=== PATIENT | female | born 1940 | race Caucasian/White ===

== ENCOUNTER 2016-07-13 13:02 | Outpatient (RCR) | payer MEDICARE, OTHER ==
--- OUTSIDE RECORDS SUMMARY | 2016-04-15 10:08 | XMS REPORT | Continuity of Care Document ---
Author Author [facility] Organization [facility] Address Unknown Phone Unavailable Care Team Providers Care Costume Shop Manager Name Role Phone KELLY CALVERT PCP Insurance Providers Payer Name Policy Number Subscriber Name Relationship [employer] [id number] Alexander Muhammad 18 Self / Same As Patient [employer] [id number] Alexander Muhammad 18 Self / Same As Patient Problems No problem information available. Medications No medication information available. Social History Social History Problem Response Recorded Date/Time Recent Foreign Travel No 04/06/2016 11:35am Hospital Discharge Instructions Current inpatient/outpatient. Discharge instructions are currently unavailable. Plan of Care Prescriptions Functional Status No functional status results. Allergies, Adverse Reactions, Alerts No allergy information available. Immunizations No immunization records. Vital Signs No known vital signs results. Results Laboratory Results Test Name Result Units Flags Reference Collection Date/Time Result Date/ Time Comments White Blood Count 7.6 10^3/uL 4.3-11.0 04/01/2016 3:34pm 04/01/2016 3: 42pm Red Blood Count 3.79 10^6/uL L 4.35-5.85 04/01/2016 3:34pm 04/01/2016 3: 42pm Hemoglobin 9.9 G/DL L 11.5-16.0 04/01/2016 3:34pm 04/01/2016 3:42pm Hematocrit 32 % L 35-52 04/01/2016 3:34pm 04/01/2016 3:42pm Mean Corpuscular Volume 83 FL 80-99 04/01/2016 3:3404/01/2016 3: 42pm Mean Corpuscular Hemoglobin 26 PG 25-34 04/01/2016 3:34pm 04/01/2016 3: 42pm Mean Corpuscular Hemoglobin Concent 31 G/DL L 32-36 04/01/2016 3:34 3:42pm Red Cell Distribution Width 15.6 % H 10.0-14.5 04/01/2016 3:34pm 2015 3:42pm Platelet Count 334 10^3/uL 130-400 04/01/2016 3:3404/01/2016 3:42pm Mean Platelet Volume 8.6 FL 7.4-10.4 04/01/2016 3:3404/01/2016 3: 42pm Neutrophils (%) (Auto) 62 % 42-75 04/01/2016 3:04/01/2016 3:42pm Lymphocytes (%) (Auto) 23 % 12-44 04/01/2016 3:04/01/2016 3:42pm Monocytes (%) (Auto) 11 % 0-12 04/01/2016 3:3404/01/2016 3:42pm Eosinophils (%) (Auto) 4 % 0-10 04/01/2016 3:3404/01/2016 3:42pm Basophils (%) (Auto) 1 % 0-10 04/01/2016 3:04/01/2016 3:42pm Neutrophils # (Auto) 4.7 X 10^3 1.8-7.8 04/01/2016 3:34pm 04/01/2016 3: 42pm Lymphocytes # (Auto) 1.7 X 10^3 1.0-4.0 04/01/2016 3:34pm 04/01/2016 3: 42pm Monocytes # (Auto) 0.9 X 10^3 0.0-1.0 04/01/2016 3:3404/01/2016 3: 42pm Eosinophils # (Auto) 0.3 10^3/uL 0.0-0.3 04/01/2016 3:34pm 04/01/2016 3 :42pm Basophils # (Auto) 0.0 10^3/uL 0.0-0.1 04/01/2016 3:3404/01/2016 3: 42pm Sodium Level 142 MMOL/L 135-145 04/01/2016 3:3404/01/2016 4:41pm Potassium Level 4.4 MMOL/L 3.6-5.0 04/01/2016 3:3404/01/2016 4:41pm Chloride Level 108 MMOL/L H 98-107 04/01/2016 3:3404/01/2016 4:41pm Carbon Dioxide Level 23 MMOL/L 21-04/01/2016 3:3404/01/2016 4: 41pm Anion Gap 11 MMOL/L 5-14 04/01/2016 3:3404/01/2016 4:41pm Blood Urea Nitrogen 13 MG/DL 7-04/01/2016 3:04/01/2016 4:41pm Creatinine 0.98 MG/DL 0.60-1.30 04/01/2016 3:3404/01/2016 4:41pm BUN/Creatinine Ratio 13 04/01/2016 3:04/01/2016 4:41pm Estimat Glomerular Filtration Rate 55 04/01/2016 3:04/01/2016 4:41pm GFR INTERPRETIVE DATA UNITS FOR ESTIMATED GFR (eGFR): mL/min/1.73 M2 REFERENCE RANGE FOR ESTIMATED GFR (eGFR) eGFR NORMAL eGFR >60 MODERATELY DECREASED eGFR 30-59 SEVERLY DECREASED eGFR 15-29 KIDNEY FAILURE <15 (OR DIALYSIS) Glucose Level 108 MG/DL H 70-105 04/01/2016 3:04/01/2016 4:41pm Calcium Level 9.2 MG/DL 8.5-10.1 04/01/2016 3:04/01/2016 4:41pm Total Bilirubin 0.3 MG/DL 0.1-1.0 04/01/2016 3:04/01/2016 4:41pm Alkaline Phosphatase 98 U/L 40-136 04/01/2016 3:04/01/2016 4:41pm Aspartate Amino Transf (AST/SGOT) 13 U/L 5-34 04/01/2016 3:342015 4:41pm Alanine Aminotransferase (ALT/SGPT) 14 U/L 0-55 04/01/2016 3:3404/01 4:41pm Total Protein 6.5 G/DL 6.4-8.2 04/01/2016 3:34pm 04/01/2016 4:41pm Albumin 4.0 G/DL 3.2-4.5 04/01/2016 3:34pm 04/01/2016 4:41pm Procedures No known history of procedures. Encounters Encounter Location Arrival/Admit Date Discharge/Depart Date Attending Provider Registered Clinic [facility] 04/06/16 11:38am SAMANTHA SHANKS Discharged Recurring [facility] 04/01/16 1:46pm 10:54am SAMANTHA SHANKS
[2016-04-19 13:47] LABS: BASOPHILS % (AUTO) 1 % (0-10); EOSINOPHILS # (AUTO) 0.3 10^3/uL (0.0-0.3); EOSINOPHILS % (AUTO) 4 % (0-10); LYMPHOCYTES # (AUTO) 1.8 X 10^3 (1.0-4.0); LYMPHOCYTES % (AUTO) 23 % (12-44); MEAN CORPUSCULAR HEMOGLOBIN 28 PG (25-34); MEAN CORPUSCULAR HGB CONC 33 G/DL (32-36); MEAN CORPUSCULAR VOLUME 83 FL (80-99); MEAN PLATELET VOLUME 9.5 FL (7.4-10.4); MONOCYTES # (AUTO) 0.7 X 10^3 (0.0-1.0); MONOCYTES % (AUTO) 9 % (0-12); NEUTROPHILS # (AUTO) 4.8 X 10^3 (1.8-7.8); NEUTROPHILS % (AUTO) 64 % (42-75); PLATELET COUNT 291 10^3/uL (130-400); RED BLOOD COUNT 3.75 10^6/uL (4.35-5.85); RED CELL DISTRIBUTION WIDTH 15.9 % (10.0-14.5); WHITE BLOOD COUNT 7.6 10^3/uL (4.3-11.0)
[2016-04-19 14:46] LABS: ALBUMIN 3.8 G/DL (3.2-4.5); BILIRUBIN,TOTAL 0.2 MG/DL (0.1-1.0); CALCIUM 8.8 MG/DL (8.5-10.1); CREATININE SERUM 0.99 MG/DL (0.60-1.30); POTASSIUM 4.4 MMOL/L (3.6-5.0); TOTAL PROTEIN 6.2 G/DL (6.4-8.2)
[2016-04-26 13:51] LABS: BASOPHILS % (AUTO) 0 % (0-10); EOSINOPHILS # (AUTO) 0.4 10^3/uL (0.0-0.3); EOSINOPHILS % (AUTO) 4 % (0-10); LYMPHOCYTES # (AUTO) 1.7 X 10^3 (1.0-4.0); LYMPHOCYTES % (AUTO) 20 % (12-44); MEAN CORPUSCULAR HEMOGLOBIN 27 PG (25-34); MEAN CORPUSCULAR HGB CONC 33 G/DL (32-36); MEAN CORPUSCULAR VOLUME 83 FL (80-99); MONOCYTES # (AUTO) 0.9 X 10^3 (0.0-1.0); MONOCYTES % (AUTO) 10 % (0-12); NEUTROPHILS # (AUTO) 5.9 X 10^3 (1.8-7.8); NEUTROPHILS % (AUTO) 66 % (42-75); PLATELET COUNT 358 10^3/uL (130-400); RED BLOOD COUNT 3.89 10^6/uL (4.35-5.85); RED CELL DISTRIBUTION WIDTH 15.3 % (10.0-14.5); WHITE BLOOD COUNT 8.9 10^3/uL (4.3-11.0)
[2016-04-26 15:08] LABS: CALCIUM 8.6 MG/DL (8.5-10.1); CREATININE SERUM 0.95 MG/DL (0.60-1.30); POTASSIUM 4.7 MMOL/L (3.6-5.0)
[2016-05-03 11:27] LABS: BASOPHILS % (AUTO) 1 % (0-10); EOSINOPHILS # (AUTO) 0.3 10^3/uL (0.0-0.3); EOSINOPHILS % (AUTO) 3 % (0-10); LYMPHOCYTES # (AUTO) 1.6 X 10^3 (1.0-4.0); LYMPHOCYTES % (AUTO) 21 % (12-44); MEAN CORPUSCULAR HEMOGLOBIN 27 PG (25-34); MEAN CORPUSCULAR HGB CONC 32 G/DL (32-36); MEAN CORPUSCULAR VOLUME 83 FL (80-99); MEAN PLATELET VOLUME 8.8 FL (7.4-10.4); MONOCYTES # (AUTO) 0.7 X 10^3 (0.0-1.0); MONOCYTES % (AUTO) 9 % (0-12); NEUTROPHILS # (AUTO) 5.1 X 10^3 (1.8-7.8); NEUTROPHILS % (AUTO) 67 % (42-75); PLATELET COUNT 305 10^3/uL (130-400); RED BLOOD COUNT 3.84 10^6/uL (4.35-5.85); RED CELL DISTRIBUTION WIDTH 16.3 % (10.0-14.5); WHITE BLOOD COUNT 7.6 10^3/uL (4.3-11.0)
[2016-05-03 11:47] LABS: ANION GAP 10 MMOL/L (5-14); BLOOD UREA NITROGEN 12 MG/DL (7-18); BUN/CREATININE RATIO 14; CALCIUM 9.1 MG/DL (8.5-10.1); CARBON DIOXIDE 24 MMOL/L (21-32); CHLORIDE 105 MMOL/L (98-107); CREATININE SERUM 0.83 MG/DL (0.60-1.30); GFR ESTIMATED > 60; GLUCOSE 118 MG/DL (70-105); POTASSIUM 4.5 MMOL/L (3.6-5.0); SODIUM 139 MMOL/L (135-145)
[2016-05-10 10:09] LABS: BASOPHILS % (AUTO) 1 % (0-10); EOSINOPHILS # (AUTO) 0.3 10^3/uL (0.0-0.3); EOSINOPHILS % (AUTO) 4 % (0-10); LYMPHOCYTES # (AUTO) 1.7 X 10^3 (1.0-4.0); LYMPHOCYTES % (AUTO) 24 % (12-44); MEAN CORPUSCULAR HGB CONC 33 G/DL (32-36); MEAN CORPUSCULAR VOLUME 84 FL (80-99); MEAN PLATELET VOLUME 9.3 FL (7.4-10.4); MONOCYTES # (AUTO) 0.6 X 10^3 (0.0-1.0); MONOCYTES % (AUTO) 9 % (0-12); NEUTROPHILS # (AUTO) 4.3 X 10^3 (1.8-7.8); NEUTROPHILS % (AUTO) 62 % (42-75); PLATELET COUNT 316 10^3/uL (130-400); RED BLOOD COUNT 3.82 10^6/uL (4.35-5.85); WHITE BLOOD COUNT 6.9 10^3/uL (4.3-11.0)
[2016-05-10 10:11] LABS: MEAN CORPUSCULAR HEMOGLOBIN 27 PG (25-34)
[2016-05-10 10:48] LABS: ALBUMIN 3.9 G/DL (3.2-4.5); BILIRUBIN,TOTAL 0.4 MG/DL (0.1-1.0); CALCIUM 8.3 MG/DL (8.5-10.1); CREATININE SERUM 0.94 MG/DL (0.60-1.30); MAGNESIUM 2.1 MG/DL (1.8-2.4); POTASSIUM 4.1 MMOL/L (3.6-5.0); TOTAL PROTEIN 6.4 G/DL (6.4-8.2)
[2016-05-17 10:46] LABS: BASOPHILS % (AUTO) 0 % (0-10); EOSINOPHILS # (AUTO) 0.3 10^3/uL (0.0-0.3); EOSINOPHILS % (AUTO) 4 % (0-10); LYMPHOCYTES % (AUTO) 24 % (12-44); MEAN CORPUSCULAR HEMOGLOBIN 27 PG (25-34); MEAN CORPUSCULAR HGB CONC 33 G/DL (32-36); MEAN CORPUSCULAR VOLUME 83 FL (80-99); MEAN PLATELET VOLUME 8.9 FL (7.4-10.4); MONOCYTES # (AUTO) 0.9 X 10^3 (0.0-1.0); MONOCYTES % (AUTO) 11 % (0-12); NEUTROPHILS # (AUTO) 4.9 X 10^3 (1.8-7.8); NEUTROPHILS % (AUTO) 60 % (42-75); PLATELET COUNT 254 10^3/uL (130-400); RED BLOOD COUNT 3.94 10^6/uL (4.35-5.85); RED CELL DISTRIBUTION WIDTH 17.5 % (10.0-14.5); WHITE BLOOD COUNT 8.1 10^3/uL (4.3-11.0)
[2016-05-17 11:22] LABS: ANION GAP 8 MMOL/L (5-14); BLOOD UREA NITROGEN 11 MG/DL (7-18); BUN/CREATININE RATIO 12; CARBON DIOXIDE 26 MMOL/L (21-32); CHLORIDE 106 MMOL/L (98-107); CREATININE SERUM 0.89 MG/DL (0.60-1.30); GFR ESTIMATED > 60; GLUCOSE 134 MG/DL (70-105); POTASSIUM 4.7 MMOL/L (3.6-5.0); SODIUM 140 MMOL/L (135-145)
[2016-05-24 14:09] LABS: BASOPHILS % (AUTO) 1 % (0-10); EOSINOPHILS # (AUTO) 0.3 10^3/uL (0.0-0.3); EOSINOPHILS % (AUTO) 4 % (0-10); LYMPHOCYTES # (AUTO) 1.6 X 10^3 (1.0-4.0); LYMPHOCYTES % (AUTO) 21 % (12-44); MEAN CORPUSCULAR HEMOGLOBIN 28 PG (25-34); MEAN CORPUSCULAR HGB CONC 33 G/DL (32-36); MEAN CORPUSCULAR VOLUME 84 FL (80-99); MEAN PLATELET VOLUME 9.3 FL (7.4-10.4); MONOCYTES # (AUTO) 0.7 X 10^3 (0.0-1.0); MONOCYTES % (AUTO) 10 % (0-12); NEUTROPHILS # (AUTO) 5.2 X 10^3 (1.8-7.8); NEUTROPHILS % (AUTO) 66 % (42-75); PLATELET COUNT 206 10^3/uL (130-400); RED BLOOD COUNT 3.78 10^6/uL (4.35-5.85); RED CELL DISTRIBUTION WIDTH 18.9 % (10.0-14.5); WHITE BLOOD COUNT 7.8 10^3/uL (4.3-11.0)
[2016-05-24 14:30] LABS: CALCIUM 8.7 MG/DL (8.5-10.1); CREATININE SERUM 0.96 MG/DL (0.60-1.30); POTASSIUM 4.1 MMOL/L (3.6-5.0)
[2016-05-31 09:03] LABS: BASOPHILS % (AUTO) 1 % (0-10); EOSINOPHILS # (AUTO) 0.2 10^3/uL (0.0-0.3); EOSINOPHILS % (AUTO) 4 % (0-10); LYMPHOCYTES # (AUTO) 1.5 X 10^3 (1.0-4.0); LYMPHOCYTES % (AUTO) 23 % (12-44); MEAN CORPUSCULAR HEMOGLOBIN 29 PG (25-34); MEAN CORPUSCULAR HGB CONC 34 G/DL (32-36); MEAN CORPUSCULAR VOLUME 85 FL (80-99); MEAN PLATELET VOLUME 8.8 FL (7.4-10.4); MONOCYTES # (AUTO) 0.8 X 10^3 (0.0-1.0); MONOCYTES % (AUTO) 13 % (0-12); NEUTROPHILS # (AUTO) 3.9 X 10^3 (1.8-7.8); NEUTROPHILS % (AUTO) 60 % (42-75); PLATELET COUNT 250 10^3/uL (130-400); RED BLOOD COUNT 3.57 10^6/uL (4.35-5.85); RED CELL DISTRIBUTION WIDTH 20.5 % (10.0-14.5); WHITE BLOOD COUNT 6.6 10^3/uL (4.3-11.0)
[2016-05-31 09:28] LABS: ALANINE AMINOTRANSFERASE 13 U/L (0-55); ALBUMIN 3.7 G/DL (3.2-4.5); ANION GAP 6 MMOL/L (5-14); ASPARTATE AMINO TRANSFERASE 18 U/L (5-34); BILIRUBIN,TOTAL 0.4 MG/DL (0.1-1.0); BLOOD UREA NITROGEN 11 MG/DL (7-18); BUN/CREATININE RATIO 13; CALCIUM 8.2 MG/DL (8.5-10.1); CARBON DIOXIDE 24 MMOL/L (21-32); CHLORIDE 110 MMOL/L (98-107); CREATININE SERUM 0.86 MG/DL (0.60-1.30); GFR ESTIMATED > 60; GLUCOSE 184 MG/DL (70-105); MAGNESIUM 1.9 MG/DL (1.8-2.4); POTASSIUM 4.1 MMOL/L (3.6-5.0); SODIUM 140 MMOL/L (135-145)
[2016-06-07 11:38] LABS: BASOPHILS % (AUTO) 0 % (0-10); EOSINOPHILS # (AUTO) 0.3 10^3/uL (0.0-0.3); EOSINOPHILS % (AUTO) 3 % (0-10); LYMPHOCYTES # (AUTO) 1.9 X 10^3 (1.0-4.0); LYMPHOCYTES % (AUTO) 21 % (12-44); MEAN CORPUSCULAR HEMOGLOBIN 29 PG (25-34); MEAN CORPUSCULAR HGB CONC 34 G/DL (32-36); MEAN CORPUSCULAR VOLUME 85 FL (80-99); MEAN PLATELET VOLUME 9.1 FL (7.4-10.4); MONOCYTES # (AUTO) 0.9 X 10^3 (0.0-1.0); MONOCYTES % (AUTO) 10 % (0-12); NEUTROPHILS # (AUTO) 5.8 X 10^3 (1.8-7.8); NEUTROPHILS % (AUTO) 65 % (42-75); PLATELET COUNT 270 10^3/uL (130-400); RED BLOOD COUNT 3.89 10^6/uL (4.35-5.85); RED CELL DISTRIBUTION WIDTH 20.2 % (10.0-14.5); WHITE BLOOD COUNT 8.9 10^3/uL (4.3-11.0)
[2016-06-07 12:38] LABS: ANION GAP 8 MMOL/L (5-14); BLOOD UREA NITROGEN 14 MG/DL (7-18); BUN/CREATININE RATIO 16; CALCIUM 8.8 MG/DL (8.5-10.1); CARBON DIOXIDE 24 MMOL/L (21-32); CHLORIDE 106 MMOL/L (98-107); GFR ESTIMATED > 60; GLUCOSE 148 MG/DL (70-105); POTASSIUM 4.3 MMOL/L (3.6-5.0); SODIUM 138 MMOL/L (135-145)
[2016-06-14 12:00] LABS: BASOPHILS % (AUTO) 0 % (0-10); EOSINOPHILS # (AUTO) 0.2 10^3/uL (0.0-0.3); EOSINOPHILS % (AUTO) 3 % (0-10); LYMPHOCYTES # (AUTO) 1.6 X 10^3 (1.0-4.0); LYMPHOCYTES % (AUTO) 19 % (12-44); MEAN CORPUSCULAR HEMOGLOBIN 28 PG (25-34); MEAN CORPUSCULAR HGB CONC 33 G/DL (32-36); MEAN CORPUSCULAR VOLUME 87 FL (80-99); MONOCYTES # (AUTO) 0.7 X 10^3 (0.0-1.0); MONOCYTES % (AUTO) 9 % (0-12); NEUTROPHILS # (AUTO) 5.6 X 10^3 (1.8-7.8); NEUTROPHILS % (AUTO) 69 % (42-75); PLATELET COUNT 215 10^3/uL (130-400); RED BLOOD COUNT 3.67 10^6/uL (4.35-5.85); RED CELL DISTRIBUTION WIDTH 21.9 % (10.0-14.5); WHITE BLOOD COUNT 8.2 10^3/uL (4.3-11.0)
[2016-06-14 12:21] LABS: CALCIUM 8.7 MG/DL (8.5-10.1); CREATININE SERUM 0.96 MG/DL (0.60-1.30); POTASSIUM 4.4 MMOL/L (3.6-5.0)
[2016-06-21 09:39] LABS: BASOPHILS % (AUTO) 0 % (0-10); EOSINOPHILS # (AUTO) 0.3 10^3/uL (0.0-0.3); EOSINOPHILS % (AUTO) 4 % (0-10); LYMPHOCYTES # (AUTO) 1.7 X 10^3 (1.0-4.0); LYMPHOCYTES % (AUTO) 25 % (12-44); MEAN CORPUSCULAR HEMOGLOBIN 29 PG (25-34); MEAN CORPUSCULAR HGB CONC 33 G/DL (32-36); MEAN CORPUSCULAR VOLUME 89 FL (80-99); MEAN PLATELET VOLUME 9.1 FL (7.4-10.4); MONOCYTES # (AUTO) 0.8 X 10^3 (0.0-1.0); MONOCYTES % (AUTO) 12 % (0-12); NEUTROPHILS # (AUTO) 3.9 X 10^3 (1.8-7.8); NEUTROPHILS % (AUTO) 59 % (42-75); PLATELET COUNT 253 10^3/uL (130-400); RED BLOOD COUNT 3.48 10^6/uL (4.35-5.85); WHITE BLOOD COUNT 6.7 10^3/uL (4.3-11.0)
[2016-06-21 10:08] LABS: ALANINE AMINOTRANSFERASE 19 U/L (0-55); ALBUMIN 3.8 G/DL (3.2-4.5); ANION GAP 9 MMOL/L (5-14); ASPARTATE AMINO TRANSFERASE 22 U/L (5-34); BILIRUBIN,TOTAL 0.5 MG/DL (0.1-1.0); BLOOD UREA NITROGEN 9 MG/DL (7-18); BUN/CREATININE RATIO 10; CALCIUM 8.5 MG/DL (8.5-10.1); CARBON DIOXIDE 23 MMOL/L (21-32); CHLORIDE 110 MMOL/L (98-107); CREATININE SERUM 0.87 MG/DL (0.60-1.30); GFR ESTIMATED > 60; GLUCOSE 150 MG/DL (70-105); POTASSIUM 4.2 MMOL/L (3.6-5.0); SODIUM 142 MMOL/L (135-145)
[2016-06-21 14:20] LABS: %SAT TOTAL IRON BINDING CAPIC 13 % (15-50); TIBC 380 ug/dL (280-380)
[2016-06-21 15:58] LABS: UIBC 331 ug/dL (55-450)
[2016-06-22 07:54] LABS: FERRITIN 23 ng/mL (15-150)
[2016-06-28 11:07] LABS: BASOPHILS % (AUTO) 0 % (0-10); EOSINOPHILS # (AUTO) 0.3 10^3/uL (0.0-0.3); EOSINOPHILS % (AUTO) 3 % (0-10); LYMPHOCYTES # (AUTO) 1.7 X 10^3 (1.0-4.0); LYMPHOCYTES % (AUTO) 20 % (12-44); MEAN CORPUSCULAR HEMOGLOBIN 30 PG (25-34); MEAN CORPUSCULAR HGB CONC 33 G/DL (32-36); MEAN CORPUSCULAR VOLUME 90 FL (80-99); MEAN PLATELET VOLUME 8.7 FL (7.4-10.4); MONOCYTES # (AUTO) 0.8 X 10^3 (0.0-1.0); MONOCYTES % (AUTO) 10 % (0-12); NEUTROPHILS # (AUTO) 5.7 X 10^3 (1.8-7.8); NEUTROPHILS % (AUTO) 67 % (42-75); PLATELET COUNT 233 10^3/uL (130-400); RED BLOOD COUNT 3.48 10^6/uL (4.35-5.85); RED CELL DISTRIBUTION WIDTH 22.2 % (10.0-14.5); WHITE BLOOD COUNT 8.6 10^3/uL (4.3-11.0)
[2016-06-28 11:31] LABS: ANION GAP 8 MMOL/L (5-14); BLOOD UREA NITROGEN 10 MG/DL (7-18); BUN/CREATININE RATIO 12; CALCIUM 8.5 MG/DL (8.5-10.1); CARBON DIOXIDE 23 MMOL/L (21-32); CHLORIDE 107 MMOL/L (98-107); CREATININE SERUM 0.86 MG/DL (0.60-1.30); GFR ESTIMATED > 60; GLUCOSE 165 MG/DL (70-105); POTASSIUM 4.3 MMOL/L (3.6-5.0); SODIUM 138 MMOL/L (135-145)
[2016-07-06 11:59] LABS: BASOPHILS % (AUTO) 0 % (0-10); EOSINOPHILS # (AUTO) 0.3 10^3/uL (0.0-0.3); EOSINOPHILS % (AUTO) 4 % (0-10); LYMPHOCYTES # (AUTO) 1.5 X 10^3 (1.0-4.0); LYMPHOCYTES % (AUTO) 20 % (12-44); MEAN CORPUSCULAR HEMOGLOBIN 31 PG (25-34); MEAN CORPUSCULAR HGB CONC 33 G/DL (32-36); MEAN CORPUSCULAR VOLUME 92 FL (80-99); MEAN PLATELET VOLUME 9.7 FL (7.4-10.4); MONOCYTES # (AUTO) 0.6 X 10^3 (0.0-1.0); MONOCYTES % (AUTO) 9 % (0-12); NEUTROPHILS % (AUTO) 68 % (42-75); PLATELET COUNT 196 10^3/uL (130-400); RED BLOOD COUNT 3.22 10^6/uL (4.35-5.85); RED CELL DISTRIBUTION WIDTH 22.9 % (10.0-14.5); WHITE BLOOD COUNT 7.4 10^3/uL (4.3-11.0)
[2016-07-06 12:19] LABS: CALCIUM 8.3 MG/DL (8.5-10.1); CREATININE SERUM 0.91 MG/DL (0.60-1.30)
[~2016-07-13] VITALS: Ht 161.3 cm; Wt 89.8 kg
[~2016-07-13 13:02] MED LIST: D5W 500 ML IV (CANCER CTR) 500 ML IV SCH; FAMOTIDINE 20MG/2ML IV (CANCER CTR) IV SCH; FOSAPREPITANT 150 MG/NS 150 MG IVPB (CANCER CTR) IV PRN; LORazepam 0.5 MG (ATIVAN) TABLET CANCER CTR PO PRN; OXALIPLATIN 160 MG in D5W 250 ML IVPB (CANCER CTR) 250 ML IV SCH; PALONOSETRON 0.25 MG, DEXAMETHASONE 10 MG/NS 50 ML IVPB IV PRN
[2016-07-13 13:17] LABS: BASOPHILS % (AUTO) 0 % (0-10); EOSINOPHILS # (AUTO) 0.3 10^3/uL (0.0-0.3); EOSINOPHILS % (AUTO) 5 % (0-10); LYMPHOCYTES # (AUTO) 1.7 X 10^3 (1.0-4.0); LYMPHOCYTES % (AUTO) 23 % (12-44); MEAN CORPUSCULAR HEMOGLOBIN 32 PG (25-34); MEAN CORPUSCULAR HGB CONC 33 G/DL (32-36); MEAN CORPUSCULAR VOLUME 94 FL (80-99); MEAN PLATELET VOLUME 8.6 FL (7.4-10.4); MONOCYTES # (AUTO) 0.9 X 10^3 (0.0-1.0); MONOCYTES % (AUTO) 12 % (0-12); NEUTROPHILS # (AUTO) 4.2 X 10^3 (1.8-7.8); NEUTROPHILS % (AUTO) 59 % (42-75); PLATELET COUNT 254 10^3/uL (130-400); RED BLOOD COUNT 3.39 10^6/uL (4.35-5.85); RED CELL DISTRIBUTION WIDTH 23.8 % (10.0-14.5); WHITE BLOOD COUNT 7.1 10^3/uL (4.3-11.0)
[2016-07-13 13:41] LABS: ALANINE AMINOTRANSFERASE 17 U/L (0-55); ALBUMIN 3.8 G/DL (3.2-4.5); ANION GAP 9 MMOL/L (5-14); ASPARTATE AMINO TRANSFERASE 20 U/L (5-34); BILIRUBIN,TOTAL 0.5 MG/DL (0.1-1.0); BLOOD UREA NITROGEN 7 MG/DL (7-18); BUN/CREATININE RATIO 8; CALCIUM 8.2 MG/DL (8.5-10.1); CARBON DIOXIDE 20 MMOL/L (21-32); CHLORIDE 108 MMOL/L (98-107); CREATININE SERUM 0.89 MG/DL (0.60-1.30); GFR ESTIMATED > 60; GLUCOSE 159 MG/DL (70-105); MAGNESIUM 2.1 MG/DL (1.8-2.4); POTASSIUM 4.2 MMOL/L (3.6-5.0); SODIUM 137 MMOL/L (135-145); TOTAL PROTEIN 6.2 G/DL (6.4-8.2)
== END 2016-07-14 | disposition home or self-care (01) ==
LOC: ONC 13:02
PROVIDERS: ATTEND Internal Medicine Hematology & Oncology
DX: Z51.11 Encounter for antineoplastic chemotherapy (principal); C18.0 Malignant neoplasm of cecum; E11.9 Type 2 diabetes mellitus without complications; K44.9 Diaphragmatic hernia without obstruction or gangrene; Z87.891 Personal history of nicotine dependence
CPT/HCPCS: 36415; 36591; 80048; 80053; 82728; 83540; 83735; 85025; 87493; 96367; 96375; 96413; 96415; 99213

== ENCOUNTER 2016-10-04 14:51 | Outpatient (RCR) | payer MEDICARE, OTHER ==
--- OUTSIDE RECORDS SUMMARY | 2016-07-19 14:44 | XMS REPORT | Continuity of Care Document ---
Author Author [facility] Organization [facility] Address Unknown Phone Unavailable Care Team Providers Care Valet Service Attendant Name Role Phone KELLY CALVERT PCP Insurance Providers Payer Name Policy Number Subscriber Name Relationship [employer] [id number] Alexander Muhammad 18 Self / Same As Patient [employer] [id number] Alexander Muhammad 18 Self / Same As Patient Problems No problem information available. Medications No medication information available. Social History Social History Problem Response Recorded Date/Time Recent Foreign Travel No 04/15/2016 10:03am Hospital Discharge Instructions No hospital discharge instructions. Plan of Care Prescriptions See Medication Section Functional Status No functional status results. Allergies, Adverse Reactions, Alerts No known allergies. Immunizations No immunization records. Vital Signs Acute Vital Signs Vital Response Date/Time Height 5 ft 3.5 in Weight 198 lb Body Mass Index 34.5 kg/m^2 Results Laboratory Results Test Name Result Units Flags Reference Collection Date/Time Result Date/ Time Comments White Blood Count 7.1 10^3/uL 4.3-11.0 07/13/2016 1:12pm 07/13/2016 1: 18pm Red Blood Count 3.39 10^6/uL L 4.35-5.85 07/13/2016 1:12pm 07/13/2016 1: 18pm Hemoglobin 10.7 G/DL L 11.5-16.0 07/13/2016 1:12pm 07/13/2016 1:18pm Hematocrit 32 % L 35-52 07/13/2016 1:12pm 07/13/2016 1:18pm Mean Corpuscular Volume 94 FL 80-99 07/13/2016 1:12pm 07/13/2016 1: 18pm Mean Corpuscular Hemoglobin 32 PG 25-34 07/13/2016 1:12pm 07/13/2016 1: 18pm Mean Corpuscular Hemoglobin Concent 33 G/DL 32-36 07/13/2016 1:12pm 09/2016 1:18pm Red Cell Distribution Width 23.8 % H 10.0-14.5 07/13/2016 1:12pm 2016 1:18pm Platelet Count 254 10^3/uL 130-400 07/13/2016 1:12pm 07/13/2016 1:18pm Mean Platelet Volume 8.6 FL 7.4-10.4 07/13/2016 1:12pm 07/13/2016 1: 18pm Neutrophils (%) (Auto) 59 % 42-75 07/13/2016 1:12pm 07/13/2016 1:18pm Lymphocytes (%) (Auto) 23 % 12-44 07/13/2016 1:12pm 07/13/2016 1:18pm Monocytes (%) (Auto) 12 % 0-12 07/13/2016 1:12pm 07/13/2016 1:18pm Eosinophils (%) (Auto) 5 % 0-10 07/13/2016 1:12pm 07/13/2016 1:18pm Basophils (%) (Auto) 0 % 0-10 07/13/2016 1:12pm 07/13/2016 1:18pm Neutrophils # (Auto) 4.2 X 10^3 1.8-7.8 07/13/2016 1:12pm 07/13/2016 1: 18pm Lymphocytes # (Auto) 1.7 X 10^3 1.0-4.0 07/13/2016 1:12pm 07/13/2016 1: 18pm Monocytes # (Auto) 0.9 X 10^3 0.0-1.0 07/13/2016 1:12pm 07/13/2016 1: 18pm Eosinophils # (Auto) 0.3 10^3/uL 0.0-0.3 07/13/2016 1:07/13/2016 1 :18pm Basophils # (Auto) 0.0 10^3/uL 0.0-0.1 07/13/2016 1:07/13/2016 1: 18pm Sodium Level 137 MMOL/L 135-145 07/13/2016 1:07/13/2016 1:41pm Potassium Level 4.2 MMOL/L 3.6-5.0 07/13/2016 1:07/13/2016 1:41pm Chloride Level 108 MMOL/L H 98-107 07/13/2016 1:07/13/2016 1:41pm Carbon Dioxide Level 20 MMOL/L L 21-32 07/13/2016 1:07/13/2016 1: 41pm Anion Gap 9 MMOL/L 5-14 07/13/2016 1:07/13/2016 1:41pm Blood Urea Nitrogen 7 MG/DL 7-18 07/13/2016 1:12p07/13/2016 1:41pm Creatinine 0.89 MG/DL 0.60-1.30 07/13/2016 1:07/13/2016 1:41pm BUN/Creatinine Ratio 8 07/13/2016 1:07/13/2016 1:41pm Estimat Glomerular Filtration Rate > 60 07/13/2016 1:2016 1:41pm GFR INTERPRETIVE DATA UNITS FOR ESTIMATED GFR (eGFR): mL/min/1.73 M2 REFERENCE RANGE FOR ESTIMATED GFR (eGFR) eGFR NORMAL eGFR >60 MODERATELY DECREASED eGFR 30-59 SEVERLY DECREASED eGFR 15-29 KIDNEY FAILURE <15 (OR DIALYSIS) Glucose Level 159 MG/DL H 70-105 07/13/2016 1:07/13/2016 1:41pm Calcium Level 8.2 MG/DL L 8.5-10.1 07/13/2016 1:07/13/2016 1:41pm Magnesium Level 2.1 MG/DL 1.8-2.4 07/13/2016 1:07/13/2016 1:41pm Total Bilirubin 0.5 MG/DL 0.1-1.0 07/13/2016 1:12p07/13/2016 1:41pm Alkaline Phosphatase 138 U/L H 40-136 07/13/2016 1:12pm 07/13/2016 1: 41pm Aspartate Amino Transf (AST/SGOT) 20 U/L 5-34 07/13/2016 1:12pm 2016 1:41pm Alanine Aminotransferase (ALT/SGPT) 17 U/L 0-55 07/13/2016 1:12pm 07/13 1:41pm Total Protein 6.2 G/DL L 6.4-8.2 07/13/2016 1:12pm 07/13/2016 1:41pm Albumin 3.8 G/DL 3.2-4.5 07/13/2016 1:12pm 07/13/2016 1:41pm Ferritin 23 ng/mL 15-150 06/21/2016 10:25am 06/22/2016 7:54am Test performed at [facility], CLIA# [id number] [place] [address] Iron Level 49 ug/dL 35-180 06/21/2016 10:25am 06/21/2016 3:58pm Transferrin % Saturation 13 % L 15-50 06/21/2016 10:25am 06/21/2016 3: 58pm Total Iron Binding Capacity 380 ug/dL 280-380 06/21/2016 10:25am 2015 3:58pm Unsaturated Iron Binding Capacity 331 ug/dL 55-450 06/21/2016 10:25am 06/21/2016 3:58pm Test performed at [facility], CLIA# [id number] [address] [place] [address] Procedures No known history of procedures. Encounters Encounter Location Arrival/Admit Date Discharge/Depart Date Attending Provider Discharged Recurring [facility] 07/13/16 1:02pm 11:59pm SAMANTHA SHANKS
[2016-07-19 14:58] LABS: BASOPHILS % (AUTO) 0 % (0-10); EOSINOPHILS # (AUTO) 0.2 10^3/uL (0.0-0.3); EOSINOPHILS % (AUTO) 2 % (0-10); LYMPHOCYTES # (AUTO) 1.9 X 10^3 (1.0-4.0); LYMPHOCYTES % (AUTO) 21 % (12-44); MEAN CORPUSCULAR HEMOGLOBIN 31 PG (25-34); MEAN CORPUSCULAR HGB CONC 33 G/DL (32-36); MEAN CORPUSCULAR VOLUME 95 FL (80-99); MEAN PLATELET VOLUME 9.1 FL (7.4-10.4); MONOCYTES % (AUTO) 11 % (0-12); NEUTROPHILS # (AUTO) 5.9 X 10^3 (1.8-7.8); NEUTROPHILS % (AUTO) 66 % (42-75); PLATELET COUNT 248 10^3/uL (130-400); RED BLOOD COUNT 3.63 10^6/uL (4.35-5.85); RED CELL DISTRIBUTION WIDTH 21.5 % (10.0-14.5)
[2016-07-19 15:55] LABS: CREATININE SERUM 1.04 MG/DL (0.60-1.30); POTASSIUM 4.9 MMOL/L (3.6-5.0)
[2016-07-26 13:50] LABS: BASOPHILS % (AUTO) 1 % (0-10); EOSINOPHILS # (AUTO) 0.3 10^3/uL (0.0-0.3); EOSINOPHILS % (AUTO) 3 % (0-10); LYMPHOCYTES # (AUTO) 1.7 X 10^3 (1.0-4.0); LYMPHOCYTES % (AUTO) 21 % (12-44); MEAN CORPUSCULAR HEMOGLOBIN 32 PG (25-34); MEAN CORPUSCULAR HGB CONC 34 G/DL (32-36); MEAN CORPUSCULAR VOLUME 96 FL (80-99); MEAN PLATELET VOLUME 9.1 FL (7.4-10.4); MONOCYTES # (AUTO) 0.9 X 10^3 (0.0-1.0); MONOCYTES % (AUTO) 11 % (0-12); NEUTROPHILS # (AUTO) 5.3 X 10^3 (1.8-7.8); NEUTROPHILS % (AUTO) 65 % (42-75); PLATELET COUNT 212 10^3/uL (130-400); RED BLOOD COUNT 3.21 10^6/uL (4.35-5.85); RED CELL DISTRIBUTION WIDTH 21.6 % (10.0-14.5); WHITE BLOOD COUNT 8.2 10^3/uL (4.3-11.0)
[2016-07-26 14:25] LABS: ANION GAP 9 MMOL/L (5-14); BLOOD UREA NITROGEN 10 MG/DL (7-18); BUN/CREATININE RATIO 11; CALCIUM 8.6 MG/DL (8.5-10.1); CARBON DIOXIDE 23 MMOL/L (21-32); CHLORIDE 110 MMOL/L (98-107); CREATININE SERUM 0.89 MG/DL (0.60-1.30); GFR ESTIMATED > 60; GLUCOSE 162 MG/DL (70-105); POTASSIUM 4.5 MMOL/L (3.6-5.0); SODIUM 142 MMOL/L (135-145)
[2016-08-02 10:26] LABS: BASOPHILS % (AUTO) 0 % (0-10); EOSINOPHILS # (AUTO) 0.3 10^3/uL (0.0-0.3); EOSINOPHILS % (AUTO) 4 % (0-10); LYMPHOCYTES # (AUTO) 1.3 X 10^3 (1.0-4.0); LYMPHOCYTES % (AUTO) 17 % (12-44); MEAN CORPUSCULAR HEMOGLOBIN 33 PG (25-34); MEAN CORPUSCULAR HGB CONC 34 G/DL (32-36); MEAN CORPUSCULAR VOLUME 98 FL (80-99); MEAN PLATELET VOLUME 9.2 FL (7.4-10.4); MONOCYTES # (AUTO) 0.9 X 10^3 (0.0-1.0); MONOCYTES % (AUTO) 12 % (0-12); NEUTROPHILS # (AUTO) 5.1 X 10^3 (1.8-7.8); NEUTROPHILS % (AUTO) 67 % (42-75); PLATELET COUNT 254 10^3/uL (130-400); RED BLOOD COUNT 3.22 10^6/uL (4.35-5.85); RED CELL DISTRIBUTION WIDTH 22.3 % (10.0-14.5); WHITE BLOOD COUNT 7.5 10^3/uL (4.3-11.0)
[2016-08-02 10:57] LABS: ALBUMIN 3.6 G/DL (3.2-4.5); BILIRUBIN,TOTAL 0.4 MG/DL (0.1-1.0); CALCIUM 8.3 MG/DL (8.5-10.1); CREATININE SERUM 0.92 MG/DL (0.60-1.30); MAGNESIUM 1.9 MG/DL (1.8-2.4); POTASSIUM 4.2 MMOL/L (3.6-5.0); TOTAL PROTEIN 5.9 G/DL (6.4-8.2)
[2016-08-09 13:58] LABS: BASOPHILS % (AUTO) 0 % (0-10); EOSINOPHILS # (AUTO) 0.3 10^3/uL (0.0-0.3); EOSINOPHILS % (AUTO) 4 % (0-10); LYMPHOCYTES # (AUTO) 1.9 X 10^3 (1.0-4.0); LYMPHOCYTES % (AUTO) 22 % (12-44); MEAN CORPUSCULAR HEMOGLOBIN 34 PG (25-34); MEAN CORPUSCULAR HGB CONC 34 G/DL (32-36); MEAN CORPUSCULAR VOLUME 99 FL (80-99); MONOCYTES # (AUTO) 0.9 X 10^3 (0.0-1.0); MONOCYTES % (AUTO) 10 % (0-12); NEUTROPHILS # (AUTO) 5.5 X 10^3 (1.8-7.8); NEUTROPHILS % (AUTO) 64 % (42-75); PLATELET COUNT 197 10^3/uL (130-400); RED CELL DISTRIBUTION WIDTH 20.1 % (10.0-14.5); WHITE BLOOD COUNT 8.6 10^3/uL (4.3-11.0)
[2016-08-09 15:01] LABS: CALCIUM 8.5 MG/DL (8.5-10.1); CREATININE SERUM 0.98 MG/DL (0.60-1.30); POTASSIUM 4.5 MMOL/L (3.6-5.0)
[2016-08-16 11:01] LABS: BASOPHILS % (AUTO) 0 % (0-10); EOSINOPHILS # (AUTO) 0.3 10^3/uL (0.0-0.3); EOSINOPHILS % (AUTO) 4 % (0-10); LYMPHOCYTES # (AUTO) 1.6 X 10^3 (1.0-4.0); LYMPHOCYTES % (AUTO) 22 % (12-44); MEAN CORPUSCULAR HEMOGLOBIN 34 PG (25-34); MEAN CORPUSCULAR HGB CONC 34 G/DL (32-36); MEAN CORPUSCULAR VOLUME 99 FL (80-99); MEAN PLATELET VOLUME 9.4 FL (7.4-10.4); MONOCYTES # (AUTO) 0.9 X 10^3 (0.0-1.0); MONOCYTES % (AUTO) 12 % (0-12); NEUTROPHILS # (AUTO) 4.7 X 10^3 (1.8-7.8); NEUTROPHILS % (AUTO) 63 % (42-75); PLATELET COUNT 197 10^3/uL (130-400); RED BLOOD COUNT 3.22 10^6/uL (4.35-5.85); RED CELL DISTRIBUTION WIDTH 20.4 % (10.0-14.5); WHITE BLOOD COUNT 7.5 10^3/uL (4.3-11.0)
[2016-08-16 12:13] LABS: ANION GAP 9 MMOL/L (5-14); BLOOD UREA NITROGEN 11 MG/DL (7-18); BUN/CREATININE RATIO 13; CALCIUM 8.8 MG/DL (8.5-10.1); CARBON DIOXIDE 24 MMOL/L (21-32); CHLORIDE 107 MMOL/L (98-107); CREATININE SERUM 0.87 MG/DL (0.60-1.30); GFR ESTIMATED > 60; GLUCOSE 134 MG/DL (70-105); POTASSIUM 4.5 MMOL/L (3.6-5.0); SODIUM 140 MMOL/L (135-145)
[2016-08-23 11:11] LABS: BASOPHILS % (AUTO) 0 % (0-10); EOSINOPHILS # (AUTO) 0.3 10^3/uL (0.0-0.3); EOSINOPHILS % (AUTO) 4 % (0-10); LYMPHOCYTES # (AUTO) 1.4 X 10^3 (1.0-4.0); LYMPHOCYTES % (AUTO) 21 % (12-44); MEAN CORPUSCULAR HEMOGLOBIN 34 PG (25-34); MEAN CORPUSCULAR HGB CONC 34 G/DL (32-36); MEAN CORPUSCULAR VOLUME 101 FL (80-99); MEAN PLATELET VOLUME 9.6 FL (7.4-10.4); MONOCYTES # (AUTO) 0.7 X 10^3 (0.0-1.0); MONOCYTES % (AUTO) 11 % (0-12); NEUTROPHILS # (AUTO) 4.1 X 10^3 (1.8-7.8); NEUTROPHILS % (AUTO) 64 % (42-75); PLATELET COUNT 201 10^3/uL (130-400); RED BLOOD COUNT 3.08 10^6/uL (4.35-5.85); RED CELL DISTRIBUTION WIDTH 19.8 % (10.0-14.5); WHITE BLOOD COUNT 6.4 10^3/uL (4.3-11.0)
[2016-08-23 11:29] LABS: ALBUMIN 3.6 G/DL (3.2-4.5); BILIRUBIN,TOTAL 0.5 MG/DL (0.1-1.0); CALCIUM 8.4 MG/DL (8.5-10.1); CREATININE SERUM 1.03 MG/DL (0.60-1.30); MAGNESIUM 1.8 MG/DL (1.8-2.4); POTASSIUM 4.4 MMOL/L (3.6-5.0)
[2016-08-30 14:09] LABS: BASOPHILS % (AUTO) 0 % (0-10); EOSINOPHILS # (AUTO) 0.3 10^3/uL (0.0-0.3); EOSINOPHILS % (AUTO) 4 % (0-10); LYMPHOCYTES # (AUTO) 1.8 X 10^3 (1.0-4.0); LYMPHOCYTES % (AUTO) 20 % (12-44); MEAN CORPUSCULAR HEMOGLOBIN 34 PG (25-34); MEAN CORPUSCULAR HGB CONC 34 G/DL (32-36); MEAN CORPUSCULAR VOLUME 101 FL (80-99); MEAN PLATELET VOLUME 9.8 FL (7.4-10.4); MONOCYTES # (AUTO) 0.9 X 10^3 (0.0-1.0); MONOCYTES % (AUTO) 10 % (0-12); NEUTROPHILS # (AUTO) 6.1 X 10^3 (1.8-7.8); NEUTROPHILS % (AUTO) 67 % (42-75); PLATELET COUNT 194 10^3/uL (130-400); RED BLOOD COUNT 3.26 10^6/uL (4.35-5.85); RED CELL DISTRIBUTION WIDTH 18.6 % (10.0-14.5); WHITE BLOOD COUNT 9.2 10^3/uL (4.3-11.0)
[2016-08-30 15:17] LABS: CALCIUM 8.6 MG/DL (8.5-10.1); CREATININE SERUM 0.97 MG/DL (0.60-1.30); POTASSIUM 4.9 MMOL/L (3.6-5.0)
[2016-09-06 12:58] LABS: BASOPHILS % (AUTO) 0 % (0-10); EOSINOPHILS # (AUTO) 0.3 10^3/uL (0.0-0.3); EOSINOPHILS % (AUTO) 4 % (0-10); LYMPHOCYTES # (AUTO) 1.8 X 10^3 (1.0-4.0); LYMPHOCYTES % (AUTO) 25 % (12-44); MEAN CORPUSCULAR HEMOGLOBIN 34 PG (25-34); MEAN CORPUSCULAR HGB CONC 34 G/DL (32-36); MEAN CORPUSCULAR VOLUME 101 FL (80-99); MEAN PLATELET VOLUME 9.2 FL (7.4-10.4); MONOCYTES # (AUTO) 0.9 X 10^3 (0.0-1.0); MONOCYTES % (AUTO) 12 % (0-12); NEUTROPHILS # (AUTO) 4.3 X 10^3 (1.8-7.8); NEUTROPHILS % (AUTO) 59 % (42-75); PLATELET COUNT 169 10^3/uL (130-400); RED CELL DISTRIBUTION WIDTH 18.9 % (10.0-14.5); WHITE BLOOD COUNT 7.3 10^3/uL (4.3-11.0)
[2016-09-06 13:41] LABS: CALCIUM 8.7 MG/DL (8.5-10.1); CREATININE SERUM 0.96 MG/DL (0.60-1.30); POTASSIUM 4.4 MMOL/L (3.6-5.0)
[2016-09-13 11:22] LABS: POTASSIUM 4.3 MMOL/L (3.6-5.0)
[2016-09-13 11:23] LABS: ALBUMIN 3.5 G/DL (3.2-4.5); BILIRUBIN,TOTAL 0.6 MG/DL (0.1-1.0); CALCIUM 8.5 MG/DL (8.5-10.1); CREATININE SERUM 0.96 MG/DL (0.60-1.30); MAGNESIUM 1.7 MG/DL (1.8-2.4)
[2016-09-13 11:50] LABS: BASOPHILS % (AUTO) 0 % (0-10); EOSINOPHILS # (AUTO) 0.3 10^3/uL (0.0-0.3); EOSINOPHILS % (AUTO) 4 % (0-10); LYMPHOCYTES # (AUTO) 1.5 X 10^3 (1.0-4.0); LYMPHOCYTES % (AUTO) 24 % (12-44); MEAN CORPUSCULAR HEMOGLOBIN 35 PG (25-34); MEAN CORPUSCULAR HGB CONC 35 G/DL (32-36); MEAN CORPUSCULAR VOLUME 102 FL (80-99); MEAN PLATELET VOLUME 10.3 FL (7.4-10.4); MONOCYTES # (AUTO) 0.7 X 10^3 (0.0-1.0); MONOCYTES % (AUTO) 12 % (0-12); NEUTROPHILS # (AUTO) 3.7 X 10^3 (1.8-7.8); NEUTROPHILS % (AUTO) 60 % (42-75); PLATELET COUNT 201 10^3/uL (130-400); RED BLOOD COUNT 3.08 10^6/uL (4.35-5.85); WHITE BLOOD COUNT 6.2 10^3/uL (4.3-11.0)
[2016-09-20 11:28] LABS: BASOPHILS % (AUTO) 0 % (0-10); EOSINOPHILS # (AUTO) 0.3 10^3/uL (0.0-0.3); EOSINOPHILS % (AUTO) 3 % (0-10); LYMPHOCYTES # (AUTO) 1.7 X 10^3 (1.0-4.0); LYMPHOCYTES % (AUTO) 21 % (12-44); MEAN CORPUSCULAR HEMOGLOBIN 34 PG (25-34); MEAN CORPUSCULAR HGB CONC 33 G/DL (32-36); MEAN CORPUSCULAR VOLUME 103 FL (80-99); MEAN PLATELET VOLUME 9.3 FL (7.4-10.4); MONOCYTES # (AUTO) 0.9 X 10^3 (0.0-1.0); MONOCYTES % (AUTO) 11 % (0-12); NEUTROPHILS # (AUTO) 5.3 X 10^3 (1.8-7.8); NEUTROPHILS % (AUTO) 65 % (42-75); PLATELET COUNT 168 10^3/uL (130-400); RED BLOOD COUNT 3.24 10^6/uL (4.35-5.85); RED CELL DISTRIBUTION WIDTH 17.6 % (10.0-14.5); WHITE BLOOD COUNT 8.2 10^3/uL (4.3-11.0)
[2016-09-20 11:54] LABS: CALCIUM 8.6 MG/DL (8.5-10.1); CREATININE SERUM 0.91 MG/DL (0.60-1.30); POTASSIUM 4.6 MMOL/L (3.6-5.0)
[2016-09-27 14:11] LABS: BASOPHILS % (AUTO) 1 % (0-10); EOSINOPHILS # (AUTO) 0.2 10^3/uL (0.0-0.3); EOSINOPHILS % (AUTO) 4 % (0-10); LYMPHOCYTES # (AUTO) 1.6 X 10^3 (1.0-4.0); LYMPHOCYTES % (AUTO) 24 % (12-44); MEAN CORPUSCULAR HEMOGLOBIN 35 PG (25-34); MEAN CORPUSCULAR HGB CONC 34 G/DL (32-36); MEAN CORPUSCULAR VOLUME 103 FL (80-99); MEAN PLATELET VOLUME 9.4 FL (7.4-10.4); MONOCYTES # (AUTO) 0.8 X 10^3 (0.0-1.0); MONOCYTES % (AUTO) 12 % (0-12); NEUTROPHILS % (AUTO) 61 % (42-75); PLATELET COUNT 166 10^3/uL (130-400); WHITE BLOOD COUNT 6.6 10^3/uL (4.3-11.0)
[2016-09-27 15:04] LABS: CALCIUM 8.4 MG/DL (8.5-10.1); CREATININE SERUM 1.04 MG/DL (0.60-1.30); POTASSIUM 4.3 MMOL/L (3.6-5.0)
[~2016-10-04] VITALS: Ht 161.3 cm; Wt 96.2 kg
[~2016-10-04 14:51] MED LIST changes: +OXALIPLATIN 100 MG, OXALIPLATIN (GENERIC) 30 MG in D5W 250 ML IVPB (CANCER CTR) 250 ML IV SCH
[2016-10-04 15:20] LABS: BASOPHILS % (AUTO) 1 % (0-10); EOSINOPHILS # (AUTO) 0.3 10^3/uL (0.0-0.3); EOSINOPHILS % (AUTO) 5 % (0-10); LYMPHOCYTES # (AUTO) 1.6 X 10^3 (1.0-4.0); LYMPHOCYTES % (AUTO) 26 % (12-44); MEAN CORPUSCULAR HEMOGLOBIN 35 PG (25-34); MEAN CORPUSCULAR HGB CONC 34 G/DL (32-36); MEAN CORPUSCULAR VOLUME 103 FL (80-99); MEAN PLATELET VOLUME 9.4 FL (7.4-10.4); MONOCYTES # (AUTO) 0.7 X 10^3 (0.0-1.0); MONOCYTES % (AUTO) 11 % (0-12); NEUTROPHILS # (AUTO) 3.6 X 10^3 (1.8-7.8); NEUTROPHILS % (AUTO) 58 % (42-75); PLATELET COUNT 193 10^3/uL (130-400); RED BLOOD COUNT 3.04 10^6/uL (4.35-5.85); RED CELL DISTRIBUTION WIDTH 17.5 % (10.0-14.5); WHITE BLOOD COUNT 6.1 10^3/uL (4.3-11.0)
[2016-10-04 16:04] LABS: ALBUMIN 3.6 G/DL (3.2-4.5); BILIRUBIN,TOTAL 0.5 MG/DL (0.1-1.0); CALCIUM 8.3 MG/DL (8.5-10.1); CREATININE SERUM 1.12 MG/DL (0.60-1.30); MAGNESIUM 1.9 MG/DL (1.8-2.4); POTASSIUM 3.8 MMOL/L (3.6-5.0); TOTAL PROTEIN 6.2 G/DL (6.4-8.2)
== END 2016-10-17 | disposition home or self-care (01) ==
LOC: ONC 14:51
PROVIDERS: ATTEND Internal Medicine Hematology & Oncology
DX: Z51.11 Encounter for antineoplastic chemotherapy (principal); C18.0 Malignant neoplasm of cecum; D50.9 Iron deficiency anemia, unspecified; E11.9 Type 2 diabetes mellitus without complications; K44.9 Diaphragmatic hernia without obstruction or gangrene; R19.7 Diarrhea, unspecified; Z87.891 Personal history of nicotine dependence
CPT/HCPCS: 36415; 36591; 80048; 80053; 82378; 82728; 83735; 85025; 96367; 96375; 96413; 99213

== ENCOUNTER 2017-02-08 13:49 | Outpatient (RCR) | payer MEDICARE, OTHER ==
[2016-12-28 14:45] LABS: BASOPHILS % (AUTO) 0 % (0-10); EOSINOPHILS # (AUTO) 0.4 10^3/uL (0.0-0.3); EOSINOPHILS % (AUTO) 4 % (0-10); LYMPHOCYTES # (AUTO) 1.9 X 10^3 (1.0-4.0); LYMPHOCYTES % (AUTO) 22 % (12-44); MEAN CORPUSCULAR HEMOGLOBIN 31 PG (25-34); MEAN CORPUSCULAR HGB CONC 34 G/DL (32-36); MEAN CORPUSCULAR VOLUME 91 FL (80-99); MEAN PLATELET VOLUME 9.9 FL (7.4-10.4); MONOCYTES # (AUTO) 0.6 X 10^3 (0.0-1.0); MONOCYTES % (AUTO) 7 % (0-12); NEUTROPHILS # (AUTO) 5.5 X 10^3 (1.8-7.8); NEUTROPHILS % (AUTO) 66 % (42-75); PLATELET COUNT 258 10^3/uL (130-400); RED BLOOD COUNT 3.99 10^6/uL (4.35-5.85); RED CELL DISTRIBUTION WIDTH 12.6 % (10.0-14.5); WHITE BLOOD COUNT 8.3 10^3/uL (4.3-11.0)
[2016-12-28 15:10] LABS: BILIRUBIN,TOTAL 0.5 MG/DL (0.1-1.0); CREATININE SERUM 1.13 MG/DL (0.60-1.30); ICTERUS 0.4 (-100-1.9); MAGNESIUM 2.1 MG/DL (1.8-2.4); POTASSIUM 4.3 MMOL/L (3.6-5.0); TOTAL PROTEIN 7.1 GM/DL (6.4-8.2)
== END 2017-02-13 | disposition home or self-care (01) ==
LOC: ONC 13:49
PROVIDERS: ATTEND Internal Medicine Hematology & Oncology
DX: C18.0 Malignant neoplasm of cecum (principal); E11.9 Type 2 diabetes mellitus without complications; K44.9 Diaphragmatic hernia without obstruction or gangrene; Z87.891 Personal history of nicotine dependence; Z45.2 Encounter for adjustment and management of vascular access device
CPT/HCPCS: 36591; 80053; 82378; 83735; 85025; 96523; 99213

== ENCOUNTER 2017-04-07 09:37 | Outpatient (RCR) | payer MEDICARE, OTHER ==
[2017-04-07 10:02] LABS: BASOPHILS # (AUTO) 0.1 10^3/uL (0.0-0.1); BASOPHILS % (AUTO) 1 % (0-10); EOSINOPHILS # (AUTO) 0.4 10^3/uL (0.0-0.3); EOSINOPHILS % (AUTO) 4 % (0-10); LYMPHOCYTES # (AUTO) 1.6 X 10^3 (1.0-4.0); LYMPHOCYTES % (AUTO) 17 % (12-44); MEAN CORPUSCULAR HEMOGLOBIN 30 PG (25-34); MEAN CORPUSCULAR HGB CONC 33 G/DL (32-36); MEAN CORPUSCULAR VOLUME 89 FL (80-99); MEAN PLATELET VOLUME 9.7 FL (7.4-10.4); MONOCYTES # (AUTO) 0.7 X 10^3 (0.0-1.0); MONOCYTES % (AUTO) 8 % (0-12); NEUTROPHILS # (AUTO) 6.5 X 10^3 (1.8-7.8); NEUTROPHILS % (AUTO) 70 % (42-75); PLATELET COUNT 279 10^3/uL (130-400); RED BLOOD COUNT 4.15 10^6/uL (4.35-5.85); RED CELL DISTRIBUTION WIDTH 13.3 % (10.0-14.5); WHITE BLOOD COUNT 9.2 10^3/uL (4.3-11.0)
[2017-04-07 10:43] LABS: BILIRUBIN,TOTAL 0.6 MG/DL (0.1-1.0); CREATININE SERUM 0.96 MG/DL (0.60-1.30); POTASSIUM 4.5 MMOL/L (3.6-5.0); TOTAL PROTEIN 7.2 GM/DL (6.4-8.2)
== END 2017-04-07 10:56 | disposition home or self-care (01) ==
LOC: ONC 09:37
PROVIDERS: ATTEND Internal Medicine Hematology & Oncology
DX: C18.0 Malignant neoplasm of cecum (principal); E11.9 Type 2 diabetes mellitus without complications; K44.9 Diaphragmatic hernia without obstruction or gangrene; Z87.891 Personal history of nicotine dependence; Z45.2 Encounter for adjustment and management of vascular access device
CPT/HCPCS: 36591; 80053; 82378; 82728; 85025; 96523

== ENCOUNTER 2017-06-27 09:47 | Outpatient (RCR) | payer MEDICARE, OTHER ==
[2017-06-27 10:08] LABS: BASOPHILS # (AUTO) 0.1 10^3/uL (0.0-0.1); BASOPHILS % (AUTO) 1 % (0-10); EOSINOPHILS # (AUTO) 0.4 10^3/uL (0.0-0.3); EOSINOPHILS % (AUTO) 5 % (0-10); HEMATOCRIT 36 % (35-52); HEMOGLOBIN 12.2 G/DL (11.5-16.0); LYMPHOCYTES # (AUTO) 1.7 X 10^3 (1.0-4.0); LYMPHOCYTES % (AUTO) 19 % (12-44); MEAN CORPUSCULAR HEMOGLOBIN 30 PG (25-34); MEAN CORPUSCULAR HGB CONC 34 G/DL (32-36); MEAN CORPUSCULAR VOLUME 89 FL (80-99); MEAN PLATELET VOLUME 9.9 FL (7.4-10.4); MONOCYTES # (AUTO) 0.7 X 10^3 (0.0-1.0); MONOCYTES % (AUTO) 8 % (0-12); NEUTROPHILS % (AUTO) 67 % (42-75); PLATELET COUNT 290 10^3/uL (130-400); RED BLOOD COUNT 4.07 10^6/uL (4.35-5.85); RED CELL DISTRIBUTION WIDTH 13.5 % (10.0-14.5); WHITE BLOOD COUNT 8.9 10^3/uL (4.3-11.0)
[2017-06-27 10:27] LABS: BILIRUBIN,TOTAL 0.5 MG/DL (0.1-1.0); CALCIUM 8.9 MG/DL (8.5-10.1); CREATININE SERUM 1.05 MG/DL (0.60-1.30); POTASSIUM 4.4 MMOL/L (3.6-5.0)
== END 2017-07-10 | disposition home or self-care (01) ==
LOC: ONC 09:47
PROVIDERS: ATTEND Internal Medicine Hematology & Oncology
DX: C18.0 Malignant neoplasm of cecum (principal); E11.9 Type 2 diabetes mellitus without complications; K44.9 Diaphragmatic hernia without obstruction or gangrene; Z87.891 Personal history of nicotine dependence; Z45.2 Encounter for adjustment and management of vascular access device
CPT/HCPCS: 36415; 36591; 80053; 82378; 83036; 85025; 96523; 99213

== ENCOUNTER → 2017-06-27 | Outpatient (CLI) | payer MEDICARE, OTHER | LOC: LAB 09:51 | PROVIDERS: ATTEND Nurse Practitioner Family | DX: E11.9 Type 2 diabetes mellitus without complications (principal) | CPT/HCPCS: 83036 ==

== ENCOUNTER → 2017-08-02 | Outpatient (CLI) | payer MEDICARE, OTHER ==
--- NOTE | 2017-08-02 14:53 | Diagnostic Imaging Report ---
INDICATION: Colorectal carcinoma. The patient has increasing CEA levels. This study is performed to evaluate for recurrence. Serum glucose level at time of injection was 205 mg/dL. TECHNIQUE: Patient was administered 14 mCi of F-18 FDG intravenously and PET imaging was performed. Noncontrast CT imaging was performed from the top of the skull through the pelvis for the purpose of anatomic correlation and attenuation correction. COMPARISON: Correlation is made with prior PET/CT from 04/06/2016. FINDINGS: Normal symmetric activity throughout the brain is identified. No abnormal activity within the neck soft tissues is identified. The chest is unremarkable. There is some increased activity identified in the midline anterior abdomen at the area of the patient's incision and scar with SUV values reaching approximately 5. This area is somewhat masslike. The degree of masslike density is greater than typically seen with postsurgical scarring and the possibility of focal recurrence at this location cannot be entirely excluded. No abnormal focus of hypermetabolism at the area of the patient's anastomosis in the left abdomen is identified. There is a small focus of activity in the lower midline of the pelvis with SUV of approximately 4-5, nonspecific. This is near the vaginal cuff. The activity appears to lie just outside of the sigmoid colon. This is nonspecific, and no definite focal CT correlate is identified. No definite hypermetabolic lymph nodes are seen. Study is otherwise unremarkable. IMPRESSION: Postsurgical changes of partial colon resection. There is abnormal increased uptake identified in the anterior abdominal wall near the patient's incision, indeterminate. This is greater than typically seen for postsurgical changes and the possibility of focal recurrence at this location cannot be entirely excluded. There is a second site of mild uptake in the lower midline of the pelvis, as described above and indeterminate. Continued PET/CT followup is recommended. Dictated by: Dictated on workstation # [id number]
== END ==
LOC: RAD 10:05
PROVIDERS: ATTEND Nurse Practitioner Adult Health
DX: R97.8 Other abnormal tumor markers (principal); R10.2 Pelvic and perineal pain; Z85.048 Personal history of other malignant neoplasm of rectum, rectosigmoid junction, and anus; Z90.49 Acquired absence of other specified parts of digestive tract

== ENCOUNTER → 2017-08-26 | Outpatient (CLI) | payer MEDICARE, OTHER ==
--- NOTE | 2017-08-26 12:32 | Diagnostic Imaging Report ---
PROCEDURE: CT abdomen and pelvis without contrast. TECHNIQUE: Multiple contiguous axial images were obtained through the abdomen and pelvis without the use of intravenous contrast. INDICATION: Colon carcinoma. Patient complains of right-sided abdominal pain. COMPARISON: Correlation is made with PET/CT performed on 08/02/2017. FINDINGS: Imaging through the lung bases demonstrate some enlarging nodules in the right lower lobe when compared with the PET/CT one month earlier. The most anterior nodule is 12 mm and was barely visible on recent PET/CT. There is somewhat ill-defined low density in the right lobe of the liver measuring 17 mm, stable when compared with prior study. No other liver mass is seen. The gallbladder appears to be surgically absent. The pancreas and spleen are unremarkable. No adrenal mass is detected. The kidneys are unremarkable. The aorta is non-aneurysmal. The area of soft tissue thickening and increased hypermetabolism involving the midline anterior abdominal wall is again noted measuring approximately 3.7 cm AP x 4.1 cm transverse compared with 3.1 cm x 4.5 cm. Bowel loops appear stable. There is moderate stool in the colon. Postsurgical changes are again noted. There is no ascites. Uterus appears to be surgically absent. The bladder is unremarkable. IMPRESSION: 1. Enlarging right lower lobe pulmonary nodules, suggestive of worsening metastatic disease. 2. Midline anterior abdominal wall soft tissue thickening correlating with the PET/CT abnormality. Abdominal wall recurrence again cannot be entirely excluded. This would be amenable to CT-guided biopsy if needed. Dictated by: Dictated on workstation # [id number]
== END ==
LOC: RAD 11:38
PROVIDERS: ATTEND Nurse Practitioner Adult Health
DX: C18.0 Malignant neoplasm of cecum (principal); R91.1 Solitary pulmonary nodule; R19.00 Intra-abdominal and pelvic swelling, mass and lump, unspecified site
CPT/HCPCS: 74176

== ENCOUNTER 2017-09-07 08:25 | Day surgery (SDC) | payer MEDICARE, OTHER ==
[2017-09-07] VITALS (11 sets, daily range): BP systolic 92–154; BP diastolic 63–96
[~2017-09-07] VITALS: Ht 161.3 cm; Wt 95.7 kg
[2017-09-07] MEDS ORDERED: LIDOCAINE 1% INJ 20 ML (XYLOCAINE) VIAL INJ ONE (08:45)
[2017-09-07] MEDS ORDERED: GLYB5TAB6 PO (08:55)
[2017-09-07 08:59] LABS: HEMOGLOBIN 12.5 G/DL (11.5-16.0); MEAN PLATELET VOLUME 9.8 FL (7.4-10.4); RED BLOOD COUNT 4.11 10^6/uL (4.35-5.85); RED CELL DISTRIBUTION WIDTH 13.4 % (10.0-14.5); WHITE BLOOD COUNT 9.3 10^3/uL (4.3-11.0)
[2017-09-07 09:06] LABS: INR 0.9 (0.8-1.4); PROTHROMBIN TIME PATIENT 12.5 SEC (12.2-14.7)
[2017-09-07] MEDS ORDERED: LIDOCAINE 1% INJ 50 ML (XYLOCAINE) VIAL ONE (09:43)
[2017-09-07] MEDS ORDERED: HYDROcodone/APAP 5 MG/325 MG (LORTAB) TAB PO PRN (10:45)
--- NOTE | 2017-09-07 10:56 | Diagnostic Imaging Report ---
INDICATION: Colorectal carcinoma. Patient presents for CT-guided biopsy of midline abdominal wall mass. COMPARISON: Correlation is made with PET/CT study from 08/02/2017. FINDINGS: After informed written consent was obtained from the patient, patient was brought to the CT suite and placed on the table in the supine position. Axial imaging through the abdomen was performed to evaluate appropriate entry site. The skin of the midline lower abdomen was prepped and draped in usual sterile fashion. Small amount of 1% lidocaine was utilized for local anesthesia. An 18-gauge coaxial Achieve needle was advanced and placed with its tip along the margin of the abnormal soft tissue in the midline anterior abdominal wall at the area of increased hypermetabolism noted on recent PET/CT scan. Total of three core biopsies were obtained. Needle was withdrawn and hemostasis was obtained using manual compression. Patient tolerated the procedure well and left department in stable condition. IMPRESSION: Successful CT-guided core biopsy of the area of abnormal hypermetabolism involving the midline anterior abdominal wall. Pathology results are currently pending. Dictated by: Dictated on workstation # [id number]
--- NOTE | 2017-09-07 11:53 | Pre-Procedure Progress Note ---
Pre-Procedure Progress Note H&P Reviewed The H&P was reviewed, patient examined and no changes noted. Date H&P Reviewed: Sep 07, 2017 Time H&P Reviewed: 09:00 Pre-Procedure Diagnosis: Colorectal carcinoma RUBY RAMIREZ MD Sep 07, 2017 11:53
== END 2017-09-07 12:46 | disposition home or self-care (01) ==
LOC: RAD 08:25
PROVIDERS: ATTEND Nurse Practitioner Adult Health
DX: C19 Malignant neoplasm of rectosigmoid junction (principal)
CPT/HCPCS: 36415; 77012; 82962; 85027; 85610; 85730

== ENCOUNTER 2017-10-18 10:46 | Outpatient (RCR) | payer MEDICARE, OTHER ==
[2017-07-25 10:56] LABS: BILIRUBIN,URINE NEGATIVE (NEGATIVE); CLARITY,URINE SLIGHTLY CLOUDY; COLOR,URINE YELLOW; GLUCOSE, URINE (UA) NEGATIVE (NEGATIVE); KETONES,URINE NEGATIVE (NEGATIVE); LEUKOCYTE ESTERASE ,URINE 2+ (NEGATIVE); NITRITE,URINE NEGATIVE (NEGATIVE); PH,URINE 5 (5-9); PROTEIN,URINE NEGATIVE (NEGATIVE); UROBILINOGEN,URINE NORMAL (NORMAL)
[2017-07-25 11:07] LABS: BACTERIA,URINE TRACE /HPF; RBC,URINE RARE /HPF
[2017-08-19 11:40] LABS: BILIRUBIN,URINE NEGATIVE (NEGATIVE); CLARITY,URINE SLIGHTLY CLOUDY; COLOR,URINE YELLOW; GLUCOSE, URINE (UA) NEGATIVE (NEGATIVE); KETONES,URINE NEGATIVE (NEGATIVE); LEUKOCYTE ESTERASE ,URINE 3+ (NEGATIVE); NITRITE,URINE POSITIVE (NEGATIVE); PH,URINE 5 (5-9); PROTEIN,URINE 2+ (NEGATIVE); UROBILINOGEN,URINE NORMAL (NORMAL)
[2017-08-19 11:51] LABS: BACTERIA,URINE LARGE /HPF; WBC,URINE TNTC /HPF
[2017-08-23 11:36] LABS: BASOPHILS # (AUTO) 0.1 10^3/uL (0.0-0.1); BASOPHILS % (AUTO) 1 % (0-10); EOSINOPHILS # (AUTO) 0.4 10^3/uL (0.0-0.3); EOSINOPHILS % (AUTO) 4 % (0-10); HEMATOCRIT 36 % (35-52); HEMOGLOBIN 12.5 G/DL (11.5-16.0); LYMPHOCYTES # (AUTO) 1.8 X 10^3 (1.0-4.0); LYMPHOCYTES % (AUTO) 19 % (12-44); MEAN CORPUSCULAR HEMOGLOBIN 31 PG (25-34); MEAN CORPUSCULAR HGB CONC 35 G/DL (32-36); MEAN CORPUSCULAR VOLUME 88 FL (80-99); MEAN PLATELET VOLUME 9.4 FL (7.4-10.4); MONOCYTES # (AUTO) 0.7 X 10^3 (0.0-1.0); MONOCYTES % (AUTO) 8 % (0-12); NEUTROPHILS # (AUTO) 6.7 X 10^3 (1.8-7.8); NEUTROPHILS % (AUTO) 69 % (42-75); PLATELET COUNT 344 10^3/uL (130-400); RED CELL DISTRIBUTION WIDTH 13.5 % (10.0-14.5); WHITE BLOOD COUNT 9.7 10^3/uL (4.3-11.0)
[2017-08-23 11:56] LABS: ALBUMIN 4.2 GM/DL (3.2-4.5); BILIRUBIN,TOTAL 0.4 MG/DL (0.1-1.0); CALCIUM 8.9 MG/DL (8.5-10.1); CREATININE SERUM 1.37 MG/DL (0.60-1.30); TOTAL PROTEIN 7.4 GM/DL (6.4-8.2)
[2017-09-19 10:03] LABS: BASOPHILS % (AUTO) 1 % (0-10); EOSINOPHILS # (AUTO) 0.4 10^3/uL (0.0-0.3); EOSINOPHILS % (AUTO) 5 % (0-10); HEMATOCRIT 34 % (35-52); HEMOGLOBIN 11.6 G/DL (11.5-16.0); LYMPHOCYTES # (AUTO) 1.3 X 10^3 (1.0-4.0); LYMPHOCYTES % (AUTO) 15 % (12-44); MEAN CORPUSCULAR HEMOGLOBIN 30 PG (25-34); MEAN CORPUSCULAR HGB CONC 34 G/DL (32-36); MEAN CORPUSCULAR VOLUME 89 FL (80-99); MONOCYTES # (AUTO) 0.8 X 10^3 (0.0-1.0); MONOCYTES % (AUTO) 9 % (0-12); NEUTROPHILS # (AUTO) 5.8 X 10^3 (1.8-7.8); NEUTROPHILS % (AUTO) 70 % (42-75); PLATELET COUNT 311 10^3/uL (130-400); RED BLOOD COUNT 3.86 10^6/uL (4.35-5.85); RED CELL DISTRIBUTION WIDTH 13.4 % (10.0-14.5); WHITE BLOOD COUNT 8.3 10^3/uL (4.3-11.0)
[2017-09-19 10:25] LABS: ALBUMIN 3.9 GM/DL (3.2-4.5); BILIRUBIN,TOTAL 0.5 MG/DL (0.1-1.0); CALCIUM 8.8 MG/DL (8.5-10.1); CREATININE SERUM 1.02 MG/DL (0.60-1.30); POTASSIUM 4.3 MMOL/L (3.6-5.0); TOTAL PROTEIN 6.5 GM/DL (6.4-8.2)
[2017-10-06 13:26] LABS: BASOPHILS % (AUTO) 0 % (0-10); EOSINOPHILS # (AUTO) 0.4 10^3/uL (0.0-0.3); EOSINOPHILS % (AUTO) 4 % (0-10); HEMATOCRIT 36 % (35-52); HEMOGLOBIN 12.3 G/DL (11.5-16.0); LYMPHOCYTES # (AUTO) 1.4 X 10^3 (1.0-4.0); LYMPHOCYTES % (AUTO) 15 % (12-44); MEAN CORPUSCULAR HEMOGLOBIN 30 PG (25-34); MEAN CORPUSCULAR HGB CONC 34 G/DL (32-36); MEAN CORPUSCULAR VOLUME 88 FL (80-99); MEAN PLATELET VOLUME 9.4 FL (7.4-10.4); MONOCYTES # (AUTO) 0.7 X 10^3 (0.0-1.0); MONOCYTES % (AUTO) 7 % (0-12); NEUTROPHILS # (AUTO) 6.9 X 10^3 (1.8-7.8); NEUTROPHILS % (AUTO) 74 % (42-75); PLATELET COUNT 328 10^3/uL (130-400); RED BLOOD COUNT 4.12 10^6/uL (4.35-5.85); RED CELL DISTRIBUTION WIDTH 13.2 % (10.0-14.5); WHITE BLOOD COUNT 9.3 10^3/uL (4.3-11.0)
[2017-10-06 13:43] LABS: BILIRUBIN,TOTAL 0.6 MG/DL (0.1-1.0); CALCIUM 9.1 MG/DL (8.5-10.1); CREATININE SERUM 1.03 MG/DL (0.60-1.30); POTASSIUM 4.6 MMOL/L (3.6-5.0); TOTAL PROTEIN 6.9 GM/DL (6.4-8.2)
[2017-10-11 12:05] LABS: BASOPHILS % (AUTO) 0 % (0-10); EOSINOPHILS # (AUTO) 0.4 10^3/uL (0.0-0.3); EOSINOPHILS % (AUTO) 4 % (0-10); HEMATOCRIT 35 % (35-52); LYMPHOCYTES # (AUTO) 1.3 X 10^3 (1.0-4.0); LYMPHOCYTES % (AUTO) 13 % (12-44); MEAN CORPUSCULAR HEMOGLOBIN 30 PG (25-34); MEAN CORPUSCULAR HGB CONC 35 G/DL (32-36); MEAN CORPUSCULAR VOLUME 87 FL (80-99); MEAN PLATELET VOLUME 9.1 FL (7.4-10.4); MONOCYTES # (AUTO) 0.7 X 10^3 (0.0-1.0); MONOCYTES % (AUTO) 8 % (0-12); NEUTROPHILS # (AUTO) 7.2 X 10^3 (1.8-7.8); NEUTROPHILS % (AUTO) 75 % (42-75); PLATELET COUNT 319 10^3/uL (130-400); RED BLOOD COUNT 3.97 10^6/uL (4.35-5.85); RED CELL DISTRIBUTION WIDTH 13.1 % (10.0-14.5); WHITE BLOOD COUNT 9.6 10^3/uL (4.3-11.0)
[2017-10-11 12:26] LABS: ALBUMIN 4.1 GM/DL (3.2-4.5); BILIRUBIN,TOTAL 0.5 MG/DL (0.1-1.0); CREATININE SERUM 1.01 MG/DL (0.60-1.30); POTASSIUM 4.4 MMOL/L (3.6-5.0); TOTAL PROTEIN 6.8 GM/DL (6.4-8.2)
[~2017-10-18] VITALS: Ht 161.3 cm; Wt 93.0 kg
[~2017-10-18 10:46] MED LIST changes: +ATROPINE INJ 0.4 MG/ML SDV (CANCER CENTER) INJ SCH; -D5W 500 ML IV (CANCER CTR) 500 ML IV SCH; -FAMOTIDINE 20MG/2ML IV (CANCER CTR) IV SCH; +FLUOROURACIL 0.6 GM in SYRINGE-IVPB 1 SYRINGE IV SCH; +FLUOROURACIL 2.5 GM, FLUOROURACIL 1 GM, FLUOROURACIL 100 MG in NS (IVPB) CANCER CENTER ... IV SCH; -FOSAPREPITANT 150 MG/NS 150 MG IVPB (CANCER CTR) IV PRN; +FOSAPREPITANT DIMEGLUMINE 150 MG in NS (IVPB) CANCER CENTER ONLY 150 ML IV SCH; +GLYB5TAB6 PO; +IRINOTECAN HCL 300 MG in D5W 250 ML IVPB (CANCER CTR) 250 ML IV SCH; +LEUCOVORIN CALCIUM 600 MG in D5W 250 ML IVPB (CANCER CTR) 250 ML IV SCH; -LORazepam 0.5 MG (ATIVAN) TABLET CANCER CTR PO PRN; +NS IV 1000 ML (CANCER CTR) 1,000 ML IV SCH; +NS IV 1000 ML (CANCER CTR) 1,000 ML ONE; +NS IV 500 ML (CANCER CENTER) 500 ML ONE; -OXALIPLATIN 100 MG, OXALIPLATIN (GENERIC) 30 MG in D5W 250 ML IVPB (CANCER CTR) 250 ML IV SCH; -OXALIPLATIN 160 MG in D5W 250 ML IVPB (CANCER CTR) 250 ML IV SCH
[2017-10-18 11:07] LABS: BASOPHILS % (AUTO) 0 % (0-10); EOSINOPHILS # (AUTO) 0.1 10^3/uL (0.0-0.3); EOSINOPHILS % (AUTO) 2 % (0-10); HEMATOCRIT 38 % (35-52); HEMOGLOBIN 13.3 G/DL (11.5-16.0); LYMPHOCYTES % (AUTO) 17 % (12-44); MEAN CORPUSCULAR HEMOGLOBIN 30 PG (25-34); MEAN CORPUSCULAR HGB CONC 35 G/DL (32-36); MEAN CORPUSCULAR VOLUME 85 FL (80-99); MEAN PLATELET VOLUME 9.5 FL (7.4-10.4); MONOCYTES # (AUTO) 0.1 X 10^3 (0.0-1.0); MONOCYTES % (AUTO) 2 % (0-12); NEUTROPHILS # (AUTO) 4.9 X 10^3 (1.8-7.8); NEUTROPHILS % (AUTO) 80 % (42-75); PLATELET COUNT 293 10^3/uL (130-400); RED BLOOD COUNT 4.44 10^6/uL (4.35-5.85); RED CELL DISTRIBUTION WIDTH 12.9 % (10.0-14.5); WHITE BLOOD COUNT 6.2 10^3/uL (4.3-11.0)
[2017-10-18 11:23] LABS: CALCIUM 8.8 MG/DL (8.5-10.1); CREATININE SERUM 1.37 MG/DL (0.60-1.30); POTASSIUM 4.7 MMOL/L (3.6-5.0)
[2017-11-15] MEDS ORDERED: OXYC-197 PO (17:14)
[2017-11-15] MEDS ORDERED: METR500T PO (17:17)
[2017-11-15] MEDS ORDERED: CIPR-225 PO (17:17)
== END 2017-10-23 | disposition home or self-care (01) ==
LOC: ONC 10:46
PROVIDERS: ATTEND Internal Medicine Hematology & Oncology
DX: Z51.11 Encounter for antineoplastic chemotherapy (principal); C18.0 Malignant neoplasm of cecum; N39.0 Urinary tract infection, site not specified; E11.22 Type 2 diabetes mellitus with diabetic chronic kidney disease; N18.3 Chronic kidney disease, stage 3 (moderate); D50.9 Iron deficiency anemia, unspecified; K44.9 Diaphragmatic hernia without obstruction or gangrene; Z87.891 Personal history of nicotine dependence; Z79.899 Other long term (current) drug therapy
CPT/HCPCS: 36415; 36591; 80048; 80053; 81000; 81210; 81275; 82378; 85025; 87077; 87088; 87186; 96360; 96361; 96367; 96368; 96375; 96411; 96413; 99213

== ENCOUNTER 2017-11-15 14:22 | Day surgery (SDC) | payer MEDICARE, OTHER ==
[~2017-11-15] VITALS: Ht 161.3 cm; Wt 95.7 kg
[~2017-11-15 14:22] MED LIST changes: -ATROPINE INJ 0.4 MG/ML SDV (CANCER CENTER) INJ SCH; -FLUOROURACIL 0.6 GM in SYRINGE-IVPB 1 SYRINGE IV SCH; -FLUOROURACIL 2.5 GM, FLUOROURACIL 1 GM, FLUOROURACIL 100 MG in NS (IVPB) CANCER CENTER ... IV SCH; -FOSAPREPITANT DIMEGLUMINE 150 MG in NS (IVPB) CANCER CENTER ONLY 150 ML IV SCH; -IRINOTECAN HCL 300 MG in D5W 250 ML IVPB (CANCER CTR) 250 ML IV SCH; -LEUCOVORIN CALCIUM 600 MG in D5W 250 ML IVPB (CANCER CTR) 250 ML IV SCH; -NS IV 1000 ML (CANCER CTR) 1,000 ML IV SCH; -NS IV 1000 ML (CANCER CTR) 1,000 ML ONE; -NS IV 500 ML (CANCER CENTER) 500 ML ONE; -PALONOSETRON 0.25 MG, DEXAMETHASONE 10 MG/NS 50 ML IVPB IV PRN
[2017-11-15 15:30] VITALS: BP 153/85
[2017-11-15] MEDS ORDERED: LACTATED RINGERS 1,000 ML IV PRN (15:47)
[2017-11-15] MEDS ORDERED: LEVOFLOXACIN 250 MG/D5W 50 ML (PRE-MIX) IV ONE (16:00)
[2017-11-15] MEDS ORDERED: metroNIDAZOLE 500 MG/100 ML IVPB (PRE-MIX) IV ONE (16:00)
[2017-11-15 16:02] LABS: BASOPHILS % (AUTO) 1 % (0-10); EOSINOPHILS # (AUTO) 0.2 10^3/uL (0.0-0.3); EOSINOPHILS % (AUTO) 4 % (0-10); HEMATOCRIT 29 % (35-52); HEMOGLOBIN 9.7 G/DL (11.5-16.0); LYMPHOCYTES % (AUTO) 17 % (12-44); MEAN CORPUSCULAR HEMOGLOBIN 30 PG (25-34); MEAN CORPUSCULAR HGB CONC 34 G/DL (32-36); MEAN CORPUSCULAR VOLUME 89 FL (80-99); MEAN PLATELET VOLUME 9.6 FL (7.4-10.4); MONOCYTES # (AUTO) 1.1 X 10^3 (0.0-1.0); MONOCYTES % (AUTO) 18 % (0-12); NEUTROPHILS # (AUTO) 3.5 X 10^3 (1.8-7.8); NEUTROPHILS % (AUTO) 60 % (42-75); PLATELET COUNT 258 10^3/uL (130-400); RED BLOOD COUNT 3.25 10^6/uL (4.35-5.85); RED CELL DISTRIBUTION WIDTH 15.7 % (10.0-14.5); WHITE BLOOD COUNT 5.9 10^3/uL (4.3-11.0)
[2017-11-15] MEDS ORDERED: SUCCINYLCHOLINE INJ 100 MG/5 ML SYR ONE (16:45)
[2017-11-15] MEDS ORDERED: ONDANSETRON 4 MG/2 ML (SDV) Z0FRAN ONE (16:45)
[2017-11-15] MEDS ORDERED: LIDOCAINE PF 2% 5 ML (XYLOCAINE) VIAL ONE (16:45)
[2017-11-15] MEDS ORDERED: SEVOFLURANE (ULTANE) 15 ML INHAL SOLN ONE (16:45)
[2017-11-15] MEDS ORDERED: DEXAMETHASONE 10 MG/ML (DECADRON) 1 ML VIAL ONE (16:45)
[2017-11-15] MEDS ORDERED: ROCURONIUM 10 MG/ML 5 ML SYRINGE IV ONE (16:45)
[2017-11-15] MEDS ORDERED: proPOfol 200 MG/20 ML (DIPRIVAN) VIAL IV ONE ×3 (16:45→17:47)
[2017-11-15] MEDS ORDERED: fentaNYL INJECTION 100 MCG/2 ML AMP ONE (16:45)
[2017-11-15] MEDS ORDERED: MIDAZOLAM 2 MG/2 ML (VERSED) VIAL ONE (16:46)
[2017-11-15] MEDS ORDERED: D5 LR IV SOLUTION 1,000 ML IV SCH (17:10)
[2017-11-15] MEDS ORDERED: OXYC-197 PO (17:14)
[2017-11-15] MEDS ORDERED: MEPERIDINE (DEMEROL) INJ 100 MG/ML IM ONE (17:15)
[2017-11-15] MEDS ORDERED: KETOROLAC 15 MG/ML VIAL IVP ONE (17:15)
[2017-11-15] MEDS ORDERED: ONDANSETRON 4 MG/2 ML (SDV) Z0FRAN IVP PRN ×2 (17:15→17:30)
[2017-11-15] MEDS ORDERED: oxyCODONE/APAP 5/325MG (PERCOCET 5) TABLET PO PRN (17:15)
--- NOTE | 2017-11-15 17:16 | Discharge Instructions ---
Discharge Instructions Discharge Medications New, Converted or Re-Newed RX: RX on Chart Patient Instructions Patient Instructions: As directed Return to The Hospital For: As directed Activity & Diet Discharge Diet: No Restrictions Activity as Tolerated: Yes Orders-Post D/C & Referrals Follow Up Appt: Call to make follow up appt. for patient in 2 weeks. Activity: Rest for 24 hours, than as tolerated. Call prescriptions to pharmacy Diet: As tolerated-Clear Liquids only if nauseated. Tomorrow, may shower or tub bathe as desired. No driving for 24 hours, no alcoholic beverages for 24 hours, and nothing per vagina (no tampons, douching, or intercourse) for 2 weeks. Patient to return to the clinic as soon as possible for: Temperature greater than 101F, Severe Pain, Foul discharge from incision or vagina, Excessive Bleeding (more than a period). REGAN MUNOZ MD November 15, 2017 5:16 pm
[2017-11-15] MEDS ORDERED: METR500T PO (17:17)
[2017-11-15] MEDS ORDERED: CIPR-225 PO (17:17)
--- NOTE | 2017-11-15 17:18 | Progress Note-Pre Operative ---
Pre-Operative Progress Note H&P Reviewed The H&P was reviewed, patient examined and no changes noted. Date Seen by Provider: November 15, 2017 Time Seen by Provider: 17:18 Date H&P Reviewed: November 15, 2017 Time H&P Reviewed: 17:18 Pre-Operative Diagnosis: Left Bartholin abscess REGAN MUNOZ MD November 15, 2017 5:18 pm
--- NOTE | 2017-11-15 17:18 | Progress Note-Post Operative ---
Post-Operative Progess Note Surgeon (s)/Buffing Wheel Raker (s) Surgeon REGAN MUNOZ MD Buffing Wheel Raker: Annie Pre-Operative Diagnosis Left Bartholin abscess Post-Operative Diagnosis Same Procedure & Operative Findings Date of Procedure 11/15/17 Procedure Performed/Findings Marsupialization of left Bartholin abscess Anesthesia Type Gen. Estimated Blood Loss Estimated blood loss (mL): Minimal Specimens/Packing Specimens Removed Cultures of abscess pocket Packing: None REGAN MUNOZ MD November 15, 2017 17:18
[2017-11-15] MEDS ORDERED: MEPERIDINE (DEMEROL) INJ 50 MG/ML IVP PRN (17:30)
[2017-11-15] MEDS ORDERED: morphine INJ 10 MG/ML 1ML (SYR OR VIAL) IVP PRN (17:30)
[2017-11-15] MEDS ORDERED: morphine INJ 10 MG/ML 1ML (SYR OR VIAL) ONE (17:35)
[2017-11-15 19:50] VITALS: BP 111/63
--- NOTE | 2017-11-16 05:19 | OPERATIVE REPORT ---
DATE OF SERVICE: 11/15/2017 PREOPERATIVE DIAGNOSIS: Left Bartholin abscess. POSTOPERATIVE DIAGNOSES: Left Bartholin abscess. OPERATIVE PROCEDURE: Marsupialization of a left Bartholin abscess. OPERATIVE DESCRIPTION: With the patient in the supine position under satisfactory general anesthesia, she was prepped and draped in the usual fashion for vaginal surgery after being repositioned in dorsal lithotomy position and in the [facility] cane stirrups. The urinary bladder was drained via red Mars catheter. Retention sutures of 2-0 Vicryl were placed in the lateral left labia majora and retracted to the inner thigh to expose the introitus and the left portion of the hymenal ring. A suture of 2-0 Vicryl Rapide was placed into and out of the abscess pocket and another suture was placed parallel to that and then an incision was made into the abscess pocket sharply. The midportion of each suture was brought out through the incision and cut in the middle and then each pair of remaining suture fragments were tagged essentially having a suture in the four cardinal locations anterior, posterior, left and right lateral third. Third suture now of 3-0 Vicryl Rapide was used to affix the abscess wall to the skin between each of the cardinal locations and then the cardinal locations sutures were tied and cut. The abscess pocket had been irrigated after first opening; it did drain a purulent green, castellanos, brown drainage. A culture for aerobes and anaerobes was obtained directly from the abscess pocket. The pocket was irrigated again. There was no remaining purulence. There was no bleeding and AV pad was applied. The patient was uneventfully awakened from general anesthesia and she was transferred to the recovery room in stable condition with plans to be discharged home PAR. Sponge and needle counts were correct. The estimated blood loss was minimal. The patient tolerated the procedure well. Job ID: [id number] DocumentID: [id number] Dictated Date: 11/15/2017 17:53:30 Auto Body Repair Teacher Date: 11/16/2017 05:18:17 Dictated By: REGAN MUNOZ MD
--- NOTE | 2017-11-16 08:28 | Anesthesia-General Post-Op ---
General Significant Intra-Op Events Notes Via Phone Call Patient Condition Mental Status/LOC: Same as Preop Post Op Complications Complications None Follow Up Care/Instructions Patient Instructions None needed. Anesthesia/Patient Condition Patient Condition Patient is doing well, no complaints, stable vital signs, no apparent adverse anesthesia problems. RIRI TAYLOR CRNA November 16, 2017 08:28
== END 2017-11-15 20:50 | disposition home or self-care (01) ==
LOC: SDC 14:22 → WS 19:56 → SDC 20:50
PROVIDERS: ATTEND Obstetrics & Gynecology
DX: N75.1 Abscess of Bartholin's gland (principal); E11.42 Type 2 diabetes mellitus with diabetic polyneuropathy; C18.9 Malignant neoplasm of colon, unspecified; Z79.899 Other long term (current) drug therapy
CPT/HCPCS: 36415; 82962; 85025; 87070; 87075; 87077; 87081; 87186; 87205

== ENCOUNTER → 2018-01-19 | Outpatient (CLI) | payer MEDICARE, OTHER ==
[~2018-01-19] MED LIST changes: +BARIUM SUSPENSION 2.1% (VANILLA SILQ) 450 ML PO ONE; +CIPR-225 PO; +IOHEXOL 350 MG/ML 100 ML (OMNIPAQUE 350) VIAL IV ONE; +METR500T PO; +NS 250 ML (IVPB) BAG IV ONE; +OXYC-197 PO
--- NOTE | 2018-01-19 14:33 | Diagnostic Imaging Report ---
PROCEDURE: CT chest with contrast, CT abdomen and pelvis with and without contrast. TECHNIQUE: Pre and post intravenous contrast axial imaging of the abdomen and pelvis and post contrast axial imaging of the chest were performed. INDICATION: Colon carcinoma. COMPARISON: Comparison is made with prior CT of the abdomen and pelvis from 08/26/2017. FINDINGS: CT chest: A right chest wall port has the tip entering the right atrium. No axillary lymphadenopathy is detected. No definite hilar or mediastinal lymphadenopathy is identified. No pericardial or pleural fluid is identified. Rounded soft tissue masses in the right lung base are again noted. The more anterior nodule measures 17 mm compared with 12 mm on prior. The more posterior nodules have increased in size as well. One nodule measures 18 mm compared with 11 mm. The more medially located nodules in the right lower lobe have also increased. The left lung is unremarkable. CT abdomen and pelvis: A low density mass medial aspect of the right lobe of the liver measures 19 mm compared with 17 mm. The pancreas and spleen are unremarkable. No adrenal mass is detected. The kidneys are unremarkable. Aorta is non-aneurysmal. No central retroperitoneal or mesenteric lymphadenopathy is seen. Previously noted abnormal soft tissue in the midline anterior abdominal wall is similar to perhaps slightly decreased in prominence measuring 4.0 cm transverse x 3.2 cm AP compared with 4.0 cm x 3.7 cm. No free fluid is seen. Bowel loops are normal caliber. The area of soft tissue density just superior to the bladder dome in the midline of the pelvis measures 2.8 x 2.8 cm. This compares with 3.4 x 3.0 cm. No definite lymphadenopathy is seen. IMPRESSION: 1. Enlarging right lower lobe pulmonary nodules when compared with examination from 08/26/2017. No definite thoracic or hilar lymphadenopathy is seen. 2. Stable right lobe liver mass. 3. Stable to slight decrease in size of abnormal soft tissue in the midline anterior abdominal wall. 4. Stable to slight decrease in size of soft tissue fullness in the midline pelvis, as described. Dictated by: Dictated on workstation # [id number]
== END ==
LOC: RAD 13:21
PROVIDERS: ATTEND Nurse Practitioner Adult Health
DX: C18.9 Malignant neoplasm of colon, unspecified (principal); C79.89 Secondary malignant neoplasm of other specified sites; R91.8 Other nonspecific abnormal finding of lung field; R16.0 Hepatomegaly, not elsewhere classified
CPT/HCPCS: 71260; 74178

== ENCOUNTER → 2018-01-23 | Outpatient (RCR) | payer MEDICARE, OTHER ==
[2017-10-25 09:22] LABS: BASOPHILS % (AUTO) 1 % (0-10); EOSINOPHILS # (AUTO) 0.3 10^3/uL (0.0-0.3); EOSINOPHILS % (AUTO) 10 % (0-10); HEMATOCRIT 30 % (35-52); HEMOGLOBIN 10.1 G/DL (11.5-16.0); LYMPHOCYTES % (AUTO) 39 % (12-44); MEAN CORPUSCULAR HEMOGLOBIN 30 PG (25-34); MEAN CORPUSCULAR HGB CONC 34 G/DL (32-36); MEAN CORPUSCULAR VOLUME 88 FL (80-99); MONOCYTES # (AUTO) 0.6 X 10^3 (0.0-1.0); MONOCYTES % (AUTO) 25 % (0-12); NEUTROPHILS # (AUTO) 0.6 X 10^3 (1.8-7.8); NEUTROPHILS % (AUTO) 25 % (42-75); PLATELET COUNT 237 10^3/uL (130-400); RED BLOOD COUNT 3.41 10^6/uL (4.35-5.85); RED CELL DISTRIBUTION WIDTH 14.1 % (10.0-14.5); WHITE BLOOD COUNT 2.5 10^3/uL (4.3-11.0)
[2017-10-25 09:46] LABS: ALBUMIN 3.5 GM/DL (3.2-4.5); BILIRUBIN,TOTAL 0.4 MG/DL (0.1-1.0); CALCIUM 8.4 MG/DL (8.5-10.1); CREATININE SERUM 0.94 MG/DL (0.60-1.30); POTASSIUM 3.6 MMOL/L (3.6-5.0); TOTAL PROTEIN 5.8 GM/DL (6.4-8.2)
[2017-11-01 09:49] LABS: BASOPHILS # (AUTO) 0.1 10^3/uL (0.0-0.1); BASOPHILS % (AUTO) 1 % (0-10); EOSINOPHILS # (AUTO) 0.3 10^3/uL (0.0-0.3); EOSINOPHILS % (AUTO) 3 % (0-10); HEMATOCRIT 31 % (35-52); LYMPHOCYTES # (AUTO) 1.3 X 10^3 (1.0-4.0); LYMPHOCYTES % (AUTO) 14 % (12-44); MEAN CORPUSCULAR HEMOGLOBIN 29 PG (25-34); MEAN CORPUSCULAR HGB CONC 33 G/DL (32-36); MEAN CORPUSCULAR VOLUME 90 FL (80-99); MEAN PLATELET VOLUME 8.8 FL (7.4-10.4); MONOCYTES # (AUTO) 0.7 X 10^3 (0.0-1.0); MONOCYTES % (AUTO) 8 % (0-12); NEUTROPHILS # (AUTO) 6.8 X 10^3 (1.8-7.8); NEUTROPHILS % (AUTO) 75 % (42-75); PLATELET COUNT 364 10^3/uL (130-400); RED BLOOD COUNT 3.43 10^6/uL (4.35-5.85); RED CELL DISTRIBUTION WIDTH 14.7 % (10.0-14.5); WHITE BLOOD COUNT 9.2 10^3/uL (4.3-11.0)
[2017-11-01 10:21] LABS: BUN/CREATININE RATIO 12; CALCIUM 8.5 MG/DL (8.5-10.1); CARBON DIOXIDE 23 MMOL/L (21-32); CHLORIDE 106 MMOL/L (98-107); GFR ESTIMATED > 60; GLUCOSE 267 MG/DL (70-105); SODIUM 138 MMOL/L (135-145)
[2017-11-08 11:29] LABS: BASOPHILS % (AUTO) 0 % (0-10); EOSINOPHILS # (AUTO) 0.4 10^3/uL (0.0-0.3); EOSINOPHILS % (AUTO) 5 % (0-10); HEMATOCRIT 33 % (35-52); LYMPHOCYTES # (AUTO) 1.5 X 10^3 (1.0-4.0); LYMPHOCYTES % (AUTO) 19 % (12-44); MEAN CORPUSCULAR HEMOGLOBIN 30 PG (25-34); MEAN CORPUSCULAR HGB CONC 34 G/DL (32-36); MEAN CORPUSCULAR VOLUME 88 FL (80-99); MONOCYTES # (AUTO) 0.4 X 10^3 (0.0-1.0); MONOCYTES % (AUTO) 5 % (0-12); NEUTROPHILS # (AUTO) 5.6 X 10^3 (1.8-7.8); NEUTROPHILS % (AUTO) 71 % (42-75); PLATELET COUNT 377 10^3/uL (130-400); RED BLOOD COUNT 3.69 10^6/uL (4.35-5.85); RED CELL DISTRIBUTION WIDTH 14.5 % (10.0-14.5); WHITE BLOOD COUNT 7.8 10^3/uL (4.3-11.0)
[2017-11-08 11:44] LABS: CALCIUM 8.8 MG/DL (8.5-10.1); CREATININE SERUM 0.98 MG/DL (0.60-1.30); POTASSIUM 4.7 MMOL/L (3.6-5.0)
[2017-11-15 09:26] LABS: BASOPHILS % (AUTO) 1 % (0-10); EOSINOPHILS # (AUTO) 0.3 10^3/uL (0.0-0.3); EOSINOPHILS % (AUTO) 4 % (0-10); HEMATOCRIT 30 % (35-52); HEMOGLOBIN 10.4 G/DL (11.5-16.0); LYMPHOCYTES % (AUTO) 14 % (12-44); MEAN CORPUSCULAR HEMOGLOBIN 30 PG (25-34); MEAN CORPUSCULAR HGB CONC 34 G/DL (32-36); MEAN CORPUSCULAR VOLUME 89 FL (80-99); MONOCYTES # (AUTO) 0.9 X 10^3 (0.0-1.0); MONOCYTES % (AUTO) 13 % (0-12); NEUTROPHILS # (AUTO) 4.7 X 10^3 (1.8-7.8); NEUTROPHILS % (AUTO) 68 % (42-75); PLATELET COUNT 281 10^3/uL (130-400); RED BLOOD COUNT 3.43 10^6/uL (4.35-5.85); RED CELL DISTRIBUTION WIDTH 15.8 % (10.0-14.5); WHITE BLOOD COUNT 6.9 10^3/uL (4.3-11.0)
[2017-11-15 09:43] LABS: ALBUMIN 3.8 GM/DL (3.2-4.5); BILIRUBIN,TOTAL 0.9 MG/DL (0.1-1.0); CALCIUM 8.7 MG/DL (8.5-10.1); CREATININE SERUM 1.07 MG/DL (0.60-1.30); POTASSIUM 4.3 MMOL/L (3.6-5.0); TOTAL PROTEIN 6.5 GM/DL (6.4-8.2)
[2017-11-29 10:06] LABS: BASOPHILS # (AUTO) 0.1 10^3/uL (0.0-0.1); BASOPHILS % (AUTO) 1 % (0-10); EOSINOPHILS # (AUTO) 0.2 10^3/uL (0.0-0.3); EOSINOPHILS % (AUTO) 2 % (0-10); HEMATOCRIT 30 % (35-52); HEMOGLOBIN 10.1 G/DL (11.5-16.0); LYMPHOCYTES # (AUTO) 1.6 X 10^3 (1.0-4.0); LYMPHOCYTES % (AUTO) 16 % (12-44); MEAN CORPUSCULAR HEMOGLOBIN 30 PG (25-34); MEAN CORPUSCULAR HGB CONC 33 G/DL (32-36); MEAN CORPUSCULAR VOLUME 90 FL (80-99); MEAN PLATELET VOLUME 9.6 FL (7.4-10.4); MONOCYTES # (AUTO) 0.9 X 10^3 (0.0-1.0); MONOCYTES % (AUTO) 9 % (0-12); NEUTROPHILS # (AUTO) 7.4 X 10^3 (1.8-7.8); NEUTROPHILS % (AUTO) 73 % (42-75); PLATELET COUNT 277 10^3/uL (130-400); RED BLOOD COUNT 3.37 10^6/uL (4.35-5.85); RED CELL DISTRIBUTION WIDTH 17.1 % (10.0-14.5); WHITE BLOOD COUNT 10.1 10^3/uL (4.3-11.0)
[2017-11-29 10:27] LABS: ALBUMIN 3.9 GM/DL (3.2-4.5); BILIRUBIN,TOTAL 0.4 MG/DL (0.1-1.0); CALCIUM 8.7 MG/DL (8.5-10.1); CREATININE SERUM 0.91 MG/DL (0.60-1.30); TOTAL PROTEIN 6.4 GM/DL (6.4-8.2)
[2017-12-06 10:56] LABS: BASOPHILS % (AUTO) 0 % (0-10); EOSINOPHILS # (AUTO) 0.6 10^3/uL (0.0-0.3); EOSINOPHILS % (AUTO) 7 % (0-10); HEMATOCRIT 33 % (35-52); LYMPHOCYTES # (AUTO) 1.6 X 10^3 (1.0-4.0); LYMPHOCYTES % (AUTO) 16 % (12-44); MEAN CORPUSCULAR HEMOGLOBIN 31 PG (25-34); MEAN CORPUSCULAR HGB CONC 34 G/DL (32-36); MEAN CORPUSCULAR VOLUME 90 FL (80-99); MEAN PLATELET VOLUME 9.6 FL (7.4-10.4); MONOCYTES # (AUTO) 0.6 X 10^3 (0.0-1.0); MONOCYTES % (AUTO) 6 % (0-12); NEUTROPHILS % (AUTO) 71 % (42-75); PLATELET COUNT 395 10^3/uL (130-400); RED BLOOD COUNT 3.61 10^6/uL (4.35-5.85); RED CELL DISTRIBUTION WIDTH 16.3 % (10.0-14.5); WHITE BLOOD COUNT 9.8 10^3/uL (4.3-11.0)
[2017-12-06 11:15] LABS: CREATININE SERUM 0.98 MG/DL (0.60-1.30); POTASSIUM 4.9 MMOL/L (3.6-5.0)
[2017-12-13 09:34] LABS: BASOPHILS # (AUTO) 0.1 10^3/uL (0.0-0.1); BASOPHILS % (AUTO) 1 % (0-10); EOSINOPHILS # (AUTO) 0.4 10^3/uL (0.0-0.3); EOSINOPHILS % (AUTO) 7 % (0-10); HEMATOCRIT 31 % (35-52); HEMOGLOBIN 10.2 G/DL (11.5-16.0); LYMPHOCYTES # (AUTO) 1.1 X 10^3 (1.0-4.0); LYMPHOCYTES % (AUTO) 22 % (12-44); MEAN CORPUSCULAR HEMOGLOBIN 30 PG (25-34); MEAN CORPUSCULAR HGB CONC 33 G/DL (32-36); MEAN CORPUSCULAR VOLUME 91 FL (80-99); MEAN PLATELET VOLUME 9.1 FL (7.4-10.4); MONOCYTES # (AUTO) 0.6 X 10^3 (0.0-1.0); MONOCYTES % (AUTO) 11 % (0-12); NEUTROPHILS # (AUTO) 3.1 X 10^3 (1.8-7.8); NEUTROPHILS % (AUTO) 60 % (42-75); PLATELET COUNT 214 10^3/uL (130-400); RED BLOOD COUNT 3.38 10^6/uL (4.35-5.85); RED CELL DISTRIBUTION WIDTH 16.9 % (10.0-14.5); WHITE BLOOD COUNT 5.3 10^3/uL (4.3-11.0)
[2017-12-13 09:59] LABS: ALBUMIN 3.9 GM/DL (3.2-4.5); BILIRUBIN,TOTAL 0.3 MG/DL (0.1-1.0); CALCIUM 8.5 MG/DL (8.5-10.1); CREATININE SERUM 0.92 MG/DL (0.60-1.30); POTASSIUM 4.5 MMOL/L (3.6-5.0); TOTAL PROTEIN 6.5 GM/DL (6.4-8.2)
[2017-12-13 10:26] LABS: BILIRUBIN,URINE NEGATIVE (NEGATIVE); CLARITY,URINE SLIGHTLY CLOUDY; COLOR,URINE YELLOW; GLUCOSE, URINE (UA) 1+ (NEGATIVE); KETONES,URINE 1+ (NEGATIVE); LEUKOCYTE ESTERASE ,URINE 3+ (NEGATIVE); NITRITE,URINE NEGATIVE (NEGATIVE); PH,URINE 5 (5-9); PROTEIN,URINE 2+ (NEGATIVE); UROBILINOGEN,URINE 1 MG/DL (NORMAL)
[2017-12-13 11:17] LABS: BILIRUBIN,URINE NEGATIVE (NEGATIVE); CLARITY,URINE CLEAR; COLOR,URINE YELLOW; GLUCOSE, URINE (UA) NEGATIVE (NEGATIVE); KETONES,URINE NEGATIVE (NEGATIVE); LEUKOCYTE ESTERASE ,URINE 1+ (NEGATIVE); NITRITE,URINE NEGATIVE (NEGATIVE); PH,URINE 5 (5-9); PROTEIN,URINE 1+ (NEGATIVE); UROBILINOGEN,URINE NORMAL (NORMAL)
[2017-12-13 11:25] LABS: BACTERIA,URINE TRACE /HPF; HYALINE CASTS, URINE 0-2 /LPF; SQUAMOUS EPITHELIAL CELL,UR 0-2 /HPF
[2017-12-19 14:42] LABS: BASOPHILS % (AUTO) 0 % (0-10); EOSINOPHILS # (AUTO) 0.3 10^3/uL (0.0-0.3); EOSINOPHILS % (AUTO) 5 % (0-10); HEMATOCRIT 31 % (35-52); HEMOGLOBIN 10.3 G/DL (11.5-16.0); LYMPHOCYTES # (AUTO) 1.1 X 10^3 (1.0-4.0); LYMPHOCYTES % (AUTO) 22 % (12-44); MEAN CORPUSCULAR HEMOGLOBIN 30 PG (25-34); MEAN CORPUSCULAR HGB CONC 33 G/DL (32-36); MEAN CORPUSCULAR VOLUME 90 FL (80-99); MEAN PLATELET VOLUME 9.2 FL (7.4-10.4); MONOCYTES # (AUTO) 0.3 X 10^3 (0.0-1.0); MONOCYTES % (AUTO) 6 % (0-12); NEUTROPHILS # (AUTO) 3.3 X 10^3 (1.8-7.8); NEUTROPHILS % (AUTO) 67 % (42-75); PLATELET COUNT 220 10^3/uL (130-400); RED BLOOD COUNT 3.43 10^6/uL (4.35-5.85); RED CELL DISTRIBUTION WIDTH 15.9 % (10.0-14.5)
[2017-12-19 15:02] LABS: CALCIUM 8.6 MG/DL (8.5-10.1); CREATININE SERUM 1.08 MG/DL (0.60-1.30); POTASSIUM 4.5 MMOL/L (3.6-5.0)
[2017-12-26 10:36] LABS: BASOPHILS % (AUTO) 0 % (0-10); EOSINOPHILS # (AUTO) 0.3 10^3/uL (0.0-0.3); EOSINOPHILS % (AUTO) 5 % (0-10); HEMATOCRIT 30 % (35-52); HEMOGLOBIN 10.2 G/DL (11.5-16.0); LYMPHOCYTES % (AUTO) 16 % (12-44); MEAN CORPUSCULAR HEMOGLOBIN 31 PG (25-34); MEAN CORPUSCULAR HGB CONC 34 G/DL (32-36); MEAN CORPUSCULAR VOLUME 91 FL (80-99); MEAN PLATELET VOLUME 9.2 FL (7.4-10.4); MONOCYTES # (AUTO) 0.6 X 10^3 (0.0-1.0); MONOCYTES % (AUTO) 10 % (0-12); NEUTROPHILS % (AUTO) 69 % (42-75); PLATELET COUNT 187 10^3/uL (130-400); RED BLOOD COUNT 3.27 10^6/uL (4.35-5.85); RED CELL DISTRIBUTION WIDTH 16.7 % (10.0-14.5); WHITE BLOOD COUNT 5.8 10^3/uL (4.3-11.0)
[2017-12-26 11:04] LABS: ALANINE AMINOTRANSFERASE 17 U/L (0-55); ALBUMIN 3.7 GM/DL (3.2-4.5); ALKALINE PHOSPHATASE 127 U/L (40-136); BILIRUBIN,TOTAL 0.4 MG/DL (0.1-1.0); BUN/CREATININE RATIO 12; CALCIUM 8.3 MG/DL (8.5-10.1); CARBON DIOXIDE 21 MMOL/L (21-32); CHLORIDE 110 MMOL/L (98-107); CREATININE SERUM 0.89 MG/DL (0.60-1.30); GFR ESTIMATED > 60; GLUCOSE 232 MG/DL (70-105); MAGNESIUM 1.9 MG/DL (1.8-2.4); POTASSIUM 4.4 MMOL/L (3.6-5.0); SODIUM 140 MMOL/L (135-145); TOTAL PROTEIN 6.1 GM/DL (6.4-8.2)
[2018-01-02 13:29] LABS: BASOPHILS % (AUTO) 0 % (0-10); EOSINOPHILS # (AUTO) 0.2 10^3/uL (0.0-0.3); EOSINOPHILS % (AUTO) 5 % (0-10); HEMATOCRIT 31 % (35-52); HEMOGLOBIN 10.5 G/DL (11.5-16.0); LYMPHOCYTES # (AUTO) 1.1 X 10^3 (1.0-4.0); LYMPHOCYTES % (AUTO) 24 % (12-44); MEAN CORPUSCULAR HEMOGLOBIN 31 PG (25-34); MEAN CORPUSCULAR HGB CONC 34 G/DL (32-36); MEAN CORPUSCULAR VOLUME 91 FL (80-99); MEAN PLATELET VOLUME 9.2 FL (7.4-10.4); MONOCYTES # (AUTO) 0.3 X 10^3 (0.0-1.0); MONOCYTES % (AUTO) 7 % (0-12); NEUTROPHILS % (AUTO) 64 % (42-75); PLATELET COUNT 318 10^3/uL (130-400); RED BLOOD COUNT 3.43 10^6/uL (4.35-5.85); RED CELL DISTRIBUTION WIDTH 16.4 % (10.0-14.5); WHITE BLOOD COUNT 4.7 10^3/uL (4.3-11.0)
[2018-01-02 13:43] LABS: CREATININE SERUM 0.99 MG/DL (0.60-1.30); POTASSIUM 5.1 MMOL/L (3.6-5.0)
[2018-01-10 10:17] LABS: BASOPHILS % (AUTO) 0 % (0-10); EOSINOPHILS # (AUTO) 0.2 10^3/uL (0.0-0.3); EOSINOPHILS % (AUTO) 5 % (0-10); HEMATOCRIT 31 % (35-52); HEMOGLOBIN 10.3 G/DL (11.5-16.0); LYMPHOCYTES # (AUTO) 0.9 X 10^3 (1.0-4.0); LYMPHOCYTES % (AUTO) 18 % (12-44); MEAN CORPUSCULAR HEMOGLOBIN 31 PG (25-34); MEAN CORPUSCULAR HGB CONC 34 G/DL (32-36); MEAN CORPUSCULAR VOLUME 93 FL (80-99); MEAN PLATELET VOLUME 9.2 FL (7.4-10.4); MONOCYTES # (AUTO) 0.6 X 10^3 (0.0-1.0); MONOCYTES % (AUTO) 12 % (0-12); NEUTROPHILS # (AUTO) 3.1 X 10^3 (1.8-7.8); NEUTROPHILS % (AUTO) 65 % (42-75); PLATELET COUNT 240 10^3/uL (130-400); RED BLOOD COUNT 3.31 10^6/uL (4.35-5.85); RED CELL DISTRIBUTION WIDTH 17.6 % (10.0-14.5); WHITE BLOOD COUNT 4.7 10^3/uL (4.3-11.0)
[2018-01-10 10:44] LABS: ALBUMIN 3.9 GM/DL (3.2-4.5); BILIRUBIN,TOTAL 0.4 MG/DL (0.1-1.0); CALCIUM 8.6 MG/DL (8.5-10.1); CREATININE SERUM 1.13 MG/DL (0.60-1.30); MAGNESIUM 2.2 MG/DL (1.8-2.4); POTASSIUM 4.1 MMOL/L (3.6-5.0); TOTAL PROTEIN 6.2 GM/DL (6.4-8.2)
[2018-01-16 14:02] LABS: BASOPHILS % (AUTO) 1 % (0-10); EOSINOPHILS # (AUTO) 0.2 10^3/uL (0.0-0.3); EOSINOPHILS % (AUTO) 5 % (0-10); HEMATOCRIT 30 % (35-52); LYMPHOCYTES # (AUTO) 1.2 X 10^3 (1.0-4.0); LYMPHOCYTES % (AUTO) 29 % (12-44); MEAN CORPUSCULAR HEMOGLOBIN 31 PG (25-34); MEAN CORPUSCULAR HGB CONC 33 G/DL (32-36); MEAN CORPUSCULAR VOLUME 91 FL (80-99); MEAN PLATELET VOLUME 8.9 FL (7.4-10.4); MONOCYTES # (AUTO) 0.2 X 10^3 (0.0-1.0); MONOCYTES % (AUTO) 5 % (0-12); NEUTROPHILS # (AUTO) 2.6 X 10^3 (1.8-7.8); NEUTROPHILS % (AUTO) 61 % (42-75); PLATELET COUNT 258 10^3/uL (130-400); RED BLOOD COUNT 3.27 10^6/uL (4.35-5.85); RED CELL DISTRIBUTION WIDTH 16.4 % (10.0-14.5); WHITE BLOOD COUNT 4.3 10^3/uL (4.3-11.0)
[2018-01-16 14:19] LABS: CALCIUM 8.8 MG/DL (8.5-10.1); CREATININE SERUM 1.08 MG/DL (0.60-1.30); POTASSIUM 4.8 MMOL/L (3.6-5.0)
[~2018-01-23] VITALS: Ht 161.3 cm; Wt 93.0 kg
[~2018-01-23] MED LIST changes: +ATROPINE INJ 0.4 MG/ML SDV (CANCER CENTER) INJ SCH; -BARIUM SUSPENSION 2.1% (VANILLA SILQ) 450 ML PO ONE; +BEVACIZUMAB INJECTION 400 MG, BEVACIZUMAB INJECTION 50 MG in NS (IVPB) CANCER CENTER 10... IV SCH; +D5W IV SCH; +FLUOROURACIL 0.6 GM in SYRINGE-IVPB 1 SYRINGE IV SCH; +FLUOROURACIL 2.5 GM, FLUOROURACIL 0.7 GM in NS (IVPB) CANCER CENTER 83.2 ML IV SCH; +FLUOROURACIL 2.5 GM, FLUOROURACIL 1 GM, FLUOROURACIL 100 MG in NS (IVPB) CANCER CENTER ... IV SCH; +FOSAPREPITANT DIMEGLUMINE 150 MG in NS (IVPB) CANCER CENTER ONLY 150 ML IV SCH; -IOHEXOL 350 MG/ML 100 ML (OMNIPAQUE 350) VIAL IV ONE; +IRINOTECAN HCL 300 MG in D5W 250 ML IVPB (CANCER CTR) 250 ML IV SCH; +IRINOTECAN HCL IV SCH; +LEUCOVORIN CALCIUM 600 MG in D5W 250 ML IVPB (CANCER CTR) 250 ML IV SCH; -NS 250 ML (IVPB) BAG IV ONE; +NS IV 1000 ML (CANCER CTR) 1,000 ML IV SCH; +PALONOSETRON 0.25 MG, DEXAMETHASONE 10 MG/NS 50 ML IVPB IV PRN; +PALONOSETRON HCL 0.25 MG, DEXAMETHASONE INJ (CANCER CTR) 4 MG in NS (IVPB) CANCER CENTE... IV SCH
[2018-01-23 10:20] LABS: BASOPHILS % (AUTO) 0 % (0-10); EOSINOPHILS # (AUTO) 0.3 10^3/uL (0.0-0.3); EOSINOPHILS % (AUTO) 6 % (0-10); HEMATOCRIT 29 % (35-52); HEMOGLOBIN 9.8 G/DL (11.5-16.0); LYMPHOCYTES % (AUTO) 20 % (12-44); MEAN CORPUSCULAR HEMOGLOBIN 32 PG (25-34); MEAN CORPUSCULAR HGB CONC 34 G/DL (32-36); MEAN CORPUSCULAR VOLUME 94 FL (80-99); MONOCYTES # (AUTO) 0.6 X 10^3 (0.0-1.0); MONOCYTES % (AUTO) 12 % (0-12); NEUTROPHILS # (AUTO) 2.9 X 10^3 (1.8-7.8); NEUTROPHILS % (AUTO) 61 % (42-75); PLATELET COUNT 210 10^3/uL (130-400); RED BLOOD COUNT 3.06 10^6/uL (4.35-5.85); RED CELL DISTRIBUTION WIDTH 17.4 % (10.0-14.5); WHITE BLOOD COUNT 4.8 10^3/uL (4.3-11.0)
[2018-01-23 10:30] LABS: BILIRUBIN,URINE NEGATIVE (NEGATIVE); CLARITY,URINE CLEAR; COLOR,URINE YELLOW; GLUCOSE, URINE (UA) NEGATIVE (NEGATIVE); KETONES,URINE NEGATIVE (NEGATIVE); LEUKOCYTE ESTERASE ,URINE 1+ (NEGATIVE); NITRITE,URINE NEGATIVE (NEGATIVE); PH,URINE 5 (5-9); PROTEIN,URINE 1+ (NEGATIVE); UROBILINOGEN,URINE NORMAL (NORMAL)
[2018-01-23 10:40] LABS: ALBUMIN 3.8 GM/DL (3.2-4.5); BILIRUBIN,TOTAL 0.5 MG/DL (0.1-1.0); CALCIUM 8.7 MG/DL (8.5-10.1); CREATININE SERUM 0.95 MG/DL (0.60-1.30); MAGNESIUM 2.1 MG/DL (1.8-2.4); POTASSIUM 4.2 MMOL/L (3.6-5.0); TOTAL PROTEIN 6.2 GM/DL (6.4-8.2)
== END | disposition home or self-care (01) ==
LOC: ONC 10-25 08:57
PROVIDERS: ATTEND Internal Medicine Hematology & Oncology
DX: Z51.11 Encounter for antineoplastic chemotherapy (principal); C18.0 Malignant neoplasm of cecum; E11.9 Type 2 diabetes mellitus without complications; K44.9 Diaphragmatic hernia without obstruction or gangrene; R82.99 Other abnormal findings in urine; Z87.891 Personal history of nicotine dependence; Z79.899 Other long term (current) drug therapy
CPT/HCPCS: 36415; 36591; 80048; 80053; 81000; 81002; 82378; 82570; 83735; 84156; 85025; 87088; 96367; 96368; 96375; 96411; 96413

== ENCOUNTER 2018-03-21 11:33 | Outpatient (RCR) | payer MEDICARE, OTHER ==
[2018-01-30 11:29] LABS: BASOPHILS % (AUTO) 0 % (0-10); EOSINOPHILS # (AUTO) 0.3 10^3/uL (0.0-0.3); EOSINOPHILS % (AUTO) 7 % (0-10); HEMATOCRIT 31 % (35-52); HEMOGLOBIN 10.3 G/DL (11.5-16.0); LYMPHOCYTES # (AUTO) 1.1 X 10^3 (1.0-4.0); LYMPHOCYTES % (AUTO) 22 % (12-44); MEAN CORPUSCULAR HEMOGLOBIN 31 PG (25-34); MEAN CORPUSCULAR HGB CONC 33 G/DL (32-36); MEAN CORPUSCULAR VOLUME 95 FL (80-99); MEAN PLATELET VOLUME 8.9 FL (7.4-10.4); MONOCYTES # (AUTO) 0.4 X 10^3 (0.0-1.0); MONOCYTES % (AUTO) 9 % (0-12); NEUTROPHILS # (AUTO) 3.2 X 10^3 (1.8-7.8); NEUTROPHILS % (AUTO) 63 % (42-75); PLATELET COUNT 321 10^3/uL (130-400); RED BLOOD COUNT 3.27 10^6/uL (4.35-5.85); RED CELL DISTRIBUTION WIDTH 16.7 % (10.0-14.5); WHITE BLOOD COUNT 5.1 10^3/uL (4.3-11.0)
[2018-01-30 11:50] LABS: CREATININE SERUM 0.94 MG/DL (0.60-1.30)
[2018-02-20 14:29] LABS: BASOPHILS % (AUTO) 0 % (0-10); EOSINOPHILS # (AUTO) 0.3 10^3/uL (0.0-0.3); EOSINOPHILS % (AUTO) 4 % (0-10); HEMATOCRIT 31 % (35-52); HEMOGLOBIN 10.3 G/DL (11.5-16.0); LYMPHOCYTES # (AUTO) 1.2 X 10^3 (1.0-4.0); LYMPHOCYTES % (AUTO) 16 % (12-44); MEAN CORPUSCULAR HGB CONC 34 G/DL (32-36); MEAN CORPUSCULAR VOLUME 93 FL (80-99); MEAN PLATELET VOLUME 9.1 FL (7.4-10.4); MONOCYTES # (AUTO) 0.3 X 10^3 (0.0-1.0); MONOCYTES % (AUTO) 4 % (0-12); NEUTROPHILS # (AUTO) 5.8 X 10^3 (1.8-7.8); NEUTROPHILS % (AUTO) 76 % (42-75); PLATELET COUNT 294 10^3/uL (130-400); RED BLOOD COUNT 3.27 10^6/uL (4.35-5.85); RED CELL DISTRIBUTION WIDTH 16.2 % (10.0-14.5); WHITE BLOOD COUNT 7.6 10^3/uL (4.3-11.0)
[2018-02-20 14:31] LABS: MEAN CORPUSCULAR HEMOGLOBIN 31 PG (25-34)
[2018-02-20 14:45] LABS: CALCIUM 9.1 MG/DL (8.5-10.1); CREATININE SERUM 1.32 MG/DL (0.60-1.30); POTASSIUM 4.5 MMOL/L (3.6-5.0)
[2018-02-27 11:07] LABS: BASOPHILS % (AUTO) 1 % (0-10); EOSINOPHILS # (AUTO) 0.3 10^3/uL (0.0-0.3); EOSINOPHILS % (AUTO) 7 % (0-10); HEMATOCRIT 30 % (35-52); HEMOGLOBIN 10.3 G/DL (11.5-16.0); LYMPHOCYTES # (AUTO) 0.9 X 10^3 (1.0-4.0); LYMPHOCYTES % (AUTO) 22 % (12-44); MEAN CORPUSCULAR HEMOGLOBIN 32 PG (25-34); MEAN CORPUSCULAR HGB CONC 34 G/DL (32-36); MEAN CORPUSCULAR VOLUME 94 FL (80-99); MEAN PLATELET VOLUME 9.5 FL (7.4-10.4); MONOCYTES # (AUTO) 0.5 X 10^3 (0.0-1.0); MONOCYTES % (AUTO) 11 % (0-12); NEUTROPHILS # (AUTO) 2.5 X 10^3 (1.8-7.8); NEUTROPHILS % (AUTO) 60 % (42-75); PLATELET COUNT 243 10^3/uL (130-400); RED BLOOD COUNT 3.18 10^6/uL (4.35-5.85); RED CELL DISTRIBUTION WIDTH 15.9 % (10.0-14.5); WHITE BLOOD COUNT 4.2 10^3/uL (4.3-11.0)
[2018-02-27 11:18] LABS: BILIRUBIN,URINE NEGATIVE (NEGATIVE); CLARITY,URINE SLIGHTLY CLOUDY; COLOR,URINE YELLOW; GLUCOSE, URINE (UA) NEGATIVE (NEGATIVE); KETONES,URINE NEGATIVE (NEGATIVE); LEUKOCYTE ESTERASE ,URINE 1+ (NEGATIVE); NITRITE,URINE NEGATIVE (NEGATIVE); PH,URINE 5 (5-9); PROTEIN,URINE 1+ (NEGATIVE); UROBILINOGEN,URINE NORMAL (NORMAL)
[2018-02-27 11:26] LABS: ALBUMIN 3.9 GM/DL (3.2-4.5); BILIRUBIN,TOTAL 0.4 MG/DL (0.1-1.0); CALCIUM 9.5 MG/DL (8.5-10.1); CREATININE SERUM 1.27 MG/DL (0.60-1.30); MAGNESIUM 1.8 MG/DL (1.8-2.4); POTASSIUM 4.2 MMOL/L (3.6-5.0); TOTAL PROTEIN 6.5 GM/DL (6.4-8.2)
[2018-03-06 14:03] LABS: BASOPHILS % (AUTO) 0 % (0-10); EOSINOPHILS # (AUTO) 0.3 10^3/uL (0.0-0.3); EOSINOPHILS % (AUTO) 5 % (0-10); HEMATOCRIT 29 % (35-52); HEMOGLOBIN 9.6 G/DL (11.5-16.0); LYMPHOCYTES # (AUTO) 1.1 X 10^3 (1.0-4.0); LYMPHOCYTES % (AUTO) 22 % (12-44); MEAN CORPUSCULAR HEMOGLOBIN 32 PG (25-34); MEAN CORPUSCULAR HGB CONC 34 G/DL (32-36); MEAN CORPUSCULAR VOLUME 94 FL (80-99); MEAN PLATELET VOLUME 8.9 FL (7.4-10.4); MONOCYTES # (AUTO) 0.4 X 10^3 (0.0-1.0); MONOCYTES % (AUTO) 7 % (0-12); NEUTROPHILS # (AUTO) 3.3 X 10^3 (1.8-7.8); NEUTROPHILS % (AUTO) 65 % (42-75); PLATELET COUNT 325 10^3/uL (130-400); RED BLOOD COUNT 3.04 10^6/uL (4.35-5.85); RED CELL DISTRIBUTION WIDTH 15.4 % (10.0-14.5); WHITE BLOOD COUNT 5.1 10^3/uL (4.3-11.0)
[2018-03-06 14:22] LABS: CALCIUM 8.7 MG/DL (8.5-10.1); CREATININE SERUM 1.02 MG/DL (0.60-1.30); POTASSIUM 4.4 MMOL/L (3.6-5.0)
[2018-03-14 10:11] LABS: BASOPHILS % (AUTO) 1 % (0-10); EOSINOPHILS # (AUTO) 0.3 10^3/uL (0.0-0.3); EOSINOPHILS % (AUTO) 6 % (0-10); HEMATOCRIT 29 % (35-52); HEMOGLOBIN 9.6 G/DL (11.5-16.0); LYMPHOCYTES % (AUTO) 24 % (12-44); MEAN CORPUSCULAR HEMOGLOBIN 32 PG (25-34); MEAN CORPUSCULAR HGB CONC 34 G/DL (32-36); MEAN CORPUSCULAR VOLUME 94 FL (80-99); MEAN PLATELET VOLUME 9.1 FL (7.4-10.4); MONOCYTES # (AUTO) 0.7 X 10^3 (0.0-1.0); MONOCYTES % (AUTO) 17 % (0-12); NEUTROPHILS # (AUTO) 2.1 X 10^3 (1.8-7.8); NEUTROPHILS % (AUTO) 52 % (42-75); PLATELET COUNT 230 10^3/uL (130-400); RED BLOOD COUNT 3.02 10^6/uL (4.35-5.85); RED CELL DISTRIBUTION WIDTH 15.9 % (10.0-14.5)
[2018-03-14 10:29] LABS: ALBUMIN 3.8 GM/DL (3.2-4.5); BILIRUBIN,TOTAL 0.5 MG/DL (0.1-1.0); CALCIUM 8.8 MG/DL (8.5-10.1); CREATININE SERUM 0.95 MG/DL (0.60-1.30); MAGNESIUM 1.8 MG/DL (1.8-2.4); POTASSIUM 3.9 MMOL/L (3.6-5.0); TOTAL PROTEIN 6.4 GM/DL (6.4-8.2)
[2018-03-14 10:50] LABS: CLARITY,URINE VERY CLOUDY; COLOR,URINE YELLOW; GLUCOSE, URINE (UA) NEGATIVE (NEGATIVE); KETONES,URINE 1+ (NEGATIVE); LEUKOCYTE ESTERASE ,URINE 1+ (NEGATIVE); NITRITE,URINE NEGATIVE (NEGATIVE); PH,URINE 5 (5-9); PROTEIN,URINE 1+ (NEGATIVE); UROBILINOGEN,URINE 1 MG/DL (NORMAL)
[2018-03-14 11:07] LABS: BILIRUBIN,URINE 1+ (NEGATIVE)
[~2018-03-21] VITALS: Ht 161.3 cm; Wt 92.1 kg
[~2018-03-21 11:33] MED LIST changes: -FLUOROURACIL 0.6 GM in SYRINGE-IVPB 1 SYRINGE IV SCH; -FLUOROURACIL 2.5 GM, FLUOROURACIL 1 GM, FLUOROURACIL 100 MG in NS (IVPB) CANCER CENTER ... IV SCH; -IRINOTECAN HCL 300 MG in D5W 250 ML IVPB (CANCER CTR) 250 ML IV SCH; -OXYC-197 PO; +OXYC1TAB87 PO; -PALONOSETRON 0.25 MG, DEXAMETHASONE 10 MG/NS 50 ML IVPB IV PRN
[2018-03-21 11:47] LABS: BASOPHILS % (AUTO) 0 % (0-10); EOSINOPHILS # (AUTO) 0.2 10^3/uL (0.0-0.3); EOSINOPHILS % (AUTO) 4 % (0-10); HEMATOCRIT 29 % (35-52); HEMOGLOBIN 9.9 G/DL (11.5-16.0); LYMPHOCYTES # (AUTO) 1.1 X 10^3 (1.0-4.0); LYMPHOCYTES % (AUTO) 20 % (12-44); MEAN CORPUSCULAR HEMOGLOBIN 32 PG (25-34); MEAN CORPUSCULAR HGB CONC 34 G/DL (32-36); MEAN CORPUSCULAR VOLUME 93 FL (80-99); MEAN PLATELET VOLUME 8.7 FL (7.4-10.4); MONOCYTES # (AUTO) 0.2 X 10^3 (0.0-1.0); MONOCYTES % (AUTO) 4 % (0-12); NEUTROPHILS % (AUTO) 72 % (42-75); PLATELET COUNT 290 10^3/uL (130-400); RED BLOOD COUNT 3.12 10^6/uL (4.35-5.85); RED CELL DISTRIBUTION WIDTH 15.1 % (10.0-14.5); WHITE BLOOD COUNT 5.5 10^3/uL (4.3-11.0)
[2018-03-21 12:07] LABS: BUN/CREATININE RATIO 10; CALCIUM 9.5 MG/DL (8.5-10.1); CARBON DIOXIDE 23 MMOL/L (21-32); CHLORIDE 106 MMOL/L (98-107); GFR ESTIMATED > 60; GLUCOSE 115 MG/DL (70-105); POTASSIUM 4.3 MMOL/L (3.6-5.0); SODIUM 138 MMOL/L (135-145)
== END 2018-03-27 08:45 | disposition home or self-care (01) ==
LOC: ONC 11:33
PROVIDERS: ATTEND Internal Medicine Hematology & Oncology
DX: Z51.11 Encounter for antineoplastic chemotherapy (principal); C18.0 Malignant neoplasm of cecum; E11.9 Type 2 diabetes mellitus without complications; K44.9 Diaphragmatic hernia without obstruction or gangrene; R82.99 Other abnormal findings in urine; Z87.891 Personal history of nicotine dependence; Z79.899 Other long term (current) drug therapy
CPT/HCPCS: 36415; 36591; 80048; 80053; 81002; 82378; 83735; 85025; 96367; 96368; 96375; 96411; 96413; 99213

== ENCOUNTER 2018-04-04 14:11 | Outpatient (RCR) | payer MEDICARE, OTHER ==
[2018-03-27 10:12] LABS: BASOPHILS % (AUTO) 0 % (0-10); EOSINOPHILS # (AUTO) 0.3 10^3/uL (0.0-0.3); EOSINOPHILS % (AUTO) 6 % (0-10); HEMATOCRIT 29 % (35-52); HEMOGLOBIN 9.5 G/DL (11.5-16.0); LYMPHOCYTES # (AUTO) 0.8 X 10^3 (1.0-4.0); LYMPHOCYTES % (AUTO) 18 % (12-44); MEAN CORPUSCULAR HEMOGLOBIN 31 PG (25-34); MEAN CORPUSCULAR HGB CONC 33 G/DL (32-36); MEAN CORPUSCULAR VOLUME 95 FL (80-99); MONOCYTES # (AUTO) 0.5 X 10^3 (0.0-1.0); MONOCYTES % (AUTO) 11 % (0-12); NEUTROPHILS % (AUTO) 65 % (42-75); PLATELET COUNT 226 10^3/uL (130-400); RED BLOOD COUNT 3.06 10^6/uL (4.35-5.85); RED CELL DISTRIBUTION WIDTH 16.4 % (10.0-14.5); WHITE BLOOD COUNT 4.6 10^3/uL (4.3-11.0)
[2018-03-27 10:37] LABS: ALBUMIN 3.9 GM/DL (3.2-4.5); BILIRUBIN,TOTAL 0.4 MG/DL (0.1-1.0); CALCIUM 8.9 MG/DL (8.5-10.1); CREATININE SERUM 0.92 MG/DL (0.60-1.30); MAGNESIUM 1.9 MG/DL (1.8-2.4); TOTAL PROTEIN 6.4 GM/DL (6.4-8.2)
[2018-03-27 10:54] LABS: BILIRUBIN,URINE NEGATIVE (NEGATIVE); CLARITY,URINE CLEAR; COLOR,URINE YELLOW; GLUCOSE, URINE (UA) NEGATIVE (NEGATIVE); KETONES,URINE NEGATIVE (NEGATIVE); LEUKOCYTE ESTERASE ,URINE 2+ (NEGATIVE); NITRITE,URINE NEGATIVE (NEGATIVE); PH,URINE 5 (5-9); PROTEIN,URINE 2+ (NEGATIVE); UROBILINOGEN,URINE NORMAL (NORMAL)
[~2018-04-04] VITALS: Ht 161.3 cm; Wt 92.1 kg
[2018-04-04 14:22] LABS: BASOPHILS % (AUTO) 1 % (0-10); EOSINOPHILS # (AUTO) 0.2 10^3/uL (0.0-0.3); EOSINOPHILS % (AUTO) 4 % (0-10); HEMATOCRIT 31 % (35-52); HEMOGLOBIN 10.3 G/DL (11.5-16.0); LYMPHOCYTES # (AUTO) 1.4 X 10^3 (1.0-4.0); LYMPHOCYTES % (AUTO) 25 % (12-44); MEAN CORPUSCULAR HEMOGLOBIN 31 PG (25-34); MEAN CORPUSCULAR HGB CONC 33 G/DL (32-36); MEAN CORPUSCULAR VOLUME 94 FL (80-99); MEAN PLATELET VOLUME 8.8 FL (7.4-10.4); MONOCYTES # (AUTO) 0.5 X 10^3 (0.0-1.0); MONOCYTES % (AUTO) 9 % (0-12); NEUTROPHILS # (AUTO) 3.4 X 10^3 (1.8-7.8); NEUTROPHILS % (AUTO) 62 % (42-75); PLATELET COUNT 359 10^3/uL (130-400); RED BLOOD COUNT 3.31 10^6/uL (4.35-5.85); WHITE BLOOD COUNT 5.5 10^3/uL (4.3-11.0)
[2018-04-04 14:38] LABS: POTASSIUM 4.6 MMOL/L (3.6-5.0)
[2018-04-04 14:39] LABS: CALCIUM 9.7 MG/DL (8.5-10.1)
[2018-04-04 14:44] LABS: CREATININE SERUM 1.13 MG/DL (0.60-1.30)
== END 2018-04-09 | disposition home or self-care (01) ==
LOC: ONC 14:11
PROVIDERS: ATTEND Internal Medicine Hematology & Oncology
DX: Z51.11 Encounter for antineoplastic chemotherapy (principal); C18.0 Malignant neoplasm of cecum; E11.9 Type 2 diabetes mellitus without complications; K44.9 Diaphragmatic hernia without obstruction or gangrene; R82.99 Other abnormal findings in urine; Z87.891 Personal history of nicotine dependence; Z79.899 Other long term (current) drug therapy
CPT/HCPCS: 36415; 36591; 80048; 80053; 81002; 82570; 83735; 84156; 85025; 96367; 96368; 96375; 96411; 96413

== ENCOUNTER → 2018-05-01 | Outpatient (CLI) | payer MEDICARE, OTHER ==
[~2018-05-01] MED LIST changes: -ATROPINE INJ 0.4 MG/ML SDV (CANCER CENTER) INJ SCH; +BARIUM SUSPENSION 2.1% (VANILLA SILQ) 450 ML PO ONE; -BEVACIZUMAB INJECTION 400 MG, BEVACIZUMAB INJECTION 50 MG in NS (IVPB) CANCER CENTER 10... IV SCH; -D5W IV SCH; -FLUOROURACIL 2.5 GM, FLUOROURACIL 0.7 GM in NS (IVPB) CANCER CENTER 83.2 ML IV SCH; -FOSAPREPITANT DIMEGLUMINE 150 MG in NS (IVPB) CANCER CENTER ONLY 150 ML IV SCH; +IOHEXOL 350 MG/ML 100 ML (OMNIPAQUE 350) VIAL IV ONE; -IRINOTECAN HCL IV SCH; -LEUCOVORIN CALCIUM 600 MG in D5W 250 ML IVPB (CANCER CTR) 250 ML IV SCH; +NS 250 ML (IVPB) BAG IV ONE; -NS IV 1000 ML (CANCER CTR) 1,000 ML IV SCH; -PALONOSETRON HCL 0.25 MG, DEXAMETHASONE INJ (CANCER CTR) 4 MG in NS (IVPB) CANCER CENTE... IV SCH
--- NOTE | 2018-05-01 14:20 | Diagnostic Imaging Report ---
PROCEDURE: CT chest, abdomen, and pelvis with contrast. TECHNIQUE: Multiple contiguous axial images were obtained through the chest, abdomen, and pelvis after the administration of intravenous contrast. INDICATION: Colon carcinoma. The study is performed for restaging. Comparison is made with prior CT of the chest, abdomen and pelvis from 01/19/2018. CT chest: FINDINGS: Right chest wall port remains in place with the tip at the SVC right atrial junction. No axillary lymphadenopathy is seen. No definite hilar or mediastinal lymphadenopathy is identified. No pericardial or pleural fluid is identified. Parenchymal evaluation again shows multiple nodules in the right lower lobe. The more anteriorly located nodule measures approximately 17 mm, similar to prior exam. The bilobed nodule just posterior to this stable at approximately 18 mm short axis x 30 mm long axis. This may be slightly smaller. Additional nodules medially and slightly more inferior and posterior appear to be stable. There is a tiny subpleural nodule in the posterolateral left lower lobe which is stable. No new mass is seen. IMPRESSION: Stable pulmonary nodules when compared with exam from 01/19/2018. No thoracic lymphadenopathy is seen. CT abdomen and pelvis: FINDINGS: Liver demonstrates generalized low density consistent with hepatic steatosis. The low-density lesion in the right lobe medially is stable at approximately 2 cm. No new liver mass is identified. Gallbladder is surgically absent. The pancreas and spleen are unremarkable. No adrenal mass is detected. The kidneys are unremarkable. Aorta is nonaneurysmal. Previously noted soft tissue prominence in the midline anterior abdominal wall measures approximately 3.5 cm AP x 4.2 cm transverse compared with 3.2 cm AP x 4.0 cm transverse. Soft tissue fullness in the midline pelvis adjacent to the sigmoid is similar at approximately 2.9 x 2.6 cm compared with 2.8 x 2.8 cm. No pelvic lymphadenopathy is seen. Bladder is unremarkable. Bony structures are unremarkable. IMPRESSION: 1. Stable right lobe liver mass. No new liver mass is identified. 2. Stable soft tissue midline anterior abdominal wall. 3. Stable soft tissue prominence in the midline pelvis adjacent to the sigmoid. No new abnormality is detected. Dictated by: Dictated on workstation # [id number]
== END ==
LOC: RAD 13:16
PROVIDERS: ATTEND Internal Medicine Hematology & Oncology
DX: C18.9 Malignant neoplasm of colon, unspecified (principal); C79.89 Secondary malignant neoplasm of other specified sites; R91.8 Other nonspecific abnormal finding of lung field
CPT/HCPCS: 71260; 74177

== ENCOUNTER 2018-07-05 12:37 | Outpatient (RCR) | payer MEDICARE, OTHER ==
[2018-04-10 10:54] LABS: BASOPHILS % (AUTO) 1 % (0-10); EOSINOPHILS # (AUTO) 0.2 10^3/uL (0.0-0.3); EOSINOPHILS % (AUTO) 5 % (0-10); HEMATOCRIT 30 % (35-52); LYMPHOCYTES # (AUTO) 1.1 X 10^3 (1.0-4.0); LYMPHOCYTES % (AUTO) 24 % (12-44); MEAN CORPUSCULAR HEMOGLOBIN 31 PG (25-34); MEAN CORPUSCULAR HGB CONC 33 G/DL (32-36); MEAN CORPUSCULAR VOLUME 96 FL (80-99); MEAN PLATELET VOLUME 8.9 FL (7.4-10.4); MONOCYTES # (AUTO) 0.7 X 10^3 (0.0-1.0); MONOCYTES % (AUTO) 16 % (0-12); NEUTROPHILS # (AUTO) 2.6 X 10^3 (1.8-7.8); NEUTROPHILS % (AUTO) 55 % (42-75); PLATELET COUNT 214 10^3/uL (130-400); RED BLOOD COUNT 3.18 10^6/uL (4.35-5.85); RED CELL DISTRIBUTION WIDTH 16.8 % (10.0-14.5); WHITE BLOOD COUNT 4.6 10^3/uL (4.3-11.0)
[2018-04-10 11:15] LABS: BILIRUBIN,TOTAL 0.4 MG/DL (0.1-1.0); CALCIUM 8.8 MG/DL (8.5-10.1); CREATININE SERUM 1.14 MG/DL (0.60-1.30); MAGNESIUM 1.9 MG/DL (1.8-2.4); POTASSIUM 4.5 MMOL/L (3.6-5.0); TOTAL PROTEIN 6.7 GM/DL (6.4-8.2)
[2018-04-10 11:16] LABS: BILIRUBIN,URINE NEGATIVE (NEGATIVE); CLARITY,URINE CLEAR; COLOR,URINE YELLOW; GLUCOSE, URINE (UA) NEGATIVE (NEGATIVE); KETONES,URINE 1+ (NEGATIVE); LEUKOCYTE ESTERASE ,URINE 1+ (NEGATIVE); NITRITE,URINE NEGATIVE (NEGATIVE); PH,URINE 5 (5-9); PROTEIN,URINE 2+ (NEGATIVE); UROBILINOGEN,URINE NORMAL (NORMAL)
[2018-04-17 14:02] LABS: BASOPHILS % (AUTO) 0 % (0-10); EOSINOPHILS # (AUTO) 0.2 10^3/uL (0.0-0.3); EOSINOPHILS % (AUTO) 4 % (0-10); HEMATOCRIT 30 % (35-52); HEMOGLOBIN 10.1 G/DL (11.5-16.0); LYMPHOCYTES # (AUTO) 1.1 X 10^3 (1.0-4.0); LYMPHOCYTES % (AUTO) 20 % (12-44); MEAN CORPUSCULAR HEMOGLOBIN 31 PG (25-34); MEAN CORPUSCULAR HGB CONC 34 G/DL (32-36); MEAN CORPUSCULAR VOLUME 94 FL (80-99); MEAN PLATELET VOLUME 8.8 FL (7.4-10.4); MONOCYTES # (AUTO) 0.3 X 10^3 (0.0-1.0); MONOCYTES % (AUTO) 5 % (0-12); NEUTROPHILS # (AUTO) 3.9 X 10^3 (1.8-7.8); NEUTROPHILS % (AUTO) 70 % (42-75); PLATELET COUNT 270 10^3/uL (130-400); RED BLOOD COUNT 3.22 10^6/uL (4.35-5.85); RED CELL DISTRIBUTION WIDTH 15.6 % (10.0-14.5); WHITE BLOOD COUNT 5.6 10^3/uL (4.3-11.0)
[2018-04-17 14:18] LABS: CALCIUM 9.6 MG/DL (8.5-10.1); CREATININE SERUM 1.14 MG/DL (0.60-1.30); POTASSIUM 4.8 MMOL/L (3.6-5.0)
[2018-04-24 10:27] LABS: BASOPHILS % (AUTO) 1 % (0-10); EOSINOPHILS # (AUTO) 0.3 10^3/uL (0.0-0.3); EOSINOPHILS % (AUTO) 6 % (0-10); HEMATOCRIT 27 % (35-52); HEMOGLOBIN 9.4 G/DL (11.5-16.0); LYMPHOCYTES % (AUTO) 24 % (12-44); MEAN CORPUSCULAR HEMOGLOBIN 32 PG (25-34); MEAN CORPUSCULAR HGB CONC 35 G/DL (32-36); MEAN CORPUSCULAR VOLUME 93 FL (80-99); MONOCYTES # (AUTO) 0.5 X 10^3 (0.0-1.0); MONOCYTES % (AUTO) 13 % (0-12); NEUTROPHILS # (AUTO) 2.2 X 10^3 (1.8-7.8); NEUTROPHILS % (AUTO) 55 % (42-75); PLATELET COUNT 178 10^3/uL (130-400); RED BLOOD COUNT 2.91 10^6/uL (4.35-5.85); RED CELL DISTRIBUTION WIDTH 17.1 % (10.0-14.5)
[2018-04-24 10:54] LABS: ALBUMIN 3.9 GM/DL (3.2-4.5); BILIRUBIN,TOTAL 0.4 MG/DL (0.1-1.0); CALCIUM 8.5 MG/DL (8.5-10.1); CREATININE SERUM 1.25 MG/DL (0.60-1.30); MAGNESIUM 1.8 MG/DL (1.8-2.4); POTASSIUM 4.2 MMOL/L (3.6-5.0); TOTAL PROTEIN 6.2 GM/DL (6.4-8.2)
[2018-05-01 13:09] LABS: BASOPHILS % (AUTO) 1 % (0-10); EOSINOPHILS # (AUTO) 0.4 10^3/uL (0.0-0.3); EOSINOPHILS % (AUTO) 7 % (0-10); HEMATOCRIT 31 % (35-52); HEMOGLOBIN 10.1 G/DL (11.5-16.0); LYMPHOCYTES # (AUTO) 1.4 X 10^3 (1.0-4.0); LYMPHOCYTES % (AUTO) 24 % (12-44); MEAN CORPUSCULAR HEMOGLOBIN 31 PG (25-34); MEAN CORPUSCULAR HGB CONC 33 G/DL (32-36); MEAN CORPUSCULAR VOLUME 94 FL (80-99); MEAN PLATELET VOLUME 8.8 FL (7.4-10.4); MONOCYTES # (AUTO) 0.6 X 10^3 (0.0-1.0); MONOCYTES % (AUTO) 10 % (0-12); NEUTROPHILS # (AUTO) 3.4 X 10^3 (1.8-7.8); NEUTROPHILS % (AUTO) 58 % (42-75); PLATELET COUNT 305 10^3/uL (130-400); RED BLOOD COUNT 3.24 10^6/uL (4.35-5.85); RED CELL DISTRIBUTION WIDTH 17.2 % (10.0-14.5); WHITE BLOOD COUNT 5.8 10^3/uL (4.3-11.0)
[2018-05-01 13:30] LABS: CALCIUM 9.2 MG/DL (8.5-10.1); CREATININE SERUM 1.19 MG/DL (0.60-1.30); POTASSIUM 4.5 MMOL/L (3.6-5.0)
[2018-05-08 10:38] LABS: BASOPHILS % (AUTO) 0 % (0-10); EOSINOPHILS # (AUTO) 0.3 10^3/uL (0.0-0.3); EOSINOPHILS % (AUTO) 5 % (0-10); HEMATOCRIT 32 % (35-52); HEMOGLOBIN 10.2 G/DL (11.5-16.0); LYMPHOCYTES # (AUTO) 1.2 X 10^3 (1.0-4.0); LYMPHOCYTES % (AUTO) 20 % (12-44); MEAN CORPUSCULAR HEMOGLOBIN 31 PG (25-34); MEAN CORPUSCULAR HGB CONC 32 G/DL (32-36); MEAN CORPUSCULAR VOLUME 96 FL (80-99); MEAN PLATELET VOLUME 9.7 FL (7.4-10.4); MONOCYTES # (AUTO) 0.6 X 10^3 (0.0-1.0); MONOCYTES % (AUTO) 10 % (0-12); NEUTROPHILS % (AUTO) 65 % (42-75); PLATELET COUNT 196 10^3/uL (130-400); RED BLOOD COUNT 3.33 10^6/uL (4.35-5.85); RED CELL DISTRIBUTION WIDTH 17.2 % (10.0-14.5); WHITE BLOOD COUNT 6.2 10^3/uL (4.3-11.0)
[2018-05-08 10:53] LABS: CALCIUM 9.5 MG/DL (8.5-10.1); CREATININE SERUM 1.12 MG/DL (0.60-1.30)
[2018-05-15 11:10] LABS: BASOPHILS % (AUTO) 1 % (0-10); EOSINOPHILS # (AUTO) 0.6 10^3/uL (0.0-0.3); EOSINOPHILS % (AUTO) 9 % (0-10); HEMATOCRIT 32 % (35-52); HEMOGLOBIN 10.4 G/DL (11.5-16.0); LYMPHOCYTES # (AUTO) 1.5 X 10^3 (1.0-4.0); LYMPHOCYTES % (AUTO) 23 % (12-44); MEAN CORPUSCULAR HEMOGLOBIN 31 PG (25-34); MEAN CORPUSCULAR HGB CONC 33 G/DL (32-36); MEAN CORPUSCULAR VOLUME 95 FL (80-99); MONOCYTES # (AUTO) 0.7 X 10^3 (0.0-1.0); MONOCYTES % (AUTO) 11 % (0-12); NEUTROPHILS # (AUTO) 3.6 X 10^3 (1.8-7.8); NEUTROPHILS % (AUTO) 57 % (42-75); PLATELET COUNT 285 10^3/uL (130-400); RED BLOOD COUNT 3.34 10^6/uL (4.35-5.85); RED CELL DISTRIBUTION WIDTH 17.3 % (10.0-14.5); WHITE BLOOD COUNT 6.3 10^3/uL (4.3-11.0)
[2018-05-15 11:24] LABS: CREATININE SERUM 1.02 MG/DL (0.60-1.30); POTASSIUM 4.5 MMOL/L (3.6-5.0)
[2018-05-23 14:01] LABS: BASOPHILS % (AUTO) 1 % (0-10); EOSINOPHILS # (AUTO) 0.5 10^3/uL (0.0-0.3); EOSINOPHILS % (AUTO) 8 % (0-10); HEMATOCRIT 32 % (35-52); HEMOGLOBIN 10.7 G/DL (11.5-16.0); LYMPHOCYTES # (AUTO) 1.3 X 10^3 (1.0-4.0); LYMPHOCYTES % (AUTO) 20 % (12-44); MEAN CORPUSCULAR HEMOGLOBIN 31 PG (25-34); MEAN CORPUSCULAR HGB CONC 33 G/DL (32-36); MEAN CORPUSCULAR VOLUME 95 FL (80-99); MEAN PLATELET VOLUME 9.6 FL (7.4-10.4); MONOCYTES # (AUTO) 0.6 X 10^3 (0.0-1.0); MONOCYTES % (AUTO) 9 % (0-12); NEUTROPHILS # (AUTO) 4.1 X 10^3 (1.8-7.8); NEUTROPHILS % (AUTO) 63 % (42-75); PLATELET COUNT 204 10^3/uL (130-400); RED BLOOD COUNT 3.43 10^6/uL (4.35-5.85); RED CELL DISTRIBUTION WIDTH 16.8 % (10.0-14.5); WHITE BLOOD COUNT 6.4 10^3/uL (4.3-11.0)
[2018-05-23 14:20] LABS: CALCIUM 9.2 MG/DL (8.5-10.1); CREATININE SERUM 1.47 MG/DL (0.60-1.30); POTASSIUM 4.4 MMOL/L (3.6-5.0)
[2018-05-29 10:48] LABS: BASOPHILS % (AUTO) 0 % (0-10); EOSINOPHILS # (AUTO) 0.2 10^3/uL (0.0-0.3); EOSINOPHILS % (AUTO) 4 % (0-10); HEMATOCRIT 33 % (35-52); HEMOGLOBIN 10.8 G/DL (11.5-16.0); LYMPHOCYTES # (AUTO) 1.4 X 10^3 (1.0-4.0); LYMPHOCYTES % (AUTO) 21 % (12-44); MEAN CORPUSCULAR HEMOGLOBIN 31 PG (25-34); MEAN CORPUSCULAR HGB CONC 33 G/DL (32-36); MEAN CORPUSCULAR VOLUME 95 FL (80-99); MEAN PLATELET VOLUME 9.2 FL (7.4-10.4); MONOCYTES # (AUTO) 0.6 X 10^3 (0.0-1.0); MONOCYTES % (AUTO) 9 % (0-12); NEUTROPHILS # (AUTO) 4.3 X 10^3 (1.8-7.8); NEUTROPHILS % (AUTO) 66 % (42-75); PLATELET COUNT 247 10^3/uL (130-400); RED BLOOD COUNT 3.51 10^6/uL (4.35-5.85); RED CELL DISTRIBUTION WIDTH 15.8 % (10.0-14.5); WHITE BLOOD COUNT 6.5 10^3/uL (4.3-11.0)
[2018-05-29 11:06] LABS: CALCIUM 8.8 MG/DL (8.5-10.1); CREATININE SERUM 1.21 MG/DL (0.60-1.30); POTASSIUM 4.4 MMOL/L (3.6-5.0)
[2018-06-05 10:43] LABS: BASOPHILS % (AUTO) 1 % (0-10); EOSINOPHILS # (AUTO) 0.4 10^3/uL (0.0-0.3); EOSINOPHILS % (AUTO) 6 % (0-10); HEMATOCRIT 31 % (35-52); HEMOGLOBIN 10.4 G/DL (11.5-16.0); LYMPHOCYTES # (AUTO) 1.3 X 10^3 (1.0-4.0); LYMPHOCYTES % (AUTO) 17 % (12-44); MEAN CORPUSCULAR HEMOGLOBIN 31 PG (25-34); MEAN CORPUSCULAR HGB CONC 33 G/DL (32-36); MEAN CORPUSCULAR VOLUME 95 FL (80-99); MEAN PLATELET VOLUME 9.2 FL (7.4-10.4); MONOCYTES # (AUTO) 0.7 X 10^3 (0.0-1.0); MONOCYTES % (AUTO) 9 % (0-12); NEUTROPHILS # (AUTO) 4.9 X 10^3 (1.8-7.8); NEUTROPHILS % (AUTO) 67 % (42-75); PLATELET COUNT 207 10^3/uL (130-400); RED BLOOD COUNT 3.31 10^6/uL (4.35-5.85); RED CELL DISTRIBUTION WIDTH 16.4 % (10.0-14.5); WHITE BLOOD COUNT 7.3 10^3/uL (4.3-11.0)
[2018-06-05 11:02] LABS: ALBUMIN 3.9 GM/DL (3.2-4.5); BILIRUBIN,TOTAL 0.5 MG/DL (0.1-1.0); CALCIUM 9.3 MG/DL (8.5-10.1); CREATININE SERUM 1.06 MG/DL (0.60-1.30); MAGNESIUM 1.6 MG/DL (1.8-2.4); POTASSIUM 4.2 MMOL/L (3.6-5.0); TOTAL PROTEIN 6.5 GM/DL (6.4-8.2)
[2018-06-05 11:10] LABS: BILIRUBIN,URINE NEGATIVE (NEGATIVE); CLARITY,URINE CLEAR; COLOR,URINE YELLOW; GLUCOSE, URINE (UA) NEGATIVE (NEGATIVE); KETONES,URINE NEGATIVE (NEGATIVE); NITRITE,URINE NEGATIVE (NEGATIVE); PH,URINE 5 (5-9); PROTEIN,URINE NEGATIVE (NEGATIVE)
[2018-06-05 11:11] LABS: LEUKOCYTE ESTERASE ,URINE 1+ (NEGATIVE); UROBILINOGEN,URINE NORMAL (NORMAL)
[2018-06-20 13:11] LABS: BASOPHILS % (AUTO) 1 % (0-10); EOSINOPHILS # (AUTO) 0.4 10^3/uL (0.0-0.3); EOSINOPHILS % (AUTO) 6 % (0-10); HEMATOCRIT 33 % (35-52); HEMOGLOBIN 10.6 G/DL (11.5-16.0); LYMPHOCYTES # (AUTO) 1.2 X 10^3 (1.0-4.0); LYMPHOCYTES % (AUTO) 19 % (12-44); MEAN CORPUSCULAR HEMOGLOBIN 31 PG (25-34); MEAN CORPUSCULAR HGB CONC 32 G/DL (32-36); MEAN CORPUSCULAR VOLUME 95 FL (80-99); MEAN PLATELET VOLUME 9.1 FL (7.4-10.4); MONOCYTES # (AUTO) 0.6 X 10^3 (0.0-1.0); MONOCYTES % (AUTO) 9 % (0-12); NEUTROPHILS # (AUTO) 4.3 X 10^3 (1.8-7.8); NEUTROPHILS % (AUTO) 66 % (42-75); PLATELET COUNT 218 10^3/uL (130-400); RED BLOOD COUNT 3.44 10^6/uL (4.35-5.85); WHITE BLOOD COUNT 6.6 10^3/uL (4.3-11.0)
[2018-06-20 13:26] LABS: CALCIUM 9.3 MG/DL (8.5-10.1); CREATININE SERUM 1.29 MG/DL (0.60-1.30); POTASSIUM 4.4 MMOL/L (3.6-5.0)
[~2018-07-05] VITALS: Ht 161.3 cm; Wt 90.7 kg
[~2018-07-05 12:37] MED LIST changes: +ATROPINE INJ 0.4 MG/ML SDV (CANCER CENTER) INJ SCH; -BARIUM SUSPENSION 2.1% (VANILLA SILQ) 450 ML PO ONE; +BEVACIZUMAB INJECTION 400 MG, BEVACIZUMAB INJECTION 50 MG in NS (IVPB) CANCER CENTER 10... IV SCH; +D5W IV SCH; +FLUOROURACIL 2.5 GM, FLUOROURACIL 0.7 GM in NS (IVPB) CANCER CENTER 83.2 ML IV SCH; +FOSAPREPITANT DIMEGLUMINE 150 MG in NS (IVPB) CANCER CENTER ONLY 150 ML IV SCH; -IOHEXOL 350 MG/ML 100 ML (OMNIPAQUE 350) VIAL IV ONE; +IRINOTECAN HCL IV SCH; +LEUCOVORIN CALCIUM 600 MG in D5W 250 ML IVPB (CANCER CTR) 250 ML IV SCH; -NS 250 ML (IVPB) BAG IV ONE; +NS IV 1000 ML (CANCER CTR) 1,000 ML IV SCH; +PALONOSETRON HCL 0.25 MG, DEXAMETHASONE INJ (CANCER CTR) 4 MG in NS (IVPB) CANCER CENTE... IV SCH
[2018-07-05 13:03] LABS: BASOPHILS % (AUTO) 0 % (0-10); EOSINOPHILS # (AUTO) 0.4 10^3/uL (0.0-0.3); EOSINOPHILS % (AUTO) 6 % (0-10); HEMATOCRIT 32 % (35-52); HEMOGLOBIN 10.7 G/DL (11.5-16.0); LYMPHOCYTES # (AUTO) 1.3 X 10^3 (1.0-4.0); LYMPHOCYTES % (AUTO) 19 % (12-44); MEAN CORPUSCULAR HEMOGLOBIN 31 PG (25-34); MEAN CORPUSCULAR HGB CONC 33 G/DL (32-36); MEAN CORPUSCULAR VOLUME 94 FL (80-99); MEAN PLATELET VOLUME 9.6 FL (7.4-10.4); MONOCYTES # (AUTO) 0.5 X 10^3 (0.0-1.0); MONOCYTES % (AUTO) 8 % (0-12); NEUTROPHILS # (AUTO) 4.6 X 10^3 (1.8-7.8); NEUTROPHILS % (AUTO) 67 % (42-75); PLATELET COUNT 193 10^3/uL (130-400); RED BLOOD COUNT 3.41 10^6/uL (4.35-5.85); RED CELL DISTRIBUTION WIDTH 15.8 % (10.0-14.5); WHITE BLOOD COUNT 6.8 10^3/uL (4.3-11.0)
[2018-07-05 13:13] LABS: BILIRUBIN,URINE NEGATIVE (NEGATIVE); CLARITY,URINE CLEAR; COLOR,URINE YELLOW; GLUCOSE, URINE (UA) 4+ (NEGATIVE); KETONES,URINE NEGATIVE (NEGATIVE); LEUKOCYTE ESTERASE ,URINE 1+ (NEGATIVE); NITRITE,URINE NEGATIVE (NEGATIVE); PH,URINE 5 (5-9); PROTEIN,URINE 1+ (NEGATIVE); UROBILINOGEN,URINE NORMAL (NORMAL)
[2018-07-05 13:21] LABS: ALBUMIN 3.9 GM/DL (3.2-4.5); BILIRUBIN,TOTAL 0.5 MG/DL (0.1-1.0); CREATININE SERUM 1.2 MG/DL (0.60-1.30); MAGNESIUM 1.9 MG/DL (1.8-2.4); POTASSIUM 4.5 MMOL/L (3.6-5.0); TOTAL PROTEIN 6.2 GM/DL (6.4-8.2)
== END 2018-07-09 | disposition home or self-care (01) ==
LOC: ONC 12:37
PROVIDERS: ATTEND Internal Medicine Hematology & Oncology
DX: Z51.11 Encounter for antineoplastic chemotherapy (principal); C18.0 Malignant neoplasm of cecum; C18.6 Malignant neoplasm of descending colon; D50.9 Iron deficiency anemia, unspecified; E11.22 Type 2 diabetes mellitus with diabetic chronic kidney disease; N18.3 Chronic kidney disease, stage 3 (moderate); K44.9 Diaphragmatic hernia without obstruction or gangrene; Z87.891 Personal history of nicotine dependence; Z79.899 Other long term (current) drug therapy
CPT/HCPCS: 36415; 36591; 80048; 80053; 81002; 82378; 83735; 85025; 96367; 96368; 96375; 96409; 96411; 96413

== ENCOUNTER → 2018-07-12 | Outpatient (CLI) | payer MEDICARE, OTHER ==
[~2018-07-12] MED LIST changes: -ATROPINE INJ 0.4 MG/ML SDV (CANCER CENTER) INJ SCH; +BARIUM SUSPENSION 2.1% (VANILLA SILQ) 450 ML PO ONE; -BEVACIZUMAB INJECTION 400 MG, BEVACIZUMAB INJECTION 50 MG in NS (IVPB) CANCER CENTER 10... IV SCH; -D5W IV SCH; -FLUOROURACIL 2.5 GM, FLUOROURACIL 0.7 GM in NS (IVPB) CANCER CENTER 83.2 ML IV SCH; -FOSAPREPITANT DIMEGLUMINE 150 MG in NS (IVPB) CANCER CENTER ONLY 150 ML IV SCH; +IOHEXOL 350 MG/ML 100 ML (OMNIPAQUE 350) VIAL IV ONE; -IRINOTECAN HCL IV SCH; -LEUCOVORIN CALCIUM 600 MG in D5W 250 ML IVPB (CANCER CTR) 250 ML IV SCH; +NS 100 ML (IVPB) BAG IV ONE; -NS IV 1000 ML (CANCER CTR) 1,000 ML IV SCH; -PALONOSETRON HCL 0.25 MG, DEXAMETHASONE INJ (CANCER CTR) 4 MG in NS (IVPB) CANCER CENTE... IV SCH; +RECEIVED CONTRAST (Hold Metformin) IV SCH
--- NOTE | 2018-07-12 13:58 | Diagnostic Imaging Report ---
PROCEDURE: CT chest with contrast, CT abdomen and pelvis with and without contrast. TECHNIQUE: Pre and post intravenous contrast axial imaging of the abdomen and pelvis and post contrast axial imaging of the chest were performed. INDICATION: Colon cancer, study is followup. COMPARISON: Compared 05/01/2018. FINDINGS: CHEST: Juxtapleural nodules in the right lower lobe are unchanged from prior. Bilobed mass or inseparable adjacent masses as the largest marker lesion measured 3.0 x 1.7 cm, unchanged from prior. Additional smaller nearby masses up to 1.7 cm were also unchanged. Few subcentimeter micronodules adjacent to the pleura bilaterally otherwise unchanged. No thoracic lymphadenopathy. Central line stable. No pleural or pericardial effusion. No evidence for pneumonia. No destructive or suspicious soft tissue or osseous chest wall pathology. ABDOMEN AND PELVIS: Right lobe liver mass measured along the same axis is unchanged from prior at 2.7 x 2.1 cm, low in density. There is fatty infiltration of the liver, chronic. No new liver lesion. No bile duct dilatation. A triangular configured soft tissue induration of the abdominal wall and subcutaneous fat periumbilical is unchanged from prior. Midline pelvic perisigmoidal soft tissue thickening measuring 2.6 x 1.9 cm, unchanged. Urinary bladder unremarkable. The pelvic sidewalls unremarkable. There is no abdominal, pelvic, mesenteric or retroperitoneal lymphadenopathy. The adrenals and spleen are negative. The pancreas unremarkable. There is no bowel, biliary or urinary tract obstruction. There was no ascites. No suspicious or acute osseous abnormality. IMPRESSION: CHEST: Right lower lobe juxtapleural pulmonary masses unchanged from prior. No new chest lesion. ABDOMEN AND PELVIS: Unchanged low-density mass right hepatic lobe. Unchanged soft tissue thickening in the perisigmoidal midline pelvis and unchanged subcutaneous induration periumbilical. No new lesion found. No obstructive phenomena, ascites or fluid collection. Dictated by: Dictated on workstation # [id number]
== END ==
LOC: RAD 11:39
PROVIDERS: ATTEND Nurse Practitioner Adult Health
DX: C18.0 Malignant neoplasm of cecum (principal); C79.89 Secondary malignant neoplasm of other specified sites; R91.8 Other nonspecific abnormal finding of lung field; R16.0 Hepatomegaly, not elsewhere classified
CPT/HCPCS: 71260; 74178

== ENCOUNTER 2018-10-03 13:20 | Outpatient (RCR) | payer MEDICARE, OTHER ==
[2018-07-18 12:55] LABS: BASOPHILS % (AUTO) 0 % (0-10); EOSINOPHILS # (AUTO) 0.4 10^3/uL (0.0-0.3); EOSINOPHILS % (AUTO) 5 % (0-10); HEMATOCRIT 33 % (35-52); LYMPHOCYTES # (AUTO) 1.3 X 10^3 (1.0-4.0); LYMPHOCYTES % (AUTO) 15 % (12-44); MEAN CORPUSCULAR HEMOGLOBIN 31 PG (25-34); MEAN CORPUSCULAR HGB CONC 34 G/DL (32-36); MEAN CORPUSCULAR VOLUME 94 FL (80-99); MONOCYTES # (AUTO) 0.6 X 10^3 (0.0-1.0); MONOCYTES % (AUTO) 7 % (0-12); NEUTROPHILS # (AUTO) 6.3 X 10^3 (1.8-7.8); NEUTROPHILS % (AUTO) 73 % (42-75); PLATELET COUNT 243 10^3/uL (130-400); RED CELL DISTRIBUTION WIDTH 15.7 % (10.0-14.5); WHITE BLOOD COUNT 8.7 10^3/uL (4.3-11.0)
[2018-07-18 13:14] LABS: ALBUMIN 4.1 GM/DL (3.2-4.5); BILIRUBIN,TOTAL 0.5 MG/DL (0.1-1.0); CALCIUM 8.5 MG/DL (8.5-10.1); CREATININE SERUM 1.31 MG/DL (0.60-1.30); MAGNESIUM 1.6 MG/DL (1.8-2.4); POTASSIUM 4.5 MMOL/L (3.6-5.0); TOTAL PROTEIN 6.5 GM/DL (6.4-8.2)
[2018-08-02 09:39] LABS: BASOPHILS % (AUTO) 1 % (0-10); EOSINOPHILS # (AUTO) 0.4 10^3/uL (0.0-0.3); EOSINOPHILS % (AUTO) 5 % (0-10); HEMATOCRIT 35 % (35-52); HEMOGLOBIN 11.3 G/DL (11.5-16.0); LYMPHOCYTES # (AUTO) 1.2 X 10^3 (1.0-4.0); LYMPHOCYTES % (AUTO) 18 % (12-44); MEAN CORPUSCULAR HEMOGLOBIN 30 PG (25-34); MEAN CORPUSCULAR HGB CONC 32 G/DL (32-36); MEAN CORPUSCULAR VOLUME 92 FL (80-99); MEAN PLATELET VOLUME 9.7 FL (7.4-10.4); MONOCYTES # (AUTO) 0.5 X 10^3 (0.0-1.0); MONOCYTES % (AUTO) 8 % (0-12); NEUTROPHILS # (AUTO) 4.7 X 10^3 (1.8-7.8); NEUTROPHILS % (AUTO) 68 % (42-75); PLATELET COUNT 253 10^3/uL (130-400); WHITE BLOOD COUNT 6.9 10^3/uL (4.3-11.0)
[2018-08-02 10:04] LABS: BILIRUBIN,TOTAL 0.6 MG/DL (0.1-1.0); CALCIUM 8.7 MG/DL (8.5-10.1); CREATININE SERUM 1.04 MG/DL (0.60-1.30); POTASSIUM 4.1 MMOL/L (3.6-5.0); TOTAL PROTEIN 6.7 GM/DL (6.4-8.2)
[2018-08-08 11:36] LABS: BASOPHILS % (AUTO) 0 % (0-10); EOSINOPHILS # (AUTO) 0.3 10^3/uL (0.0-0.3); EOSINOPHILS % (AUTO) 5 % (0-10); HEMATOCRIT 36 % (35-52); HEMOGLOBIN 11.7 G/DL (11.5-16.0); LYMPHOCYTES # (AUTO) 1.2 X 10^3 (1.0-4.0); LYMPHOCYTES % (AUTO) 19 % (12-44); MEAN CORPUSCULAR HEMOGLOBIN 30 PG (25-34); MEAN CORPUSCULAR HGB CONC 33 G/DL (32-36); MEAN CORPUSCULAR VOLUME 91 FL (80-99); MEAN PLATELET VOLUME 9.5 FL (7.4-10.4); MONOCYTES # (AUTO) 0.2 X 10^3 (0.0-1.0); MONOCYTES % (AUTO) 3 % (0-12); NEUTROPHILS # (AUTO) 4.7 X 10^3 (1.8-7.8); NEUTROPHILS % (AUTO) 74 % (42-75); PLATELET COUNT 237 10^3/uL (130-400); RED CELL DISTRIBUTION WIDTH 14.5 % (10.0-14.5); WHITE BLOOD COUNT 6.4 10^3/uL (4.3-11.0)
[2018-08-08 11:52] LABS: CALCIUM 10.3 MG/DL (8.5-10.1); CREATININE SERUM 1.21 MG/DL (0.60-1.30); POTASSIUM 5.2 MMOL/L (3.6-5.0)
[2018-08-16 10:16] LABS: BASOPHILS % (AUTO) 1 % (0-10); EOSINOPHILS # (AUTO) 0.4 10^3/uL (0.0-0.3); EOSINOPHILS % (AUTO) 10 % (0-10); HEMATOCRIT 32 % (35-52); HEMOGLOBIN 10.6 G/DL (11.5-16.0); LYMPHOCYTES # (AUTO) 0.9 X 10^3 (1.0-4.0); LYMPHOCYTES % (AUTO) 23 % (12-44); MEAN CORPUSCULAR HEMOGLOBIN 30 PG (25-34); MEAN CORPUSCULAR HGB CONC 33 G/DL (32-36); MEAN CORPUSCULAR VOLUME 90 FL (80-99); MEAN PLATELET VOLUME 9.5 FL (7.4-10.4); MONOCYTES # (AUTO) 0.5 X 10^3 (0.0-1.0); MONOCYTES % (AUTO) 13 % (0-12); NEUTROPHILS # (AUTO) 2.2 X 10^3 (1.8-7.8); NEUTROPHILS % (AUTO) 55 % (42-75); PLATELET COUNT 187 10^3/uL (130-400); RED CELL DISTRIBUTION WIDTH 15.1 % (10.0-14.5)
[2018-08-16 10:34] LABS: ALBUMIN 3.9 GM/DL (3.2-4.5); BILIRUBIN,TOTAL 0.5 MG/DL (0.1-1.0); CALCIUM 8.6 MG/DL (8.5-10.1); CREATININE SERUM 1.06 MG/DL (0.60-1.30); MAGNESIUM 1.6 MG/DL (1.8-2.4); POTASSIUM 4.1 MMOL/L (3.6-5.0); TOTAL PROTEIN 6.1 GM/DL (6.4-8.2)
[2018-08-16 11:06] LABS: BILIRUBIN,URINE NEGATIVE (NEGATIVE); CLARITY,URINE CLEAR; COLOR,URINE YELLOW; GLUCOSE, URINE (UA) 1+ (NEGATIVE); KETONES,URINE NEGATIVE (NEGATIVE); LEUKOCYTE ESTERASE ,URINE 3+ (NEGATIVE); NITRITE,URINE NEGATIVE (NEGATIVE); PH,URINE 5 (5-9); PROTEIN,URINE 2+ (NEGATIVE); UROBILINOGEN,URINE NORMAL (NORMAL)
[2018-08-30 08:56] LABS: BASOPHILS % (AUTO) 1 % (0-10); EOSINOPHILS # (AUTO) 0.2 10^3/uL (0.0-0.3); EOSINOPHILS % (AUTO) 5 % (0-10); HEMATOCRIT 31 % (35-52); HEMOGLOBIN 10.2 G/DL (11.5-16.0); LYMPHOCYTES # (AUTO) 1.2 X 10^3 (1.0-4.0); LYMPHOCYTES % (AUTO) 28 % (12-44); MEAN CORPUSCULAR HEMOGLOBIN 30 PG (25-34); MEAN CORPUSCULAR HGB CONC 33 G/DL (32-36); MEAN CORPUSCULAR VOLUME 91 FL (80-99); MONOCYTES # (AUTO) 0.7 X 10^3 (0.0-1.0); MONOCYTES % (AUTO) 16 % (0-12); NEUTROPHILS # (AUTO) 2.1 X 10^3 (1.8-7.8); NEUTROPHILS % (AUTO) 51 % (42-75); PLATELET COUNT 210 10^3/uL (130-400); RED CELL DISTRIBUTION WIDTH 15.6 % (10.0-14.5); WHITE BLOOD COUNT 4.2 10^3/uL (4.3-11.0)
[2018-08-30 09:22] LABS: ALBUMIN 3.9 GM/DL (3.2-4.5); BILIRUBIN,TOTAL 0.4 MG/DL (0.1-1.0); CALCIUM 8.5 MG/DL (8.5-10.1); CREATININE SERUM 1.08 MG/DL (0.60-1.30); MAGNESIUM 1.8 MG/DL (1.8-2.4); POTASSIUM 4.1 MMOL/L (3.6-5.0); TOTAL PROTEIN 6.3 GM/DL (6.4-8.2)
[2018-09-13 11:00] LABS: BASOPHILS % (AUTO) 0 % (0-10); EOSINOPHILS # (AUTO) 0.2 10^3/uL (0.0-0.3); EOSINOPHILS % (AUTO) 4 % (0-10); HEMATOCRIT 30 % (35-52); HEMOGLOBIN 9.8 G/DL (11.5-16.0); LYMPHOCYTES # (AUTO) 0.9 X 10^3 (1.0-4.0); LYMPHOCYTES % (AUTO) 18 % (12-44); MEAN CORPUSCULAR HEMOGLOBIN 30 PG (25-34); MEAN CORPUSCULAR HGB CONC 33 G/DL (32-36); MEAN CORPUSCULAR VOLUME 92 FL (80-99); MEAN PLATELET VOLUME 9.3 FL (7.4-10.4); MONOCYTES # (AUTO) 0.6 X 10^3 (0.0-1.0); MONOCYTES % (AUTO) 11 % (0-12); NEUTROPHILS # (AUTO) 3.2 X 10^3 (1.8-7.8); NEUTROPHILS % (AUTO) 67 % (42-75); PLATELET COUNT 187 10^3/uL (130-400); RED CELL DISTRIBUTION WIDTH 16.6 % (10.0-14.5); WHITE BLOOD COUNT 4.9 10^3/uL (4.3-11.0)
[2018-09-13 11:27] LABS: ALBUMIN 3.8 GM/DL (3.2-4.5); BILIRUBIN,TOTAL 0.4 MG/DL (0.1-1.0); CALCIUM 8.8 MG/DL (8.5-10.1); CREATININE SERUM 1.26 MG/DL (0.60-1.30); MAGNESIUM 1.7 MG/DL (1.8-2.4); POTASSIUM 4.5 MMOL/L (3.6-5.0); TOTAL PROTEIN 6.1 GM/DL (6.4-8.2)
[2018-09-27 11:03] LABS: BASOPHILS % (AUTO) 0 % (0-10); EOSINOPHILS # (AUTO) 0.2 10^3/uL (0.0-0.3); EOSINOPHILS % (AUTO) 4 % (0-10); HEMATOCRIT 30 % (35-52); HEMOGLOBIN 10.1 G/DL (11.5-16.0); LYMPHOCYTES # (AUTO) 0.9 X 10^3 (1.0-4.0); LYMPHOCYTES % (AUTO) 16 % (12-44); MEAN CORPUSCULAR HEMOGLOBIN 31 PG (25-34); MEAN CORPUSCULAR HGB CONC 34 G/DL (32-36); MEAN CORPUSCULAR VOLUME 92 FL (80-99); MEAN PLATELET VOLUME 9.4 FL (7.4-10.4); MONOCYTES # (AUTO) 0.7 X 10^3 (0.0-1.0); MONOCYTES % (AUTO) 13 % (0-12); NEUTROPHILS # (AUTO) 3.7 X 10^3 (1.8-7.8); NEUTROPHILS % (AUTO) 67 % (42-75); PLATELET COUNT 205 10^3/uL (130-400); RED CELL DISTRIBUTION WIDTH 17.4 % (10.0-14.5); WHITE BLOOD COUNT 5.5 10^3/uL (4.3-11.0)
[2018-09-27 11:30] LABS: BILIRUBIN,TOTAL 0.5 MG/DL (0.1-1.0); CALCIUM 9.5 MG/DL (8.5-10.1); CREATININE SERUM 1.35 MG/DL (0.60-1.30); MAGNESIUM 1.4 MG/DL (1.8-2.4); POTASSIUM 4.4 MMOL/L (3.6-5.0); TOTAL PROTEIN 6.6 GM/DL (6.4-8.2)
[~2018-10-03] VITALS: Ht 161.3 cm; Wt 88.0 kg
[~2018-10-03 13:20] MED LIST changes: +ATROPINE INJ 0.4 MG/ML SDV (CANCER CENTER) INJ SCH; -BARIUM SUSPENSION 2.1% (VANILLA SILQ) 450 ML PO ONE; +BEVACIZUMAB INJECTION 400 MG in NS (IVPB) CANCER CENTER 100 ML IV SCH; +BEVACIZUMAB INJECTION 400 MG, BEVACIZUMAB INJECTION 50 MG in NS (IVPB) CANCER CENTER 10... IV SCH; +D5W IV SCH; +FLUOROURACIL 2.5 GM, FLUOROURACIL 0.7 GM in NS (IVPB) CANCER CENTER 83.2 ML IV SCH; +FLUOROURACIL IV SCH; +FOSAPREPITANT DIMEGLUMINE 150 MG in NS (IVPB) CANCER CENTER ONLY 150 ML IV SCH; -IOHEXOL 350 MG/ML 100 ML (OMNIPAQUE 350) VIAL IV ONE; +IRINOTECAN HCL 200 MG, IRINOTECAN HCL 50 MG in D5W 250 ML IVPB (CANCER CTR) 250 ML IV SCH; +IRINOTECAN HCL IV SCH; +LEUCOVORIN CALCIUM 400 MG in D5W 250 ML IVPB (CANCER CTR) 250 ML IV SCH; +LEUCOVORIN CALCIUM 600 MG in D5W 250 ML IVPB (CANCER CTR) 250 ML IV SCH; +MAGNESIUM SULFATE IV ONE; -NS 100 ML (IVPB) BAG IV ONE; +NS IV 1000 ML (CANCER CTR) 1,000 ML IV SCH; +NS IV 1000 ML (CANCER CTR) 1,000 ML ONE; +NS IV ONE; +NS IV SCH; +ONDANSETRON MDV (CANCER CENTER 8 MG, DEXAMETHASONE INJ (CANCER CTR) 4 MG in NS (IVPB) C... IV SCH; +PALONOSETRON HCL 0.25 MG, DEXAMETHASONE INJ (CANCER CTR) 4 MG in NS (IVPB) CANCER CENTE... IV SCH; -RECEIVED CONTRAST (Hold Metformin) IV SCH
[2018-10-03 13:47] LABS: BASOPHILS % (AUTO) 1 % (0-10); EOSINOPHILS # (AUTO) 0.4 10^3/uL (0.0-0.3); EOSINOPHILS % (AUTO) 6 % (0-10); HEMATOCRIT 29 % (35-52); HEMOGLOBIN 9.8 G/DL (11.5-16.0); LYMPHOCYTES # (AUTO) 1.4 X 10^3 (1.0-4.0); LYMPHOCYTES % (AUTO) 23 % (12-44); MEAN CORPUSCULAR HEMOGLOBIN 31 PG (25-34); MEAN CORPUSCULAR HGB CONC 33 G/DL (32-36); MEAN CORPUSCULAR VOLUME 93 FL (80-99); MEAN PLATELET VOLUME 9.3 FL (7.4-10.4); MONOCYTES # (AUTO) 0.8 X 10^3 (0.0-1.0); MONOCYTES % (AUTO) 13 % (0-12); NEUTROPHILS # (AUTO) 3.6 X 10^3 (1.8-7.8); NEUTROPHILS % (AUTO) 57 % (42-75); PLATELET COUNT 316 10^3/uL (130-400); RED CELL DISTRIBUTION WIDTH 17.1 % (10.0-14.5); WHITE BLOOD COUNT 6.2 10^3/uL (4.3-11.0)
[2018-10-03] MEDS ORDERED: FLUOROURACIL IV SCH (14:00)
[2018-10-03] MEDS ORDERED: NS IV SCH (14:00)
[2018-10-03 14:01] LABS: CALCIUM 8.4 MG/DL (8.5-10.1); CREATININE SERUM 1.42 MG/DL (0.60-1.30); POTASSIUM 4.7 MMOL/L (3.6-5.0)
[2018-10-03] MEDS ORDERED: IRINOTECAN HCL IV SCH (14:15)
[2018-10-03] MEDS ORDERED: D5W IV SCH (14:15)
== END 2018-10-10 | disposition home or self-care (01) ==
LOC: ONC 13:20
PROVIDERS: ATTEND Internal Medicine Hematology & Oncology
DX: Z51.11 Encounter for antineoplastic chemotherapy (principal); C18.0 Malignant neoplasm of cecum; C18.6 Malignant neoplasm of descending colon; D50.9 Iron deficiency anemia, unspecified; E11.22 Type 2 diabetes mellitus with diabetic chronic kidney disease; N18.3 Chronic kidney disease, stage 3 (moderate); K44.9 Diaphragmatic hernia without obstruction or gangrene; Z87.891 Personal history of nicotine dependence; Z79.899 Other long term (current) drug therapy; C79.89 Secondary malignant neoplasm of other specified sites; R91.8 Other nonspecific abnormal finding of lung field; R16.0 Hepatomegaly, not elsewhere classified
CPT/HCPCS: 36591; 71260; 74178; 80048; 80053; 81002; 82378; 82570; 83735; 84156; 85025; 96360; 96365; 96367; 96368; 96374; 96375; 96411; 96413

== ENCOUNTER → 2018-10-25 | Outpatient (CLI) | payer MEDICARE, OTHER ==
[~2018-10-25] MED LIST changes: -ATROPINE INJ 0.4 MG/ML SDV (CANCER CENTER) INJ SCH; -BEVACIZUMAB INJECTION 400 MG in NS (IVPB) CANCER CENTER 100 ML IV SCH; -BEVACIZUMAB INJECTION 400 MG, BEVACIZUMAB INJECTION 50 MG in NS (IVPB) CANCER CENTER 10... IV SCH; -D5W IV SCH; -FLUOROURACIL 2.5 GM, FLUOROURACIL 0.7 GM in NS (IVPB) CANCER CENTER 83.2 ML IV SCH; -FLUOROURACIL IV SCH; -FOSAPREPITANT DIMEGLUMINE 150 MG in NS (IVPB) CANCER CENTER ONLY 150 ML IV SCH; -IRINOTECAN HCL 200 MG, IRINOTECAN HCL 50 MG in D5W 250 ML IVPB (CANCER CTR) 250 ML IV SCH; -IRINOTECAN HCL IV SCH; -LEUCOVORIN CALCIUM 400 MG in D5W 250 ML IVPB (CANCER CTR) 250 ML IV SCH; -LEUCOVORIN CALCIUM 600 MG in D5W 250 ML IVPB (CANCER CTR) 250 ML IV SCH; -MAGNESIUM SULFATE IV ONE; -NS IV 1000 ML (CANCER CTR) 1,000 ML IV SCH; -NS IV 1000 ML (CANCER CTR) 1,000 ML ONE; -NS IV ONE; -NS IV SCH; -ONDANSETRON MDV (CANCER CENTER 8 MG, DEXAMETHASONE INJ (CANCER CTR) 4 MG in NS (IVPB) C... IV SCH; -PALONOSETRON HCL 0.25 MG, DEXAMETHASONE INJ (CANCER CTR) 4 MG in NS (IVPB) CANCER CENTE... IV SCH
--- NOTE | 2018-10-25 14:24 | Diagnostic Imaging Report ---
PROCEDURE: CT chest, abdomen, and pelvis without contrast. TECHNIQUE: Multiple contiguous axial images were obtained through the chest, abdomen, and pelvis without the use of intravenous contrast. Auto Exposure Controls were utilized during the CT exam to meet ALARA standards for radiation dose reduction. INDICATION: Colon carcinoma, followup. Patient also does complain of pain in the left lower quadrant and diarrhea. Correlation is made with prior CT study from 07/12/2018. CT CHEST: A right chest wall catheter remains in place with tip at the SVC right atrial junction. No axillary lymphadenopathy is seen. No definite hilar or mediastinal lymphadenopathy is detected. No pericardial or pleural fluid detected. Pulmonary parenchymal evaluation again demonstrates juxtapleural nodules in the right lower lobe. Bilobed nodule appears to be stable at approximately 3.0 x 1.8 cm. However, numerous additional nodules appear to be increased in size both lungs when compared with prior. Subcentimeter nodules right upper lobe demonstrate very slight increase in size. Nodules appear increased by approximately 1-2 mm. Slight increase of right lower lobe nodules are also seen. IMPRESSION: No thoracic lymphadenopathy is seen. There has been very slight increase in size of numerous pulmonary nodules when compared with CT from 07/12/2018. CT ABDOMEN AND PELVIS: A low-density regions within the liver appear to be stable. No biliary duct dilatation is seen. Pancreas and spleen are unremarkable. No adrenal mass is detected. Kidneys are unremarkable. Aorta is nonaneurysmal. There is no central, retroperitoneal or mesenteric lymphadenopathy. Previously noted abnormal soft tissue in the midline anterior abdominal wall appears stable. Previously noted soft tissue in the perisigmoidal midline pelvis also appears stable. No pelvic lymphadenopathy is seen. There is no ascites. Bladder is decompressed. IMPRESSION: Overall stable CT of the abdomen and pelvis were compared with examination from 07/12/2018. Dictated by: Dictated on workstation # [id number]
== END ==
LOC: RAD 11:21
PROVIDERS: ATTEND Internal Medicine Hematology & Oncology
DX: C18.0 Malignant neoplasm of cecum (principal); C79.89 Secondary malignant neoplasm of other specified sites; R91.8 Other nonspecific abnormal finding of lung field; R19.7 Diarrhea, unspecified; Z98.890 Other specified postprocedural states
CPT/HCPCS: 71250; 74176

== ENCOUNTER 2019-01-02 14:02 | Outpatient (RCR) | payer MEDICARE, OTHER ==
[2018-10-17 13:12] LABS: BASOPHILS % (AUTO) 1 % (0-10); EOSINOPHILS # (AUTO) 0.3 10^3/uL (0.0-0.3); EOSINOPHILS % (AUTO) 6 % (0-10); HEMATOCRIT 29 % (35-52); HEMOGLOBIN 9.9 G/DL (11.5-16.0); LYMPHOCYTES # (AUTO) 1.2 X 10^3 (1.0-4.0); LYMPHOCYTES % (AUTO) 22 % (12-44); MEAN CORPUSCULAR HEMOGLOBIN 31 PG (25-34); MEAN CORPUSCULAR HGB CONC 34 G/DL (32-36); MEAN CORPUSCULAR VOLUME 93 FL (80-99); MEAN PLATELET VOLUME 9.2 FL (7.4-10.4); MONOCYTES # (AUTO) 0.6 X 10^3 (0.0-1.0); MONOCYTES % (AUTO) 12 % (0-12); NEUTROPHILS # (AUTO) 3.1 X 10^3 (1.8-7.8); NEUTROPHILS % (AUTO) 60 % (42-75); PLATELET COUNT 227 10^3/uL (130-400); WHITE BLOOD COUNT 5.2 10^3/uL (4.3-11.0)
[2018-10-17 13:36] LABS: BILIRUBIN,TOTAL 0.5 MG/DL (0.1-1.0); CREATININE SERUM 1.71 MG/DL (0.60-1.30); MAGNESIUM 1.6 MG/DL (1.8-2.4); POTASSIUM 5.1 MMOL/L (3.6-5.0); TOTAL PROTEIN 6.7 GM/DL (6.4-8.2)
[2018-10-25 10:33] LABS: BASOPHILS % (AUTO) 1 % (0-10); EOSINOPHILS # (AUTO) 0.2 10^3/uL (0.0-0.3); EOSINOPHILS % (AUTO) 4 % (0-10); HEMATOCRIT 30 % (35-52); LYMPHOCYTES # (AUTO) 1.1 X 10^3 (1.0-4.0); LYMPHOCYTES % (AUTO) 20 % (12-44); MEAN CORPUSCULAR HEMOGLOBIN 32 PG (25-34); MEAN CORPUSCULAR HGB CONC 34 G/DL (32-36); MEAN CORPUSCULAR VOLUME 93 FL (80-99); MONOCYTES # (AUTO) 0.4 X 10^3 (0.0-1.0); MONOCYTES % (AUTO) 8 % (0-12); NEUTROPHILS # (AUTO) 3.7 X 10^3 (1.8-7.8); NEUTROPHILS % (AUTO) 68 % (42-75); PLATELET COUNT 352 10^3/uL (130-400); WHITE BLOOD COUNT 5.4 10^3/uL (4.3-11.0)
[2018-10-25 10:59] LABS: ALBUMIN 4.1 GM/DL (3.2-4.5); BILIRUBIN,TOTAL 0.2 MG/DL (0.1-1.0); CREATININE SERUM 1.61 MG/DL (0.60-1.30); POTASSIUM 4.4 MMOL/L (3.6-5.0); TOTAL PROTEIN 6.9 GM/DL (6.4-8.2)
[2018-11-01 11:34] LABS: BASOPHILS % (AUTO) 0 % (0-10); EOSINOPHILS # (AUTO) 0.2 10^3/uL (0.0-0.3); EOSINOPHILS % (AUTO) 5 % (0-10); HEMATOCRIT 29 % (35-52); HEMOGLOBIN 9.5 G/DL (11.5-16.0); LYMPHOCYTES # (AUTO) 0.8 X 10^3 (1.0-4.0); LYMPHOCYTES % (AUTO) 16 % (12-44); MEAN CORPUSCULAR HEMOGLOBIN 31 PG (25-34); MEAN CORPUSCULAR HGB CONC 33 G/DL (32-36); MEAN CORPUSCULAR VOLUME 95 FL (80-99); MEAN PLATELET VOLUME 9.5 FL (7.4-10.4); MONOCYTES # (AUTO) 0.7 X 10^3 (0.0-1.0); MONOCYTES % (AUTO) 13 % (0-12); NEUTROPHILS # (AUTO) 3.3 X 10^3 (1.8-7.8); NEUTROPHILS % (AUTO) 66 % (42-75); PLATELET COUNT 212 10^3/uL (130-400)
[2018-11-01 11:55] LABS: ALBUMIN 3.8 GM/DL (3.2-4.5); BILIRUBIN,TOTAL 0.3 MG/DL (0.1-1.0); CALCIUM 8.6 MG/DL (8.5-10.1); CREATININE SERUM 1.32 MG/DL (0.60-1.30); MAGNESIUM 1.3 MG/DL (1.8-2.4); POTASSIUM 4.6 MMOL/L (3.6-5.0); TOTAL PROTEIN 6.3 GM/DL (6.4-8.2)
[2018-11-13 13:34] LABS: BASOPHILS # (AUTO) 0.1 10^3/uL (0.0-0.1); BASOPHILS % (AUTO) 1 % (0-10); EOSINOPHILS # (AUTO) 0.5 10^3/uL (0.0-0.3); EOSINOPHILS % (AUTO) 6 % (0-10); HEMATOCRIT 30 % (35-52); HEMOGLOBIN 9.9 G/DL (11.5-16.0); LYMPHOCYTES # (AUTO) 1.6 X 10^3 (1.0-4.0); LYMPHOCYTES % (AUTO) 18 % (12-44); MEAN CORPUSCULAR HEMOGLOBIN 32 PG (25-34); MEAN CORPUSCULAR HGB CONC 33 G/DL (32-36); MEAN CORPUSCULAR VOLUME 97 FL (80-99); MEAN PLATELET VOLUME 9.7 FL (7.4-10.4); MONOCYTES # (AUTO) 0.8 X 10^3 (0.0-1.0); MONOCYTES % (AUTO) 9 % (0-12); NEUTROPHILS # (AUTO) 5.8 X 10^3 (1.8-7.8); NEUTROPHILS % (AUTO) 66 % (42-75); PLATELET COUNT 233 10^3/uL (130-400); RED CELL DISTRIBUTION WIDTH 16.9 % (10.0-14.5); WHITE BLOOD COUNT 8.7 10^3/uL (4.3-11.0)
[2018-11-13 14:02] LABS: ALBUMIN 3.9 GM/DL (3.2-4.5); BILIRUBIN,TOTAL 0.4 MG/DL (0.1-1.0); CALCIUM 9.1 MG/DL (8.5-10.1); CREATININE SERUM 1.56 MG/DL (0.60-1.30); MAGNESIUM 1.5 MG/DL (1.8-2.4); TOTAL PROTEIN 6.5 GM/DL (6.4-8.2)
[2018-12-06 14:07] LABS: BASOPHILS % (AUTO) 1 % (0-10); EOSINOPHILS # (AUTO) 0.6 10^3/uL (0.0-0.3); EOSINOPHILS % (AUTO) 8 % (0-10); HEMATOCRIT 31 % (35-52); HEMOGLOBIN 10.4 G/DL (11.5-16.0); LYMPHOCYTES # (AUTO) 1.6 X 10^3 (1.0-4.0); LYMPHOCYTES % (AUTO) 21 % (12-44); MEAN CORPUSCULAR HEMOGLOBIN 32 PG (25-34); MEAN CORPUSCULAR HGB CONC 33 G/DL (32-36); MEAN CORPUSCULAR VOLUME 96 FL (80-99); MEAN PLATELET VOLUME 9.4 FL (7.4-10.4); MONOCYTES # (AUTO) 0.5 X 10^3 (0.0-1.0); MONOCYTES % (AUTO) 7 % (0-12); NEUTROPHILS # (AUTO) 4.7 X 10^3 (1.8-7.8); NEUTROPHILS % (AUTO) 63 % (42-75); PLATELET COUNT 285 10^3/uL (130-400); RED CELL DISTRIBUTION WIDTH 15.4 % (10.0-14.5); WHITE BLOOD COUNT 7.5 10^3/uL (4.3-11.0)
[2018-12-06 14:33] LABS: ALBUMIN 4.1 GM/DL (3.2-4.5); BILIRUBIN,TOTAL 0.4 MG/DL (0.1-1.0); CALCIUM 9.2 MG/DL (8.5-10.1); CREATININE SERUM 1.28 MG/DL (0.60-1.30); POTASSIUM 4.4 MMOL/L (3.6-5.0); TOTAL PROTEIN 6.7 GM/DL (6.4-8.2)
[2018-12-19 14:46] LABS: BASOPHILS % (AUTO) 0 % (0-10); EOSINOPHILS % (AUTO) 5 % (0-10); HEMATOCRIT 32 % (35-52); HEMOGLOBIN 11.1 G/DL (11.5-16.0); LYMPHOCYTES % (AUTO) 13 % (12-44); MEAN CORPUSCULAR HEMOGLOBIN 33 PG (25-34); MEAN CORPUSCULAR HGB CONC 34 G/DL (32-36); MEAN CORPUSCULAR VOLUME 95 FL (80-99); MEAN PLATELET VOLUME 9.9 FL (7.4-10.4); MONOCYTES % (AUTO) 7 % (0-12); NEUTROPHILS % (AUTO) 75 % (42-75); PLATELET COUNT 323 10^3/uL (130-400); RED CELL DISTRIBUTION WIDTH 15.4 % (10.0-14.5); WHITE BLOOD COUNT 10.7 10^3/uL (4.3-11.0)
[2018-12-19 14:47] LABS: EOSINOPHILS # (AUTO) 0.5 10^3/uL (0.0-0.3); LYMPHOCYTES # (AUTO) 1.4 X 10^3 (1.0-4.0); MONOCYTES # (AUTO) 0.8 X 10^3 (0.0-1.0)
[2018-12-19 15:00] LABS: CALCIUM 8.8 MG/DL (8.5-10.1); CREATININE SERUM 1.37 MG/DL (0.60-1.30); POTASSIUM 5.6 MMOL/L (3.6-5.0); TOTAL PROTEIN 7.6 GM/DL (6.4-8.2)
[2018-12-19 15:09] LABS: BILIRUBIN,TOTAL 0.6 MG/DL (0.1-1.0)
[2018-12-26 11:54] LABS: BASOPHILS % (AUTO) 0 % (0-10); EOSINOPHILS # (AUTO) 0.6 10^3/uL (0.0-0.3); EOSINOPHILS % (AUTO) 9 % (0-10); HEMATOCRIT 34 % (35-52); HEMOGLOBIN 11.1 G/DL (11.5-16.0); LYMPHOCYTES # (AUTO) 1.2 X 10^3 (1.0-4.0); LYMPHOCYTES % (AUTO) 18 % (12-44); MEAN CORPUSCULAR HEMOGLOBIN 31 PG (25-34); MEAN CORPUSCULAR HGB CONC 33 G/DL (32-36); MEAN CORPUSCULAR VOLUME 95 FL (80-99); MEAN PLATELET VOLUME 9.1 FL (7.4-10.4); MONOCYTES # (AUTO) 0.6 X 10^3 (0.0-1.0); MONOCYTES % (AUTO) 9 % (0-12); NEUTROPHILS # (AUTO) 4.3 X 10^3 (1.8-7.8); NEUTROPHILS % (AUTO) 63 % (42-75); PLATELET COUNT 282 10^3/uL (130-400); RED CELL DISTRIBUTION WIDTH 15.6 % (10.0-14.5); WHITE BLOOD COUNT 6.7 10^3/uL (4.3-11.0)
[2018-12-26 12:09] LABS: CALCIUM 9.3 MG/DL (8.5-10.1); CREATININE SERUM 1.07 MG/DL (0.60-1.30); POTASSIUM 4.4 MMOL/L (3.6-5.0)
[~2019-01-02] VITALS: Ht 161.3 cm; Wt 83.5 kg
[~2019-01-02 14:02] MED LIST changes: +ATROPINE INJ 0.4 MG/ML SDV (CANCER CENTER) INJ SCH; +BEVACIZUMAB INJECTION 400 MG in NS (IVPB) CANCER CENTER 100 ML IV SCH; +D5W IV SCH; +DEXAMETHASONE IV SCH; +FLUOROURACIL 400 MG in SYRINGE-IVPB 1 SYRINGE IV SCH; +FLUOROURACIL IV SCH; +FOSAPREPITANT DIMEGLUMINE 150 MG in NS (IVPB) CANCER CENTER ONLY 150 ML IV SCH; +IRINOTECAN HCL IV SCH; +LEUCOVORIN CALCIUM 400 MG in D5W 250 ML IVPB (CANCER CTR) 250 ML IV SCH; +NS IV 1000 ML (CANCER CTR) 1,000 ML IV SCH; +NS IV SCH; +ONDANSETRON 8 MG, DEXAMETHASONE 4 MG/NS 50 ML IVPB (Cancer Ctr) IV SCH; +ONDANSETRON IV SCH; +ONDANSETRON MDV (CANCER CENTER 8 MG, DEXAMETHASONE INJ (CANCER CTR) 4 MG in NS (IVPB) C... IV SCH; +PALONOSETRON HCL 0.25 MG, DEXAMETHASONE INJ (CANCER CTR) 4 MG in NS (IVPB) CANCER CENTE... IV SCH; +[UNRECOGNIZED DRUG - OTHER] IV SCH; +[UNRECOGNIZED DRUG - OTHER] MC SCH
[2019-01-02 14:22] LABS: BASOPHILS % (AUTO) 1 % (0-10); EOSINOPHILS # (AUTO) 0.4 10^3/uL (0.0-0.3); EOSINOPHILS % (AUTO) 5 % (0-10); HEMATOCRIT 33 % (35-52); HEMOGLOBIN 10.9 G/DL (11.5-16.0); LYMPHOCYTES # (AUTO) 1.2 X 10^3 (1.0-4.0); LYMPHOCYTES % (AUTO) 15 % (12-44); MEAN CORPUSCULAR HEMOGLOBIN 31 PG (25-34); MEAN CORPUSCULAR HGB CONC 33 G/DL (32-36); MEAN CORPUSCULAR VOLUME 95 FL (80-99); MEAN PLATELET VOLUME 9.4 FL (7.4-10.4); MONOCYTES # (AUTO) 0.7 X 10^3 (0.0-1.0); MONOCYTES % (AUTO) 8 % (0-12); NEUTROPHILS # (AUTO) 5.8 X 10^3 (1.8-7.8); NEUTROPHILS % (AUTO) 71 % (42-75); PLATELET COUNT 213 10^3/uL (130-400); RED CELL DISTRIBUTION WIDTH 15.4 % (10.0-14.5); WHITE BLOOD COUNT 8.2 10^3/uL (4.3-11.0)
[2019-01-02 14:42] LABS: BILIRUBIN,TOTAL 0.5 MG/DL (0.1-1.0); CREATININE SERUM 1.25 MG/DL (0.60-1.30); MAGNESIUM 1.8 MG/DL (1.8-2.4); POTASSIUM 4.6 MMOL/L (3.6-5.0); TOTAL PROTEIN 6.7 GM/DL (6.4-8.2)
== END 2019-01-15 | disposition home or self-care (01) ==
LOC: ONC 14:02
PROVIDERS: ATTEND Internal Medicine Hematology & Oncology
DX: Z51.11 Encounter for antineoplastic chemotherapy (principal); C18.0 Malignant neoplasm of cecum; C18.6 Malignant neoplasm of descending colon; D50.9 Iron deficiency anemia, unspecified; E11.22 Type 2 diabetes mellitus with diabetic chronic kidney disease; N18.3 Chronic kidney disease, stage 3 (moderate); K44.9 Diaphragmatic hernia without obstruction or gangrene; Z87.891 Personal history of nicotine dependence; Z79.899 Other long term (current) drug therapy; C79.89 Secondary malignant neoplasm of other specified sites; R91.8 Other nonspecific abnormal finding of lung field; R16.0 Hepatomegaly, not elsewhere classified
CPT/HCPCS: 36415; 36591; 71250; 74176; 80048; 80053; 82378; 83735; 85025; 96360; 96361; 96367; 96368; 96375; 96409; 96411; 96413

== ENCOUNTER → 2019-02-06 | Outpatient (CLI) | payer MEDICARE, OTHER ==
[~2019-02-06] MED LIST changes: -ATROPINE INJ 0.4 MG/ML SDV (CANCER CENTER) INJ SCH; -BEVACIZUMAB INJECTION 400 MG in NS (IVPB) CANCER CENTER 100 ML IV SCH; -D5W IV SCH; -DEXAMETHASONE IV SCH; -FLUOROURACIL 400 MG in SYRINGE-IVPB 1 SYRINGE IV SCH; -FLUOROURACIL IV SCH; -FOSAPREPITANT DIMEGLUMINE 150 MG in NS (IVPB) CANCER CENTER ONLY 150 ML IV SCH; -IRINOTECAN HCL IV SCH; -LEUCOVORIN CALCIUM 400 MG in D5W 250 ML IVPB (CANCER CTR) 250 ML IV SCH; -NS IV 1000 ML (CANCER CTR) 1,000 ML IV SCH; -NS IV SCH; -ONDANSETRON 8 MG, DEXAMETHASONE 4 MG/NS 50 ML IVPB (Cancer Ctr) IV SCH; -ONDANSETRON IV SCH; -ONDANSETRON MDV (CANCER CENTER 8 MG, DEXAMETHASONE INJ (CANCER CTR) 4 MG in NS (IVPB) C... IV SCH; -PALONOSETRON HCL 0.25 MG, DEXAMETHASONE INJ (CANCER CTR) 4 MG in NS (IVPB) CANCER CENTE... IV SCH; -[UNRECOGNIZED DRUG - OTHER] IV SCH; -[UNRECOGNIZED DRUG - OTHER] MC SCH
--- NOTE | 2019-02-06 17:10 | Diagnostic Imaging Report ---
PROCEDURE: CT chest with contrast, CT abdomen and pelvis with and without contrast. TECHNIQUE: Pre and post intravenous contrast axial imaging of the abdomen and pelvis and post contrast axial imaging of the chest were performed. Auto Exposure Controls were utilized during the CT exam to meet ALARA standards for radiation dose reduction. INDICATION: Colon cancer. COMPARISON: Study compared to 10/25/2018. FINDINGS: CHEST: There is mildly increased number and average size of multiple bilateral soft tissue density pulmonary nodules. The largest bilobed lesion just above the right hemidiaphragm is not itself substantially changed at 3 cm x 2 cm; however, several smaller lesions are more conspicuous and a few are new from prior. No pathological appearing thoracic lymph nodes. No chest effusion. No suspicious bony lesion. ABDOMEN AND PELVIS: Soft tissue like induration and density of the midline periumbilical abdominal wall extending along the umbilicus and resulting in skin thickening is a redemonstrated finding, not substantially changed. No abdominal or pelvic mesenteric or retroperitoneal lymphadenopathy. The low-density lesion in the liver centrally is 1.9 cm, not significantly changed. Smaller lesions in the right lobe posterolaterally are stable. Spleen, adrenals, and pancreas are unremarkable. No suspicious lytic or sclerotic bone lesion. IMPRESSION: CHEST: Findings suspicious for mild progressive multifocal pulmonary metastatic disease. No adenopathy or chest wall lesion. No chest effusion. ABDOMEN AND PELVIS: Stable low-density hepatic foci, indeterminate. No adenopathy. Induration and thickening of the soft tissues as well as fat distortion, periumbilical, unchanged. Dictated by: Dictated on workstation # [id number]
== END ==
LOC: RAD 15:47
PROVIDERS: ATTEND Nurse Practitioner Adult Health
DX: C18.9 Malignant neoplasm of colon, unspecified (principal); C79.89 Secondary malignant neoplasm of other specified sites; K76.89 Other specified diseases of liver
CPT/HCPCS: 71260; 74178

== ENCOUNTER 2019-04-11 10:47 | Outpatient (RCR) | payer MEDICARE, OTHER ==
[2019-01-16 13:22] LABS: BASOPHILS % (AUTO) 1 % (0-10); EOSINOPHILS # (AUTO) 0.5 10^3/uL (0.0-0.3); EOSINOPHILS % (AUTO) 6 % (0-10); HEMATOCRIT 34 % (35-52); HEMOGLOBIN 11.2 G/DL (11.5-16.0); LYMPHOCYTES # (AUTO) 1.2 X 10^3 (1.0-4.0); LYMPHOCYTES % (AUTO) 15 % (12-44); MEAN CORPUSCULAR HEMOGLOBIN 31 PG (25-34); MEAN CORPUSCULAR HGB CONC 33 G/DL (32-36); MEAN CORPUSCULAR VOLUME 95 FL (80-99); MEAN PLATELET VOLUME 9.4 FL (7.4-10.4); MONOCYTES # (AUTO) 0.7 X 10^3 (0.0-1.0); MONOCYTES % (AUTO) 9 % (0-12); NEUTROPHILS # (AUTO) 5.8 X 10^3 (1.8-7.8); NEUTROPHILS % (AUTO) 71 % (42-75); PLATELET COUNT 226 10^3/uL (130-400); RED CELL DISTRIBUTION WIDTH 15.4 % (10.0-14.5); WHITE BLOOD COUNT 8.3 10^3/uL (4.3-11.0)
[2019-01-16 13:47] LABS: BILIRUBIN,TOTAL 0.5 MG/DL (0.1-1.0); CALCIUM 9.4 MG/DL (8.5-10.1); CREATININE SERUM 1.33 MG/DL (0.60-1.30); MAGNESIUM 1.6 MG/DL (1.8-2.4); POTASSIUM 4.6 MMOL/L (3.6-5.0); TOTAL PROTEIN 6.6 GM/DL (6.4-8.2)
[2019-02-06 14:35] LABS: BASOPHILS % (AUTO) 1 % (0-10); EOSINOPHILS # (AUTO) 0.4 10^3/uL (0.0-0.3); EOSINOPHILS % (AUTO) 5 % (0-10); HEMATOCRIT 35 % (35-52); HEMOGLOBIN 11.6 G/DL (11.5-16.0); LYMPHOCYTES # (AUTO) 1.3 X 10^3 (1.0-4.0); LYMPHOCYTES % (AUTO) 16 % (12-44); MEAN CORPUSCULAR HEMOGLOBIN 31 PG (25-34); MEAN CORPUSCULAR HGB CONC 33 G/DL (32-36); MEAN CORPUSCULAR VOLUME 93 FL (80-99); MEAN PLATELET VOLUME 9.4 FL (7.4-10.4); MONOCYTES # (AUTO) 0.7 X 10^3 (0.0-1.0); MONOCYTES % (AUTO) 9 % (0-12); NEUTROPHILS # (AUTO) 5.7 X 10^3 (1.8-7.8); NEUTROPHILS % (AUTO) 69 % (42-75); PLATELET COUNT 289 10^3/uL (130-400); RED CELL DISTRIBUTION WIDTH 15.4 % (10.0-14.5); WHITE BLOOD COUNT 8.2 10^3/uL (4.3-11.0)
[2019-02-06 14:54] LABS: ALBUMIN 4.1 GM/DL (3.2-4.5); BILIRUBIN,TOTAL 0.6 MG/DL (0.1-1.0); CALCIUM 9.4 MG/DL (8.5-10.1); CREATININE SERUM 1.36 MG/DL (0.60-1.30); POTASSIUM 4.7 MMOL/L (3.6-5.0); TOTAL PROTEIN 6.9 GM/DL (6.4-8.2)
[2019-02-21 11:21] LABS: BASOPHILS % (AUTO) 0 % (0-10); EOSINOPHILS # (AUTO) 0.7 10^3/uL (0.0-0.3); EOSINOPHILS % (AUTO) 7 % (0-10); HEMATOCRIT 35 % (35-52); HEMOGLOBIN 11.7 G/DL (11.5-16.0); LYMPHOCYTES # (AUTO) 1.3 X 10^3 (1.0-4.0); LYMPHOCYTES % (AUTO) 13 % (12-44); MEAN CORPUSCULAR HEMOGLOBIN 31 PG (25-34); MEAN CORPUSCULAR HGB CONC 33 G/DL (32-36); MEAN CORPUSCULAR VOLUME 92 FL (80-99); MONOCYTES # (AUTO) 0.9 X 10^3 (0.0-1.0); MONOCYTES % (AUTO) 9 % (0-12); NEUTROPHILS # (AUTO) 7.4 X 10^3 (1.8-7.8); NEUTROPHILS % (AUTO) 71 % (42-75); PLATELET COUNT 225 10^3/uL (130-400); RED CELL DISTRIBUTION WIDTH 15.3 % (10.0-14.5); WHITE BLOOD COUNT 10.4 10^3/uL (4.3-11.0)
[2019-02-21 11:44] LABS: BILIRUBIN,TOTAL 0.7 MG/DL (0.1-1.0); CALCIUM 8.6 MG/DL (8.5-10.1); CREATININE SERUM 1.65 MG/DL (0.60-1.30); MAGNESIUM 1.6 MG/DL (1.6-2.4); POTASSIUM 4.1 MMOL/L (3.6-5.0); TOTAL PROTEIN 6.7 GM/DL (6.4-8.2)
[2019-03-01 15:31] LABS: BASOPHILS % (AUTO) 0 % (0-10); EOSINOPHILS # (AUTO) 0.4 10^3/uL (0.0-0.3); EOSINOPHILS % (AUTO) 4 % (0-10); HEMATOCRIT 37 % (35-52); HEMOGLOBIN 12.4 G/DL (11.5-16.0); LYMPHOCYTES # (AUTO) 1.3 X 10^3 (1.0-4.0); LYMPHOCYTES % (AUTO) 13 % (12-44); MEAN CORPUSCULAR HEMOGLOBIN 30 PG (25-34); MEAN CORPUSCULAR HGB CONC 33 G/DL (32-36); MEAN CORPUSCULAR VOLUME 91 FL (80-99); MEAN PLATELET VOLUME 9.8 FL (7.4-10.4); MONOCYTES # (AUTO) 0.7 X 10^3 (0.0-1.0); MONOCYTES % (AUTO) 7 % (0-12); NEUTROPHILS # (AUTO) 7.6 X 10^3 (1.8-7.8); NEUTROPHILS % (AUTO) 77 % (42-75); PLATELET COUNT 286 10^3/uL (130-400); WHITE BLOOD COUNT 9.9 10^3/uL (4.3-11.0)
[2019-03-01 15:48] LABS: CALCIUM 9.2 MG/DL (8.5-10.1); CREATININE SERUM 1.37 MG/DL (0.60-1.30); POTASSIUM 5.1 MMOL/L (3.6-5.0)
[2019-03-06 11:06] LABS: BASOPHILS % (AUTO) 0 % (0-10); EOSINOPHILS # (AUTO) 0.2 10^3/uL (0.0-0.3); EOSINOPHILS % (AUTO) 3 % (0-10); HEMATOCRIT 33 % (35-52); HEMOGLOBIN 10.8 G/DL (11.5-16.0); LYMPHOCYTES # (AUTO) 1.4 X 10^3 (1.0-4.0); LYMPHOCYTES % (AUTO) 17 % (12-44); MEAN CORPUSCULAR HEMOGLOBIN 30 PG (25-34); MEAN CORPUSCULAR HGB CONC 33 G/DL (32-36); MEAN CORPUSCULAR VOLUME 91 FL (80-99); MEAN PLATELET VOLUME 9.1 FL (7.4-10.4); MONOCYTES % (AUTO) 12 % (0-12); NEUTROPHILS # (AUTO) 5.4 X 10^3 (1.8-7.8); NEUTROPHILS % (AUTO) 67 % (42-75); PLATELET COUNT 218 10^3/uL (130-400); RED CELL DISTRIBUTION WIDTH 15.6 % (10.0-14.5)
[2019-03-06 11:24] LABS: ALBUMIN 3.9 GM/DL (3.2-4.5); BILIRUBIN,TOTAL 0.6 MG/DL (0.1-1.0); CALCIUM 9.1 MG/DL (8.5-10.1); CREATININE SERUM 1.41 MG/DL (0.60-1.30); MAGNESIUM 1.4 MG/DL (1.6-2.4); POTASSIUM 4.5 MMOL/L (3.6-5.0); TOTAL PROTEIN 6.8 GM/DL (6.4-8.2)
[2019-03-20 10:26] LABS: BASOPHILS % (AUTO) 1 % (0-10); EOSINOPHILS # (AUTO) 0.3 10^3/uL (0.0-0.3); EOSINOPHILS % (AUTO) 4 % (0-10); HEMATOCRIT 33 % (35-52); HEMOGLOBIN 10.6 G/DL (11.5-16.0); LYMPHOCYTES # (AUTO) 1.3 X 10^3 (1.0-4.0); LYMPHOCYTES % (AUTO) 20 % (12-44); MEAN CORPUSCULAR HEMOGLOBIN 30 PG (25-34); MEAN CORPUSCULAR HGB CONC 33 G/DL (32-36); MEAN CORPUSCULAR VOLUME 91 FL (80-99); MONOCYTES # (AUTO) 0.9 X 10^3 (0.0-1.0); MONOCYTES % (AUTO) 14 % (0-12); NEUTROPHILS % (AUTO) 62 % (42-75); PLATELET COUNT 203 10^3/uL (130-400); WHITE BLOOD COUNT 6.5 10^3/uL (4.3-11.0)
[2019-03-20 10:45] LABS: ALBUMIN 3.9 GM/DL (3.2-4.5); BILIRUBIN,TOTAL 0.5 MG/DL (0.1-1.0); CALCIUM 8.4 MG/DL (8.5-10.1); CREATININE SERUM 1.2 MG/DL (0.60-1.30); MAGNESIUM 1.5 MG/DL (1.6-2.4); POTASSIUM 4.3 MMOL/L (3.6-5.0); TOTAL PROTEIN 6.6 GM/DL (6.4-8.2)
[2019-03-27 12:03] LABS: BASOPHILS % (AUTO) 1 % (0-10); EOSINOPHILS # (AUTO) 0.4 10^3/uL (0.0-0.3); EOSINOPHILS % (AUTO) 6 % (0-10); HEMATOCRIT 32 % (35-52); HEMOGLOBIN 10.6 G/DL (11.5-16.0); LYMPHOCYTES # (AUTO) 1.3 X 10^3 (1.0-4.0); LYMPHOCYTES % (AUTO) 21 % (12-44); MEAN CORPUSCULAR HEMOGLOBIN 30 PG (25-34); MEAN CORPUSCULAR HGB CONC 33 G/DL (32-36); MEAN CORPUSCULAR VOLUME 92 FL (80-99); MEAN PLATELET VOLUME 9.4 FL (7.4-10.4); MONOCYTES # (AUTO) 0.6 X 10^3 (0.0-1.0); MONOCYTES % (AUTO) 9 % (0-12); NEUTROPHILS % (AUTO) 63 % (42-75); PLATELET COUNT 243 10^3/uL (130-400); RED CELL DISTRIBUTION WIDTH 15.6 % (10.0-14.5); WHITE BLOOD COUNT 6.4 10^3/uL (4.3-11.0)
[2019-03-27 12:31] LABS: CALCIUM 9.4 MG/DL (8.5-10.1); CREATININE SERUM 1.52 MG/DL (0.60-1.30); POTASSIUM 4.9 MMOL/L (3.6-5.0)
[2019-04-03 13:05] LABS: BASOPHILS % (AUTO) 0 % (0-10); EOSINOPHILS # (AUTO) 0.2 10^3/uL (0.0-0.3); EOSINOPHILS % (AUTO) 3 % (0-10); HEMATOCRIT 31 % (35-52); HEMOGLOBIN 9.9 G/DL (11.5-16.0); LYMPHOCYTES % (AUTO) 16 % (12-44); MEAN CORPUSCULAR HEMOGLOBIN 30 PG (25-34); MEAN CORPUSCULAR HGB CONC 33 G/DL (32-36); MEAN CORPUSCULAR VOLUME 92 FL (80-99); MEAN PLATELET VOLUME 9.2 FL (7.4-10.4); MONOCYTES # (AUTO) 0.7 X 10^3 (0.0-1.0); MONOCYTES % (AUTO) 12 % (0-12); NEUTROPHILS # (AUTO) 4.3 X 10^3 (1.8-7.8); NEUTROPHILS % (AUTO) 70 % (42-75); PLATELET COUNT 172 10^3/uL (130-400); RED CELL DISTRIBUTION WIDTH 17.4 % (10.0-14.5); WHITE BLOOD COUNT 6.2 10^3/uL (4.3-11.0)
[2019-04-03 13:22] LABS: ALBUMIN 3.7 GM/DL (3.2-4.5); BILIRUBIN,TOTAL 0.5 MG/DL (0.1-1.0); CALCIUM 8.4 MG/DL (8.5-10.1); CREATININE SERUM 1.23 MG/DL (0.60-1.30); MAGNESIUM 1.5 MG/DL (1.6-2.4); POTASSIUM 4.2 MMOL/L (3.6-5.0); TOTAL PROTEIN 6.4 GM/DL (6.4-8.2)
[~2019-04-11 10:47] MED LIST changes: +BEVACIZUMAB INJECTION 400 MG in NS (IVPB) CANCER CENTER 100 ML IV SCH; +D5W 500 ML IV (CANCER CTR) 500 ML IV SCH; +DEXAMETHASONE IV SCH; +FLUOROURACIL 400 MG in SYRINGE-IVPB 1 SYRINGE IV SCH; +FLUOROURACIL IV SCH; +FOSAPREPITANT DIMEGLUMINE 150 MG in NS (IVPB) CANCER CENTER ONLY 150 ML IV SCH; +LEUCOVORIN CALCIUM 400 MG in D5W 250 ML IVPB (CANCER CTR) 250 ML IV SCH; +MAGNESIUM SULFATE (CANCER CTR) 2 GM in NS (IVPB) CANCER CENTER 100 ML IV ONE; +MAGNESIUM SULFATE (CANCER CTR) 3 GM in D5W 50 ML IV(CANCER CTR) 50 ML IV ONE; +NS IV 1000 ML (CANCER CTR) 1,000 ML IV SCH; +NS IV SCH; +ONDANSETRON IV SCH; +OXALIPLATIN 100 MG, OXALIPLATIN (GENERIC) 20 MG in D5W 250 ML IVPB (CANCER CTR) 250 ML IV SCH; +PALONOSETRON HCL 0.25 MG, DEXAMETHASONE INJECTION 10 MG in NS (IVPB) CANCER CENTER 50 ML IV SCH; +[UNRECOGNIZED DRUG - OTHER] IV SCH
[2019-04-11 11:06] LABS: BASOPHILS % (AUTO) 1 % (0-10); EOSINOPHILS # (AUTO) 0.3 10^3/uL (0.0-0.3); EOSINOPHILS % (AUTO) 4 % (0-10); HEMATOCRIT 31 % (35-52); HEMOGLOBIN 10.1 G/DL (11.5-16.0); LYMPHOCYTES # (AUTO) 1.4 X 10^3 (1.0-4.0); LYMPHOCYTES % (AUTO) 21 % (12-44); MEAN CORPUSCULAR HEMOGLOBIN 30 PG (25-34); MEAN CORPUSCULAR HGB CONC 33 G/DL (32-36); MEAN CORPUSCULAR VOLUME 91 FL (80-99); MEAN PLATELET VOLUME 9.2 FL (7.4-10.4); MONOCYTES # (AUTO) 0.5 X 10^3 (0.0-1.0); MONOCYTES % (AUTO) 8 % (0-12); NEUTROPHILS # (AUTO) 4.4 X 10^3 (1.8-7.8); NEUTROPHILS % (AUTO) 67 % (42-75); PLATELET COUNT 289 10^3/uL (130-400); RED CELL DISTRIBUTION WIDTH 16.7 % (10.0-14.5); WHITE BLOOD COUNT 6.6 10^3/uL (4.3-11.0)
[2019-04-11 11:21] LABS: CALCIUM 8.8 MG/DL (8.5-10.1); CREATININE SERUM 1.02 MG/DL (0.60-1.30); POTASSIUM 4.3 MMOL/L (3.6-5.0)
== END 2019-04-16 | disposition home or self-care (01) ==
LOC: ONC 10:47
PROVIDERS: ATTEND Internal Medicine Hematology & Oncology
DX: Z51.11 Encounter for antineoplastic chemotherapy (principal); C18.0 Malignant neoplasm of cecum; C18.6 Malignant neoplasm of descending colon; D50.9 Iron deficiency anemia, unspecified; E11.22 Type 2 diabetes mellitus with diabetic chronic kidney disease; N18.3 Chronic kidney disease, stage 3 (moderate); K44.9 Diaphragmatic hernia without obstruction or gangrene; Z87.891 Personal history of nicotine dependence; Z79.899 Other long term (current) drug therapy; C79.89 Secondary malignant neoplasm of other specified sites; R91.8 Other nonspecific abnormal finding of lung field; R16.0 Hepatomegaly, not elsewhere classified
CPT/HCPCS: 36415; 36591; 80048; 80053; 82378; 83735; 85025; 96360; 96367; 96368; 96375; 96409; 96411; 96413

== ENCOUNTER 2019-05-20 10:28 | Inpatient (IN) | payer MEDICARE, OTHER ==
[~2019-05-20] VITALS: Ht 165.1 cm; Wt 74.8 kg
[~2019-05-20 10:28] MED LIST changes: -BEVACIZUMAB INJECTION 400 MG in NS (IVPB) CANCER CENTER 100 ML IV SCH; -D5W 500 ML IV (CANCER CTR) 500 ML IV SCH; -DEXAMETHASONE IV SCH; -FLUOROURACIL 400 MG in SYRINGE-IVPB 1 SYRINGE IV SCH; -FLUOROURACIL IV SCH; -FOSAPREPITANT DIMEGLUMINE 150 MG in NS (IVPB) CANCER CENTER ONLY 150 ML IV SCH; -LEUCOVORIN CALCIUM 400 MG in D5W 250 ML IVPB (CANCER CTR) 250 ML IV SCH; -MAGNESIUM SULFATE (CANCER CTR) 2 GM in NS (IVPB) CANCER CENTER 100 ML IV ONE; -MAGNESIUM SULFATE (CANCER CTR) 3 GM in D5W 50 ML IV(CANCER CTR) 50 ML IV ONE; -NS IV 1000 ML (CANCER CTR) 1,000 ML IV SCH; -NS IV SCH; -ONDANSETRON IV SCH; -OXALIPLATIN 100 MG, OXALIPLATIN (GENERIC) 20 MG in D5W 250 ML IVPB (CANCER CTR) 250 ML IV SCH; -PALONOSETRON HCL 0.25 MG, DEXAMETHASONE INJECTION 10 MG in NS (IVPB) CANCER CENTER 50 ML IV SCH; -[UNRECOGNIZED DRUG - OTHER] IV SCH
--- NOTE | 2019-05-20 10:42 | ED GI ---
General Stated Complaint: N/V Source of Information: Patient, EMS Exam Limitations: No Limitations History of Present Illness Date Seen by Provider: May 20, 2019 Time Seen by Provider: 10:41 Initial Comments To ER per EMS from home with reports of nausea vomiting for the past 3 days. She's been unable to eat or drink anything because of the nausea and vomiting. She is on chemotherapy for colon cancer, follows with Dr. Seth. Does not have a primary care physician. Has chronic unchanged pain in the umbilical region, does have a wound here which is nonhealing and has also had some itching for several weeks. She has received 1 L of normal saline by EMS in route to the hospital. She lives in [facility]. Timing/Duration: 2-3 Days Severity/Quality: Moderate Location: Generalized Abdomen Radiation: No Radiation Activities at Onset: None Associated Symptoms: Nausea/Vomiting Allergies and Home Medications Allergies Coded Allergies: No Known Drug Allergies (Unverified , 04/15/16) Home Medications Ciprofloxacin HCl 500 Mg Tablet, 500 MG PO BID Prescribed by: REGAN BENAVIDEZ on 11/15/171716 Glyburide 5 Mg Tablet, 5 MG PO BID, (Reported) Metronidazole 500 Mg Tablet, 500 MG PO BID Prescribed by: REGAN BENAVIDEZ on 11/15/171716 Oxycodone HCl/Acetaminophen 1 Each Tablet, 1-2 EACH PO Q4H PRN for pain Prescribed by: REGAN BENAVIDEZ on 11/15/17 1714 Patient Home Medication List Home Medication List Reviewed: Yes Review of Systems Review of Systems Constitutional: see HPI EENTM: No Symptoms Reported Respiratory: No Symptoms Reported Cardiovascular: No Symptoms Reported Gastrointestinal: See HPI, Abdominal Pain, Nausea, Vomiting Genitourinary: No Symptoms Reported Musculoskeletal: no symptoms reported Skin: no symptoms reported Psychiatric/Neurological: No Symptoms Reported Endocrine: No Symptoms Reported Hematologic/Lymphatic: No Symptoms Reported Past Psuhmim-Fvjjrz-Hptidb Hx Patient Social History Type Used: Cigarettes Former Smoker, Quit: Jul 11, 1984 Recent Foreign Travel: No Contact w/Someone Who Travel: No Recent Hopitalizations: No Immunizations Up To Date Tetanus Booster (TDap): Unknown Date of Pneumonia Vaccine: Feb 25, 2016 Date of Influenza Vaccine: Jun 09, 2017 Seasonal Allergies Seasonal Allergies: No Past Medical History Gallbladder Hypertension Reproductive Disorders: No Hiatal Hernia Loss of Vision: Bilateral Hearing Impairment: Denies Colon Did You Recieve Any Treatments: Yes What Type of Treatment Did You: Chemotherapy Physical Exam Vital Signs Vital Signs - First Documented 05/20/19 11:08 Temp 36.6 Pulse 92 Resp 18 B/P (MAP) 128/79 (95) Pulse Ox 98 O2 Delivery Nasal Cannula O2 Flow Rate 2.00 Capillary Refill : Height/Weight/BMI Height: 5'3.50" Weight: 211lbs. 0.0oz. 95.649532ax; 36.8 BMI Method: General Appearance: WD/WN, no apparent distress HEENT: PERRL/EOMI, normal ENT inspection Respiratory: lungs clear, normal breath sounds, no respiratory distress, no accessory muscle use Cardiovascular: regular rate, rhythm, no murmur Gastrointestinal: normal bowel sounds, soft Extremities: normal range of motion, non-tender Neurologic/Psychiatric: alert, normal mood/affect, oriented x 3 Skin: normal color, warm/dry, other (some umbilical erythema which family states is chronic and related to the cancer itself) Progress/Results/Core Measures Results/Orders Lab Results Laboratory Tests Test 05/20/19 10:55 Range/Units White Blood Count 5.5 4.3-11.0 10^3/uL Red Blood Count 3.46 L 4.35-5.85 10^6/uL Hemoglobin 10.4 L 11.5-16.0 G/DL Hematocrit 31 L 35-52 % Mean Corpuscular Volume 90 80-99 FL Mean Corpuscular Hemoglobin 30 25-34 PG Mean Corpuscular Hemoglobin Concent 33 32-36 G/DL Red Cell Distribution Width 15.3 H 10.0-14.5 % Platelet Count 236 130-400 10^3/uL Mean Platelet Volume 10.2 7.4-10.4 FL Neutrophils (%) (Auto) 83 H 42-75 % Lymphocytes (%) (Auto) 13 12-44 % Monocytes (%) (Auto) 2 0-12 % Eosinophils (%) (Auto) 1 0-10 % Basophils (%) (Auto) 0 0-10 % Neutrophils # (Auto) 4.6 1.8-7.8 X 10^3 Lymphocytes # (Auto) 0.7 L 1.0-4.0 X 10^3 Monocytes # (Auto) 0.1 0.0-1.0 X 10^3 Eosinophils # (Auto) 0.1 0.0-0.3 10^3/uL Basophils # (Auto) 0.0 0.0-0.1 10^3/uL Sodium Level 137 135-145 MMOL/L Potassium Level 5.5 H 3.6-5.0 MMOL/L Chloride Level 106 98-107 MMOL/L Carbon Dioxide Level 14 L 21-32 MMOL/L Anion Gap 17 H 5-14 MMOL/L Blood Urea Nitrogen 67 H 7-18 MG/DL Creatinine 3.22 #H 0.60-1.30 MG/DL Estimat Glomerular Filtration Rate 14 BUN/Creatinine Ratio 21 Glucose Level 161 H 70-105 MG/DL Calcium Level 8.4 L 8.5-10.1 MG/DL Corrected Calcium 8.6 8.5-10.1 MG/DL Total Bilirubin 0.5 0.1-1.0 MG/DL Aspartate Amino Transf (AST/SGOT) 22 5-34 U/L Alanine Aminotransferase (ALT/SGPT) 19 0-55 U/L Alkaline Phosphatase 189 H 40-136 U/L Total Protein 6.7 6.4-8.2 GM/DL Albumin 3.7 3.2-4.5 GM/DL Lipase 106 H 8-78 U/L My Orders Orders - TONY CANALES APRN Cbc With Automated Diff (05/20/19 10:39) Comprehensive Metabolic Panel (05/20/19 10:39) Lipase (05/20/19 10:39) Ua Culture If Indicated (05/20/19 10:39) Ed Iv/Invasive Line Start (05/20/19 10:39) Promethazine Injection (Phenergan Injec (05/20/19 10:45) Ns Iv 1000 Ml (Sodium Chloride 0.9%) (05/20/19 12:00) Ct Abdomen/Pelvis Wo (05/20/19 11:57) Fentanyl Injection (Sublimaze Injection (05/20/19 12:15) Medications Given in ED Current Medications Medications Dose Ordered Sig/Bret Route Start Time Stop Time Status Last Admin Dose Admin Fentanyl Citrate 25 mcg ONCE ONCE IVP 05/20/19 12:15 05/20/19 12:16 DC 05/20/19 12:14 25 MCG Promethazine HCl 25 mg ONCE ONCE IVP 05/20/19 10:45 05/20/19 10:46 DC 05/20/19 11:00 25 MG Vital Signs/I&O 05/20/19 11:08 Temp 36.6 Pulse 92 Resp 18 B/P (MAP) 128/79 (95) Pulse Ox 98 O2 Delivery Nasal Cannula O2 Flow Rate 2.00 Diagnostic Imaging Diagonstic Imaging: CT Comments NAME: [facility]AND[facility] REC#: [id number] PT STATUS: REG ER : 1940 PHYSICIAN: TONY CANALES SALES REPRESENTATIVE EDUCATION COURSES ADMIT DATE: 05/20/19/ER Draft POSDate of Exam:05/20/19 CT ABDOMEN/PELVIS WO CT ABDOMEN/PELVIS WO TECHNIQUE: Unenhanced CT imaging of the abdomen and pelvis was performed. 2-D reformats are created and submitted for interpretation. Automatic exposure controls were utilized to optimize patient dose. INDICATION: Nausea. History of colon cancer. COMPARISON: 02/06/2019. FINDINGS: Evaluation of the abdominal viscera is mildly limited without contrast. Lower chest: There are numerous nodules throughout the lung bases stable when compared to CT chest of 02/06/2019. Peritoneum: No free intraperitoneal air or fluid. Liver and biliary system: Circumscribed hypodense lesions within the inferior liver unchanged. Gallbladder is likely surgically absent. No biliary duct dilatation. Spleen and Pancreas: Spleen is normal. Unenhanced pancreas is grossly normal. Adrenals: Normal. tract: No renal or ureteral calculi. No obstructive uropathy. Uterus and ovaries are normal in appearance for patient's age. GI tract: Stomach is decompressed. No bowel obstruction. Stable postoperative changes of near total colectomy with a enterocolonic anastomosis in the right lower quadrant. There is fluid present within the small bowel and colon that could be due to enteritis. Vasculature and Lymph nodes: Normal caliber aorta. No abdominal or pelvic lymphadenopathy. Musculoskeletal: No concerning osseous lesion. Stable soft tissue induration in the midline at the level of umbilicus. IMPRESSION: 1. No acute obstructive or inflammatory process in the abdomen or pelvis. 2. Metastases within the lung bases and potential liver are unchanged. 3. Stable soft tissue induration around the umbilicus. Dictated on workstation # [id number] Dict: 05/20/19 1249 Trans: 05/20/19 1259 [facility] [id number] Interpreted by: CRIS STOLL MD Electronically signed by: Departure Impression Primary Impression: Dehydration Additional Impression: Nausea and vomiting Qualified Codes: R11.2 - Nausea with vomiting, unspecified Disposition: ADMITTED INPATIENT Condition: Stable Admissions Decision to Admit Reason: Admit from ER (General) Decision to Admit/Date: May 20, 2019 Time/Decision to Admit Time: 12:12 Departure-Patient Inst. Referrals: NO,LOCAL PHYSICIAN (PCP) Primary Care Physician KELLY CALVERT (Family) Primary Care Physician TONY CANALES APRN May 20, 2019 10:42 POS
[2019-05-20] MEDS ORDERED: PROMETHAZINE INJ 25 MG/ML (PHENERGAN) AMP IVP ONE (10:45)
[2019-05-20 11:06] LABS: BASOPHILS % (AUTO) 0 % (0-10); EOSINOPHILS # (AUTO) 0.1 10^3/uL (0.0-0.3); EOSINOPHILS % (AUTO) 1 % (0-10); HEMATOCRIT 31 % (35-52); HEMOGLOBIN 10.4 G/DL (11.5-16.0); LYMPHOCYTES # (AUTO) 0.7 X 10^3 (1.0-4.0); LYMPHOCYTES % (AUTO) 13 % (12-44); MEAN CORPUSCULAR HEMOGLOBIN 30 PG (25-34); MEAN CORPUSCULAR HGB CONC 33 G/DL (32-36); MEAN CORPUSCULAR VOLUME 90 FL (80-99); MEAN PLATELET VOLUME 10.2 FL (7.4-10.4); MONOCYTES # (AUTO) 0.1 X 10^3 (0.0-1.0); MONOCYTES % (AUTO) 2 % (0-12); NEUTROPHILS # (AUTO) 4.6 X 10^3 (1.8-7.8); NEUTROPHILS % (AUTO) 83 % (42-75); PLATELET COUNT 236 10^3/uL (130-400); RED CELL DISTRIBUTION WIDTH 15.3 % (10.0-14.5); WHITE BLOOD COUNT 5.5 10^3/uL (4.3-11.0)
[2019-05-20 11:45] LABS: ALBUMIN 3.7 GM/DL (3.2-4.5); BILIRUBIN,TOTAL 0.5 MG/DL (0.1-1.0); CALCIUM 8.4 MG/DL (8.5-10.1); CREATININE SERUM 3.22 MG/DL (0.60-1.30); POTASSIUM 5.5 MMOL/L (3.6-5.0); TOTAL PROTEIN 6.7 GM/DL (6.4-8.2)
[2019-05-20] MEDS ORDERED: NS IV 1000 ML 1,000 ML IV SCH (12:00)
[2019-05-20] MEDS ORDERED: fentaNYL INJECTION 100 MCG/2 ML AMP IVP ONE (12:15)
--- NOTE | 2019-05-20 12:59 | Diagnostic Imaging Report ---
CT ABDOMEN/PELVIS WO TECHNIQUE: Unenhanced CT imaging of the abdomen and pelvis was performed. 2-D reformats are created and submitted for interpretation. Automatic exposure controls were utilized to optimize patient dose. INDICATION: Nausea. History of colon cancer. COMPARISON: 02/06/2019. FINDINGS: Evaluation of the abdominal viscera is mildly limited without contrast. Lower chest: There are numerous nodules throughout the lung bases stable when compared to CT chest of 02/06/2019. Peritoneum: No free intraperitoneal air or fluid. Liver and biliary system: Circumscribed hypodense lesions within the inferior liver unchanged. Gallbladder is likely surgically absent. No biliary duct dilatation. Spleen and Pancreas: Spleen is normal. Unenhanced pancreas is grossly normal. Adrenals: Normal. tract: No renal or ureteral calculi. No obstructive uropathy. Uterus and ovaries are normal in appearance for patient's age. GI tract: Stomach is decompressed. No bowel obstruction. Stable postoperative changes of near total colectomy with a enterocolonic anastomosis in the right lower quadrant. There is fluid present within the small bowel and colon that could be due to enteritis. Vasculature and Lymph nodes: Normal caliber aorta. No abdominal or pelvic lymphadenopathy. Musculoskeletal: No concerning osseous lesion. Stable soft tissue induration in the midline at the level of umbilicus. IMPRESSION: 1. No acute obstructive or inflammatory process in the abdomen or pelvis. 2. Metastases within the lung bases and potential liver are unchanged. 3. Stable soft tissue induration around the umbilicus. Dictated by: Dictated on workstation # [id number]
[2019-05-20 13:50] VITALS: BP 121/57
[2019-05-20] MEDS: NS IV 1000 ML 1,000 ML IV SCH ×2 (14:20→21:58)
[2019-05-20] MEDS ORDERED: fentaNYL INJECTION 100 MCG/2 ML AMP IVP PRN (15:00)
[2019-05-20] MEDS ORDERED: ONDANSETRON 4 MG/2 ML (SDV) Z0FRAN IVP PRN (15:00)
[2019-05-20 15:49] VITALS: BP 121/57
[2019-05-20 16:19] VITALS: BP 118/64
[2019-05-20] MEDS ORDERED: FLU QUADRIvalent (5+ YOA) 2019-2020 (AFLURIA) 0.5 ML IM ONE (17:00)
[2019-05-20] MEDS ORDERED: ENOXAPARIN 40 MG/0.4 ML (LOVENOX) SYR SQ SCH (18:45)
[2019-05-20 19:44] VITALS: BP 111/55
[2019-05-20] MEDS: inSUlin ASPART (NovoLOG) 1 UNIT/0.01 ML (CHARGE PER UNIT) SC SCH (21:01)
[2019-05-21 00:40] VITALS: BP 120/70
[2019-05-21 04:47] VITALS: BP 110/56
[2019-05-21] MEDS: inSUlin ASPART (NovoLOG) 1 UNIT/0.01 ML (CHARGE PER UNIT) SC SCH ×4 (05:59→20:45)
[2019-05-21] MEDS: NS IV 1000 ML 1,000 ML IV SCH ×2 (06:18→14:44)
[2019-05-21 06:20] LABS: BASOPHILS % (AUTO) 1 % (0-10); EOSINOPHILS # (AUTO) 0.1 10^3/uL (0.0-0.3); EOSINOPHILS % (AUTO) 5 % (0-10); HEMATOCRIT 29 % (35-52); HEMOGLOBIN 9.5 G/DL (11.5-16.0); LYMPHOCYTES # (AUTO) 0.6 X 10^3 (1.0-4.0); LYMPHOCYTES % (AUTO) 31 % (12-44); MEAN CORPUSCULAR HEMOGLOBIN 30 PG (25-34); MEAN CORPUSCULAR HGB CONC 33 G/DL (32-36); MEAN CORPUSCULAR VOLUME 92 FL (80-99); MEAN PLATELET VOLUME 10.4 FL (7.4-10.4); MONOCYTES # (AUTO) 0.2 X 10^3 (0.0-1.0); MONOCYTES % (AUTO) 7 % (0-12); NEUTROPHILS # (AUTO) 1.1 X 10^3 (1.8-7.8); NEUTROPHILS % (AUTO) 56 % (42-75); PLATELET COUNT 168 10^3/uL (130-400); RED CELL DISTRIBUTION WIDTH 15.7 % (10.0-14.5)
[2019-05-21 06:45] LABS: ALBUMIN 3.4 GM/DL (3.2-4.5); BILIRUBIN,TOTAL 0.5 MG/DL (0.1-1.0); CALCIUM 8.1 MG/DL (8.5-10.1); CREATININE SERUM 2.32 MG/DL (0.60-1.30); POTASSIUM 5.5 MMOL/L (3.6-5.0); TOTAL PROTEIN 5.8 GM/DL (6.4-8.2)
[2019-05-21 08:48] VITALS: BP 121/58
[2019-05-21] MEDS ORDERED: oxyCODONE 5 MG/5 ML ORAL SOLN (roxiCODONE) 5 ML UDC PO PRN (10:00)
[2019-05-21 11:42] VITALS: BP 114/67
[2019-05-21] MEDS ORDERED: MORP-33 PO (12:59)
[2019-05-21] MEDS ORDERED: LIDO700A45 TD (12:59)
[2019-05-21] MEDS ORDERED: HYDR-3812 PO (12:59)
[2019-05-21] MEDS ORDERED: ONDA8TAB12 PO (12:59)
[2019-05-21 15:14] VITALS: BP 123/67
[2019-05-21] MEDS ORDERED: MILK OF MAGNESIA 400 MG/5 ML 30 ML UDC PO PRN (15:30)
[2019-05-21] MEDS ORDERED: POLYETHYLENE GLYCOL 17 GM (MIRALAX) PACK PO PRN (15:30)
[2019-05-21] MEDS ORDERED: BISACODYL 10 MG SUPP (DULCOLAX) PR PRN (15:30)
--- NOTE | 2019-05-21 15:44 | History & Physical-Hospitalist ---
History of Present Illness HPI/Chief Complaint Sara Rubio is a 79yoF with PMH metastatic colon cancer on chemotherapy who presented with nausea and vomiting. Her is present and helps with the history. They state that she has not been eating or drinking very well for quite a while. She has been nauseous and vomiting over the past day. She denies any vomiting since admission. She denies fevers and chills. She denies abdominal pain. She is having bowel movements. She denies chest pain and dyspnea. She denies dysuria. Source: patient Exam Limitations: no limitations Date Seen 05/21/19 Time Seen by a Provider: 10:00 Attending Physician Michell Joe MD PCP No,Local Physician Referring Physician Date of Admission May 20, 2019 at 13:09 Home Medications & Allergies Home Medications Reviewed patient Home Medication Reconciliation performed by pharmacy medication reconciliations dermatology technician and/or nursing. Patients Allergies have been reviewed. Allergies Allergies Coded Allergies No Known Drug Allergies ([id number]/6/16) Past Bizaxua-Qwkybo-Vbnxan Hx Past Med/Social Hx: Reviewed Nursing Past Med/Soc Hx Patient Social History Former Smoker, Quit: Jul 11, 1984 Type Used: Cigarettes Recent Foreign Travel: No Contact w/other who traveled: No Recent Hopitalizations: No Recent Infectious Disease Expo: No Immunizations Up To Date Tetanus Booster (TDap): Unknown Date of Pneumonia Vaccine: Feb 25, 2016 Date of Influenza Vaccine: Jun 09, 2017 Seasonal Allergies Seasonal Allergies: No Past Medical History Surgeries: Gallbladder Cardiac: Hypertension Reproductive: No Gastrointestinal: Hiatal Hernia Loss of Vision: Bilateral Hearing Impairment: Denies Cancer: Colon Did You Recieve Any Treatments: Yes What Type of Treatment Did You: Chemotherapy Cancer: METASTASES TO LUNGS AND LIVER History of Blood Disorders: No Review of Systems Constitutional: no symptoms reported EENTM: no symptoms reported Respiratory: no symptoms reported Cardiovascular: no symptoms reported Gastrointestinal: loss of appetite, nausea, vomiting Genitourinary: no symptoms reported Musculoskeletal: no symptoms reported Skin: no symptoms reported Psychiatric/Neurological: No Symptoms Reported Physical Exam Physical Exam Vital Signs Vital Signs - First Documented 05/20/19 11:08 Temp 36.6 Pulse 92 Resp 18 B/P (MAP) 128/79 (95) Pulse Ox 98 O2 Delivery Nasal Cannula O2 Flow Rate 2.00 Capillary Refill : Less Than 3 Seconds Height, Weight, BMI Height: 5'3.50" Weight: 211lbs. 0.0oz. 95.959810px; 25.38 BMI Method: General Appearance: No Apparent Distress, WD/WN HEENT: PERRL/EOMI, Pharynx Normal Neck: Normal Inspection, Supple Respiratory: Lungs Clear, Normal Breath Sounds, No Respiratory Distress Cardiovascular: Regular Rate, Rhythm, No Edema, No Murmur Gastrointestinal: Normal Bowel Sounds, Non Tender, Soft Extremity: Normal Inspection, Non Tender, No Pedal Edema Neurologic/Psychiatric: Alert, Oriented x3, Normal Mood/Affect Skin: Normal Color, Warm/Dry Lymphatic: No Adenopathy Results Results/Procedures Labs Laboratory Tests 05/20/19 10:55 05/21/19 05:39 Patient resulted labs reviewed. Imaging: Reviewed Imaging Report Assessment/Plan Admission Diagnosis Acute kidney injury Admission Status: Inpatient Order (span 2 midnights) Reason for Inpatient Admission: Acute kidney injury requiring IV fluids Assessment and Plan Nausea and vomiting Acute kidney injury -Antiemetics ordered, no further emesis since admission -Cr >3 on admission, improving -Continue IV fluids -CT Abdomen without evidence of obstruction Hyperkalemia Hyperchloremic metabolic acidosis -Transition to LR Leukopenia -WBC 2, continue to monitor Metastatic colon cancer -Oncology consulted DVT Prophylaxis: Lovenox Diagnosis/Problems Diagnosis/Problems (1) MARK (acute kidney injury) Status: Acute (2) Nausea and vomiting Status: Resolved Qualifiers: Vomiting type: unspecified Vomiting Intractability: unspecified Qualified Codes: R11.2 - Nausea with vomiting, unspecified Resolution Date/Time: 05/21/19 @ 15:48 (3) Colon cancer metastasized to multiple sites Status: Chronic (4) Hyperkalemia Status: Acute (5) Hyperchloremic metabolic acidosis Status: Acute Clinical Quality Measures DVT/VTE Risk/Contraindication: Risk Factor Score Per Nursin RFS Level Per Nursing on Admit: 4+=Very High SYLVIE GROSSMAN MD May 21, 2019 15:44 POS
[2019-05-21] MEDS ORDERED: CALCIUM CARBONATE 500 MG (TUMS) TAB.CHEW PO PRN (16:00)
[2019-05-21] MEDS: LACTATED RINGERS 1,000 ML IV SCH (16:02)
[2019-05-21] MEDS: morphine ER 15 MG (MS CONTIN) TAB PO SCH (18:35)
[2019-05-21] MEDS: ONDANSETRON 4 MG (ZOFRAN) ORAL DISSOLVE TAB PO PRN ×2 (18:37→20:53)
[2019-05-21 19:12] VITALS: BP 130/78
[2019-05-21] MEDS: DOCUSATE SODIUM 100 MG (COLACE) CAP PO SCH (19:55)
[2019-05-21] MEDS: SENNOSIDES 8.6 MG (SENOKOT) TAB PO SCH (19:55)
[2019-05-21] MEDS: ENOXAPARIN 30 MG/0.3 ML (LOVENOX) SYR SC SCH (20:53)
[2019-05-21] MEDS: ACETAMINOPHEN 325 MG TABLET PO PRN (20:53)
[2019-05-21] MEDS: LIDOCAINE PATCH REMOVAL TP SCH (20:53)
[2019-05-21] MEDS: MELATONIN 3 MG TABLET PO PRN (20:53)
[2019-05-21] MEDS: ONDANSETRON 4 MG/2 ML (SDV) Z0FRAN IV PRN (20:59)
--- NOTE | 2019-05-21 23:42 | CONSULTATION REPORT ---
DATE OF SERVICE: 05/21/2019 REFERRING PHYSICIAN: Colby Muñoz M.D. ROOM: The patient is admitted to room 408. IMPRESSION: 1. Nausea, vomiting, dehydration and renal failure. 2. Metastatic colon cancer to abdominal wall, on palliative chemotherapy with irinotecan. 3. Uncontrolled pain because of the abdominal wall disease. RECOMMENDATIONS: 1. Continue IV hydration and pain control as you are doing. 2. Monitor lab work including renal function serially. 3. The patient may need a biopsy of the abdominal wall mass for next gen sequencing for any potential targets for treatment. 4. We will follow the patient with you. 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 She has been on palliative chemotherapy for the past several months, but had evidence of progressive disease recently. She completed consultation at [facility] recently with recommendation to start treatment with irinotecan and received the first dose approximately a week ago. Since then, she has been sick with nausea, vomiting and diarrhea. The patient indicated that she has not been eating or drinking anything for the past 3 days and was getting weaker. Because of this, she came to the emergency room and was found to be in acute on chronic renal failure. She was admitted to the hospital for further management and oncology consultation was obtained for further recommendations. PAST MEDICAL HISTORY: Significant for diagnoses of stage III colon cancer during the fall of 2015. She completed adjuvant chemotherapy, but had evidence of abdominal wall recurrence by 2018. She has been on palliative treatment, but had evidence of progressive disease recently. She was recently started on treatment with irinotecan approximately a week ago, which caused significant nausea, vomiting and diarrhea. Other significant past medical history include diabetes mellitus type 2, hiatal hernia, osteoarthritis involving all major joints requiring arthroscopic knee surgeries bilaterally, TAHBSO in 1981, right and left hemicolectomy. SOCIAL HISTORY: The patient is and lives in [place], [place]. They have no children. She worked at [employer] most of her life and retired approximately 15 years ago. She has a 15 to [id number] history of tobacco use, but quit in 1981. No alcohol or other recreational drug use. FAMILY HISTORY: Significant for her father with history of prostate cancer. No malignancies in the family that the patient knows of. Both her father and paternal grandmother had diabetes mellitus. PHYSICAL EXAMINATION: GENERAL: Today showed an elderly female, weak-appearing, awake and oriented. VITAL SIGNS: Temperature was 36.6 degree centigrade, pulse rate of 93, respirations 18, blood pressure 123/67 with oxygen saturation 96% on room air. HEENT: Normocephalic, extraocular muscles intact, conjunctivae slightly pale, oral mucosa slightly dry without lesions. NECK: Supple, with no JVD. No cervical, supraclavicular or axillary lymphadenopathy palpable. CHEST: Showed an implanted port. LUNGS: Fairly clear to auscultation without wheezes or rales. CARDIOVASCULAR: Regular in rate and rhythm without murmurs or gallops. ABDOMEN: Slightly obese, soft with tenderness in the periumbilical area. There are nodular lesions with a crusted area along the umbilicus from known recurrent tumor. No hepatosplenomegaly palpable. EXTREMITIES: Showed no edema. NEUROLOGIC: Showed no focal motor deficits. Motor strength was 4/5 bilaterally. LABORATORY DATA: CBC done today morning showed total white count of 2.0, hemoglobin 9.5, platelet count 168,000 with neutrophil count 1.1 and lymphocyte count 0.6. Chemistry panel done last night at the time of admission had shown potassium level of 5.5 and CO2 level of 14. BUN was 67 and creatinine 3.22 with GFR of 14 mL per minute. Nonfasting glucose was 161. Liver function studies showed alkaline phosphatase elevated at 189. Repeat chemistry done today morning showed potassium at 5.5. BUN was 57 and creatinine 2.32 with GFR of 20 mL per minute. Liver function studies were normal except alkaline phosphatase level of 150. CT scan of the abdomen and pelvis done at the emergency room showed no acute obstructive or inflammatory process in the abdomen or pelvis. Metastasis within the lung bases are unchanged. Stable soft tissue induration around the umbilicus. Thank you for allowing me to participate in this patient's care. I will follow the patient with you and make appropriate recommendations. Job ID: [id number] DocumentID: [id number] Dictated Date: 05/21/2019 18:10:37 Program Eligibility Specialist Date: 05/21/2019 23:41:40 Dictated By: SAMANTHA SHANKS MD [facility] PARTNERSBlanka
[2019-05-22 00:13] VITALS: BP 129/79
[2019-05-22] MEDS: LACTATED RINGERS 1,000 ML IV SCH ×3 (02:10→22:34)
[2019-05-22] MEDS: PROMETHAZINE INJ 25 MG/ML (PHENERGAN) AMP IVP PRN (02:19)
[2019-05-22] MEDS: HYDROmorphone 2 MG/ML VIAL (DILAUDID) IV PRN (02:19)
[2019-05-22 04:10] VITALS: BP 144/81
[2019-05-22 06:06] LABS: BASOPHILS % (AUTO) 0 % (0-10); EOSINOPHILS # (AUTO) 0.1 10^3/uL (0.0-0.3); EOSINOPHILS % (AUTO) 6 % (0-10); HEMATOCRIT 28 % (35-52); LYMPHOCYTES # (AUTO) 0.8 X 10^3 (1.0-4.0); LYMPHOCYTES % (AUTO) 47 % (12-44); MEAN CORPUSCULAR HEMOGLOBIN 30 PG (25-34); MEAN CORPUSCULAR HGB CONC 33 G/DL (32-36); MEAN CORPUSCULAR VOLUME 91 FL (80-99); MEAN PLATELET VOLUME 10.2 FL (7.4-10.4); MONOCYTES # (AUTO) 0.1 X 10^3 (0.0-1.0); MONOCYTES % (AUTO) 7 % (0-12); NEUTROPHILS # (AUTO) 0.7 X 10^3 (1.8-7.8); NEUTROPHILS % (AUTO) 41 % (42-75); PLATELET COUNT 145 10^3/uL (130-400); RED CELL DISTRIBUTION WIDTH 15.5 % (10.0-14.5); WHITE BLOOD COUNT 1.7 10^3/uL (4.3-11.0)
[2019-05-22 06:28] LABS: CALCIUM 8.4 MG/DL (8.5-10.1); CREATININE SERUM 1.38 MG/DL (0.60-1.30); POTASSIUM 5.4 MMOL/L (3.6-5.0)
[2019-05-22] MEDS: inSUlin ASPART (NovoLOG) 1 UNIT/0.01 ML (CHARGE PER UNIT) SC SCH ×4 (06:30→20:29)
[2019-05-22] MEDS: morphine ER 15 MG (MS CONTIN) TAB PO SCH ×2 (06:32→17:58)
[2019-05-22 07:02] LABS: MAGNESIUM 1.8 MG/DL (1.6-2.4); PHOSPHORUS 2.5 MG/DL (2.3-4.7)
[2019-05-22 08:09] VITALS: BP 123/67
[2019-05-22] MEDS: DOCUSATE SODIUM 100 MG (COLACE) CAP PO SCH ×2 (08:29→20:32)
[2019-05-22] MEDS: LIDOCAINE 4% (SALONPAS) PATCH TOP SCH (08:29)
[2019-05-22] MEDS: amLODIPine 10 MG (NORVASC) TAB PO SCH (08:29)
[2019-05-22] MEDS: SENNOSIDES 8.6 MG (SENOKOT) TAB PO SCH ×2 (08:30→20:33)
--- NOTE | 2019-05-22 09:37 | Occupational Therapy Eval ---
OT Evaluation-General/PLF Medical Diagnosis Admission Date May 20, 2019 at 13:09 Medical Diagnosis: acute kidney inury Onset Date: May 22, 2019 Therapy Diagnosis Therapy Diagnosis: Decreased ADL function Height/Weight Height (Feet): 5 Height (Inches): 3.50 Weight (Pounds): 211 Weight (Ounces): 0.0 Precautions Precautions/Isolations: Fall Prevention, Standard Precautions Safety Interventions: None Referral Physician: Mandy De La Garza MD Referral Reason: Activity Tolerance, Self Care, Evaluation/Treatment, Strengthening/ROM Medical History Pertinent Medical History: HTN Additional Medical History HTN, bilateral vision decline, hiatal hernia, Colon Ca- metastases to lungs/ liver Current History Per H&P: "Sara Rubio is a 79yoF with PMH metastatic colon cancer on chemotherapy who presented with nausea and vomiting. Her is present and helps with the history. They state that she has not been eating or drinking very well for quite a while. She has been nauseous and vomiting over the past day. She denies any vomiting since admission. She denies fevers and chills. She denies abdominal pain. She is having bowel movements. She denies chest pain and dyspnea. She denies dysuria." Reviewed History: Yes Social History Home: Single Level Current Living Status: Spouse Entry Into Home: Stairs With Railing Steps Into Home: 4 Steps Inside Home: 0 ADL-Prior Level of Function SCALE: Activities may be completed with or without assistive devices. 0-Qjyoedakrz-mlrlwja completes the activity by him/herself with no assistance from a helper. 5-Set-up or Clean-up Assistance-helper sets up or cleans up; patient completes activity. [place] assists only prior to or following the activity. 4-Supervision or Touching Assistance-helper provides verbal cues and/or touching/steadying and/or contact guard assistance as patient completes activity. Assistance may be provided throughout the activity or intermittently. 3-Partial/Moderate Assistance-helper does LESS THAN HALF the effort. [place] lifts, holds or supports trunk or limbs, but provides less than half the effort. 2-Substantial/Maximal Assistance-helper does MORE THAN HALF the effort. [place] lifts or holds trunk or limbs and provides more than half the effort. 8-Mgcbmrmey-zbopaq does ALL the effort. Patient does none of the effort to complete the activity. Or, the assistance of 2 or more helpers is required for the patient to complete the activity. If activity was not attempted, code reason: 7-Patient Refused. 9-Not Applicable-not attempted and the patient did not perform the activity before the current illness, exacerbation or injury. 10-Not Attempted due to Environmental Limitations-(lack of equipment, weather restraints, etc.). 88-Not Attempted due to Medical Conditions or Safety Concerns. 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 Pt denies pain currently, but s tates when up and moving increased pain and decreased energy occurs; agreeable to OT evaluation. Mental Status/Objective Patient Orientation: Person, Place, Situation, Normal For Age Attachments: IV Current Glasses/Contacts: Yes Hearing Aids: No Dentures/Partials: No Hand Dominance: Right Upper Extremity ROM WFL BUE Upper Extremity Coordination WFL BUE Upper Extremity Sensation WFL BUE Upper Extremity Strength Decreased BUE bilaterally ADL-Treatment Eating (QC): 6 (Pt completes eating applesauce and coffee. Pt vomits small amounts ~1 minute after drinking coffee. Pt states she will not drink coffee again.) Oral Hygiene (QC): 5 Toileting Hygiene (QC): 4 Toilet Transfer (QC): 4 (Per pt report) Other Treatments Pt denies out of bed activities, agreeable to OT evaluation. Pt states she was IND with all ADLs, though she only completed them when her energy levels were higher. Pt states she would complete sponge bath when lowered energy. Pt states within the past month she has experienced increased vomiting and decreased energy. Pt experiences SOB while talking. Pt's lives at home, he is retired; pt states she has had him complete IADLs and giving her ice chips through day. Pt educated on importance of nutrition and completing exercises/ sitting up throughout the day. Pt nods in understanding but denies out of bed until PT visits. Pt given tray for vomiting after feeding, pt wipes mouth with IND. Pt agrees to OT tx sessions following days for the goal of increasing strength, energy conservation, and increasing IND within ADL tasks. Pt left in bed, call light in reach, all needs met, pt no longer vomiting. Education OT Patient Education: Correct positioning, Modified ADL techniques, Purpose of tx/functional activities, Safety issues Teaching Recipient: Patient Teaching Methods: Demonstration, Discussion Response to Teaching: Verbalize Understanding, Return Demonstration OT Short Term Goals Short Term Goals 1=Demonstrate adherence to instructed precautions during ADL tasks. 2=Patient will verbalize/demonstrate understanding of assistive devices/modifications for ADL. 3=Patient will improve strength/tolerance for activity to enable patient to perform ADL's. 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 2=Patient will verbalize/demonstrate understanding of assistive devices/modifications for ADL. 3=Patient will improve strength/tolerance for activity to enable patient to perform ADL's. OT Education/Plan Problem List/Assessment Assessment: Decreased Activ Tolerance, Decreased UE Strength, Impaired I ADL's, Impaired Self-Care Skills Discharge Recommendations Plan/Recommendations: Continue POC Therapy Discharge Recommendati: Scheduled Assistance, Post Acute OT Patient/Family Goals increase strength/ return home Treatment Plan/Plan of Care Treatment,Training & Education: Yes Patient would benefit from OT for education, treatment and training to promote independence in ADL's, mobility, safety and/or upper extremity function for ADL's. Plan of Care: ADL Retraining, Caregiver Training, Functional Mobility, UE Funct Exercise/Act Treatment Duration: May 29, 2019 Frequency: 5 times per week Estimated Hrs Per Day: .25 hour per day Agreement: Yes Rehab Potential: Fair Time/GCodes Start Time: 09:05 Stop Time: 09:25 Total Time Billed (hr/min): 20 Billed Treatment Time 1JENARO (20) GIOVANA GOODWIN OTR May 22, 2019 09:37 POS
--- NOTE | 2019-05-22 11:13 | Progress Note - Hospitalist ---
Subjective HPI/CC On Admission Date Seen by Provider: May 22, 2019 Time Seen by Provider: 09:15 nausea and vomiting Subjective/Events-last exam She reports feeling "so-so". She did not sleep well and is angry about being "bothered every hour". She denies nausea and vomiting. She has not been eating much. She is going to order breakfast. She would be willing to try an appetite stimulant. She wants to explore other chemo options with Dr. Seth if there is anything that might have less side effects. Objective Exam Vital Signs Vital Signs Date Time Temp Pulse Resp B/P (MAP) Pulse Ox O2 Delivery O2 Flow Rate FiO2 05/22/19 08:09 37.1 83 20 123/67 (85) 96 Room Air 05/20/19 11:08 2.00 Capillary Refill : Less Than 3 Seconds General Appearance: No Apparent Distress, WD/WN, Chronically ill HEENT: PERRL/EOMI, Pharynx Normal Neck: Normal Inspection, Supple Respiratory: Lungs Clear, Normal Breath Sounds, No Respiratory Distress Cardiovascular: Regular Rate, Rhythm, No Edema, No Murmur Gastrointestinal: Normal Bowel Sounds, Mass, Tenderness Extremity: Normal Inspection, Non Tender Neurologic/Psychiatric: Alert, Oriented x3, Normal Mood/Affect Skin: Normal Color, Warm/Dry Results/Procedures Lab Laboratory Tests 05/22/19 04:45 Patient resulted labs reviewed. Imaging: Reviewed Imaging Report Assessment/Plan Assessment and Plan Assess & Plan/Chief Complaint Acute kidney injury -Cr >3 on admission, improving -Continue IV fluids -Encourage oral intake Malnutrition -Consult dietary -Ensure ordered -Begin Mirtazapine Hyperkalemia Hyperchloremic metabolic acidosis -Continue LR Leukopenia -WBC 1.7, continue to monitor Metastatic colon cancer -Oncology consulted -Considering biopsy of abdominal mass to help guide therapy Nausea and vomiting, resolved DVT Prophylaxis: Lovenox Diagnosis/Problems Diagnosis/Problems (1) MARK (acute kidney injury) Status: Acute (2) Nausea and vomiting Status: Resolved Qualifiers: Vomiting type: unspecified Vomiting Intractability: unspecified Qualified Codes: R11.2 - Nausea with vomiting, unspecified Resolution Date/Time: 05/21/19 @ 15:48 (3) Colon cancer metastasized to multiple sites Status: Chronic (4) Hyperkalemia Status: Acute (5) Hyperchloremic metabolic acidosis Status: Acute (6) Malnutrition Status: Acute Clinical Quality Measures DVT/VTE Risk/Contraindication: Risk Factor Score Per Nursin RFS Level Per Nursing on Admit: 4+=Very High SYLVIE GROSSMAN MD May 22, 2019 11:13 POS
[2019-05-22 11:27] VITALS: BP 121/69
--- NOTE | 2019-05-22 11:43 | Physical Therapy Evaluation ---
PT Evaluation-General Medical Diagnosis Admission Date May 20, 2019 at 13:09 Medical Diagnosis: acute kidney inury Onset Date: May 22, 2019 Therapy Diagnosis Therapy Diagnosis: weakness Height/Weight Height (Feet): 5 Height (Inches): 3.50 Weight (Pounds): 211 Weight (Ounces): 0.0 Precautions Precautions/Isolations: Fall Prevention, Standard Precautions Weight Bear Status Right Lower Extremity: Right Weight Bearing/Tolerated Left Lower Extremity: Left Weight Bearing/Tolerated Referral Physician: Mandy De La Garza MD Reason for Referral: Evaluation/Treatment Medical History Pertinent Medical History: HTN Current History EMS secondary to nausea and vomiting for 3 days Reviewed History: Yes Social History Home: Single Level Current Living Status: Spouse Entry Into Home: Stairs With Railing PT Steps Into Home: 4 PT Steps Inside Home: 0 Prior Prior Level of Function SCALE: Activities may be completed with or without assistive devices. 2-Vqlzjuggwz-jlfunjw completes the activity by him/herself with no assistance from a helper. 5-Set-up or Clean-up Assistance-helper sets up or cleans up; patient completes activity. [place] assists only prior to or following the activity. 4-Supervision or Touching Assistance-helper provides verbal cues and/or touching/steadying and/or contact guard assistance as patient completes activity. Assistance may be provided throughout the activity or intermittently. 3-Partial/Moderate Assistance-helper does LESS THAN HALF the effort. [place] lifts, holds or supports trunk or limbs, but provides less than half the effort. 2-Substantial/Maximal Assistance-helper does MORE THAN HALF the effort. [place] lifts or holds trunk or limbs and provides more than half the effort. 9-Peanevlqe-xpzumq does ALL the effort. Patient does none of the effort to complete the activity. Or, the assistance of 2 or more helpers is required for the patient to complete the activity. If activity was not attempted, code reason: 7-Patient Refused. 9-Not Applicable-not attempted and the patient did not perform the activity before the current illness, exacerbation or injury. 10-Not Attempted due to Environmental Limitations-(lack of equipment, weather restraints, etc.). 88-Not Attempted due to Medical Conditions or Safety Concerns. Bed Mobility: 6 Transfers (B,C,W/C): 6 Gait: 6 Stairs: 6 Indoor Mobility (Ambulation): Independent Stairs: Independent Prior Devices Use: None PT Evaluation-Current Subjective Patient agrees to PT at this time. Reports no pain while lying down but concerne d that stomach will start to hurt once standing. Does not want to move to chair because supine position is most comfortable for stomach Pain Numeric Pain Scale: 7 Location Body Site: Abdomen Pain Description: Ache Comment: after standing/ambulating Objective Patient Orientation: Normal For Age Problem Solving: Fair Attachments: IV ROM/Strength ROM Lower Extremities WFL Strength Lower Extremities Grossly 4-/5 Integumentary/Posture Integumentary See nursing notes Bowel Incontinence: No Bladder Incontinence: No Posture WFL, leaned over d/t abdominal pain Neuromuscular (Tone, Coordination, Reflexes) Grossly intact Sensory Vision: Functional Hearing: Functional Hand Dominance: Right Transfers Roll Left to Right (QC): 6 Sit to Lying (QC): 6 Lying to Sitting/Side of Bed(Q: 6 Sit to Stand (QC): 6 Gait Does the Patient Walk?: Yes Mode of Locomotion: Walk Anticipated Mode of Locomotion: Walk Walk 10 feet (QC): 4 (CGA) Distance: 20' Gait Assistive Device: FWW Comments/Gait Description Patient remains hunched over during ambulation d/t abdominal pain; ambulating with FWW for first time, required cues to keep walker with her Balance Sitting Static: Normal Sitting Dynamic: Normal Standing Static: Normal Standing Dynamic: Normal Assessment/Needs Patient able to perform all bed mobility and standing independently. Upon standing, patient required ambulation to toilet. Patient encouraged to utilize FWW for safety and steadiness during ambulation, but required cues to keep walker with her at all times. Patient independent at toilet transfer. Severe abdominal pain limited any further ambulation. Patient returned to bed in supine position with warm blankets. Rehab Potential: Fair PT Fpc Goals Fpc Goals PT Proofer Prepress Goals Time Frame: May 29, 2019 Sit to Lying (QC): 6 Lying-Sitting on Side/Bed(QC): 6 Sit to Stand (QC): 6 Roll Left to Right (QC): 6 Chair/Gpc-zk-Vbwjv Xfer(QC): 6 Car Transfer (QC): 6 Does the Patient Walk: Yes Distance: 200' Walk 10 feet (QC): 6 Walk 10ft-Uneven Surface(QC): 6 Walk 50ft with 2 Turns (QC): 6 Walk 150 ft (QC): 6 PT Plan Problem List Problem List: Activity Tolerance, Functional Strength, Safety, Balance, Gait, Transfer, Bed Mobility Treatment/Plan Treatment Plan: Continue Plan of Care Treatment Plan: Bed Mobility, Education, Functional Activity Maira, Functional Strength, Gait, Safety, Therapeutic Exercise, Transfers Frequency: 6 times per week Estimated Hrs Per Day: .25 hour per day Patient and/or Family Agrees t: Yes Time/GCodes Time In: 1033 Time Out: 1049 Total Billed Treatment Time: 16 Total Billed Treatment 1 visit [facility] 16min KEYLA OJEDA PT May 22, 2019 11:43 POS
[2019-05-22] MEDS: ACETAMINOPHEN 325 MG TABLET PO PRN ×2 (11:56→16:28)
[2019-05-22 16:02] VITALS: BP 120/61
[2019-05-22] MEDS: ONDANSETRON 4 MG/2 ML (SDV) Z0FRAN IV PRN (16:33)
--- NOTE | 2019-05-22 17:43 | Progress Note ---
Standard Progress Note Progress Notes/Assess & Plan Date Seen by a Provider: May 22, 2019 Time Seen by a Provider: 17:39 Progress/Assessment & Plan 79-year-old female with metastatic colon cancer to the abdominal wall and on palliative chemotherapy. Admitted with nausea, vomiting and dehydration causing acute on chronic renal failure. This is improving with hydration and renal function is almost back to baseline. She complained of significant pain from the abdominal wall lesion which limits her activity level. His also having several diarrheal stools daily which has been a chronic problem although worse during the past week. We'll obtain C. difficile toxin from neck sample. Administer loperamide 4 mg 1 after next diarrheal stool because of recent chemotherapy with irinotecan. Increase oral intake and activity as tolerated. Physical therapy for strengthening and ambulation. We will discuss ultrasound- guided biopsy of the abdominal wall lesion for next Gen sequencing by radiology. Pain control. We'll follow with you. SAMANTHA SHANKS May 22, 2019 17:43 POS
[2019-05-22] MEDS ORDERED: LOPERAMIDE 2 MG (IMODIUM) TABLET PO NR (17:45)
[2019-05-22 19:46] VITALS: BP 128/70
[2019-05-22] MEDS: MIRTAZAPINE 15 MG (REMERON) TAB PO SCH (20:33)
[2019-05-22] MEDS: ENOXAPARIN 30 MG/0.3 ML (LOVENOX) SYR SC SCH (20:34)
[2019-05-22] MEDS: LIDOCAINE PATCH REMOVAL TP SCH (21:10)
[2019-05-23] VITALS (17 sets, daily range): BP systolic 96–129; BP diastolic 50–67
[2019-05-23] MEDS: inSUlin ASPART (NovoLOG) 1 UNIT/0.01 ML (CHARGE PER UNIT) SC SCH ×4 (05:18→21:15)
[2019-05-23 06:08] LABS: BASOPHILS % (AUTO) 0 % (0-10); EOSINOPHILS % (AUTO) 4 % (0-10); HEMATOCRIT 26 % (35-52); HEMOGLOBIN 8.7 G/DL (11.5-16.0); LYMPHOCYTES # (AUTO) 0.4 X 10^3 (1.0-4.0); LYMPHOCYTES % (AUTO) 38 % (12-44); MEAN CORPUSCULAR HEMOGLOBIN 30 PG (25-34); MEAN CORPUSCULAR HGB CONC 33 G/DL (32-36); MEAN CORPUSCULAR VOLUME 91 FL (80-99); MEAN PLATELET VOLUME 10.4 FL (7.4-10.4); MONOCYTES # (AUTO) 0.1 X 10^3 (0.0-1.0); MONOCYTES % (AUTO) 8 % (0-12); NEUTROPHILS # (AUTO) 0.6 X 10^3 (1.8-7.8); NEUTROPHILS % (AUTO) 51 % (42-75); PLATELET COUNT 115 10^3/uL (130-400); RED CELL DISTRIBUTION WIDTH 15.1 % (10.0-14.5)
[2019-05-23] MEDS: morphine ER 15 MG (MS CONTIN) TAB PO SCH ×2 (06:10→17:53)
[2019-05-23 06:12] LABS: WHITE BLOOD COUNT 1.1 10^3/uL (4.3-11.0)
[2019-05-23 07:54] LABS: CALCIUM 8.1 MG/DL (8.5-10.1); CREATININE SERUM 1.27 MG/DL (0.60-1.30); POTASSIUM 4.5 MMOL/L (3.6-5.0)
[2019-05-23] MEDS: LACTATED RINGERS 1,000 ML IV SCH ×2 (09:03→16:31)
[2019-05-23] MEDS: SENNOSIDES 8.6 MG (SENOKOT) TAB PO SCH ×2 (09:04→21:59)
[2019-05-23] MEDS: DOCUSATE SODIUM 100 MG (COLACE) CAP PO SCH ×2 (09:04→21:59)
[2019-05-23] MEDS: LIDOCAINE 4% (SALONPAS) PATCH TOP SCH (09:04)
[2019-05-23] MEDS: amLODIPine 10 MG (NORVASC) TAB PO SCH (09:04)
--- NOTE | 2019-05-23 10:24 | Occupational Ther Daily Note ---
OT Current Status-Daily Note Subjective Pt lying in bed, dozing. Pt c/o being tired and not wanting to move. WHITE encouraged pt to move and educated pt on the benefits of therapy. Physician in room to see pt and encouraged pt to participate in therapies. Mental Status/Objective Patient Orientation: Person, Place, Time, Situation Attachments: IV ADL-Treatment Supine <--> EOB by self using bed rails. After assist gathering supplies, pt completed oral care and washed face. Pt declined to complete OOB tasks. Completed bed mobility using bed rails by self. After therapy, pt lying in bed with call light/phone in reach. All needs met in room. Therapy Code Descriptions/Definitions Functional [place] Measure: 0=Not Assessed/NA 4=Minimal Assistance 1=Total Assistance 5=Supervision or Setup 2=Maximal Assistance 6=Modified [place] 3=Moderate Assistance 7=Complete IndependenceSCALE: Activities may be completed with or without assistive devices. 8-Xkljkyrsqo-fnluapz completes the activity by him/herself with no assistance from a helper. 5-Set-up or Clean-up Assistance-helper sets up or cleans up; patient completes activity. [place] assists only prior to or following the activity. 4-Supervision or Touching Assistance-helper provides verbal cues and/or touching/steadying and/or contact guard assistance as patient completes activity. Assistance may be provided throughout the activity or intermittently. 3-Partial/Moderate Assistance-helper does LESS THAN HALF the effort. [place] lifts, holds or supports trunk or limbs, but provides less than half the effort. 2-Substantial/Maximal Assistance-helper does MORE THAN HALF the effort. [place] lifts or holds trunk or limbs and provides more than half the effort. 0-Bmvmgdbgh-pfjcyo does ALL the effort. Patient does none of the effort to complete the activity. Or, the assistance of 2 or more helpers is required for the patient to complete the activity. If activity was not attempted, code reason: 7-Patient Refused. 9-Not Applicable-not attempted and the patient did not perform the activity before the current illness, exacerbation or injury. 10-Not Attempted due to Environmental Limitations-(lack of equipment, weather restraints, etc.). 88-Not Attempted due to Medical Conditions or Safety Concerns. OT Short Term Goals Short Term Goals 1=Demonstrate adherence to instructed precautions during ADL tasks. 2=Patient will verbalize/demonstrate understanding of assistive devices/modifications for ADL. 3=Patient will improve strength/tolerance for activity to enable patient to p erform ADL's. OT Wool Batting Worker Goals Wool Batting Worker Goals Time Frame: May 29, 2019 Eating (QC): 6 Oral Hygiene (QC): 6 Shower/Bathe Self (QC): 4 Upper Body Dressing (QC): 5 Lower Body Dressing (QC): 5 On/Off Footwear (QC): 5 Toileting Hygiene (QC): 6 Toilet/Commode Transfer (QC): 4 Additional Goals: 1-Demonstrate ADL Tasks, 2-Verbalize Understanding, 3- ImproveStrength/Maira 1=Demonstrate adherence to instructed precautions during ADL tasks. 2=Patient will verbalize/demonstrate understanding of assistive devices/modifications for ADL. 3=Patient will improve strength/tolerance for activity to enable patient to perform ADL's. OT Education/Plan Problem List/Assessment Assessment: Decreased Activ Tolerance, Impaired Self-Care Skills Discharge Recommendations Plan/Recommendations: Continue POC Treatment Plan/Plan of Care Patient would benefit from OT for education, treatment and training to promote independence in ADL's, mobility, safety and/or upper extremity function for ADL's. Plan of Care: ADL Retraining, Caregiver Training, Functional Mobility, UE Funct Exercise/Act Treatment Duration: May 29, 2019 Frequency: 5 times per week Estimated Hrs Per Day: .25 hour per day Agreement: Yes Rehab Potential: Fair Time/GCodes Start Time: 10:00 Stop Time: 10:20 Total Time Billed (hr/min): 20 Billed Treatment Time 1 visit-ADL 1 (20 min) ADELAIDA BROWN May 23, 2019 10:24 POS
--- NOTE | 2019-05-23 10:27 | Progress Note - Hospitalist ---
Subjective HPI/CC On Admission Date Seen by Provider: May 23, 2019 Time Seen by Provider: 10:00 nausea and vomiting Subjective/Events-last exam She reports feeling weak. She says she is not feeling well. She denies fevers and chills. She is not having any more nausea or vomiting. She has only had one bowel movement today. She continues to have abdominal pain with movement. Objective Exam Vital Signs Vital Signs Date Time Temp Pulse Resp B/P (MAP) Pulse Ox O2 Delivery O2 Flow Rate FiO2 05/23/19 08:00 Room Air 05/23/19 08:00 38.0 90 20 124/55 (78) 97 05/20/19 11:08 2.00 Capillary Refill : Less Than 3 Seconds General Appearance: No Apparent Distress, WD/WN HEENT: PERRL/EOMI, Moist Mucous Membranes Neck: Normal Inspection, Supple Respiratory: Lungs Clear, Normal Breath Sounds, No Respiratory Distress Cardiovascular: Regular Rate, Rhythm, No Edema, No Murmur Gastrointestinal: Normal Bowel Sounds, Mass, Tenderness Extremity: Normal Inspection, Non Tender, No Pedal Edema Neurologic/Psychiatric: Alert, Oriented x3 Skin: Normal Color, Warm/Dry Results/Procedures Lab Laboratory Tests 05/23/19 05:43 05/23/19 05:53 Patient resulted labs reviewed. Assessment/Plan Assessment and Plan Assess & Plan/Chief Complaint Acute kidney injury -Cr >3 on admission, improved to 1.27 today -Continue IV fluids -Encourage oral intake Malnutrition -Dietary consulted -Ensure ordered -Continue Mirtazapine Hyperkalemia, resolved Hyperchloremic metabolic acidosis -Continue LR Pancytopenia -WBC 1.1, Hgb 8.7, Plt 115 -Expected drop due to chemotherapy Metastatic colon cancer Abdominal wall mass -Oncology consulted -Radiology consulted for biopsy, inpatient versus outpatient -Add PT/INR Debility -PT/OT Nausea and vomiting, resolved DVT Prophylaxis: Lovenox Diagnosis/Problems Diagnosis/Problems (1) MARK (acute kidney injury) Status: Acute (2) Nausea and vomiting Status: Resolved Qualifiers: Vomiting type: unspecified Vomiting Intractability: unspecified Qualified Codes: R11.2 - Nausea with vomiting, unspecified Resolution Date/Time: 05/21/19 @ 15:48 (3) Colon cancer metastasized to multiple sites Status: Chronic (4) Hyperkalemia Status: Resolved Resolution Date/Time: 05/23/19 @ 10:40 (5) Hyperchloremic metabolic acidosis Status: Acute (6) Malnutrition Status: Acute (7) Debility Status: Acute Clinical Quality Measures DVT/VTE Risk/Contraindication: Risk Factor Score Per Nursin RFS Level Per Nursing on Admit: 4+=Very High SYLVIE GROSSMAN MD May 23, 2019 10:26 POS
[2019-05-23 10:44] LABS: INR 1.1 (0.8-1.4); PROTHROMBIN TIME PATIENT 15.1 SEC (12.2-14.7)
--- NOTE | 2019-05-23 11:29 | Physical Therapy Daily Note ---
PT Daily Note-Current Subjective Pt agreeable to PT visit. States her abdomen is uncomfortable but not really pain Appearance Pt in bed with eyes closed, easily aroused, upon arrival. present. Pt requesting and assisted to bathroom. At end of session, pt sitting up in recliner with LE's elevated, call light, phone and bedside table within reach. and DIRECTOR OF [facility] present at end of session Mental Status Patient Orientation: Person, Place, Time, Eyes Open, Situation Attachments: IV Transfers SCALE: Activities may be completed with or without assistive devices. 9-Xllzcfwfac-mrlebgh completes the activity by him/herself with no assistance from a helper. 5-Set-up or Clean-up Assistance-helper sets up or cleans up; patient completes activity. [place] assists only prior to or following the activity. 4-Supervision or Touching Assistance-helper provides verbal cues and/or touching/steadying and/or contact guard assistance as patient completes activity. Assistance may be provided throughout the activity or intermittently. 3-Partial/Moderate Assistance-helper does LESS THAN HALF the effort. [place] lifts, holds or supports trunk or limbs, but provides less than half the effort. 2-Substantial/Maximal Assistance-helper does MORE THAN HALF the effort. [place] lifts or holds trunk or limbs and provides more than half the effort. 8-Lijqnhcmv-ayxftd does ALL the effort. Patient does none of the effort to complete the activity. Or, the assistance of 2 or more helpers is required for the patient to complete the activity. If activity was not attempted, code reason: 7-Patient Refused. 9-Not Applicable-not attempted and the patient did not perform the activity before the current illness, exacerbation or injury. 10-Not Attempted due to Environmental Limitations-(lack of equipment, weather restraints, etc.). 88-Not Attempted due to Medical Conditions or Safety Concerns. Roll Left to Right (QC): 6 Sit to Lying (QC): 6 Sit to Stand (QC): 6 Pt demonstrates ability to stand from EOB, toilet and chair upon 1st attempt, min verb inst for hand placement with pt able to follow through Weight Bearing Right Lower Extremity: Right Weight Bearing/Tolerated Left Lower Extremity: Left Weight Bearing/Tolerated Gait Training Does the Patient Walk?: Yes Distance: 30, 10 Walk 10 feet (QC): 4 (CGA to SBA provided) Gait Persons Needed: 1 Gait Assistive Device: FWW slow steady pace, slight fwd flexed posturing due to abdominal discomfort, maintaining safe distance from walker this session Exercises Supine Ex: Ankle pumps, Quad Set, Heel Slides, Straight leg raise Supine Reps: 20 Seated Therapy Exercises: Ankle pumps, Sit to stand, Long arc quads Seated Reps: 10 Treatments education, bed mobility, safety, transfers, gait, activity tolerance, strengthening, balance, functional mobility, toileting and stacey care Assessment Current Status: Good Progress increased gait distance, improved technique/posture with walker PT Fdc Goals Fdc Goals PT Bobbin Drier Goals Time Frame: May 29, 2019 Sit to Lying (QC): 6 Lying-Sitting on Side/Bed(QC): 6 Sit to Stand (QC): 6 Roll Left to Right (QC): 6 Chair/Dke-cy-Hivkz Xfer(QC): 6 Car Transfer (QC): 6 Does the Patient Walk: Yes Distance: 200' Walk 10 feet (QC): 6 Walk 10ft-Uneven Surface(QC): 6 Walk 50ft with 2 Turns (QC): 6 Walk 150 ft (QC): 6 PT Plan Treatment/Plan Treatment Plan: Continue Plan of Care Treatment Plan: Bed Mobility, Education, Functional Activity Maira, Functional Strength, Gait, Safety, Therapeutic Exercise, Transfers Frequency: 6 times per week Estimated Hrs Per Day: .25 hour per day Patient and/or Family Agrees t: Yes Safety Risks/Education Patient Education: Gait Training, Transfer Techniques, Safety Issues Teaching Recipient: Patient Teaching Methods: Discussion Response to Teaching: Verbalize Understanding, Return Demonstration Time/GCodes Time In: 1100 Time Out: 1125 Total Billed Treatment Time: 25 Total Billed Treatment 1 visit, GT x15, EX x10 SERGIO TADEO TELEPHONE ORDER CLERK May 23, 2019 11:29 POS
[2019-05-23] MEDS: ACETAMINOPHEN 325 MG TABLET PO PRN (12:52)
[2019-05-23] MEDS ORDERED: fentaNYL INJECTION 100 MCG/2 ML AMP IVP ONE (13:00)
[2019-05-23] MEDS ORDERED: MIDAZOLAM 2 MG/2 ML (VERSED) VIAL IVP ONE (13:00)
[2019-05-23] MEDS ORDERED: LIDOCAINE 1% INJ 20 ML 20 ML VIAL INJ ONE (13:00)
--- NOTE | 2019-05-23 14:58 | Pre-Op Note & Conscious Sedat ---
Pre-Operative Progress Note H&P Reviewed The H&P was reviewed, patient examined and no changes noted. Date H&P Reviewed: May 23, 2019 Time H&P Reviewed: 12:00 Pre-Op Diagnosis: abdominal mass Conscious Sedation Pre-Proced Time 12:00 ASA Score 2 For ASA 3 and 4: Consider anesthesia and medical clearance. Also, for patients with a history of failed moderate sedation consider anesthesia. Airway Lungs Heart ASA score ASA 1: a normal healthy patient ASA 2: a patient with a mild systemic disease (mid diabetes, controlled hypertension, obesity ASA 3: a patient with a severe systemic disease that limits activity (angina, COPD, prior Myocardial infarction) ASA 4: a patient with an incapacitating disease that is a constant threat to life (CHF, renal failure) ASA 5: a moribund patient not expected to survive 24 hrs. (ruptured aneurysm) ASA 6: a declared brain- patient whose organs are being harvested. For emergent operations, add the letter E after the classification Mallampati Classification Grade 2 Sedation Plan Analgesia, Amnesia, Plan communicated to team members, Discussed options with patient/fam, Discussed risks with patient/fam The patient is an appropriate candidate to undergo the planned procedure, sedation, and anesthesia. The patient immediately re-assessed prior to indication. RUBY RAMIREZ MD May 23, 2019 14:57 POS
--- NOTE | 2019-05-23 14:59 | Diagnostic Imaging Report ---
INDICATION: Midline abdominal wall mass. Patient presents for CT-guided biopsy. DETAILS OF PROCEDURE: Patient was brought to the CT suite and placed on table in the supine position. Axial imaging through the abdomen was performed to evaluate appropriate entry site. Procedure was performed utilizing conscious sedation with radiology nursing and constant patient monitoring. Patient was administered a total of 1 mg of Versed intravenously and 50 mcg of fentanyl intravenously. Total procedure time is 9 minutes. Anterior midline abdomen was prepped and draped in usual sterile fashion. A small amount of 1% lidocaine was utilized for local anesthesia. 18-gauge coaxial Temno needle was advanced and placed with its tip within the area of soft tissue in the midline anterior abdomen. Multiple core biopsies were obtained. Needle was removed and hemostasis was obtained using manual compression. Postprocedure images are without complicating features. Patient tolerated the procedure well and left the department in stable condition. IMPRESSION: Successful CT-guided biopsy of the midline anterior abdominal wall soft tissue mass, utilizing conscious sedation. Pathology results are currently pending. Dictated by: Dictated on workstation # [id number]
[2019-05-23] MEDS: HYDROcodone/APAP 5 MG/325 MG (LORTAB) TAB PO PRN (15:35)
[2019-05-23] MEDS: ONDANSETRON 4 MG/2 ML (SDV) Z0FRAN IV PRN (17:53)
[2019-05-23] MEDS: ENOXAPARIN 30 MG/0.3 ML (LOVENOX) SYR SC SCH (21:14)
[2019-05-23] MEDS: MIRTAZAPINE 15 MG (REMERON) TAB PO SCH (21:15)
[2019-05-23] MEDS: PROMETHAZINE INJ 25 MG/ML (PHENERGAN) AMP IVP PRN (21:36)
[2019-05-23] MEDS: LIDOCAINE PATCH REMOVAL TP SCH (21:59)
[2019-05-24] VITALS (25 sets, daily range): BP systolic 9–127; BP diastolic 45–72
[2019-05-24] MEDS ORDERED: NS IV ONE
[2019-05-24] MEDS ORDERED: VANCOMYCIN INJECTION 0.1 MG in NS (IVPB) 250 ML IV SCH ×2
[2019-05-24] MEDS: MIRTAZAPINE 15 MG (REMERON) TAB PO SCH ×2 (00:55→19:43)
[2019-05-24] MEDS ORDERED: NS IV 1000 ML 3,000 ML ONE (01:12)
[2019-05-24 01:13] LABS: BILIRUBIN,URINE NEGATIVE (NEGATIVE); CLARITY,URINE CLEAR; COLOR,URINE YELLOW; GLUCOSE, URINE (UA) NEGATIVE (NEGATIVE); KETONES,URINE NEGATIVE (NEGATIVE); LEUKOCYTE ESTERASE ,URINE 1+ (NEGATIVE); NITRITE,URINE NEGATIVE (NEGATIVE); PH,URINE 5.5 (5-9); PROTEIN,URINE TRACE (NEGATIVE)
[2019-05-24 01:29] LABS: AMORPHOUS SEDIMENT,UR MOD AMOR URATES /LPF; BACTERIA,URINE TRACE /HPF; HYALINE CASTS, URINE 0-2 /LPF; RBC,URINE 0-2 /HPF; SQUAMOUS EPITHELIAL CELL,UR 0-2 /HPF; WBC,URINE 0-2 /HPF
[2019-05-24] MEDS ORDERED: VANCOMYCIN INJECTION 1,000 MG in NS (IVPB) 250 ML IV SCH (01:30)
[2019-05-24] MEDS ORDERED: VANCOMYCIN 750 MG/NS 250 ML IVPB IV ONE ×2 (01:45)
[2019-05-24] MEDS ORDERED: VANCOMYCIN 750 MG/VIAL IV ONE (01:49)
[2019-05-24] MEDS ORDERED: VANCOMYCIN 1000 MG/VIAL ONE (01:49)
[2019-05-24] MEDS ORDERED: NS IV 500 ML 500 ML ONE (01:51)
[2019-05-24] MEDS: HYDROmorphone 2 MG/ML VIAL (DILAUDID) IV PRN ×2 (02:32→22:57)
[2019-05-24 03:04] LABS: BASOPHILS % (AUTO) 0 % (0-10); EOSINOPHILS % (AUTO) 2 % (0-10); HEMATOCRIT 27 % (35-52); HEMOGLOBIN 8.9 G/DL (11.5-16.0); LYMPHOCYTES # (AUTO) 0.2 X 10^3 (1.0-4.0); LYMPHOCYTES % (AUTO) 33 % (12-44); MEAN CORPUSCULAR HEMOGLOBIN 30 PG (25-34); MEAN CORPUSCULAR HGB CONC 34 G/DL (32-36); MEAN CORPUSCULAR VOLUME 89 FL (80-99); MEAN PLATELET VOLUME 9.7 FL (7.4-10.4); MONOCYTES # (AUTO) 0.1 X 10^3 (0.0-1.0); MONOCYTES % (AUTO) 14 % (0-12); NEUTROPHILS # (AUTO) 0.3 X 10^3 (1.8-7.8); NEUTROPHILS % (AUTO) 52 % (42-75); PLATELET COUNT 128 10^3/uL (130-400); RED CELL DISTRIBUTION WIDTH 15.1 % (10.0-14.5)
[2019-05-24 03:07] LABS: WHITE BLOOD COUNT 0.6 10^3/uL (4.3-11.0)
[2019-05-24 03:38] LABS: ALBUMIN 2.6 GM/DL (3.2-4.5); BILIRUBIN,TOTAL 0.5 MG/DL (0.1-1.0); CALCIUM 7.4 MG/DL (8.5-10.1); CREATININE SERUM 1.14 MG/DL (0.60-1.30); MAGNESIUM 1.3 MG/DL (1.6-2.4); PHOSPHORUS 1.6 MG/DL (2.3-4.7); POTASSIUM 3.9 MMOL/L (3.6-5.0); TOTAL PROTEIN 4.8 GM/DL (6.4-8.2)
[2019-05-24] MEDS: ONDANSETRON 4 MG/2 ML (SDV) Z0FRAN IV PRN ×2 (03:43→11:06)
[2019-05-24] MEDS: LACTATED RINGERS 1,000 ML IV SCH ×4 (03:44→19:43)
[2019-05-24] MEDS: POTASSIUM CL 10MEQ/50ML IVPB 50 ML IV SCH (03:46)
--- NOTE | 2019-05-24 03:50 | Pulmonary Consultation ---
History of Present Illness History of Present Illness Date of Consultation 05/24/19 03:44 Time Seen by Provider: 03:45 Date of Admission History of Present Illness 79 year old female with PMHx of cancer with mets who underwent CT guided Bx yesterday. Pt was admitted to the floor for observation and was found to have hypotension overnight and was transferred to the ICU. Pt was started on sepsis protocol. Allergies and Home Medications Allergies Coded Allergies: No Known Drug Allergies (Unverified , 04/15/16) Home Medications Hydrocodone/Acetaminophen 1 Each Tablet, 1-2 TAB PO Q4H PRN for PAIN-MODERATE (4-6), (Reported) Lidocaine 1 Each Adh..patch, 1 PATCH TD Q12H, (Reported) APPLY 1 PATCH AND LEAVE ON FOR 12 HOURS, REMOVE AND KEEP OFF FOR 12 HOURS Morphine Sulfate 15 Mg Tablet.er, 15 MG PO Q12H, (Reported) Ondansetron HCl 8 Mg Tablet, 8 MG PO Q8H PRN for NAUSEA/VOMITING-1ST LINE, ( Reported) Past Sksgilk-Sopcbt-Gwzlck Hx Past Med/Social Hx: Reviewed Nursing Past Med/Soc Hx Patient Social History Type Used: Cigarettes Former Smoker, Quit: Jul 11, 1984 Recent Foreign Travel: No Contact w/Someone Who Travel: No Recent Infectious Disease Expo: No Recent Hopitalizations: No Physical Abuse: No Sexual Abuse: No Mistreated: No Fear: No Immunizations Up To Date Tetanus Booster (TDap): Unknown Date of Pneumonia Vaccine: Feb 25, 2016 Date of Influenza Vaccine: Jun 09, 2017 Seasonal Allergies Seasonal Allergies: No Past Medical History Surgeries: No Gallbladder Respiratory: No Cardiac: No Hypertension Neurological: No Reproductive Disorders: No Genitourinary: No Gastrointestinal: Yes (MASS OF COLON, HX GALLSTONES) Hiatal Hernia Musculoskeletal: No Endocrine: Yes Loss of Vision: Bilateral Hearing Impairment: Denies Cancer: Yes (MASS OF COLON) Colon Did You Recieve Any Treatments: Yes What Type of Treatment Did You: Chemotherapy METASTASES TO LUNGS AND LIVER Psychosocial: No Integumentary: No Blood Disorders: No Sepsis Event Evaluation Height, Weight, BMI Height: 5'3.50" Weight: 211lbs. 0.0oz. 95.700445pr; 25.38 BMI Method: Exam Exam Vital Signs Date Time Temp Pulse Resp B/P (MAP) Pulse Ox O2 Delivery O2 Flow Rate FiO2 05/24/19 02:27 36.5 05/24/19 02:00 121 6 127/50 (75) 97 Room Air 05/24/19 01:19 36.5 115 16 102/63 (76) 94 Room Air 05/24/19 01:05 112 18 106/61 (76) 95 Room Air 05/24/19 01:02 114 05/24/19 01:00 98 Room Air 05/24/19 00:47 37.2 113 18 101/58 (72) 98 Room Air 05/23/19 21:15 Room Air 05/23/19 20:35 36.8 91 16 108/58 (75) 94 Room Air 05/23/19 18:08 37.0 91 18 97/50 (66) 95 Room Air 05/23/19 17:56 37.0 91 18 96/51 (66) 95 Room Air 05/23/19 16:40 37.1 83 18 102/58 (73) 95 Room Air 05/23/19 15:00 37.4 100 18 102/58 (73) 98 Room Air 05/23/19 14:45 88 109/59 93 Room Air 05/23/19 14:40 92 23 109/59 94 Room Air 05/23/19 14:35 87 17 110/53 94 Room Air 05/23/19 14:30 90 12 114/60 97 Room Air 05/23/19 14:25 90 12 112/53 94 Room Air 05/23/19 14:20 94 12 109/54 94 Room Air 05/23/19 14:00 37.4 100 18 118/56 (76) 98 Room Air 05/23/19 13:00 37.4 100 18 108/60 (76) 98 Room Air 05/23/19 12:32 37.4 92 18 112/55 (74) 98 Room Air 05/23/19 08:00 Room Air 05/23/19 08:00 38.0 90 20 124/55 (78) 97 Room Air 05/23/19 03:55 37.0 92 16 129/66 (87) 98 Room Air I & O 05/24/19 07:00 Intake Total 3810 ml Output Total 225 ml Balance 3585 ml Height & Weight Height: 5'3.50" Weight: 211lbs. 0.0oz. 95.477624go; 25.38 BMI Method: General Appearance: WD/WN, Mild Distress HEENT: PERRL/EOMI, Moist Mucous Membranes Neck: Normal Inspection, Supple Respiratory: Lungs Clear, Normal Breath Sounds, No Respiratory Distress; No Crackles, No Decreased Breath Sounds, No Wheezing Cardiovascular: Tachycardia Capillary Refill: Less Than 3 Seconds Gastrointestinal: normal bowel sounds, soft, other (biopsy site left of umbilicus with dressing placed over it) Extremity: Normal Inspection, Non Tender, Other (CHOI x 4) Neurologic/Psychiatric: Alert, Oriented x3 Skin: Normal Color, Warm/Dry Results Lab Laboratory Tests 05/22/19 04:45 05/23/19 05:43 05/23/19 05:53 05/24/19 02:50 Assessment/Plan Assessment/Plan Sepsis -NS started overnight -vanc, meropenem started Hypotension -improved with fluid bolus Nausea and vomiting -improving with medication Acute kidney injury -Cr >3 on admission, improving -Continue IV fluids -CT Abdomen without evidence of obstruction Hyperkalemia Hyperchloremic metabolic acidosis -change NS to LR Leukopenia - worsening -WBC 0.6 today Metastatic colon cancer -Oncology following DVT Prophylaxis -EMILEE Sotelo MEDICAL STUDENT May 24, 2019 03:50 POS
[2019-05-24] MEDS: NS IV 1000 ML 1,000 ML IV SCH ×7 (03:58→18:08)
[2019-05-24] MEDS: MAGNESIUM 1 GM/100 ML IVPB 100 ML IV SCH ×5 (04:22→07:38)
[2019-05-24] MEDS: KCL 20 MEQ TAB (K-DUR) PO SCH (04:23)
[2019-05-24] MEDS: inSUlin ASPART (NovoLOG) 1 UNIT/0.01 ML (CHARGE PER UNIT) SC SCH ×4 (05:24→20:06)
[2019-05-24] MEDS: morphine ER 15 MG (MS CONTIN) TAB PO SCH ×2 (05:24→17:14)
[2019-05-24] MEDS ORDERED: SODIUM BICARB 8.4% 50 MEQ/50 ML VIAL IV ONE (07:00)
--- NOTE | 2019-05-24 07:57 | Diagnostic Imaging Report ---
INDICATION: Possible perforation. FINDINGS: Supine and decubitus views of the abdomen demonstrate no free air. There is some mild distention of the bowel loops. Gas is still present in the colon. Probable ileus. An early obstruction cannot be excluded. Some degenerative changes are present in the spine. IMPRESSION: 1. There is no free air. 2. There are some dilated loops of bowel, possible ileus versus early obstruction. Recommend continued follow-up. Dictated by: Dictated on workstation # [id number]
--- NOTE | 2019-05-24 07:59 | Physical Therapy Progress Note ---
Therapy Progress Note Patient transferred to ICU d/t decline in medical status. Will require new PT orders when patient is medically stable and able to actively participate. RN notified. KEYLA OJEDA PT May 24, 2019 07:59 POS
[2019-05-24] MEDS ORDERED: MEROPENEM 500 MG in WATER (STERILE) FOR INJECTION 10 ML IV SCH ×3 (08:00)
[2019-05-24] MEDS: amLODIPine 10 MG (NORVASC) TAB PO SCH (08:08)
[2019-05-24] MEDS: LIDOCAINE 4% (SALONPAS) PATCH TOP SCH (08:08)
[2019-05-24] MEDS: DOCUSATE SODIUM 100 MG (COLACE) CAP PO SCH ×2 (08:08→19:43)
[2019-05-24] MEDS: SENNOSIDES 8.6 MG (SENOKOT) TAB PO SCH ×2 (08:08→19:44)
--- NOTE | 2019-05-24 08:34 | Occ Therapy Progress Note ---
Therapy Progress Note Due to change in medical status DC OT. Will need new orders. ADELAIDA BROWN May 24, 2019 08:34 POS
--- NOTE | 2019-05-24 08:38 | Diagnostic Imaging Report ---
INDICATION: Shortness of breath Portable chest 4:04 AM Right IJ Port-A-Cath tip projects over the SVC. Heart size and pulmonary vascularity are normal. Lungs are clear. IMPRESSION: No acute abnormalities in the chest Dictated by: Dictated on workstation # [id number]
[2019-05-24] MEDS ORDERED: LACTATED RINGERS 1,000 ML IV SCH (12:00)
--- NOTE | 2019-05-24 12:44 | Progress Note - Hospitalist ---
Subjective HPI/CC On Admission Date Seen by Provider: May 24, 2019 Time Seen by Provider: 09:20 nausea and vomiting Subjective/Events-last exam She reports feeling generally unwell. She has no specific complaints or concerns. She denies having any symptoms when her blood pressure was low last night. She denies fevers. She reports feeling "chilled" last night. She denies chest pain and dyspnea. She does not have a cough. She denies abdominal pain and diarrhea. She feels nauseous. Focused Exam Lactate Level 05/23/19 00:15: Lactic Acid Level 1.26 Objective Exam Vital Signs Vital Signs Date Time Temp Pulse Resp B/P (MAP) Pulse Ox O2 Delivery O2 Flow Rate FiO2 05/24/19 12:00 37.0 05/24/19 11:00 108 26 85/56 (66) 97 Room Air 05/20/19 11:08 2.00 Capillary Refill : Less Than 3 Seconds General Appearance: No Apparent Distress, WD/WN HEENT: PERRL/EOMI, Pharynx Normal Neck: Normal Inspection, Supple Respiratory: Lungs Clear, Normal Breath Sounds, No Respiratory Distress Cardiovascular: No Murmur, Tachycardia, Other (regular rhythm) Gastrointestinal: Normal Bowel Sounds, Soft, Tenderness Extremity: Normal Inspection, Non Tender, No Pedal Edema Neurologic/Psychiatric: Alert, Oriented x3, No Motor/Sensory Deficits, Normal Mood/Affect Skin: Normal Color, Warm/Dry Lymphatic: No Adenopathy Results/Procedures Lab Laboratory Tests 05/24/19 02:50 Patient resulted labs reviewed. Imaging: Reviewed Imaging Report Assessment/Plan Assessment and Plan Assess & Plan/Chief Complaint Hypotension SIRS -Blood pressures low following biopsy yesterday -SBP <90, asymptomatic -Transferred to ICU -Tachycardic with severe neutropenia -Started on Vanc/Merrem with concern for septic shock -CXR without consolidation -UA without clear UTI, culture pending -Blood cultures drawn Acute kidney injury -Cr >3 on admission, improved to 1.14 today -Continue IV fluids -Encourage oral intake Malnutrition -Dietary consulted -Ensure ordered -Continue Mirtazapine Hypomagnesemia Hypophosphatemia Hyperkalemia, resolved Hyperchloremic metabolic acidosis -Monitor and replace electrolytes as needed -Continue LR Pancytopenia -WBC 0.6, Hgb 8.9, Plt 128 -Expected drop due to chemotherapy Metastatic colon cancer Abdominal wall mass -Oncology consulted -Biopsy performed yesterday Debility -PT/OT Nausea and vomiting -Antiemetics as needed Diarrhea -Resolved -C diff negative -Imodium as needed DVT Prophylaxis: Lovenox Diagnosis/Problems Diagnosis/Problems (1) Hypotension Status: Acute Qualifiers: Hypotension type: postprocedural hypotension Qualified Codes: I95.81 - Postprocedural hypotension (2) SIRS (systemic inflammatory response syndrome) Status: Acute (3) MARK (acute kidney injury) Status: Resolved Resolution Date/Time: 05/24/19 @ 12:44 (4) Nausea and vomiting Status: Resolved Qualifiers: Vomiting type: unspecified Vomiting Intractability: unspecified Qualified Codes: R11.2 - Nausea with vomiting, unspecified Resolution Date/Time: 05/21/19 @ 15:48 (5) Colon cancer metastasized to multiple sites Status: Chronic (6) Hyperkalemia Status: Resolved Resolution Date/Time: 05/23/19 @ 10:40 (7) Hyperchloremic metabolic acidosis Status: Acute (8) Malnutrition Status: Acute (9) Debility Status: Acute (10) Hypomagnesemia Status: Acute (11) Hypophosphatemia Status: Acute Clinical Quality Measures DVT/VTE Risk/Contraindication: Risk Factor Score Per Nursin RFS Level Per Nursing on Admit: 4+=Very High SYLVIE GROSSMAN MD May 24, 2019 12:44 POS
[2019-05-24] MEDS ORDERED: SUCRALFATE 1 GM (CARAFATE) TAB PO NR (16:30)
--- NOTE | 2019-05-24 17:19 | Progress Note ---
Standard Progress Note Progress Notes/Assess & Plan Date Seen by a Provider: May 24, 2019 Time Seen by a Provider: 17:13 Progress/Assessment & Plan 79-year-old female with metastatic colon cancer to the abdominal wall and on palliative chemotherapy. Admitted with nausea, vomiting and dehydration causing acute on chronic renal failure. This is improving with hydration and renal function is almost back to baseline. She complained of significant pain from the abdominal wall lesion which limits her activity level. Patient had hypotension last night with lethargy and moved to ICU. Blood pressure still low normal and urine output low in spite of 4 fluid boluses and baseline IV fluids at 1 50 mL/h. Patient continues to have nausea and vomiting with any oral intake. I will give a trial of sucralfate slurry and if this helps we will schedule this 4 times a day. She completed ultrasound-guided biopsy of the abdominal wall lesion yesterday and we will send this for next Gen sequencing. Lab work with declining WBC and grade 4 neutropenia. We will start her on G- CSF 480 g subcutaneous daily. Monitor labwork daily. Focused Exam Lactate Level 05/23/19 00:15: Lactic Acid Level 1.26 SAMANTHA SHANKS May 24, 2019 17:19 POS
[2019-05-24] MEDS ORDERED: LACTATED RINGERS 1,000 ML IV ONE (18:00)
[2019-05-24] MEDS: TBO-FILGRASTIM 480 MCG/0.8 ML (GRANIX) SQ SCH (18:04)
[2019-05-24] MEDS: MEROPENEM 500 MG in WATER (STERILE) FOR INJECTION 10 ML IV SCH (20:52)
[2019-05-24] MEDS: LIDOCAINE PATCH REMOVAL TP SCH (20:52)
[2019-05-24] MEDS: ENOXAPARIN 40 MG/0.4 ML (LOVENOX) SYR SC SCH (20:52)
[2019-05-24] MEDS: PROMETHAZINE INJ 25 MG/ML (PHENERGAN) AMP IVP PRN (21:04)
[2019-05-24] MEDS: ALBUMIN 5% 12.5 GM/250 ML 250 ML IV SCH ×2 (23:10→23:55)
[2019-05-25] VITALS (25 sets, daily range): BP systolic 100–139; BP diastolic 43–81
[2019-05-25] MEDS: VANCOMYCIN 1 GM/NS 250 ML IVPB IV SCH ×2 (02:14)
[2019-05-25 03:40] LABS: BASOPHILS % (AUTO) 0 % (0-10); EOSINOPHILS % (AUTO) 2 % (0-10); HEMATOCRIT 23 % (35-52); HEMOGLOBIN 7.5 G/DL (11.5-16.0); LYMPHOCYTES # (AUTO) 0.2 X 10^3 (1.0-4.0); LYMPHOCYTES % (AUTO) 43 % (12-44); MEAN CORPUSCULAR HEMOGLOBIN 30 PG (25-34); MEAN CORPUSCULAR HGB CONC 33 G/DL (32-36); MEAN CORPUSCULAR VOLUME 89 FL (80-99); MEAN PLATELET VOLUME 10.2 FL (7.4-10.4); MONOCYTES # (AUTO) 0.1 X 10^3 (0.0-1.0); MONOCYTES % (AUTO) 20 % (0-12); NEUTROPHILS # (AUTO) 0.2 X 10^3 (1.8-7.8); NEUTROPHILS % (AUTO) 35 % (42-75); PLATELET COUNT 105 10^3/uL (130-400); RED CELL DISTRIBUTION WIDTH 15.2 % (10.0-14.5)
[2019-05-25 03:44] LABS: WHITE BLOOD COUNT 0.5 10^3/uL (4.3-11.0)
--- NOTE | 2019-05-25 03:55 | Pulmonary Progress Note ---
JAMESИРИНА N MED STUDENT 05/25/19 0355: Subjective Date Seen by a Provider: May 25, 2019 Time Seen by a Provider: 04:05 Subjective/Events-last exam Patient reports that she is experiencing some nausea, but not vomiting. She also reports that she has not had a bowel movement in two days. She reports some diffuse abdominal tenderness. She denies fevers, chills, chest pain, cough, and shortness of breath. Sepsis Event Evaluation Height, Weight, BMI Height: 5'3.50" Weight: 211lbs. 0.0oz. [id number]; 25.38 BMI Method: Focused Exam Lactate Level 05/23/19 00:15: Lactic Acid Level 1.26 Exam Exam Vital Signs Date Time Temp Pulse Resp B/P (MAP) Pulse Ox O2 Delivery O2 Flow Rate FiO2 05/25/19 03:00 104 20 104/54 (71) 95 Room Air 05/25/19 02:00 109 20 100/45 (63) 90 Room Air 05/25/19 01:00 100 21 103/53 (70) 94 Room Air 05/25/19 01:00 99 05/25/19 00:10 36.3 05/25/19 00:04 98 Room Air 05/25/19 00:00 102 21 124/76 (92) 94 Room Air 05/25/19 00:00 102 21 124/76 (92) 94 Room Air 05/24/19 23:00 63 29 113/63 (80) 97 Room Air 05/24/19 22:00 105 20 100/72 (81) 93 Room Air 05/24/19 21:00 95 23 95/55 (68) 93 Room Air 05/24/19 20:00 98 Room Air 05/24/19 20:00 36.1 05/24/19 20:00 96 19 93/51 (65) 95 Room Air 05/24/19 19:00 100 05/24/19 19:00 100 11 97/52 (67) 98 Room Air 05/24/19 18:00 102 16 76/58 (64) 98 Room Air 05/24/19 17:00 101 21 92/54 (67) 94 Room Air 05/24/19 16:00 104 12 87/57 (67) 94 Room Air 05/24/19 16:00 36.5 05/24/19 16:00 97 Room Air 05/24/19 15:00 105 19 88/53 (65) 95 Room Air 05/24/19 14:34 98 Room Air 05/24/19 14:00 109 10 103/45 (64) 99 Room Air 05/24/19 13:00 110 19 101/49 (66) 92 Room Air 05/24/19 13:00 114 05/24/19 12:00 98 Room Air 05/24/19 12:00 37.0 05/24/19 12:00 105 16 98/52 (67) 96 Room Air 05/24/19 11:00 108 26 85/56 (66) 97 Room Air 05/24/19 10:00 103 10 85/45 (58) 95 Room Air 05/24/19 09:00 107 27 86/50 (62) 94 Room Air 05/24/19 08:00 36.5 05/24/19 08:00 101 25 98/54 (69) 94 Room Air 05/24/19 08:00 98 Room Air 05/24/19 07:00 104 05/24/19 07:00 105 27 95/53 (67) 94 Room Air 05/24/19 06:00 111 21 102/56 (71) 95 Room Air 05/24/19 05:00 121 11 101/51 (68) 94 Room Air 05/24/19 04:00 124 10 107/55 (72) 94 Room Air 05/24/19 04:00 98 Room Air I & O 05/25/19 07:00 Intake Total 4945 ml Output Total 250 ml Balance 4695 ml Height & Weight Height: 5'3.50" Weight: 211lbs. 0.0oz. [id number]; 25.38 BMI Method: General Appearance: No Apparent Distress, WD/WN HEENT: PERRL/EOMI, Pharynx Normal Neck: Normal Inspection, Supple Respiratory: Lungs Clear, Normal Breath Sounds, No Respiratory Distress Cardiovascular: No Murmur, Tachycardia, Other (regular rhythm) Capillary Refill: Less Than 3 Seconds Gastrointestinal: normal bowel sounds, soft, other (biopsy site left of umbilicus with dressing placed over it) Extremity: Normal Inspection, Non Tender, No Pedal Edema Neurologic/Psychiatric: Alert, Oriented x3, No Motor/Sensory Deficits, Normal Mood/Affect Skin: Normal Color, Warm/Dry Lymphatic: No Adenopathy Results Lab Laboratory Tests 05/23/19 05:43 05/23/19 05:53 05/24/19 02:50 05/25/19 03:30 Intake and Output 05/25/19 00:00 Intake Total 7342.5 ml Output Total 570 ml Balance 6772.5 ml Intake Oral 525 ml IV Total 6817.5 ml Output Urine Total 570 ml # Emeses 1 Laboratory Tests 05/24/19 20:19: Glucometer 154H 05/25/19 03:30: White Blood Count 0.5*L, Red Blood Count 2.53L, Hemoglobin 7.5L, Hematocrit 23L, Mean Corpuscular Volume 89, Mean Corpuscular Hemoglobin 30, Mean Corpuscular Hemoglobin Concent 33, Red Cell Distribution Width 15.2H, Platelet Count 105L, Mean Platelet Volume 10.2, Neutrophils (%) (Auto) 35L, Lymphocytes (%) (Auto) 43, Monocytes (%) (Auto) 20H, Eosinophils (%) (Auto) 2, Basophils (%) (Auto) 0, Neutrophils # (Auto) 0.2L, Lymphocytes # (Auto) 0.2L, Monocytes # (Auto) 0.1, Eosinophils # (Auto) 0.0, Basophils # (Auto) 0.0, Sodium Level 140, Potassium Level 3.3L, Chloride Level 108H, Carbon Dioxide Level 19L, Anion Gap 13, Blood Urea Nitrogen 23H, Creatinine 1.52H, Estimat Glomerular Filtration Rate 33, BUN/Creatinine Ratio 15, Glucose Level 121H, Calcium Level 7.5L, Corrected Calcium 8.4L, Phosphorus Level 2.5, Magnesium Level 2.2, Total Bilirubin 0.5, Aspartate Amino Transf (AST/SGOT) 10, Alanine Aminotransferase (ALT/SGPT) 7, Alkaline Phosphatase 87, Total Protein 4.9L, Albumin 2.9L Radiology 05/24/19 Chest X ray No acute abnormalities Assessment/Plan Assessment/Plan Sepsis -vanc, meropenem started -BC no growth to date -IV fluids Hypotension -improved with fluid bolus Nausea and vomiting -improving with medication Constipation -Colace, senna, Miralax Acute kidney injury -Cr >3 on admission, bumped back up today -Poor urine output overnight -Continue IV fluids Hyperkalemia -Now hypokalemic Pancytopenia - worsening -WBC 0.5, hgb 7.5, PLT 105 -Received filgrastim yesterday -Reverse isolation Metastatic colon cancer -Oncology following -Consider palliative consult DVT Prophylaxis -Lovenox JONI WHITMORE DO 05/25/19 0624: Subjective Subjective/Events-last exam PT has had decreased UO. Exam Exam General Appearance: No Apparent Distress, WD/WN HEENT: PERRL/EOMI, Pharynx Normal Neck: Normal Inspection, Supple Respiratory: Lungs Clear, Normal Breath Sounds, No Respiratory Distress Cardiovascular: Tachycardia Capillary Refill: Less Than 3 Seconds Gastrointestinal: normal bowel sounds, soft Extremity: Normal Inspection, Non Tender, No Pedal Edema Neurologic/Psychiatric: Alert, Oriented x3, No Motor/Sensory Deficits, Normal Mood/Affect Skin: Normal Color, Warm/Dry Lymphatic: No Adenopathy Assessment/Plan Assessment/Plan Sepsis -vanc, meropenem started -BC no growth to date -IV fluids anemia and worsening renal function -Transfuse 1 unit of PRBC -Give a another liter bolus over 4 hrs - Nausea and vomiting -improving with medication Constipation -Colace, senna, Miralax Acute kidney injury -Cr >3 on admission, bumped back up today -Poor urine output overnight -Continue IV fluids Hypokalemia -Replace Pancytopenia - worsening -WBC 0.5, hgb 7.5, PLT 105 -Received filgrastim yesterday -Reverse isolation Metastatic colon cancer -Oncology following -Consider palliative consult DVT Prophylaxis -Lovenox Supervisory-Addendum Brief Verification & Attestation Participated in pt care: history Personally performed: exam, history Care discussed with: Medical Student Procedures: n/a Verification and Attestation of Medical Student E/M Service A medical student performed and documented this service in my presence. I r eviewed and verified all information documented by the medical student and made modifications to such information, when appropriate. I personally performed the physical exam and medical decision making. Joni Whitmore, May 25, 2019,06:27 ИРИНА RAMIREZ MED STUDENT May 25, 2019 03:55 JONI WEBER DO May 25, 2019 06:24 POS
[2019-05-25 04:00] LABS: ALBUMIN 2.9 GM/DL (3.2-4.5); BILIRUBIN,TOTAL 0.5 MG/DL (0.1-1.0); CALCIUM 7.5 MG/DL (8.5-10.1); CREATININE SERUM 1.52 MG/DL (0.60-1.30); MAGNESIUM 2.2 MG/DL (1.6-2.4); PHOSPHORUS 2.5 MG/DL (2.3-4.7); POTASSIUM 3.3 MMOL/L (3.6-5.0); TOTAL PROTEIN 4.9 GM/DL (6.4-8.2)
[2019-05-25] MEDS: PROMETHAZINE INJ 25 MG/ML (PHENERGAN) AMP IVP PRN (04:55)
[2019-05-25] MEDS: POTASSIUM CL 10MEQ/50ML IVPB 50 ML IV SCH ×7 (04:55→12:19)
[2019-05-25] MEDS: MAGNESIUM 1 GM/100 ML IVPB 100 ML IV SCH (04:55)
[2019-05-25] MEDS: KCL 20 MEQ TAB (K-DUR) PO SCH (04:55)
[2019-05-25] MEDS: morphine ER 15 MG (MS CONTIN) TAB PO SCH ×2 (04:56→18:37)
[2019-05-25] MEDS: inSUlin ASPART (NovoLOG) 1 UNIT/0.01 ML (CHARGE PER UNIT) SC SCH ×4 (04:56→20:12)
[2019-05-25] MEDS: LACTATED RINGERS 1,000 ML IV SCH ×3 (04:56→21:24)
[2019-05-25] MEDS ORDERED: LACTATED RINGERS 1,000 ML IV SCH (05:15)
[2019-05-25] MEDS: ONDANSETRON 4 MG/2 ML (SDV) Z0FRAN IV PRN ×2 (05:53)
[2019-05-25] MEDS ORDERED: NS (IVPB) 250 ML ONE (06:01)
--- NOTE | 2019-05-25 07:32 | Diagnostic Imaging Report ---
INDICATION: Dyspnea. Comparison made with prior examination of 05/24/2019. FINDINGS: There is cardiomegaly. Lungs are clear. No pleural effusion or pneumothorax. Mediastinum is unremarkable. A Fuse-A-Port cath overlies the right hemithorax. It has its tip in the superior vena cava. IMPRESSION: No acute cardiopulmonary abnormality. Cardiomegaly. Dictated by: Dictated on workstation # [id number]
--- NOTE | 2019-05-25 07:53 | Physical Therapy Progress Note ---
Therapy Progress Note Due to change in medical status and transfer to ICU, PT will require new orders to resume skilled therapy. RN notified yesterday and will be reminded on this date. KEYLA OJEDA PT May 25, 2019 07:53 POS
[2019-05-25] MEDS: LACTULOSE SYRUP 10GM/15ML (ENULOSE) 30ML UDC PO SCH ×2 (08:22→21:00)
[2019-05-25] MEDS: DOCUSATE SODIUM 100 MG (COLACE) CAP PO SCH ×2 (08:22→21:00)
[2019-05-25] MEDS: SENNOSIDES 8.6 MG (SENOKOT) TAB PO SCH ×2 (08:22→21:00)
[2019-05-25] MEDS: MEROPENEM 500 MG in WATER (STERILE) FOR INJECTION 10 ML IV SCH ×2 (08:22→21:23)
[2019-05-25] MEDS: LIDOCAINE 4% (SALONPAS) PATCH TOP SCH (08:23)
--- NOTE | 2019-05-25 11:42 | Progress Note ---
Standard Progress Note Progress Notes/Assess & Plan Date Seen by a Provider: May 25, 2019 Time Seen by a Provider: 11:37 Progress/Assessment & Plan 79-year-old female with metastatic colon cancer to the abdominal wall and on palliative chemotherapy. Admitted with nausea, vomiting and dehydration causing acute on chronic renal failure. This is back to baseline with hydration. She complained of significant pain from the abdominal wall lesion and underwent CT- guided needle biopsy with preliminary pathology confirming metastatic carcinoma. NextGen sequencing pending. Patient had hypotension with lethargy and moved to ICU to r/o sepsis. Hemoglobin 7.5 this a.m. and received one unit packed red blood cells. WBC lobe with grade 4 neutropenia. Started on G-CSF 480 g yesterday. Patient continues to have nausea and vomiting with poor oral intake. Initially having diarrhea but no bowel movement last 1-2 days. KUB pending from today. Dr. Dominique covering this weekend. Focused Exam Lactate Level 05/23/19 00:15: Lactic Acid Level 1.26 SAMANTHA SHANKS May 25, 2019 11:42 POS
--- NOTE | 2019-05-25 12:00 | Diagnostic Imaging Report ---
PATIENT HISTORY: Nausea. TECHNIQUE: Frontal supine views of the abdomen. COMPARISON: 05/23/2019. FINDINGS: There are distended loops of small bowel measuring up to 5.5 cm. No large collection of free air is seen on this supine view. There are degenerative changes in the spine. IMPRESSION: 1. Dilated loops of small bowel, some of which appear significantly increased since the prior study. This may be due to partial small bowel obstruction. Dictated by: Dictated on workstation # [id number]
--- NOTE | 2019-05-25 14:22 | Progress Note - Hospitalist ---
Subjective HPI/CC On Admission Date Seen by Provider: May 25, 2019 Time Seen by Provider: 08:40 nausea and vomiting Subjective/Events-last exam She is having more nausea and vomiting this morning. She does not feel well. She denies fevers, chills, chest pain, and dyspnea. She continues to have abdominal pain with activity. Focused Exam Lactate Level 05/23/19 00:15: Lactic Acid Level 1.26 Objective Exam Vital Signs Vital Signs Date Time Temp Pulse Resp B/P (MAP) Pulse Ox O2 Delivery O2 Flow Rate FiO2 05/25/19 12:00 95 Room Air 05/25/19 12:00 36.6 107 22 128/71 (90) 05/20/19 11:08 2.00 Capillary Refill : Less Than 3 Seconds General Appearance: Anxious, Chronically ill HEENT: PERRL/EOMI, Pharynx Normal Neck: Normal Inspection, Supple Respiratory: Lungs Clear, Normal Breath Sounds, No Respiratory Distress Cardiovascular: Regular Rate, Rhythm, No Murmur Gastrointestinal: Soft, Abnormal Bowel Sounds (hypoactive), Tenderness Extremity: Normal Inspection, Non Tender, Pedal Edema Neurologic/Psychiatric: Alert, No Motor/Sensory Deficits, Depressed Affect Skin: Warm/Dry, Pallor Lymphatic: No Adenopathy Results/Procedures Lab Laboratory Tests 05/25/19 03:30 Patient resulted labs reviewed. Imaging: Reviewed Imaging Report Assessment/Plan Assessment and Plan Assess & Plan/Chief Complaint Nausea and vomiting -Persistent nausea and vomiting -Antiemetics without relief -Consult surgery for further evaluation Hypotension, resolved SIRS, resolved -Infectious workup negative thus far -Procalcitonin elevated 2.70 -Continue antibiotics Acute kidney injury -Cr 1.5, up from 1.1 yesterday -Continue IV fluids Malnutrition -Ensure ordered -Continue Mirtazapine Hypomagnesemia, resolved Hypophosphatemia, resolved Hyperkalemia Hyperchloremic metabolic acidosis -Monitor and replace electrolytes as needed -Continue LR Pancytopenia -Expected drop due to chemotherapy -Received G-CSF yesterday per Oncology Metastatic colon cancer Abdominal wall mass -Oncology consulted -Biopsy performed, adenocarcinoma consistent with colon primary -Palliative consulted Debility -PT/OT Diarrhea -Resolved -C diff negative -Imodium as needed DVT Prophylaxis: Lovenox Diagnosis/Problems Diagnosis/Problems (1) Hypotension Status: Resolved Qualifiers: Hypotension type: postprocedural hypotension Qualified Codes: I95.81 - Postprocedural hypotension Resolution Date/Time: 05/25/19 @ 14:22 (2) SIRS (systemic inflammatory response syndrome) Status: Resolved Resolution Date/Time: 05/25/19 @ 14:22 (3) MARK (acute kidney injury) Status: Acute (4) Nausea and vomiting Status: Acute Qualifiers: Vomiting type: bilious vomiting Qualified Codes: R11.14 - Bilious vomiting (5) Colon cancer metastasized to multiple sites Status: Chronic (6) Hyperkalemia Status: Acute (7) Hyperchloremic metabolic acidosis Status: Acute (8) Malnutrition Status: Acute (9) Debility Status: Acute (10) Hypomagnesemia Status: Resolved Resolution Date/Time: 05/25/19 @ 14:23 (11) Hypophosphatemia Status: Resolved Resolution Date/Time: 05/25/19 @ 14:23 Clinical Quality Measures DVT/VTE Risk/Contraindication: Risk Factor Score Per Nursin RFS Level Per Nursing on Admit: 4+=Very High SYLVIE GROSSMAN MD May 25, 2019 14:22 POS
--- NOTE | 2019-05-25 15:12 | Consultation - Surgery ---
MACKENZIE MURDOCK [facility] 05/25/19 1512: History of Present Illness History of Present Illness Patient Consulted On(carmen/time) 05/25/19 15:06 Date Seen by Provider: May 25, 2019 Time Seen by Provider: 15:06 History of Present Illness Ms Rubio is a 79 y/o female who presented through the ER on May 21. She has a hx of colon cancer. She had surgery for the colon cancer back in 2016. If was then found to metastasis. Currently, she is receiving chemo from Dr. Marie. Since her ER visit she has been managed by the medical team and her N/V stopped until today. General surgery was consulted because the pt started to vomit up bile and was having abdominal pain. A recent X-ray showed dilated loops of small bowel which appear to have increased since the last study and may be due to a partial bowel obstruction. Allergies and Home Medications Allergies Coded Allergies: No Known Drug Allergies (Unverified , 04/15/16) Home Medications Hydrocodone/Acetaminophen 1 Each Tablet, 1-2 TAB PO Q4H PRN for PAIN-MODERATE (4-6), (Reported) Lidocaine 1 Each Adh..patch, 1 PATCH TD Q12H, (Reported) APPLY 1 PATCH AND LEAVE ON FOR 12 HOURS, REMOVE AND KEEP OFF FOR 12 HOURS Morphine Sulfate 15 Mg Tablet.er, 15 MG PO Q12H, (Reported) Ondansetron HCl 8 Mg Tablet, 8 MG PO Q8H PRN for NAUSEA/VOMITING-1ST LINE, (Reported) Past Sgtvgbx-Uyjhbl-Ipwajv Hx Patient Social History Former Smoker, Quit: Jul 11, 1984 Type Used: Cigarettes Recent Foreign Travel: No Contact w/Someone Who Travel: No Recent Infectious Disease Expo: No Recent Hopitalizations: No Immunizations Up To Date Tetanus Booster (TDap): Unknown Date of Pneumonia Vaccine: Feb 25, 2016 Date of Influenza Vaccine: Jun 09, 2017 Seasonal Allergies Seasonal Allergies: No Surgeries History of Surgeries: No Surgeries: Gallbladder Respiratory History of Respiratory Disorde: No Cardiovascular History of Cardiac Disorders: No Cardiac Disorders: Hypertension Neurological History of Neurological Disord: No Reproductive System Hx Reproductive Disorders: No Genitourinary History of Genitourinary Disor: No Gastrointestinal History of Gastrointestinal Di: Yes (MASS OF COLON, HX GALLSTONES) Gastrointestinal Disorders: Hiatal Hernia Musculoskeletal History of Musculoskeletal Dis: No Endocrine History of Endocrine Disorders: Yes HEENT Loss of Vision: Bilateral Hearing Impairment: Denies Cancer History of Cancer: Yes (MASS OF COLON) Cancer: Colon Psychosocial History of Psychiatric Problem: No Integumentary History of Skin or Integumenta: No Blood Transfusions History of Blood Disorders: No Review of Systems-General Constitutional: No chills, No diaphoresis EENTM: no symptoms reported Respiratory: short of breath Cardiovascular: no symptoms reported Gastrointestinal: abdominal pain (LLQ), nausea, vomiting Genitourinary: no symptoms reported Musculoskeletal: no symptoms reported Skin: no symptoms reported Psychiatric/Neurological: No Symptoms Reported Physical Exam-General Problems Physical Exam Vital Signs Vital Signs - First Documented 05/20/19 11:08 Temp 36.6 Pulse 92 Resp 18 B/P (MAP) 128/79 (95) Pulse Ox 98 O2 Delivery Nasal Cannula O2 Flow Rate 2.00 Capillary Refill : Less Than 3 Seconds General Appearance: no apparent distress, other Eyes: Bilateral Eye PERRL Neck: non-tender, supple Respiratory: chest non-tender, no respiratory distress, no accessory muscle use Cardiovascular: regular rate, rhythm Peripheral Pulses: 2+ Dorsalis Pedis (R), 2+ Left Dors-Pedis (L), 2+ Radial Pulses (R), 2+ Radial Pulses (L) Gastrointestinal: tenderness, mass (Mass located in the middle ofthe abdomen ) Extremities: no calf tenderness, normal capillary refill Neurologic/Psychiatric: no motor/sensory deficits, alert, oriented x 3 Skin: normal color Lymphatic: no adenopathy Data Review Labs Laboratory Tests 05/24/19 15:20: Glucometer 170H 05/24/19 20:19: Glucometer 154H 05/25/19 03:30: White Blood Count 0.5*L, Red Blood Count 2.53L, Hemoglobin 7.5L, Hematocrit 23L, Mean Corpuscular Volume 89, Mean Corpuscular Hemoglobin 30, Mean Corpuscular Hemoglobin Concent 33, Red Cell Distribution Width 15.2H, Platelet Count 105L, Mean Platelet Volume 10.2, Neutrophils (%) (Auto) 35L, Lymphocytes (%) (Auto) 43, Monocytes (%) (Auto) 20H, Eosinophils (%) (Auto) 2, Basophils (%) (Auto) 0, Neutrophils # (Auto) 0.2L, Lymphocytes # (Auto) 0.2L, Monocytes # (Auto) 0.1, Eosinophils # (Auto) 0.0, Basophils # (Auto) 0.0, Sodium Level 140, Potassium Level 3.3L, Chloride Level 108H, Carbon Dioxide Level 19L, Anion Gap 13, Blood Urea Nitrogen 23H, Creatinine 1.52H, Estimat Glomerular Filtration Rate 33, BUN/Creatinine Ratio 15, Glucose Level 121H, Calcium Level 7.5L, Corrected Calcium 8.4L, Phosphorus Level 2.5, Magnesium Level 2.2, Total Bilirubin 0.5, Aspartate Amino Transf (AST/SGOT) 10, Alanine Aminotransferase (ALT/SGPT) 7, Al kaline Phosphatase 87, Total Protein 4.9L, Albumin 2.9L 05/25/19 10:38: Glucometer 116H Microbiology 05/23/19 Blood Culture - Preliminary, Resulted No growth 05/22/19 C. difficile GDH Antigen & Toxins - Final, Complete 05/24/19 MRSA Screen - Final, Complete MRSA not isolated Assessment/Plan Assessment/Plan Assessment/Plan N/V, partial small bowel obstruction, metastatic colon cancer, tachycardic. MARK, pancytopenia - patient is to be NPO - place nasogastric tube to decompress the stomach and run on low intermittent suction - possibly schedule a small bowel follow through Clinical Quality Measures DVT/VTE Risk/Contraindication: Risk Factor Score Per Nursin RFS Level Per Nursing on Admit: 4+=Very High ELEAZAR GARZON DO 05/25/19 2006: History of Present Illness History of Present Illness History of Present Illness consult for nausea from Dr. De La Garza. Patient is a 79 year old female with metastatic colon cancer. She was first diagnosed in 2016. She has been having on and off episodes of nausea and vomiting and has had it return. Nothing really seems to make it better and nothing seems to make worse. She is just wanting to feel better. She had ct scan not demonstrating obstruction, but follow up x rays showing dilated loops of small bowel concerning for small bowel obstruction. She has a mass at midline of abdomen that she had biopsied consistent with adenocarcinoma colon primary. Allergies and Home Medications Allergies Coded Allergies: No Known Drug Allergies (Unverified , 04/15/16) Home Medications Hydrocodone/Acetaminophen 1 Each Tablet, 1-2 TAB PO Q4H PRN for PAIN-MODERATE (4-6), (Reported) Lidocaine 1 Each Adh..patch, 1 PATCH TD Q12H, (Reported) APPLY 1 PATCH AND LEAVE ON FOR 12 HOURS, REMOVE AND KEEP OFF FOR 12 HOURS Morphine Sulfate 15 Mg Tablet.er, 15 MG PO Q12H, (Reported) Ondansetron HCl 8 Mg Tablet, 8 MG PO Q8H PRN for NAUSEA/VOMITING-1ST LINE, (Reported) Patient Home Medication List Home Medication List Reviewed: Yes Past Ozovzik-Fdghjd-Tyfujv Hx Patient Social History Alcohol Use: Denies Use Smoking Status: Former Smoker Type Used: Cigarettes Surgeries History of Surgeries: Yes Surgeries: Bowel Surgery, Gallbladder Respiratory History of Respiratory Disorde: No Cardiovascular History of Cardiac Disorders: Yes Cardiac Disorders: Hypertension Neurological History of Neurological Disord: No Gastrointestinal History of Gastrointestinal Di: Yes Gastrointestinal Disorders: Hiatal Hernia HEENT Hearing Impairment: Denies Cancer History of Cancer: Yes Cancer: Colon Psychosocial History of Psychiatric Problem: No Integumentary History of Skin or Integumenta: No Family Medical History Significant Family History: No Pertinent Family Hx Review of Systems-General Constitutional: no symptoms reported EENTM: no symptoms reported Respiratory: short of breath Cardiovascular: no symptoms reported Gastrointestinal: abdominal pain (LLQ), nausea, vomiting Genitourinary: no symptoms reported Musculoskeletal: no symptoms reported Skin: no symptoms reported Psychiatric/Neurological: No Symptoms Reported Physical Exam-General Problems Physical Exam General Appearance: no apparent distress HEENT: PERRL/EOMI Neck: non-tender, supple Respiratory: chest non-tender, no respiratory distress Cardiovascular: regular rate, rhythm Gastrointestinal: distended, tenderness (aroundn midline, mass at midline palpa ble), mass (Mass located in the middle of the abdomen ) Rectal: deferred Back: normal inspection, no CVA tenderness, no vertebral tenderness Extremities: non-tender, no calf tenderness, normal capillary refill Neurologic/Psychiatric: no motor/sensory deficits, alert, oriented x 3 Skin: normal color, warm/dry Lymphatic: no adenopathy Assessment/Plan Assessment/Plan Assessment/Plan N/V, partial small bowel obstruction, metastatic colon cancer/abdominal mass, ta chycardic. MARK, pancytopenia patient with n/v and partial sbo will have ng tube placed to decompress and hopefully will help her symptoms will let decompress and likely Tuesday get small bowel follow through to see if contrast gets trough or if area of obstruction with her metastatic disease and midline abdominal mass will need to discuss options for surgical option may be limited if comes to need for surgical intervention. Supervisory-Addendum Brief Verification & Attestation Participated in pt care: history, MDM, physical Personally performed: exam, history, MDM, supervision of care Care discussed with: Medical Student Procedures: n/a Results interpretation: Verified all documentation Verification and Attestation of Medical Student E/M Service A medical student performed and documented this service in my presence. I reviewed and verified all information documented by the medical student and made modifications to such information, when appropriate. I personally performed the physical exam and medical decision making. Eleazar Garzon, May 25, 2019,20:34 MACKENZIE MURDOCK [facility] May 25, 2019 15:12 ELEAZAR GUZMAN DO May 25, 2019 20:06 POS
--- NOTE | 2019-05-25 15:30 | Diagnostic Imaging Report ---
INDICATION: NG tube placement. TIME OF EXAM: 3:21 p.m. COMPARISON: Comparison is made with prior chest from earlier same day. FINDINGS: The NG tube passes into the stomach. The proximal side port is located at the GE junction, and the tube could be advanced. A right chest wall port has tip overlying the SVC. Heart size is stable. No significant infiltrate is detected. There is no effusion or pneumothorax. IMPRESSION: NG tube placement, as described. Dictated by: Dictated on workstation # [id number]
[2019-05-25] MEDS: TBO-FILGRASTIM 480 MCG/0.8 ML (GRANIX) SQ SCH (18:54)
[2019-05-25] MEDS: HYDROmorphone 2 MG/ML VIAL (DILAUDID) IV PRN ×2 (18:54→21:22)
[2019-05-25] MEDS: MIRTAZAPINE 15 MG (REMERON) TAB PO SCH (21:00)
[2019-05-25] MEDS: LIDOCAINE PATCH REMOVAL TP SCH (21:24)
[2019-05-25] MEDS: ENOXAPARIN 40 MG/0.4 ML (LOVENOX) SYR SC SCH (23:54)
[2019-05-26] VITALS (24 sets, daily range): BP systolic 89–135; BP diastolic 47–82
[2019-05-26] MEDS ORDERED: TROUGH ORDER-PHARMACY XX NR (01:00)
[2019-05-26] MEDS: LACTATED RINGERS 1,000 ML IV SCH ×4 (01:58→23:27)
[2019-05-26 02:09] LABS: VANCOMYCIN,TROUGH 14.2 UG/ML (10.0-20.0)
[2019-05-26] MEDS: VANCOMYCIN 1 GM/NS 250 ML IVPB IV SCH ×2 (02:27)
[2019-05-26 03:41] LABS: BASOPHILS % (AUTO) 0 % (0-10); EOSINOPHILS % (AUTO) 4 % (0-10); HEMATOCRIT 24 % (35-52); LYMPHOCYTES # (AUTO) 0.2 X 10^3 (1.0-4.0); LYMPHOCYTES % (AUTO) 21 % (12-44); MEAN CORPUSCULAR HEMOGLOBIN 30 PG (25-34); MEAN CORPUSCULAR HGB CONC 33 G/DL (32-36); MEAN CORPUSCULAR VOLUME 90 FL (80-99); MEAN PLATELET VOLUME 10.1 FL (7.4-10.4); MONOCYTES # (AUTO) 0.2 X 10^3 (0.0-1.0); MONOCYTES % (AUTO) 19 % (0-12); NEUTROPHILS # (AUTO) 0.5 X 10^3 (1.8-7.8); NEUTROPHILS % (AUTO) 55 % (42-75); PLATELET COUNT 117 10^3/uL (130-400); RED CELL DISTRIBUTION WIDTH 15.7 % (10.0-14.5)
[2019-05-26 03:44] LABS: WHITE BLOOD COUNT 0.9 10^3/uL (4.3-11.0)
[2019-05-26 04:15] LABS: ALBUMIN 2.3 GM/DL (3.2-4.5); BILIRUBIN,TOTAL 0.5 MG/DL (0.1-1.0); CALCIUM 7.4 MG/DL (8.5-10.1); CREATININE SERUM 1.29 MG/DL (0.60-1.30); MAGNESIUM 2.1 MG/DL (1.6-2.4); PHOSPHORUS 2.2 MG/DL (2.3-4.7); POTASSIUM 3.4 MMOL/L (3.6-5.0); TOTAL PROTEIN 4.3 GM/DL (6.4-8.2)
[2019-05-26] MEDS: MAGNESIUM 1 GM/100 ML IVPB 100 ML IV SCH (04:28)
[2019-05-26] MEDS: POTASSIUM CL 10MEQ/50ML IVPB 50 ML IV SCH ×8 (04:28→12:00)
[2019-05-26] MEDS: KCL 20 MEQ TAB (K-DUR) PO SCH (04:29)
[2019-05-26] MEDS: morphine ER 15 MG (MS CONTIN) TAB PO SCH ×2 (05:03→18:29)
[2019-05-26] MEDS: inSUlin ASPART (NovoLOG) 1 UNIT/0.01 ML (CHARGE PER UNIT) SC SCH ×4 (05:03→20:48)
--- NOTE | 2019-05-26 06:02 | Pulmonary Progress Note ---
Subjective Time Seen by a Provider: 06:02 Subjective/Events-last exam Pt is on RA, Surgery consulted for SBO. BP improved. Sepsis Event Evaluation Height, Weight, BMI Height: 5'3.50" Weight: 211lbs. 0.0oz. 95.256852sc; 25.38 BMI Method: Exam Exam Vital Signs Date Time Temp Pulse Resp B/P (MAP) Pulse Ox O2 Delivery O2 Flow Rate FiO2 05/26/19 04:00 94 Room Air 05/26/19 03:33 37.2 05/26/19 03:00 100 38 117/69 (85) 93 Room Air 05/26/19 02:00 104 22 131/65 (87) 87 Room Air 05/26/19 01:00 103 05/26/19 01:00 105 24 119/60 (79) 89 Room Air 05/26/19 00:00 107 41 127/79 (95) 88 Room Air 05/26/19 00:00 36.6 05/25/19 23:59 94 Room Air 05/25/19 23:00 101 122/61 (81) 92 Room Air 05/25/19 22:00 105 118/61 (80) 91 Room Air 05/25/19 21:00 106 112/58 (76) 93 Room Air 05/25/19 20:00 94 Room Air 05/25/19 20:00 105 22 122/64 (83) 91 Room Air 05/25/19 20:00 36.8 05/25/19 19:00 111 22 120/71 (87) 89 Room Air 05/25/19 19:00 107 05/25/19 17:00 111 22 129/81 (97) 97 Room Air 05/25/19 16:00 36.4 05/25/19 16:00 94 Room Air 05/25/19 16:00 112 17 135/75 (95) 95 Room Air 05/25/19 15:00 117 29 128/80 (96) 95 Room Air 05/25/19 14:00 34 139/75 (96) 91 Room Air 05/25/19 13:00 112 19 115/64 (81) 92 Room Air 05/25/19 12:59 112 05/25/19 12:00 95 Room Air 05/25/19 12:00 36.6 107 22 128/71 (90) 93 Room Air 05/25/19 11:00 117 23 Room Air 05/25/19 10:32 36.0 109 24 122/62 92 Room Air 05/25/19 10:00 106 116/57 (76) 96 Room Air 05/25/19 09:00 118/69 (85) 95 Room Air 05/25/19 08:36 36.1 111 22 128/62 93 Room Air 05/25/19 08:10 36.5 112 22 117/62 93 Room Air 05/25/19 08:00 115 40 117/62 (80) 96 Room Air 05/25/19 08:00 94 Room Air 05/25/19 07:00 36.6 05/25/19 07:00 107 22 119/58 (78) 95 Room Air 05/25/19 06:49 109 05/25/19 06:00 106 14 121/43 (69) 93 Room Air I & O 05/26/19 07:00 Intake Total 1350 ml Output Total 3875 ml Balance -2525 ml Height & Weight Height: 5'3.50" Weight: 211lbs. 0.0oz. 95.796787jv; 25.38 BMI Method: General Appearance: Anxious, Chronically ill HEENT: PERRL/EOMI, Pharynx Normal Neck: Normal Inspection, Supple Respiratory: Lungs Clear, Normal Breath Sounds, No Respiratory Distress Cardiovascular: Regular Rate, Rhythm, No Murmur Capillary Refill: Less Than 3 Seconds Peripheral Pulses: 2+ Dorsalis Pedis (R), 2+ Left Dors-Pedis (L), 2+ Radial Pulses (R), 2+ Radial Pulses (L) Gastrointestinal: distended; No guarding, No rebound; tenderness (aroundn midline, mass at midline palpable), mass (Mass located in the middle of the abdo men ) Extremity: Normal Inspection, Non Tender, Pedal Edema Neurologic/Psychiatric: Alert, No Motor/Sensory Deficits, Depressed Affect Skin: Warm/Dry, Pallor Lymphatic: No Adenopathy Results Lab Laboratory Tests 05/25/19 03:30 05/26/19 03:33 Assessment/Plan Assessment/Plan Sepsis -vanc, meropenem -MRSA swab is negative. Cultures are negative. Continue Merrem and D/C vanco. -BC no growth to date -IV fluids LR at 150 Hypotension- improved -Monitor Nausea and vomiting -Zofran Constipation -- with SBO -NG placed yesterday -Surgery consulted -NPO Acute kidney injury - Improving -Continue IV fluids Hyperkalemia -Now hypokalemic Pancytopenia - -WBC 0.5, hgb 7.5, PLT 105 -Received filgrastim yesterday Metastatic colon cancer -Oncology following -Consider palliative consult DVT Prophylaxis -PETR Perez DO May 26, 2019 06:02 POS
--- NOTE | 2019-05-26 07:07 | Physical Therapy Progress Note ---
Therapy Progress Note PT will require new orders to resume when patient is medically stable. KEYLA OJEDA PT May 26, 2019 07:07 POS
--- NOTE | 2019-05-26 07:47 | Diagnostic Imaging Report ---
Indication: NG tube placement Portable chest 12:21 AM There is NG tube that appears to enter the stomach. Right IJ Port-A-Cath tip projects over the SVC. Heart size and pulmonary vascularity are upper limits of normal. There is some atelectasis at the right lung base. There is no effusion or pneumothorax. IMPRESSION: Basilar atelectasis. There may be mild pulmonary venous hypertension. Dictated by: Dictated on workstation # [id number]
[2019-05-26] MEDS: DOCUSATE SODIUM 100 MG (COLACE) CAP PO SCH ×2 (09:00→20:11)
[2019-05-26] MEDS: LIDOCAINE 4% (SALONPAS) PATCH TOP SCH (09:00)
[2019-05-26] MEDS: LACTULOSE SYRUP 10GM/15ML (ENULOSE) 30ML UDC PO SCH ×2 (09:00→20:11)
[2019-05-26] MEDS: SENNOSIDES 8.6 MG (SENOKOT) TAB PO SCH ×2 (09:00→20:12)
[2019-05-26] MEDS: MEROPENEM 500 MG in WATER (STERILE) FOR INJECTION 10 ML IV SCH ×2 (09:59→20:11)
--- NOTE | 2019-05-26 12:04 | Progress Note - Hospitalist ---
Subjective HPI/CC On Admission Date Seen by Provider: May 26, 2019 Time Seen by Provider: 08:00 nausea and vomiting Subjective/Events-last exam She is not feeling well. She reports some abdominal discomfort. She has an NG tube in her nose. She has had a long hospital course. We discussed her situation including both her chronic and acute medical conditions. We addressed her code status and she said that she would think about it. Objective Exam Vital Signs Vital Signs Date Time Temp Pulse Resp B/P (MAP) Pulse Ox O2 Delivery O2 Flow Rate FiO2 05/26/19 11:00 96 15 105/82 (90) 92 Room Air 05/26/19 03:33 37.2 05/20/19 11:08 2.00 Capillary Refill : Less Than 3 Seconds General Appearance: No Apparent Distress, WD/WN HEENT: Other (NG tube in right nare) Respiratory: Lungs Clear, Normal Breath Sounds, No Respiratory Distress Cardiovascular: Regular Rate, Rhythm, No Edema, No Murmur Gastrointestinal: Normal Bowel Sounds, Soft; No Distended, No Guarding; Mass Extremity: Normal Inspection, Non Tender, Pedal Edema Neurologic/Psychiatric: Alert, Oriented x3 Skin: Warm/Dry, Pallor Results/Procedures Lab Laboratory Tests 05/26/19 03:33 Patient resulted labs reviewed. Imaging: Reviewed Imaging Report Assessment/Plan Assessment and Plan Assess & Plan/Chief Complaint Nausea and vomiting Partial small bowel obstruction -Surgery following -NG in place -NPO -Continue IV fluids SIRS, resolved -Infectious workup negative thus far -Stop vancomycin -Continue Merrem Severe protein-calorie malnutrition -Currently NPO -Needs to be readdressed once SBO resolved Hypophosphatemia Hyperkalemia -Monitor and replace electrolytes as needed Pancytopenia -Expected drop due to chemotherapy -Beginning to improve -Received G-CSF per Oncology Metastatic colon cancer Abdominal wall mass Goals of care discussion -Oncology consulted -Biopsy performed, adenocarcinoma consistent with colon primary -Palliative consulted Debility -PT/OT Diarrhea, resolved Hypotension, resolved Acute kidney injury, resolved Hypomagnesemia, resolved Hyperchloremic metabolic acidosis, resolved DVT Prophylaxis: Lovenox Diagnosis/Problems Diagnosis/Problems (1) Partial small bowel obstruction Status: Acute (2) Hypotension Status: Resolved Qualifiers: Hypotension type: postprocedural hypotension Qualified Codes: I95.81 - Postprocedural hypotension Resolution Date/Time: 05/25/19 @ 14:22 (3) SIRS (systemic inflammatory response syndrome) Status: Resolved Resolution Date/Time: 05/25/19 @ 14:22 (4) MARK (acute kidney injury) Status: Resolved Resolution Date/Time: 05/26/19 @ 12:10 (5) Nausea and vomiting Status: Resolved Qualifiers: Vomiting type: bilious vomiting Qualified Codes: R11.14 - Bilious vomiting Resolution Date/Time: 05/26/19 @ 12:10 (6) Colon cancer metastasized to multiple sites Status: Chronic (7) Hyperkalemia Status: Acute (8) Hyperchloremic metabolic acidosis Status: Resolved Resolution Date/Time: 05/26/19 @ 12:10 (9) Malnutrition Status: Acute Qualifiers: Malnutrition type: protein-calorie malnutrition Protein-calorie malnutrition severity: severe Qualified Codes: E43 - Unspecified severe protein-calorie malnutrition (10) Debility Status: Acute (11) Hypomagnesemia Status: Resolved Resolution Date/Time: 05/25/19 @ 14:23 (12) Hypophosphatemia Status: Acute Clinical Quality Measures DVT/VTE Risk/Contraindication: Risk Factor Score Per Nursin RFS Level Per Nursing on Admit: 4+=Very High SYLVIE GROSSMAN MD May 26, 2019 12:04 POS
--- NOTE | 2019-05-26 13:02 | Progress Note ---
Standard Progress Note Progress Notes/Assess & Plan Date Seen by a Provider: May 26, 2019 Time Seen by a Provider: 12:56 Progress/Assessment & Plan 79-year-old female with metastatic colon cancer to the anterior abdominal wall, bilateral lungs and liver. Actively receiving palliative chemotherapy prior to admission, with irinotecan given on 05/15/19. Admitted on 05/20/19 with nausea, vomiting and dehydration causing acute on chronic renal failure. She began to develop pancytopenia and severe neutropenia on day 2 of admission, about a week after having received single agent irinotecan. She complained of significant pain from the abdominal wall lesion and underwent CT-guided needle biopsy with preliminary pathology confirming metastatic carcinoma. Patient had hypotension with lethargy after biopsy on 05/24 and moved to ICU to r/o sepsis. She was started on G-CSF for neutropenia on admission to the ICU. Acute renal failure resolved with IVF, SIRS resolved and no evidence of infection. She was found to have evidence of SBO and NG tube was placed. Empiric antibiotics being tapered. Patient feels her nausea is better this AM with the NG tube but she still has severe weakness and lethargy. High output from NG tube, 3L yesterday and 800ml just this morning. Even before SBO, patient has had minimal PO intake since admission 6 days ago. Pancytopenia remains significant and grade IV neutropenia is only marginally improved after having received two dose of G-CSF 480 ug daily. Continue G-CSF but will have to re-evaluate our medication if there is no improvement by the end of the weekend. She received one unit PRBCs yesterday with suboptimal response today. Patient having continued evaluation for bowel obstruction by surgery. Although patient is unlikely to have iron, B12 or folate deficiency, her malnutrition is likely contributing to poor recovery of blood counts. Consideration for TPN probably needs to be addressed soon. Will continue to follow. ALANA BERRY MD May 26, 2019 13:02 POS
--- NOTE | 2019-05-26 13:18 | Progress Note - Surgery ---
[facility] 05/26/19 1318: Subjective Date Seen by a Provider: May 26, 2019 Time Seen by a Provider: 08:50 Subjective/Events-last exam Patient is alert and oriented and in no acute distress. Pt has decreased abdominal pain, and her nausea has gone away since starting the NG tube. NG tube is draining bile colored fluid and has drained >3L since initiating. Patient is unsure if she has passed gas yet but definitely feels the urge Mason Catheter is in place. Pt denies SOB, Chest pain, N/V and F/C. . Review of Systems General: No Chills; Fatigue HEENT: No Head Aches Pulmonary: No Dyspnea, No Cough Cardiovascular: No: Chest Pain, Palpitations Gastrointestinal: Abdominal Pain; No: Nausea, Vomiting Objective Exam Vital Signs Date Time Temp Pulse Resp B/P (MAP) Pulse Ox O2 Delivery O2 Flow Rate FiO2 05/26/19 13:00 93 18 118/56 (76) 92 Room Air 05/26/19 12:15 95 05/26/19 12:00 95 19 89/47 (61) 91 Room Air 05/26/19 12:00 36.2 05/26/19 11:00 96 15 105/82 (90) 92 Room Air 05/26/19 10:00 101 23 121/61 (81) 93 Room Air 05/26/19 09:00 101 30 116/56 (76) 94 Room Air 05/26/19 08:00 103 21 125/63 (83) 94 Room Air 05/26/19 07:00 97 05/26/19 07:00 96 18 116/56 (76) 90 Room Air 05/26/19 06:00 92 20 112/53 (72) 91 05/26/19 05:00 98 9 123/56 (78) 92 Room Air 05/26/19 04:00 93 17 109/57 (74) 90 Room Air 05/26/19 04:00 94 Room Air 05/26/19 03:33 37.2 05/26/19 03:00 100 38 117/69 (85) 93 Room Air 05/26/19 02:00 104 22 131/65 (87) 87 Room Air 05/26/19 01:00 103 05/26/19 01:00 105 24 119/60 (79) 89 Room Air 05/26/19 00:00 107 41 127/79 (95) 88 Room Air 05/26/19 00:00 36.6 05/25/19 23:59 94 Room Air 05/25/19 23:00 101 122/61 (81) 92 Room Air 05/25/19 22:00 105 118/61 (80) 91 Room Air 05/25/19 21:00 106 112/58 (76) 93 Room Air 05/25/19 20:00 94 Room Air 05/25/19 20:00 105 22 122/64 (83) 91 Room Air 05/25/19 20:00 36.8 05/25/19 19:00 111 22 120/71 (87) 89 Room Air 05/25/19 19:00 107 05/25/19 17:00 111 22 129/81 (97) 97 Room Air 05/25/19 16:00 36.4 05/25/19 16:00 94 Room Air 05/25/19 16:00 112 17 135/75 (95) 95 Room Air 05/25/19 15:00 117 29 128/80 (96) 95 Room Air 05/25/19 14:00 34 139/75 (96) 91 Room Air I & O 05/26/19 07:00 Intake Total 1350 ml Output Total 4465 ml Balance -3115 ml Capillary Refill : Less Than 3 Seconds General Appearance: No Apparent Distress, WD/WN HEENT: Other (NG tube in right nare) Neck: Normal Inspection, Supple Respiratory: Lungs Clear, Normal Breath Sounds, No Respiratory Distress Cardiovascular: Regular Rate, Rhythm, No Edema, No Murmur Peripheral Pulses: 2+ Dorsalis Pedis (R), 2+ Left Dors-Pedis (L), 2+ Radial Pulses (R), 2+ Radial Pulses (L) Gastrointestinal: distended; No guarding, No rebound; tenderness (aroundn midline, mass at midline palpable), mass (Mass located in the middle of the abdomen ) Extremity: Normal Inspection, Non Tender, Pedal Edema Neurologic/Psychiatric: Alert, Oriented x3 Skin: Warm/Dry, Pallor Lymphatic: No Adenopathy Results Lab Laboratory Tests 05/25/19 21:15: Troponin I < 0.028 05/26/19 01:30: Troponin I < 0.028, Vancomycin Level Trough 14.2 05/26/19 03:33: White Blood Count 0.9*L, Red Blood Count 2.69L, Hemoglobin 8.0L, Hematocrit 24L, Mean Corpuscular Volume 90, Mean Corpuscular Hemoglobin 30, Mean Corpuscular Hemoglobin Concent 33, Red Cell Distribution Width 15.7H, Platelet Count 117L, Mean Platelet Volume 10.1, Neutrophils (%) (Auto) 55, Lymphocytes (%) (Auto) 21, Monocytes (%) (Auto) 19H, Eosinophils (%) (Auto) 4, Basophils (%) (Auto) 0, Neutrophils # (Auto) 0.5L, Lymphocytes # (Auto) 0.2L, Monocytes # (Auto) 0.2, Eosinophils # (Auto) 0.0, Basophils # (Auto) 0.0, Sodium Level 143, Potassium Level 3.4L, Chloride Level 109H, Carbon Dioxide Level 23, Anion Gap 11, Blood Urea Nitrogen 23H, Creatinine 1.29, Estimat Glomerular Filtration Rate 40, BUN/Creatinine Ratio 18, Glucose Level 86, Calcium Level 7.4L, Corrected Calcium 8.8, Phosphorus Level 2.2L, Magnesium Level 2.1, Total Bilirubin 0.5, Aspartate Amino Transf (AST/SGOT) 8, Alanine Aminotransferase (ALT/SGPT) 7, Alkaline Phosphatase 65, Total Protein 4.3L, Albumin 2.3L 05/26/19 11:10: Troponin I < 0.028 Microbiology 05/23/19 Blood Culture - Preliminary, Resulted No growth 05/22/19 C. difficile GDH Antigen & Toxins - Final, Complete 05/24/19 MRSA Screen - Final, Complete MRSA not isolated 05/24/19 Urine Culture - Final, Complete 3 or more isolates Assessment/Plan Assessment/Plan Assessment/Plan partial small bowel obstruction, metastatic colon cancer/abdominal mass, t achycardic. MARK, pancytopenia - Continue NG tube draining to decompress the stomach - Patient is NPO - Plan small bowel follow through tomorrow. - continue to monitor I/Os Clinical Quality Measures DVT/VTE Risk/Contraindication: Risk Factor Score Per Nursin RFS Level Per Nursing on Admit: 4+=Very High NAT GARZON DO 05/26/19 8571: Subjective Subjective/Events-last exam Patient with ng tube. Abdomen feeling better. No flautus or bm. Greater than 3 L out of ng. Denies fever sweats chills shortness of breath or chest pain. Objective Exam General Appearance: No Apparent Distress (laying in bed), WD/WN HEENT: PERRL/EOMI Neck: Normal Inspection, Supple Respiratory: Chest Non Tender, No Accessory Muscle Use, No Respiratory Distress Cardiovascular: Regular Rate, Rhythm Gastrointestinal: distended, tenderness (around midline, mass at midline palpable) Extremity: Normal Inspection, Non Tender Neurologic/Psychiatric: Alert, Oriented x3, No Motor/Sensory Deficits Skin: Normal Color, Warm/Dry Lymphatic: No Adenopathy Assessment/Plan Assessment/Plan Assessment/Plan partial small bowel obstruction, metastatic colon cancer/abdominal mass, tachycardic. MARK, pancytopenia will plan continued use of ng to liws plan small bowel follow through tomorrow. Supervisory-Addendum Brief Verification & Attestation Participated in pt care: history, MDM, physical Personally performed: exam, history, MDM, supervision of care Care discussed with: Medical Student Procedures: n/a Results interpretation: Verified all documentation Verification and Attestation of Medical Student E/M Service A medical student performed and documented this service in my presence. I reviewed and verified all information documented by the medical student and made modifications to such information, when appropriate. I personally performed the physical exam and medical decision making. Nat Garzon, May 26, 2019,14:04 [facility] May 26, 2019 13:18 NAT GUZMAN DO May 26, 2019 14:04 POS
[2019-05-26] MEDS: HYDROmorphone 2 MG/ML VIAL (DILAUDID) IV PRN ×2 (14:12→20:09)
[2019-05-26] MEDS: TBO-FILGRASTIM 480 MCG/0.8 ML (GRANIX) SQ SCH (18:29)
[2019-05-26] MEDS: MIRTAZAPINE 15 MG (REMERON) TAB PO SCH (20:11)
[2019-05-26] MEDS: LIDOCAINE PATCH REMOVAL TP SCH (20:12)
[2019-05-26] MEDS: ENOXAPARIN 40 MG/0.4 ML (LOVENOX) SYR SC SCH (20:52)
[2019-05-27] VITALS (9 sets, daily range): BP systolic 115–134; BP diastolic 66–75
[2019-05-27] MEDS: LACTATED RINGERS 1,000 ML IV SCH (02:19)
[2019-05-27 03:37] LABS: BASOPHILS % (AUTO) 0 % (0-10); EOSINOPHILS # (AUTO) 0.1 10^3/uL (0.0-0.3); EOSINOPHILS % (AUTO) 3 % (0-10); HEMATOCRIT 27 % (35-52); HEMOGLOBIN 8.8 G/DL (11.5-16.0); LYMPHOCYTES # (AUTO) 0.3 X 10^3 (1.0-4.0); LYMPHOCYTES % (AUTO) 10 % (12-44); MEAN CORPUSCULAR HEMOGLOBIN 30 PG (25-34); MEAN CORPUSCULAR HGB CONC 33 G/DL (32-36); MEAN CORPUSCULAR VOLUME 92 FL (80-99); MEAN PLATELET VOLUME 10.4 FL (7.4-10.4); MONOCYTES # (AUTO) 0.2 X 10^3 (0.0-1.0); MONOCYTES % (AUTO) 10 % (0-12); NEUTROPHILS # (AUTO) 1.9 X 10^3 (1.8-7.8); NEUTROPHILS % (AUTO) 77 % (42-75); PLATELET COUNT 108 10^3/uL (130-400); RED CELL DISTRIBUTION WIDTH 15.6 % (10.0-14.5); WHITE BLOOD COUNT 2.4 10^3/uL (4.3-11.0)
[2019-05-27 03:53] LABS: ALANINE AMINOTRANSFERASE < 6 U/L (0-55); ALBUMIN 2.4 GM/DL (3.2-4.5); ALKALINE PHOSPHATASE 72 U/L (40-136); BILIRUBIN,TOTAL 0.4 MG/DL (0.1-1.0); BUN/CREATININE RATIO 18; CALCIUM 7.6 MG/DL (8.5-10.1); CARBON DIOXIDE 25 MMOL/L (21-32); CHLORIDE 107 MMOL/L (98-107); GFR ESTIMATED 43; GLUCOSE 73 MG/DL (70-105); MAGNESIUM 1.9 MG/DL (1.6-2.4); PHOSPHORUS 2.3 MG/DL (2.3-4.7); POTASSIUM 3.5 MMOL/L (3.6-5.0); SODIUM 147 MMOL/L (135-145); TOTAL PROTEIN 4.3 GM/DL (6.4-8.2)
[2019-05-27] MEDS ORDERED: KCL 20 MEQ TAB (K-DUR) PO ONE (04:00)
--- NOTE | 2019-05-27 04:00 | Pulmonary Progress Note ---
Subjective Time Seen by a Provider: 04:01 Sepsis Event Evaluation Height, Weight, BMI Height: 5'3.50" Weight: 211lbs. 0.0oz. 95.371905wb; 25.38 BMI Method: Exam Exam Vital Signs Date Time Temp Pulse Resp B/P (MAP) Pulse Ox O2 Delivery O2 Flow Rate FiO2 05/27/19 03:25 36.7 Nasal Cannula 2.00 05/27/19 03:25 97 Nasal Cannula 2.00 05/27/19 03:00 89 18 130/67 (88) 96 Nasal Cannula 2.00 05/27/19 02:00 96 18 134/75 (94) 94 Nasal Cannula 2.00 05/27/19 01:00 86 15 127/68 (87) 96 Nasal Cannula 2.00 05/27/19 01:00 88 05/27/19 00:00 107 16 115/71 (86) 96 Nasal Cannula 2.00 05/26/19 23:25 95 Nasal Cannula 2.00 05/26/19 23:25 36.5 Nasal Cannula 2.00 05/26/19 23:00 88 15 119/66 (83) 97 Nasal Cannula 2.00 05/26/19 22:00 89 15 123/73 (90) 96 Nasal Cannula 2.00 05/26/19 21:00 90 19 120/64 (82) 93 Nasal Cannula 2.00 05/26/19 20:51 87 Room Air 05/26/19 20:51 Nasal Cannula 2.00 05/26/19 20:00 96 17 119/65 (83) 92 Room Air 05/26/19 19:40 97 Room Air 05/26/19 19:30 37.0 Room Air 05/26/19 19:00 98 05/26/19 19:00 96 22 119/60 (79) 91 Room Air 05/26/19 18:00 93 18 115/60 (78) 91 Room Air 05/26/19 17:31 102 20 119/61 (80) 90 Room Air 05/26/19 16:00 94 Room Air 05/26/19 16:00 99 23 128/63 (84) 92 Room Air 05/26/19 15:00 99 21 116/66 (83) 90 Room Air 05/26/19 14:00 98 9 135/68 (90) 93 Room Air 05/26/19 13:00 93 18 118/56 (76) 92 Room Air 05/26/19 12:15 95 05/26/19 12:00 94 Room Air 05/26/19 12:00 95 19 89/47 (61) 91 Room Air 05/26/19 12:00 36.2 05/26/19 11:00 96 15 105/82 (90) 92 Room Air 05/26/19 10:00 101 23 121/61 (81) 93 Room Air 05/26/19 09:00 101 30 116/56 (76) 94 Room Air 05/26/19 08:00 103 21 125/63 (83) 94 Room Air 05/26/19 08:00 94 Room Air 05/26/19 07:00 97 05/26/19 07:00 96 18 116/56 (76) 90 Room Air 05/26/19 06:00 92 20 112/53 (72) 91 05/26/19 05:00 98 9 123/56 (78) 92 Room Air 05/26/19 04:00 93 17 109/57 (74) 90 Room Air 05/26/19 04:00 94 Room Air I & O 05/27/19 07:00 Intake Total 1310 ml Output Total 2685 ml Balance -1375 ml Height & Weight Height: 5'3.50" Weight: 211lbs. 0.0oz. 95.422172qz; 25.38 BMI Method: General Appearance: No Apparent Distress (laying in bed), WD/WN HEENT: PERRL/EOMI Neck: Normal Inspection, Supple Respiratory: Chest Non Tender, No Accessory Muscle Use, No Respiratory Distress Cardiovascular: Regular Rate, Rhythm Capillary Refill: Less Than 3 Seconds Peripheral Pulses: 2+ Dorsalis Pedis (R), 2+ Left Dors-Pedis (L), 2+ Radial Pulses (R), 2+ Radial Pulses (L) Gastrointestinal: distended, tenderness (around midline, mass at midline palpable) Extremity: Normal Inspection, Non Tender Neurologic/Psychiatric: Alert, Oriented x3, No Motor/Sensory Deficits Skin: Normal Color, Warm/Dry Lymphatic: No Adenopathy Results Lab Laboratory Tests 05/26/19 03:33 05/27/19 03:20 Assessment/Plan Assessment/Plan Sepsis -vanc, meropenem -MRSA swab is negative. Cultures are negative. Continue Merrem and D/C vanco. -BC no growth to date -IV fluids LR at 150 Hypotension- improved -Monitor Nausea and vomiting -Zofran Constipation -- with SBO -NG placed yesterday -Surgery consulted -NPO Acute kidney injury - Improving -Continue IV fluids Hyperkalemia -Now hypokalemic Pancytopenia - -WBC 0.5, hgb 7.5, PLT 105 -Received filgrastim yesterday Metastatic colon cancer -Oncology following -Consider palliative consult DVT Prophylaxis -PETR Perez DO May 27, 2019 04:00 POS
--- NOTE | 2019-05-27 04:11 | Pulmonary Progress Note ---
Subjective Time Seen by a Provider: 04:38 Subjective/Events-last exam PT is now having diarrhea. Sepsis Event Evaluation Height, Weight, BMI Height: 5'3.50" Weight: 211lbs. 0.0oz. 95.302402cl; 25.38 BMI Method: Exam Exam Vital Signs Date Time Temp Pulse Resp B/P (MAP) Pulse Ox O2 Delivery O2 Flow Rate FiO2 05/27/19 03:25 36.7 Nasal Cannula 2.00 05/27/19 03:25 97 Nasal Cannula 2.00 05/27/19 03:00 89 18 130/67 (88) 96 Nasal Cannula 2.00 05/27/19 02:00 96 18 134/75 (94) 94 Nasal Cannula 2.00 05/27/19 01:00 86 15 127/68 (87) 96 Nasal Cannula 2.00 05/27/19 01:00 88 05/27/19 00:00 107 16 115/71 (86) 96 Nasal Cannula 2.00 05/26/19 23:25 95 Nasal Cannula 2.00 05/26/19 23:25 36.5 Nasal Cannula 2.00 05/26/19 23:00 88 15 119/66 (83) 97 Nasal Cannula 2.00 05/26/19 22:00 89 15 123/73 (90) 96 Nasal Cannula 2.00 05/26/19 21:00 90 19 120/64 (82) 93 Nasal Cannula 2.00 05/26/19 20:51 87 Room Air 05/26/19 20:51 Nasal Cannula 2.00 05/26/19 20:00 96 17 119/65 (83) 92 Room Air 05/26/19 19:40 97 Room Air 05/26/19 19:30 37.0 Room Air 05/26/19 19:00 98 05/26/19 19:00 96 22 119/60 (79) 91 Room Air 05/26/19 18:00 93 18 115/60 (78) 91 Room Air 05/26/19 17:31 102 20 119/61 (80) 90 Room Air 05/26/19 16:00 94 Room Air 05/26/19 16:00 99 23 128/63 (84) 92 Room Air 05/26/19 15:00 99 21 116/66 (83) 90 Room Air 05/26/19 14:00 98 9 135/68 (90) 93 Room Air 05/26/19 13:00 93 18 118/56 (76) 92 Room Air 05/26/19 12:15 95 05/26/19 12:00 94 Room Air 05/26/19 12:00 95 19 89/47 (61) 91 Room Air 05/26/19 12:00 36.2 05/26/19 11:00 96 15 105/82 (90) 92 Room Air 05/26/19 10:00 101 23 121/61 (81) 93 Room Air 05/26/19 09:00 101 30 116/56 (76) 94 Room Air 05/26/19 08:00 103 21 125/63 (83) 94 Room Air 05/26/19 08:00 94 Room Air 05/26/19 07:00 97 05/26/19 07:00 96 18 116/56 (76) 90 Room Air 05/26/19 06:00 92 20 112/53 (72) 91 05/26/19 05:00 98 9 123/56 (78) 92 Room Air I & O 05/27/19 07:00 Intake Total 1310 ml Output Total 2685 ml Balance -1375 ml Height & Weight Height: 5'3.50" Weight: 211lbs. 0.0oz. 95.573383ys; 25.38 BMI Method: General Appearance: No Apparent Distress (laying in bed), WD/WN HEENT: PERRL/EOMI Neck: Normal Inspection, Supple Respiratory: Chest Non Tender, No Accessory Muscle Use, No Respiratory Distress Cardiovascular: Regular Rate, Rhythm Capillary Refill: Less Than 3 Seconds Peripheral Pulses: 2+ Dorsalis Pedis (R), 2+ Left Dors-Pedis (L), 2+ Radial Pulses (R), 2+ Radial Pulses (L) Gastrointestinal: distended, tenderness (around midline, mass at midline palpable) Extremity: Normal Inspection, Non Tender Neurologic/Psychiatric: Alert, Oriented x3, No Motor/Sensory Deficits Skin: Normal Color, Warm/Dry Lymphatic: No Adenopathy Results Lab Laboratory Tests 05/26/19 03:33 05/27/19 03:20 Assessment/Plan Assessment/Plan Sepsis- improving -meropenem -BC no growth to date Hypotension- improved -Monitor Hypernatremia with KCL -Change to D51/2 with 20meq of KCL Nausea and vomiting -Zofran Constipation -- with partial SBO -NG -Surgery consulted -NPO Acute kidney injury - Improving -Continue IV fluids hypokalemic -replace Pancytopenia - -oncology following Metastatic colon cancer -Oncology following DVT Prophylaxis -PETR Perez DO May 27, 2019 04:11 POS
[2019-05-27] MEDS: ONDANSETRON 4 MG/2 ML (SDV) Z0FRAN IV PRN ×2 (04:13→18:28)
[2019-05-27] MEDS ORDERED: POTASSIUM CL 10MEQ/50ML IVPB 100 ML IV ONE (04:33)
[2019-05-27] MEDS: D5 1/2 NS W/KCL 20 MEQ/L 1,000 ML IV SCH ×2 (04:37→14:26)
[2019-05-27] MEDS: inSUlin ASPART (NovoLOG) 1 UNIT/0.01 ML (CHARGE PER UNIT) SC SCH ×4 (04:37→21:13)
[2019-05-27] MEDS: POTASSIUM CL 10MEQ/50ML IVPB 50 ML IV SCH ×2 (04:41→04:42)
[2019-05-27] MEDS: morphine ER 15 MG (MS CONTIN) TAB PO SCH ×2 (05:09→18:20)
--- NOTE | 2019-05-27 07:22 | Diagnostic Imaging Report ---
INDICATION: Dyspnea. COMPARISON: 05/26/2019 FINDINGS: Single frontal radiographic view of the chest was obtained and demonstrates moderate cardiomegaly and perhaps mild pulmonary vascular congestion. There has been improved aeration of the right lower lung. Some residual airspace opacity persists. No large effusion or pneumothorax is seen on either side. Gastric tube is present with tip and side-port in the stomach. Right internal jugular Port-A-Cath is also noted with tip likely just below the cavoatrial junction. Osseous structures are stable. IMPRESSION: 1. Persistent cardiomegaly and pulmonary vascular congestion, but with mild improved aeration in the right lung base. 2. Lines and tubes as above. Dictated by: Dictated on workstation # [id number]
--- NOTE | 2019-05-27 07:50 | Progress Note - Surgery ---
[facility] 05/27/19 0750: Subjective Date Seen by a Provider: May 27, 2019 Time Seen by a Provider: 07:44 Subjective/Events-last exam Pt is alert and oriented in and in no acute distress. Family not at bedside. She is having diarrhea now and has Mason catheter in. Not able to sleep that well due to multiple incidence of diarrhea NG tube is still draining. Drained > 2L since yesterday Patient has abdominal pain on palpation Pt has SOB and chills, but denies N/V, fever and Chest pain Review of Systems General: Chills; No Night Sweats HEENT: No Head Aches, No Eye Pain Pulmonary: Dyspnea; No Cough, No Pleuritic Chest Pain Cardiovascular: No: Chest Pain, Palpitations Gastrointestinal: Abdominal Pain, Diarrhea; No: Nausea, Vomiting Objective Exam Vital Signs Date Time Temp Pulse Resp B/P (MAP) Pulse Ox O2 Delivery O2 Flow Rate FiO2 05/27/19 07:00 92 05/27/19 05:00 89 17 128/70 (89) 96 Nasal Cannula 2.00 05/27/19 04:00 92 19 118/69 (85) 96 Nasal Cannula 2.00 05/27/19 03:25 36.7 Nasal Cannula 2.00 05/27/19 03:25 97 Nasal Cannula 2.00 05/27/19 03:00 89 18 130/67 (88) 96 Nasal Cannula 2.00 05/27/19 02:00 96 18 134/75 (94) 94 Nasal Cannula 2.00 05/27/19 01:00 86 15 127/68 (87) 96 Nasal Cannula 2.00 05/27/19 01:00 88 05/27/19 00:00 107 16 115/71 (86) 96 Nasal Cannula 2.00 05/26/19 23:25 95 Nasal Cannula 2.00 05/26/19 23:25 36.5 Nasal Cannula 2.00 05/26/19 23:00 88 15 119/66 (83) 97 Nasal Cannula 2.00 05/26/19 22:00 89 15 123/73 (90) 96 Nasal Cannula 2.00 05/26/19 21:00 90 19 120/64 (82) 93 Nasal Cannula 2.00 05/26/19 20:51 87 Room Air 05/26/19 20:51 Nasal Cannula 2.00 05/26/19 20:00 96 17 119/65 (83) 92 Room Air 05/26/19 19:40 97 Room Air 05/26/19 19:30 37.0 Room Air 05/26/19 19:00 98 05/26/19 19:00 96 22 119/60 (79) 91 Room Air 05/26/19 18:00 93 18 115/60 (78) 91 Room Air 05/26/19 17:31 102 20 119/61 (80) 90 Room Air 05/26/19 16:00 94 Room Air 05/26/19 16:00 99 23 128/63 (84) 92 Room Air 05/26/19 15:00 99 21 116/66 (83) 90 Room Air 05/26/19 14:00 98 9 135/68 (90) 93 Room Air 05/26/19 13:00 93 18 118/56 (76) 92 Room Air 05/26/19 12:15 95 05/26/19 12:00 94 Room Air 05/26/19 12:00 95 19 89/47 (61) 91 Room Air 05/26/19 12:00 36.2 05/26/19 11:00 96 15 105/82 (90) 92 Room Air 05/26/19 10:00 101 23 121/61 (81) 93 Room Air 05/26/19 09:00 101 30 116/56 (76) 94 Room Air 05/26/19 08:00 103 21 125/63 (83) 94 Room Air 05/26/19 08:00 94 Room Air I & O 05/27/19 07:00 Intake Total 1610 ml Output Total 3430 ml Balance -1820 ml Capillary Refill : Less Than 3 Seconds General Appearance: Anxious, Chronically ill HEENT: PERRL/EOMI, Pharynx Normal Neck: Normal Inspection, Supple Respiratory: Lungs Clear, No Accessory Muscle Use, No Respiratory Distress Cardiovascular: Regular Rate, Rhythm, No Murmur Peripheral Pulses: 2+ Dorsalis Pedis (R), 2+ Left Dors-Pedis (L), 2+ Radial Pulses (R), 2+ Radial Pulses (L) Gastrointestinal: distended; No guarding, No rebound; tenderness (aroundn midline, mass at midline palpable), mass (Mass located in the middle of the abdomen ) Extremity: Normal Inspection, Non Tender, Pedal Edema Neurologic/Psychiatric: Alert, No Motor/Sensory Deficits, Depressed Affect Skin: Warm/Dry, Pallor Lymphatic: No Adenopathy Results Lab Laboratory Tests 05/26/19 11:10: Troponin I < 0.028 05/27/19 03:20: White Blood Count 2.4L, Red Blood Count 2.96L, Hemoglobin 8.8L, Hematocrit 27L, Mean Corpuscular Volume 92, Mean Corpuscular Hemoglobin 30, Mean Corpuscular Hemoglobin Concent 33, Red Cell Distribution Width 15.6H, Platelet Count 108L, Mean Platelet Volume 10.4, Neutrophils (%) (Auto) 77H, Lymphocytes (%) (Auto) 10L, Monocytes (%) (Auto) 10, Eosinophils (%) (Auto) 3, Basophils (%) (Auto) 0, Neutrophils # (Auto) 1.9, Lymphocytes # (Auto) 0.3L, Monocytes # (Auto) 0.2, Eosinophils # (Auto) 0.1, Basophils # (Auto) 0.0, Sodium Level 147H, Potassium Level 3.5L, Chloride Level 107, Carbon Dioxide Level 25, Anion Gap 15H, Blood Urea Nitrogen 22H, Creatinine 1.20, Estimat Glomerular Filtration Rate 43, BUN/Creatinine Ratio 18, Glucose Level 73, Calcium Level 7.6L, Corrected Calcium 8.9, Phosphorus Level 2.3, Magnesium Level 1.9, Total Bilirubin 0.4, Aspartate Amino Transf (AST/SGOT) 6, Alanine Aminotransferase (ALT/SGPT) < 6, Alkaline Phosphatase 72, Total Protein 4.3L, Albumin 2.4L Microbiology 05/23/19 Blood Culture - Preliminary, Resulted No growth 05/22/19 C. difficile GDH Antigen & Toxins - Final, Complete 05/24/19 MRSA Screen - Final, Complete MRSA not isolated 05/24/19 Urine Culture - Final, Complete 3 or more isolates Assessment/Plan Assessment/Plan Assessment/Plan partial small bowel obstruction, metastatic colon cancer/abdominal mass, tachycardic. MARK, pancytopenia - the plan is to perform small bowel follow through - D/C lactulose while pt is having diarrhea - Consider stool culture/ toxin testing if diarrhea continues. Clinical Quality Measures DVT/VTE Risk/Contraindication: Risk Factor Score Per Nursin RFS Level Per Nursing on Admit: 4+=Very High NAT GARZON DO 05/27/192025: Subjective Subjective/Events-last exam Having diarrhea and passing flatus. Abdomen feeling better, and only minimal pain in abdomen. Wanting food. Small bowel follow through demonstrating prominent loops of small bowel but no obstruction. Not having any nausea. Denies fever sweats chills shortness of breath or chest pain. Objective Exam General Appearance: No Apparent Distress, Chronically ill HEENT: PERRL/EOMI Neck: Normal Inspection Respiratory: Chest Non Tender, No Accessory Muscle Use, No Respiratory Distress, Accessory Muscle Use Gastrointestinal: non tender, soft, mass (Mass located in the middle of the abdomen ) Extremity: Normal Inspection Neurologic/Psychiatric: Alert, Oriented x3, No Motor/Sensory Deficits, Dep ressed Affect Skin: Warm/Dry Lymphatic: No Adenopathy Assessment/Plan Assessment/Plan Assessment/Plan partial small bowel obstruction, metastatic colon cancer/abdominal mass, tachycardic. MARK, pancytopenia small bowel follow through demonstrating no obstruction and now passing flatus and some bm will pull ng and start with clears, advance as tolerates Supervisory-Addendum Brief Verification & Attestation Participated in pt care: history, MDM, physical Personally performed: exam, history, MDM, supervision of care Care discussed with: Medical Student Procedures: n/a Results interpretation: Verified all documentation Verification and Attestation of Medical Student E/M Service A medical student performed and documented this service in my presence. I rev iewed and verified all information documented by the medical student and made modifications to such information, when appropriate. I personally performed the physical exam and medical decision making. Nat Garzon, May 27, 2019,20:25 [facility] May 27, 2019 07:50 NAT GUZMAN DO May 27, 2019 20:26 POS
[2019-05-27] MEDS: LACTULOSE SYRUP 10GM/15ML (ENULOSE) 30ML UDC PO SCH ×2 (09:00→21:25)
[2019-05-27] MEDS: LIDOCAINE 4% (SALONPAS) PATCH TOP SCH (09:00)
[2019-05-27] MEDS: SENNOSIDES 8.6 MG (SENOKOT) TAB PO SCH ×2 (09:00→21:26)
[2019-05-27] MEDS: DOCUSATE SODIUM 100 MG (COLACE) CAP PO SCH ×2 (09:00→21:25)
[2019-05-27] MEDS ORDERED: DIATRIZOATE MEGLUM/SODIUM 37% 120 ML (GASTROGRAFIN) NG ONE (09:30)
[2019-05-27] MEDS: MEROPENEM 500 MG in WATER (STERILE) FOR INJECTION 10 ML IV SCH ×2 (09:35→21:13)
--- NOTE | 2019-05-27 12:55 | Progress Note - Hospitalist ---
Subjective HPI/CC On Admission Date Seen by Provider: May 27, 2019 Time Seen by Provider: 08:30 nausea and vomiting Subjective/Events-last exam She was sleeping upon my arrival. She reports having some diarrhea. She denies fevers, chest pain, dyspnea, abdominal pain. Objective Exam Vital Signs Vital Signs Date Time Temp Pulse Resp B/P (MAP) Pulse Ox O2 Delivery O2 Flow Rate FiO2 05/27/19 08:00 97 Nasal Cannula 2.00 05/27/19 08:00 86 17 120/66 (84) 05/27/19 03:25 36.7 Capillary Refill : Less Than 3 Seconds General Appearance: No Apparent Distress, Chronically ill HEENT: PERRL/EOMI, Pharynx Normal, Other (NG tube in place) Respiratory: Lungs Clear, Normal Breath Sounds, No Respiratory Distress Cardiovascular: Regular Rate, Rhythm, No Murmur Gastrointestinal: Normal Bowel Sounds, Soft, Tenderness Extremity: Normal Inspection, Pedal Edema Neurologic/Psychiatric: Alert, No Motor/Sensory Deficits, Depressed Affect Skin: Normal Color, Warm/Dry Results/Procedures Lab Laboratory Tests 05/27/19 03:20 Patient resulted labs reviewed. Assessment/Plan Assessment and Plan Assess & Plan/Chief Complaint Nausea and vomiting Partial small bowel obstruction -Surgery following -NG in place -NPO -Continue IV fluids SIRS, resolved -Infectious workup negative thus far -Continue Merrem, will stop tomorrow if no source of infection Severe protein-calorie malnutrition -Currently NPO -Needs to be readdressed once SBO resolved Pancytopenia -Expected drop due to chemotherapy -Beginning to improve -Received G-CSF per Oncology Metastatic colon cancer Abdominal wall mass Goals of care discussion -Oncology consulted -Undergoing outpatient chemotherapy -Biopsy performed, adenocarcinoma consistent with colon primary -Palliative consulted Debility -PT/OT Diarrhea, resolved Hypotension, resolved Acute kidney injury, resolved Hypomagnesemia, resolved Hyperchloremic metabolic acidosis, resolved Hypophosphatemia, resolved Hyperkalemia, resolved DVT Prophylaxis: Lovenox Diagnosis/Problems Diagnosis/Problems (1) Partial small bowel obstruction Status: Acute (2) Hypotension Status: Resolved Qualifiers: Hypotension type: postprocedural hypotension Qualified Codes: I95.81 - Postprocedural hypotension Resolution Date/Time: 05/25/19 @ 14:22 (3) SIRS (systemic inflammatory response syndrome) Status: Resolved Resolution Date/Time: 05/25/19 @ 14:22 (4) MARK (acute kidney injury) Status: Resolved Resolution Date/Time: 05/26/19 @ 12:10 (5) Nausea and vomiting Status: Resolved Qualifiers: Vomiting type: bilious vomiting Qualified Codes: R11.14 - Bilious vomiting Resolution Date/Time: 05/26/19 @ 12:10 (6) Colon cancer metastasized to multiple sites Status: Chronic (7) Hyperkalemia Status: Resolved Resolution Date/Time: 05/27/19 @ 12:54 (8) Hyperchloremic metabolic acidosis Status: Resolved Resolution Date/Time: 05/26/19 @ 12:10 (9) Malnutrition Status: Acute Qualifiers: Malnutrition type: protein-calorie malnutrition Protein-calorie malnutrition severity: severe Qualified Codes: E43 - Unspecified severe protein-calorie malnutrition (10) Debility Status: Acute (11) Hypomagnesemia Status: Resolved Resolution Date/Time: 05/25/19 @ 14:23 (12) Hypophosphatemia Status: Resolved Resolution Date/Time: 05/27/19 @ 12:54 Clinical Quality Measures DVT/VTE Risk/Contraindication: Risk Factor Score Per Nursin RFS Level Per Nursing on Admit: 4+=Very High SYLVIE GROSSMAN MD May 27, 2019 12:54 POS
--- NOTE | 2019-05-27 13:02 | Progress Note ---
Standard Progress Note Progress Notes/Assess & Plan Date Seen by a Provider: May 27, 2019 Time Seen by a Provider: 12:56 Progress/Assessment & Plan 79-year-old female with metastatic colon cancer to the anterior abdominal wall, bilateral lungs and liver. Actively receiving palliative chemotherapy prior to admission, with irinotecan given on 05/15/19. Admitted on 05/20/19 with nausea, vomiting and dehydration causing acute on chronic renal failure. She began to develop pancytopenia and severe neutropenia on day 2 of admission, about a week after having received single agent irinotecan. She complained of significant pain from the abdominal wall lesion and underwent CT-guided needle biopsy with preliminary pathology confirming metastatic carcinoma. Patient had hypotension with lethargy after biopsy on 05/24 and moved to ICU to r/o sepsis. She was started on G-CSF for neutropenia on admission to the ICU. Acute renal failure resolved with IVF, SIRS resolved and no evidence of infection. She was found to have evidence of SBO and NG tube was placed. Empiric antibiotics being tapered. Patient had significant diarrhea throughout the night and this morning. Output from NG tube, 2L yesterday. She is starting to have some very mild food cravings. Pain is still controlled on current opiate regimen. Neutropenia improved after having received three doses of G-CSF 480 ug daily. Continue G- CSF. Small bowel follow through pending but distension is improved and preliminarily looks like no obstruction. Hopefully patient will be able to start PO diet soon. She has some pretty significant acute hypoproteinemia. Dr. Seth will be back on service tomorrow. ALANA BERRY MD May 27, 2019 13:02 POS
--- NOTE | 2019-05-27 13:53 | Diagnostic Imaging Report ---
REASON FOR EXAM: Partial small bowel obstruction. TIME OF EXAM: 05/27/2019 1:49 PM COMPARISON: None TECHNIQUE: Serial abdominal radiographs of the abdomen were obtained following oral administration of contrast. FINDINGS: The manager planning film demonstrates multiple dilated loops of small bowel. An NG tube is seen at the stomach. Small bowel follow-through was carried out for 3 hours, at which point contrast is seen at the rectum. Transit time is normal. No obstruction is seen. IMPRESSION: 1. Prominent loops of small bowel without obstruction seen. Transit time is normal. Dictated by: Dictated on workstation # [id number]
[2019-05-27] MEDS: TBO-FILGRASTIM 480 MCG/0.8 ML (GRANIX) SQ SCH (18:24)
[2019-05-27] MEDS ORDERED: MEROPENEM 500 MG VIAL (MERREM) IV ONE (21:06)
[2019-05-27] MEDS ORDERED: WATER (STERILE) FOR INJECTION 10 ML ONE (21:06)
[2019-05-27] MEDS: ENOXAPARIN 40 MG/0.4 ML (LOVENOX) SYR SC SCH (21:13)
[2019-05-27] MEDS: HYDROmorphone 2 MG/ML VIAL (DILAUDID) IV PRN (21:15)
[2019-05-27] MEDS: MIRTAZAPINE 15 MG (REMERON) TAB PO SCH (21:28)
[2019-05-27] MEDS: LIDOCAINE PATCH REMOVAL TP SCH (21:32)
[2019-05-28] VITALS: BP 105/58
[2019-05-28] MEDS: D5 1/2 NS W/KCL 20 MEQ/L 1,000 ML IV SCH ×2 (00:33→20:30)
[2019-05-28 04:00] VITALS: BP 127/67
[2019-05-28] MEDS: ONDANSETRON 4 MG/2 ML (SDV) Z0FRAN IV PRN ×2 (05:08→13:40)
[2019-05-28] MEDS: inSUlin ASPART (NovoLOG) 1 UNIT/0.01 ML (CHARGE PER UNIT) SC SCH ×4 (05:14→21:02)
[2019-05-28 05:29] LABS: BASOPHILS % (AUTO) 0 % (0-10); EOSINOPHILS # (AUTO) 0.1 10^3/uL (0.0-0.3); EOSINOPHILS % (AUTO) 2 % (0-10); HEMATOCRIT 28 % (35-52); LYMPHOCYTES # (AUTO) 0.5 X 10^3 (1.0-4.0); LYMPHOCYTES % (AUTO) 9 % (12-44); MEAN CORPUSCULAR HEMOGLOBIN 29 PG (25-34); MEAN CORPUSCULAR HGB CONC 32 G/DL (32-36); MEAN CORPUSCULAR VOLUME 93 FL (80-99); MEAN PLATELET VOLUME 10.3 FL (7.4-10.4); MONOCYTES # (AUTO) 0.5 X 10^3 (0.0-1.0); MONOCYTES % (AUTO) 9 % (0-12); NEUTROPHILS # (AUTO) 4.9 X 10^3 (1.8-7.8); NEUTROPHILS % (AUTO) 81 % (42-75); PLATELET COUNT 103 10^3/uL (130-400); RED CELL DISTRIBUTION WIDTH 15.4 % (10.0-14.5); WHITE BLOOD COUNT 6.1 10^3/uL (4.3-11.0)
[2019-05-28 05:57] LABS: ALBUMIN 2.4 GM/DL (3.2-4.5); BILIRUBIN,TOTAL 0.4 MG/DL (0.1-1.0); CALCIUM 7.3 MG/DL (8.5-10.1); CREATININE SERUM 1.1 MG/DL (0.60-1.30); MAGNESIUM 1.8 MG/DL (1.6-2.4); PHOSPHORUS 1.3 MG/DL (2.3-4.7); POTASSIUM 3.3 MMOL/L (3.6-5.0); TOTAL PROTEIN 4.3 GM/DL (6.4-8.2)
[2019-05-28] MEDS: HYDROmorphone 2 MG/ML VIAL (DILAUDID) IV PRN (06:07)
[2019-05-28] MEDS: morphine ER 15 MG (MS CONTIN) TAB PO SCH ×2 (06:12→17:28)
--- NOTE | 2019-05-28 07:50 | Progress Note - Surgery ---
[facility] 05/28/19 0750: Subjective Date Seen by a Provider: May 28, 2019 Time Seen by a Provider: 07:45 Subjective/Events-last exam Pt is alert and oriented and in no acute distress, no family at bedside Pt still has a little abdominal tenderness NG tube was removed. Has had spells of Nausea but medication has helped. No vomiting Pt is still having diarrhea and passing flatus Mason catheter in place She states she is feeling better and has the urge to eat more solid foods tolerating clear diet SOB when speaking, denies chest pain and F/C Objective Exam Vital Signs Date Time Temp Pulse Resp B/P (MAP) Pulse Ox O2 Delivery O2 Flow Rate FiO2 05/28/19 04:00 36.4 95 16 127/67 (87) 96 Room Air 05/28/19 00:00 36.4 85 18 105/58 (74) 96 Room Air 05/27/19 20:52 36.6 95 20 122/71 (88) 90 Room Air 05/27/19 20:00 Nasal Cannula 2.00 05/27/19 16:36 36.9 98 20 123/68 (86) 92 Room Air 05/27/19 08:00 97 Nasal Cannula 2.00 05/27/19 08:00 86 17 120/66 (84) 96 Nasal Cannula 2.00 I & O 05/28/19 07:00 Intake Total 1480 ml Output Total 1050 ml Balance 430 ml Capillary Refill : Less Than 3 Seconds General Appearance: No Apparent Distress, Chronically ill HEENT: PERRL/EOMI Neck: Normal Inspection Respiratory: Chest Non Tender, No Accessory Muscle Use, No Respiratory Distress Cardiovascular: Regular Rate, Rhythm, No Murmur Peripheral Pulses: 2+ Dorsalis Pedis (R), 2+ Left Dors-Pedis (L), 2+ Radial Pulses (R), 2+ Radial Pulses (L) Gastrointestinal: soft; No guarding, No rebound; tenderness (Mild tenderness wiht palpation ), mass (Mass located in the middle of the abdomen ) Extremity: Normal Inspection Neurologic/Psychiatric: Alert, Oriented x3, No Motor/Sensory Deficits, Depressed Affect Skin: Warm/Dry Lymphatic: No Adenopathy Results Lab Laboratory Tests 05/27/19 16:54: Glucometer 166H 05/27/19 20:41: Glucometer 197H 05/28/19 05:00: White Blood Count 6.1, Red Blood Count 3.06L, Hemoglobin 9.0L, Hematocrit 28L, Mean Corpuscular Volume 93, Mean Corpuscular Hemoglobin 29, Mean Corpuscular Hemoglobin Concent 32, Red Cell Distribution Width 15.4H, Platelet Count 103L, Mean Platelet Volume 10.3, Neutrophils (%) (Auto) 81H, Lymphocytes (%) (Auto) 9L , Monocytes (%) (Auto) 9, Eosinophils (%) (Auto) 2, Basophils (%) (Auto) 0, Neutrophils # (Auto) 4.9, Lymphocytes # (Auto) 0.5L, Monocytes # (Auto) 0.5, Eosinophils # (Auto) 0.1, Basophils # (Auto) 0.0, Sodium Level 143, Potassium Level 3.3L, Chloride Level 108H, Carbon Dioxide Level 27, Anion Gap 8, Blood Urea Nitrogen 17, Creatinine 1.10, Estimat Glomerular Filtration Rate 48, BUN/Creatinine Ratio 15, Glucose Level 135H, Calcium Level 7.3L, Corrected Calcium 8.6, Phosphorus Level 1.3L, Magnesium Level 1.8, Total Bilirubin 0.4, Aspartate Amino Transf (AST/SGOT) 7, Alanine Aminotransferase (ALT/SGPT) 6, Alkaline Phosphatase 80, Total Protein 4.3L, Albumin 2.4L 05/28/19 05:10: Glucometer 131H Microbiology 05/23/19 Blood Culture - Preliminary, Resulted No growth 05/22/19 C. difficile GDH Antigen & Toxins - Final, Complete 05/24/19 MRSA Screen - Final, Complete MRSA not isolated 05/24/19 Urine Culture - Final, Complete 3 or more isolates Assessment/Plan Assessment/Plan Assessment/Plan partial small bowel obstruction, metastatic colon cancer/abdominal mass, tachycardic. MARK, pancytopenia - advance as tolerated for diet - have patient working with PT - will follow Clinical Quality Measures DVT/VTE Risk/Contraindication: Risk Factor Score Per Nursin RFS Level Per Nursing on Admit: 4+=Very High ELEAZAR GARZON DO 05/28/192055: Subjective Subjective/Events-last exam tolerating clears. minimal nausea with clears but does resolve with zofran. Patient wanting food. Abdominal tenderness at mass in abdominal wall. Passing flatus. Denies fever sweats chills shortness of breath or chest pain. Objective Exam General Appearance: No Apparent Distress HEENT: PERRL/EOMI Neck: Normal Inspection Respiratory: Chest Non Tender, No Accessory Muscle Use Gastrointestinal: soft, tenderness (Mild tenderness wiht palpation midline at mass), mass (Mass located in the middle of the abdomen ) Extremity: Normal Inspection Neurologic/Psychiatric: Alert, Oriented x3, No Motor/Sensory Deficits, Depressed Affect Skin: Warm/Dry Lymphatic: No Adenopathy Assessment/Plan Assessment/Plan Assessment/Plan psbo resolved metastatic colon cancer/abdominal wall mass pancytopenia mark advance diet as tolerates small bowel follow through made through no surgical intervention will follow Supervisory-Addendum Brief Verification & Attestation Participated in pt care: history, MDM, physical Personally performed: exam, history, MDM, supervision of care Care discussed with: Medical Student Procedures: n/a Results interpretation: Verified all documentation Verification and Attestation of Medical Student E/M Service A medical student performed and documented this service in my presence. I reviewed and verified all information documented by the medical student and made modifications to such information, when appropriate. I personally performed the physical exam and medical decision making. Eleazar Garzon, May 28, 2019,20:56 [facility] May 28, 2019 07:50 ELEAZAR GUZMAN DO May 28, 2019 20:56 POS
[2019-05-28 08:00] VITALS: BP 121/70
--- NOTE | 2019-05-28 08:50 | Pulmonary Progress Note ---
Subjective Date Seen by a Provider: May 28, 2019 Time Seen by a Provider: 08:50 Subjective/Events-last exam Pt states feeling better, is able to walk to the bathroom with assistance. Pt had NG tube removed, and had episodes of diarrhea yesterday. Pt diet has been advanced as tolerated by surgery. WBC is 6.1 and Hgb 9 now. Pt had transfusion of 1 unit pRBC on 05/25 Sepsis Event Evaluation Height, Weight, BMI Height: 5'3.50" Weight: 211lbs. 0.0oz. 95.983636qq; 25.38 BMI Method: Exam Exam Vital Signs Date Time Temp Pulse Resp B/P (MAP) Pulse Ox O2 Delivery O2 Flow Rate FiO2 05/28/19 04:00 36.4 95 16 127/67 (87) 96 Room Air 05/28/19 00:00 36.4 85 18 105/58 (74) 96 Room Air 05/27/19 20:52 36.6 95 20 122/71 (88) 90 Room Air 05/27/19 20:00 Nasal Cannula 2.00 05/27/19 16:36 36.9 98 20 123/68 (86) 92 Room Air I & O 05/28/19 07:00 Intake Total 1480 ml Output Total 1050 ml Balance 430 ml Height & Weight Height: 5'3.50" Weight: 211lbs. 0.0oz. 95.573818yn; 25.38 BMI Method: General Appearance: No Apparent Distress, Chronically ill HEENT: PERRL/EOMI Neck: Normal Inspection Respiratory: Chest Non Tender, Lungs Clear, Normal Breath Sounds, No Accessory Muscle Use, No Respiratory Distress Cardiovascular: Regular Rate, Rhythm, No Murmur Capillary Refill: Less Than 3 Seconds Peripheral Pulses: 2+ Dorsalis Pedis (R), 2+ Left Dors-Pedis (L), 2+ Radial Pulses (R), 2+ Radial Pulses (L) Gastrointestinal: soft; No guarding, No rebound; tenderness (Mild tenderness wiht palpation ), mass (Mass located in the middle of the abdomen ) Extremity: Normal Inspection Neurologic/Psychiatric: Alert, Oriented x3, No Motor/Sensory Deficits, Depressed Affect Skin: Warm/Dry Lymphatic: No Adenopathy Results Lab Laboratory Tests 05/27/19 03:20 05/28/19 05:00 Assessment/Plan Assessment/Plan Sepsis- improving -meropenem -BC no growth to date Hypotension- improved -Monitor Hypernatremia with KCL -Change to D51/2 with 20meq of KCL Nausea and vomiting -Zofran Constipation -- resolved -NG removed -Surgery following -advance diet as tolerated Acute kidney injury - Improving -Continue IV fluids hypokalemic -replace -20mEq Kcl in D51/2NS Pancytopenia - improving -oncology following -on FIlgastin -WBC now 6.1 Metastatic colon cancer -Oncology following DVT Prophylaxis -EMILEE Sotelo MEDICAL STUDENT May 28, 2019 08:50 POS
[2019-05-28] MEDS ORDERED: MEROPENEM 500 MG VIAL (MERREM) IV ONE (08:58)
[2019-05-28] MEDS ORDERED: WATER (STERILE) FOR INJECTION 10 ML ONE (08:58)
[2019-05-28] MEDS: MEROPENEM 500 MG in WATER (STERILE) FOR INJECTION 10 ML IV SCH (09:02)
[2019-05-28] MEDS: DOCUSATE SODIUM 100 MG (COLACE) CAP PO SCH ×2 (09:08→20:43)
[2019-05-28] MEDS: SENNOSIDES 8.6 MG (SENOKOT) TAB PO SCH ×2 (09:09→20:44)
[2019-05-28] MEDS: LACTULOSE SYRUP 10GM/15ML (ENULOSE) 30ML UDC PO SCH ×2 (09:09→20:43)
[2019-05-28] MEDS: LIDOCAINE 4% (SALONPAS) PATCH TOP SCH (09:09)
[2019-05-28 12:00] VITALS: BP 117/71
--- NOTE | 2019-05-28 13:56 | Occ Therapy Progress Note ---
Therapy Progress Note OT order received, chart reviewed. Pt. up in chair when OT came into room. Pt. had meal in front of her, but had bucket of vomit as well. Pt. states that she hasn't been up for very long, and was anxious to eat. States that she ate too fast and threw it up. Pt. declines therapy at this time, but would like to stay up in chair. Pt. requests medication for upset stomach. Notified nursing and all needs met in room. Will attempt back in a.m. 1, visit [id number] AMPARO ROTHMAN OT May 28, 2019 13:56 POS
--- NOTE | 2019-05-28 13:59 | Physical Therapy Evaluation ---
PT Evaluation-General Medical Diagnosis Admission Date May 20, 2019 at 13:09 Medical Diagnosis: acute kidney inury Onset Date: May 28, 2019 Therapy Diagnosis Therapy Diagnosis: weakness Height/Weight Height (Feet): 5 Height (Inches): 3.50 Weight (Pounds): 211 Weight (Ounces): 0.0 Precautions Precautions/Isolations: Fall Prevention, Standard Precautions Weight Bear Status Right Lower Extremity: Right Weight Bearing/Tolerated Left Lower Extremity: Left Weight Bearing/Tolerated Referral Physician: Heath Reason for Referral: Evaluation/Treatment Medical History Pertinent Medical History: HTN Current History Patient had transferred to ICU and has returned to medical floor. Reviewed History: Yes Social History Home: Single Level Current Living Status: Spouse Entry Into Home: Stairs With Railing PT Steps Into Home: 4 PT Steps Inside Home: 0 Prior Prior Level of Function SCALE: Activities may be completed with or without assistive devices. 5-Dvnyghosjw-zjbgfkw completes the activity by him/herself with no assistance from a helper. 5-Set-up or Clean-up Assistance-helper sets up or cleans up; patient completes activity. [place] assists only prior to or following the activity. 4-Supervision or Touching Assistance-helper provides verbal cues and/or touching/steadying and/or contact guard assistance as patient completes activity. Assistance may be provided throughout the activity or intermittently. 3-Partial/Moderate Assistance-helper does LESS THAN HALF the effort. [place] lifts, holds or supports trunk or limbs, but provides less than half the effort. 2-Substantial/Maximal Assistance-helper does MORE THAN HALF the effort. [place] lifts or holds trunk or limbs and provides more than half the effort. 8-Fkgjvkvjt-rvhbug does ALL the effort. Patient does none of the effort to complete the activity. Or, the assistance of 2 or more helpers is required for the patient to complete the activity. If activity was not attempted, code reason: 7-Patient Refused. 9-Not Applicable-not attempted and the patient did not perform the activity before the current illness, exacerbation or injury. 10-Not Attempted due to Environmental Limitations-(lack of equipment, weather restraints, etc.). 88-Not Attempted due to Medical Conditions or Safety Concerns. Bed Mobility: 6 Transfers (B,C,W/C): 6 Gait: 6 Stairs: 6 Indoor Mobility (Ambulation): Independent Stairs: Independent Prior Devices Use: None PT Evaluation-Current Subjective Patient agrees to PT and transfer to chair. Patient reports no pain other than general stomach discomfort. Pain Numeric Pain Scale: 0-No Pain Location: No Pain Reported Objective Patient Orientation: Normal For Age Problem Solving: Fair Attachments: Mason Catheter, IV ROM/Strength ROM Lower Extremities WFL Strength Lower Extremities Grossly 3/5 Integumentary/Posture Integumentary See nursing notes Bowel Incontinence: No Bladder Incontinence: Mason Cath Posture WFL; leaned over d/t stomach discomfort Neuromuscular (Tone, Coordination, Reflexes) Grossly intact Sensory Vision: Functional Hearing: Functional Hand Dominance: Right Transfers Roll Left to Right (QC): 4 Lying to Sitting/Side of Bed(Q: 4 Sit to Stand (QC): 4 Chair/Exw-av-Wuvkq Xfer(QC): 4 SBA, some cues required for bed mobility Gait Does the Patient Walk?: Yes Mode of Locomotion: Walk Anticipated Mode of Locomotion: Walk Distance: 5' Gait Assistive Device: FWW Balance Sitting Static: Normal Sitting Dynamic: Normal Standing Static: Normal Standing Dynamic: Normal Assessment/Needs Patient able to perform bed mobility SBA with some cues to help sit up in bed. Patient stood and transferred to [facility]. Then transferred to chair min assist, ambulating about 5' with FWW. Patient in recliner with feet elevated at conclusion of treatment. Rehab Potential: Fair PT Care Home Goals Care Home Goals PT Care Home Goals Time Frame: Jun 09, 2019 Sit to Lying (QC): 6 Lying-Sitting on Side/Bed(QC): 6 Sit to Stand (QC): 6 Roll Left to Right (QC): 6 Chair/Jwc-ux-Xvjsk Xfer(QC): 6 Car Transfer (QC): 6 Does the Patient Walk: Yes Distance: 200' Walk 10 feet (QC): 6 Walk 10ft-Uneven Surface(QC): 6 Walk 50ft with 2 Turns (QC): 6 Walk 150 ft (QC): 6 PT Plan Problem List Problem List: Activity Tolerance, Functional Strength, Safety, Balance, Gait, Transfer, Bed Mobility Treatment/Plan Treatment Plan: Continue Plan of Care Treatment Plan: Bed Mobility, Education, Functional Activity Maira, Functional Strength, Gait, Safety, Therapeutic Exercise, Transfers Treatment Duration: Jun 09, 2019 Frequency: 6 times per week Estimated Hrs Per Day: .25 hour per day Patient and/or Family Agrees t: Yes Time/GCodes Time In: 1245 Time Out: 1304 Total Billed Treatment Time: 19 Total [facility]JED[facility] PT May 28, 2019 13:59 POS
--- NOTE | 2019-05-28 14:46 | Progress Note - Hospitalist ---
Subjective HPI/CC On Admission Date Seen by Provider: May 28, 2019 Time Seen by Provider: 14:41 nausea and vomiting Subjective/Events-last exam Pt reports feeling better today. Planning to take a nap but agrees to work with PT later today. Objective Exam Vital Signs Vital Signs Date Time Temp Pulse Resp B/P (MAP) Pulse Ox O2 Delivery O2 Flow Rate FiO2 05/28/19 12:00 36.7 95 20 117/71 (86) 94 Room Air 05/28/19 08:00 2.00 Capillary Refill : Less Than 3 Seconds General Appearance: No Apparent Distress, WD/WN Respiratory: Lungs Clear, No Respiratory Distress Cardiovascular: Regular Rate, Rhythm, No Murmur Neurologic/Psychiatric: Alert, Oriented x3, Normal Mood/Affect Results/Procedures Lab Laboratory Tests 05/28/19 05:00 Patient resulted labs reviewed. Assessment/Plan Assessment and Plan Assess & Plan/Chief Complaint Nausea and vomiting Partial small bowel obstruction -Surgery following -Continue IV fluids SIRS, resolved -Infectious workup negative thus far -DC abx Severe protein-calorie malnutrition -CLD, nutrition consult- appreciate recs - Ensure Clear TID added Pancytopenia -Improving, no longer leukopenic -Received G-CSF per Oncology Metastatic colon cancer Abdominal wall mass Goals of care discussion -Oncology consulted -Undergoing outpatient chemotherapy -Biopsy performed, metastatic adenocarcinoma consistent with colon primary -Palliative consulted Debility -PT/OT - Social Work consulted, appreciate assistance - Will likely need placement for rehab DVT Prophylaxis: Lovenox Clinical Quality Measures DVT/VTE Risk/Contraindication: Risk Factor Score Per Nursin RFS Level Per Nursing on Admit: 4+=Very High JUWAN TORRES MD May 28, 2019 14:46 POS
[2019-05-28 16:00] VITALS: BP 114/60
[2019-05-28] MEDS ORDERED: MEROPENEM 500 MG in WATER (STERILE) FOR INJECTION 10 ML IV SCH (16:00)
--- NOTE | 2019-05-28 17:06 | Progress Note ---
Standard Progress Note Progress Notes/Assess & Plan Date Seen by a Provider: May 28, 2019 Time Seen by a Provider: 17:02 Progress/Assessment & Plan 79-year-old female with metastatic colon cancer to the abdominal wall and on palliative chemotherapy. Admitted with nausea, vomiting and dehydration causing acute on chronic renal failure. This is back to baseline with hydration. She complained of significant pain from the abdominal wall lesion and underwent CT- guided needle biopsy with preliminary pathology confirming metastatic carcinoma. NextGen sequencing pending. Patient had hypotension with lethargy and moved to ICU to r/o sepsis. Patient had pancytopenia and is on G-CSF with improvement in WBC and ANC count. Continue until WBC more than 10,000 and stop G-CSF. Patient continues to have nausea and occasional vomiting with poor oral intake. She was on NG suction until yesterday with small bowel follow through showing no evidence of obstruction. Started on clear liquids today and is tolerating and shoulder clear fairly. Had 1 episode of vomiting after eating watermelon. Bowels are working. We will add Reglan 5 mg before meals and at bedtime as an antiemetic and prokinetic agent. Will DC when necessary Phenergan. Continue PT/OT for strengthening and ambulation. SAMANTHA SHANKS May 28, 2019 17:06 POS
[2019-05-28] MEDS: TBO-FILGRASTIM 480 MCG/0.8 ML (GRANIX) SQ SCH (17:28)
[2019-05-28 20:00] VITALS: BP 113/57
[2019-05-28] MEDS: METOCLOPRAMIDE 5 MG (REGLAN) TAB PO SCH (20:43)
[2019-05-28] MEDS: MIRTAZAPINE 15 MG (REMERON) TAB PO SCH (20:44)
[2019-05-28] MEDS: ENOXAPARIN 40 MG/0.4 ML (LOVENOX) SYR SC SCH (21:08)
[2019-05-28] MEDS: LIDOCAINE PATCH REMOVAL TP SCH (21:27)
[2019-05-29] VITALS: BP 136/65
[2019-05-29 04:40] VITALS: BP 112/62
[2019-05-29 05:09] LABS: BASOPHILS % (AUTO) 0 % (0-10); EOSINOPHILS # (AUTO) 0.1 10^3/uL (0.0-0.3); EOSINOPHILS % (AUTO) 1 % (0-10); HEMATOCRIT 29 % (35-52); HEMOGLOBIN 9.3 G/DL (11.5-16.0); LYMPHOCYTES # (AUTO) 0.7 X 10^3 (1.0-4.0); LYMPHOCYTES % (AUTO) 11 % (12-44); MEAN CORPUSCULAR HEMOGLOBIN 30 PG (25-34); MEAN CORPUSCULAR HGB CONC 32 G/DL (32-36); MEAN CORPUSCULAR VOLUME 93 FL (80-99); MEAN PLATELET VOLUME 10.6 FL (7.4-10.4); MONOCYTES # (AUTO) 0.5 X 10^3 (0.0-1.0); MONOCYTES % (AUTO) 7 % (0-12); NEUTROPHILS # (AUTO) 5.2 X 10^3 (1.8-7.8); NEUTROPHILS % (AUTO) 81 % (42-75); PLATELET COUNT 101 10^3/uL (130-400); WHITE BLOOD COUNT 6.4 10^3/uL (4.3-11.0)
[2019-05-29] MEDS: ONDANSETRON 4 MG/2 ML (SDV) Z0FRAN IV PRN (05:11)
[2019-05-29] MEDS: D5 1/2 NS W/KCL 20 MEQ/L 1,000 ML IV SCH ×2 (05:12→17:58)
[2019-05-29] MEDS: HYDROmorphone 2 MG/ML VIAL (DILAUDID) IV PRN (05:20)
[2019-05-29 05:31] LABS: ALBUMIN 2.4 GM/DL (3.2-4.5); BILIRUBIN,TOTAL 0.5 MG/DL (0.1-1.0); CREATININE SERUM 1.09 MG/DL (0.60-1.30); MAGNESIUM 1.5 MG/DL (1.6-2.4); POTASSIUM 3.8 MMOL/L (3.6-5.0); TOTAL PROTEIN 4.2 GM/DL (6.4-8.2)
[2019-05-29] MEDS: morphine ER 15 MG (MS CONTIN) TAB PO SCH ×2 (05:33→17:59)
[2019-05-29] MEDS: METOCLOPRAMIDE 5 MG (REGLAN) TAB PO SCH ×5 (05:34→20:05)
[2019-05-29] MEDS: inSUlin ASPART (NovoLOG) 1 UNIT/0.01 ML (CHARGE PER UNIT) SC SCH ×4 (05:34→21:44)
[2019-05-29 05:50] LABS: PHOSPHORUS 0.9 MG/DL (2.3-4.7)
[2019-05-29] MEDS ORDERED: SODIUM PHOSPHATE INJ 15 MM in D5W 100 ML IVPB 100 ML IV ONE (07:30)
--- NOTE | 2019-05-29 07:52 | Pulmonary Progress Note ---
EMILEE BANSAL A MEDICAL STUDENT 05/29/19 0751: Subjective Date Seen by a Provider: May 29, 2019 Time Seen by a Provider: 07:48 Subjective/Events-last exam Pt has no complaints at this time. Pt states yesterday she tried to eat some watermelon and had an episode of emesis. Pt denies any SOB, cough, fever, chills , CP. Sepsis Event Evaluation Height, Weight, BMI Height: 5'3.50" Weight: 211lbs. 0.0oz. 95.077759nt; 25.38 BMI Method: Exam Exam Vital Signs Date Time Temp Pulse Resp B/P (MAP) Pulse Ox O2 Delivery O2 Flow Rate FiO2 05/29/19 04:40 36.8 93 18 112/62 (79) 94 Room Air 05/29/19 00:00 36.7 95 20 136/65 (88) 92 Room Air 05/28/19 20:00 Nasal Cannula 2.00 05/28/19 20:00 36.7 101 20 113/57 (75) 96 Room Air 05/28/19 16:00 37.0 96 20 114/60 (78) 96 Room Air 05/28/19 12:00 36.7 95 20 117/71 (86) 94 Room Air 05/28/19 08:00 36.6 90 18 121/70 (87) 96 Room Air 05/28/19 08:00 Nasal Cannula 2.00 I & O 05/29/19 07:00 Intake Total 2650 ml Output Total 1200 ml Balance 1450 ml Height & Weight Height: 5'3.50" Weight: 211lbs. 0.0oz. 95.191171yt; 25.38 BMI Method: General Appearance: No Apparent Distress HEENT: PERRL/EOMI Neck: Normal Inspection Respiratory: Chest Non Tender, Lungs Clear, Normal Breath Sounds, No Accessory Muscle Use Cardiovascular: Regular Rate, Rhythm, No Murmur Capillary Refill: Less Than 3 Seconds Peripheral Pulses: 2+ Dorsalis Pedis (R), 2+ Left Dors-Pedis (L), 2+ Radial Pulses (R), 2+ Radial Pulses (L) Gastrointestinal: soft, tenderness (Mild tenderness wiht palpation midline at mass), mass (Mass located in the middle of the abdomen ) Extremity: Normal Inspection Neurologic/Psychiatric: Alert, Oriented x3, No Motor/Sensory Deficits, Depressed Affect Skin: Warm/Dry Lymphatic: No Adenopathy Results Lab Laboratory Tests 05/28/19 05:00 05/29/19 04:55 Assessment/Plan Assessment/Plan Sepsis- resolved -D/C meropenem -BC no growth to date Hypotension- improved -continue to Monitor Hypernatremia -continue D51/2 with 20meq of KCL Nausea and vomiting -Zofran -Phenergan Acute kidney injury - Improving -Continue IV fluids hypokalemia -replace -20mEq Kcl in D51/2NS Hypophosphatemia -replace Pancytopenia - improving -oncology following -on FIlgastin -WBC now 6.1 Metastatic colon cancer -Oncology following DVT Prophylaxis -Lovenox PETR STALEY DO 05/29/19 1552: Subjective Subjective/Events-last exam No complications noted. Exam Exam General Appearance: No Apparent Distress HEENT: PERRL/EOMI Neck: Normal Inspection Respiratory: Chest Non Tender, Lungs Clear, Normal Breath Sounds, No Accessory Muscle Use Cardiovascular: Regular Rate, Rhythm, No Murmur Capillary Refill: Less Than 3 Seconds Gastrointestinal: soft, tenderness (Mild tenderness wiht palpation midline at mass) Extremity: Normal Inspection Neurologic/Psychiatric: Alert, Oriented x3, No Motor/Sensory Deficits, Depressed Affect Skin: Warm/Dry Lymphatic: No Adenopathy Assessment/Plan Assessment/Plan Sepsis- resolved -D/C meropenem -BC no growth to date Hypotension- improved -continue to Monitor Hypernatremia -continue D51/2 with 20meq of KCL Nausea and vomiting -Zofran -Phenergan Acute kidney injury - Improving -Continue IV fluids Pancytopenia - improving -oncology following -on FIlgastin -WBC now 6.1 Metastatic colon cancer -Oncology following DVT Prophylaxis -Lovenox PT appears to be doing well from pulmonary standpoint. I am going to sign off please call with any questions. EMILEE BANSAL MEDICAL STUDENT May 29, 2019 07:51 PETR WEBER DO May 29, 2019 15:52 POS
[2019-05-29 08:00] VITALS: BP 118/65
[2019-05-29] MEDS: SENNOSIDES 8.6 MG (SENOKOT) TAB PO SCH (09:29)
[2019-05-29] MEDS: LIDOCAINE 4% (SALONPAS) PATCH TOP SCH (09:30)
[2019-05-29] MEDS ORDERED: SENNOSIDES 8.6 MG (SENOKOT) TAB PO PRN (10:45)
--- NOTE | 2019-05-29 10:47 | Progress Note - Hospitalist ---
Subjective HPI/CC On Admission Date Seen by Provider: May 29, 2019 Time Seen by Provider: 10:40 nausea and vomiting Subjective/Events-last exam Pt reports being up and walking more today but is now very tired. No specific complaints. Objective Exam Vital Signs Vital Signs Date Time Temp Pulse Resp B/P (MAP) Pulse Ox O2 Delivery O2 Flow Rate FiO2 05/29/19 08:00 36.2 96 20 118/65 (82) 94 Room Air 05/29/19 08:00 2.00 Capillary Refill : Less Than 3 Seconds General Appearance: No Apparent Distress, WD/WN Respiratory: Lungs Clear, No Respiratory Distress Cardiovascular: Regular Rate, Rhythm, No Murmur Gastrointestinal: Normal Bowel Sounds, Soft, Distended; No Guarding, No Rebound Extremity: No Calf Tenderness, No Pedal Edema Neurologic/Psychiatric: Alert, Oriented x3, Depressed Affect Results/Procedures Lab Laboratory Tests 05/29/19 04:55 Patient resulted labs reviewed. Assessment/Plan Assessment and Plan Assess & Plan/Chief Complaint Nausea and vomiting Partial small bowel obstruction- resolved -Surgery following -Continue IV fluids -SBFT done yesterday and SBO resolved SIRS, resolved -Infectious workup negative thus far -DC abx -Neutropenia resolved Severe protein-calorie malnutrition -CLD, nutrition consult- appreciate recs -Ensure Clear TID added Pancytopenia- resolved -Improving, no longer leukopenic -Received G-CSF per Oncology Metastatic colon cancer Abdominal wall mass Goals of care discussion -Oncology consulted -Undergoing outpatient chemotherapy -Biopsy performed, metastatic adenocarcinoma consistent with colon primary -Palliative consulted Debility -PT/OT - Social Work consulted, appreciate assistance - Will likely need placement for rehab DVT Prophylaxis: Lovenox Clinical Quality Measures DVT/VTE Risk/Contraindication: Risk Factor Score Per Nursin RFS Level Per Nursing on Admit: 4+=Very High JUWAN TORRES MD May 29, 2019 10:46 POS
--- NOTE | 2019-05-29 11:10 | Progress Note - Surgery ---
[facility] 05/29/19 1109: Subjective Date Seen by a Provider: May 29, 2019 Time Seen by a Provider: 06:50 Subjective/Events-last exam Pt is alert and oriented and in no acute distress. No family at bedside She is feeling a little nausea and vomited a little foamy mucus earlier today. She has not been eating much but wants to try today. She has abdominal pain which is unchanged Pt is having diarrhea still and has a wu catheter in place Objective Exam Vital Signs Date Time Temp Pulse Resp B/P (MAP) Pulse Ox O2 Delivery O2 Flow Rate FiO2 05/29/19 08:00 36.2 96 20 118/65 (82) 94 Room Air 05/29/19 08:00 Nasal Cannula 2.00 05/29/19 04:40 36.8 93 18 112/62 (79) 94 Room Air 05/29/19 00:00 36.7 95 20 136/65 (88) 92 Room Air 05/28/19 20:00 Nasal Cannula 2.00 05/28/19 20:00 36.7 101 20 113/57 (75) 96 Room Air 05/28/19 16:00 37.0 96 20 114/60 (78) 96 Room Air 05/28/19 12:00 36.7 95 20 117/71 (86) 94 Room Air I & O 05/29/19 07:00 Intake Total 2650 ml Output Total 1200 ml Balance 1450 ml Capillary Refill : Less Than 3 Seconds General Appearance: No Apparent Distress, WD/WN HEENT: PERRL/EOMI Neck: Normal Inspection Respiratory: Lungs Clear, No Respiratory Distress Cardiovascular: Regular Rate, Rhythm, No Murmur Peripheral Pulses: 2+ Dorsalis Pedis (R), 2+ Left Dors-Pedis (L), 2+ Radial Pulses (R), 2+ Radial Pulses (L) Gastrointestinal: soft, tenderness, mass Extremity: No Calf Tenderness, No Pedal Edema Neurologic/Psychiatric: Alert, Oriented x3, Depressed Affect Skin: Warm/Dry Lymphatic: No Adenopathy Results Lab Laboratory Tests 05/28/19 11:35: Glucometer 162H 05/28/19 16:02: Glucometer 177H 05/28/19 16:15: Lab Scanned Report Transfusion Reaction Form 05/28/19 20:59: Glucometer 178H 05/29/19 04:55: White Blood Count 6.4, Red Blood Count 3.10L, Hemoglobin 9.3L, Hematocrit 29L, Mean Corpuscular Volume 93, Mean Corpuscular Hemoglobin 30, Mean Corpuscular Hemoglobin Concent 32, Red Cell Distribution Width 15.0H, Platelet Count 101L, Mean Platelet Volume 10.6H, Neutrophils (%) (Auto) 81H, Lymphocytes (%) (Auto) 11L, Monocytes (%) (Auto) 7, Eosinophils (%) (Auto) 1, Basophils (%) (Auto) 0, Neutrophils # (Auto) 5.2, Lymphocytes # (Auto) 0.7L, Monocytes # (Auto) 0.5, Eosinophils # (Auto) 0.1, Basophils # (Auto) 0.0, Sodium Level 141, Potassium Level 3.8, Chloride Level 108H, Carbon Dioxide Level 24, Anion Gap 9, Blood Urea Nitrogen 14, Creatinine 1.09, Estimat Glomerular Filtration Rate 48, BUN/Creatinine Ratio 13, Glucose Level 129H, Calcium Level 7.0L, Corrected Calcium 8.3L, Phosphorus Level 0.9*L, Magnesium Level 1.5L, Total Bilirubin 0.5, Aspartate Amino Transf (AST/SGOT) 13, Alanine Aminotransferase (ALT/SGPT) 8, Alkaline Phosphatase 88, Total Protein 4.2L, Albumin 2.4L 05/29/19 06:01: Glucometer 140H Microbiology 05/23/19 Blood Culture - Preliminary, Resulted No growth 05/22/19 C. difficile GDH Antigen & Toxins - Final, Complete 05/24/19 MRSA Screen - Final, Complete MRSA not isolated 05/24/19 Urine Culture - Final, Complete 3 or more isolates Assessment/Plan Assessment/Plan Assessment/Plan psbo resolved metastatic colon cancer/abdominal wall mass pancytopenia meenu - patient will try to eat a little more today. If continues to feel N/V may revise diet status - have patient up and moving around - continue medical management Clinical Quality Measures DVT/VTE Risk/Contraindication: Risk Factor Score Per Nursin RFS Level Per Nursing on Admit: 4+=Very High NAT GARZON DO 05/29/19 3994: Subjective Subjective/Events-last exam still with nausea and minimal emesis. Tolerating liquids better today. passing flatus and bm. still with abdominal pain around umbilicus at mass patient some diarrhea small bowel follow through demonstrating no obstruction. Objective Exam General Appearance: No Apparent Distress, WD/WN HEENT: PERRL/EOMI Neck: Normal Inspection Respiratory: Chest Non Tender, No Accessory Muscle Use, No Respiratory Distress Cardiovascular: Regular Rate, Rhythm Gastrointestinal: soft, tenderness (at mass) Extremity: No Calf Tenderness Neurologic/Psychiatric: Alert, Oriented x3, Depressed Affect Skin: Warm/Dry Lymphatic: No Adenopathy Assessment/Plan Assessment/Plan Assessment/Plan psbo resolved metastatic colon cancer/abdominal wall mass pancytopenia meenu diet as tolerates, back on clears currently will follow Supervisory-Addendum Brief Verification & Attestation Participated in pt care: history, MDM, physical Personally performed: exam, history, MDM, supervision of care Care discussed with: Medical Student Procedures: n/a Results interpretation: Verified all documentation Verification and Attestation of Medical Student E/M Service A medical student performed and documented this service in my presence. I reviewed and verified all information documented by the medical student and made modifications to such information, when appropriate. I personally performed the physical exam and medical decision making. Nat Garzon, May 29, 2019,23:25 [facility] May 29, 2019 11:09 NAT GUZMAN DO May 29, 2019 23:25 POS
--- NOTE | 2019-05-29 11:12 | Physical Therapy Daily Note ---
PT Daily Note-Current Subjective Patient agrees to PT. Patient is in bed and would like to return to bed at conclusion of treatment. States she is feeling very weak and tired today. Pain Numeric Pain Scale: 3 Location Body Site: Abdomen Pain Description: Ache Mental Status Patient Orientation: Normal For Age Attachments: Mason Catheter, IV Transfers SCALE: Activities may be completed with or without assistive devices. 4-Nofbuulmkd-yfaogat completes the activity by him/herself with no assistance from a helper. 5-Set-up or Clean-up Assistance-helper sets up or cleans up; patient completes activity. [place] assists only prior to or following the activity. 4-Supervision or Touching Assistance-helper provides verbal cues and/or touching/steadying and/or contact guard assistance as patient completes activity. Assistance may be provided throughout the activity or intermittently. 3-Partial/Moderate Assistance-helper does LESS THAN HALF the effort. [place] lifts, holds or supports trunk or limbs, but provides less than half the effort. 2-Substantial/Maximal Assistance-helper does MORE THAN HALF the effort. [place] lifts or holds trunk or limbs and provides more than half the effort. 4-Jbnlfexuh-uwuhjl does ALL the effort. Patient does none of the effort to complete the activity. Or, the assistance of 2 or more helpers is required for the patient to complete the activity. If activity was not attempted, code reason: 7-Patient Refused. 9-Not Applicable-not attempted and the patient did not perform the activity before the current illness, exacerbation or injury. 10-Not Attempted due to Environmental Limitations-(lack of equipment, weather restraints, etc.). 88-Not Attempted due to Medical Conditions or Safety Concerns. Roll Left & Right (QC): 4 Sit to Lying (QC): 4 Lying to Sitting/Side of Bed(Q: 4 Sit to Stand (QC): 4 SBA bed mobility, Edward STS, required cues for bed mobility Weight Bearing Right Lower Extremity: Right Weight Bearing/Tolerated Left Lower Extremity: Left Weight Bearing/Tolerated Gait Training Does the Patient Walk?: Yes Distance: 20' Walk 10 feet (QC): 4 Gait Assistive Device: FWW CGA, self limiting distance, forward lean over walker Assessment Patient performed bed mobility with minimal assistance, requiring cues for hand placement to roll to side and assistance to scoot to EOB. Patient required min assist to stand from EOB with FWW. Patient ambulated 20' within room with FWW and CGA but did not want to ambulate outside of the room. Patient returned to bed at conclusion of treatment and required assistance to raise legs into bed. PT Skilled Nursing Goals Skilled Nursing Goals PT Skilled Nursing Goals Time Frame: Jun 09, 2019 Roll Left & Right (QC): 6 Sit to Lying (QC): 6 Lying-Sitting on Side/Bed(QC): 6 Sit to Stand (QC): 6 Chair/Ouv-mi-Bnmyi Xfer(QC): 6 Toilet Transfer (QC): 4 Car Transfer (QC): 6 Does the Patient Walk: Yes Walk 10 feet (QC): 6 Walk 50ft with 2 Turns (QC): 6 Walk 150 ft (QC): 6 Walking 10ft on Uneven Surface: 6 1 Step (curb) (QC): 6 4 Steps (QC): 6 12 Steps (QC): 9 Picking up an Object (QC): 6 Does the Pt use WC or Scooter?: No Type: N/A Type: N/A PT Plan Treatment/Plan Treatment Plan: Continue Plan of Care Treatment Plan: Bed Mobility, Education, Functional Activity Maira, Functional Strength, Gait, Safety, Therapeutic Exercise, Transfers Treatment Duration: Jun 09, 2019 Frequency: 6 times per week Estimated Hrs Per Day: .25 hour per day Patient and/or Family Agrees t: Yes Time/GCodes Time In: 1014 Time Out: 1024 Total Billed Treatment Time: 10 Total Billed Treatment 1 visit GT 10min KEYLA OJEDA PT May 29, 2019 11:12 POS
[2019-05-29 12:00] VITALS: BP 112/72
--- NOTE | 2019-05-29 14:06 | Occupational Therapy Eval ---
OT Evaluation-General/PLF Medical Diagnosis Admission Date May 20, 2019 at 13:09 Medical Diagnosis: acute kidney inury Onset Date: May 28, 2019 Therapy Diagnosis Therapy Diagnosis: decreased self care skills Height/Weight Height (Feet): 5 Height (Inches): 3.50 Weight (Pounds): 211 Weight (Ounces): 0.0 Precautions Precautions/Isolations: Standard Precautions Safety Interventions: None Referral Physician: Heath Referral Reason: Activity Tolerance, Self Care, Evaluation/Treatment, Strengthening/ROM Medical History Pertinent Medical History: HTN Additional Medical History hiatal hernia, colon cancer with mets to lung and liver Social History Home: Single Level Current Living Status: Spouse Entry Into Home: Stairs With Railing Steps Into Home: 4 Steps Inside Home: 0 ADL-Prior Level of Function SCALE: Activities may be completed with or without assistive devices. 1-Ncjnzaxncj-rahokqb completes the activity by him/herself with no assistance from a helper. 5-Set-up or Clean-up Assistance-helper sets up or cleans up; patient completes activity. [place] assists only prior to or following the activity. 4-Supervision or Touching Assistance-helper provides verbal cues and/or touching/steadying and/or contact guard assistance as patient completes activity. Assistance may be provided throughout the activity or intermittently. 3-Partial/Moderate Assistance-helper does LESS THAN HALF the effort. [place] lifts, holds or supports trunk or limbs, but provides less than half the effort. 2-Substantial/Maximal Assistance-helper does MORE THAN HALF the effort. [place] lifts or holds trunk or limbs and provides more than half the effort. 8-Pcjpidjpv-kwcgdh does ALL the effort. Patient does none of the effort to complete the activity. Or, the assistance of 2 or more helpers is required for the patient to complete the activity. If activity was not attempted, code reason: 7-Patient Refused. 9-Not Applicable-not attempted and the patient did not perform the activity before the current illness, exacerbation or injury. 10-Not Attempted due to Environmental Limitations-(lack of equipment, weather restraints, etc.). 88-Not Attempted due to Medical Conditions or Safety Concerns. ADL PLOF Comments Pt reports limited activity prior to admission secondary to fatigue and discomfort. Pt reports spending most of her time in the chair. Self Care: Independent Functional Cognition: Independent DME/Equipment: Grab Bars, Tub/Shower OT Current Status Subjective Pt in bed, reports fatigue. Agrees to bed level activity only. Pt reports 7/10 abdominal pain. Mental Status/Objective Patient Orientation: Person, Place Attachments: Mason Catheter, IV Current Glasses/Contacts: Yes Hearing Aids: No Dentures/Partials: No Hand Dominance: Right Upper Extremity ROM Grossly WFL Upper Extremity Coordination Intact Upper Extremity Strength Decreased bilaterally ADL-Treatment ADL-Current Pt in bed, has just finished eating. Pt able to feed self without assist. Pt participated in UE assessment while in bed. Pt declined OOB activity at this t shaheen secondary to pain and fatigue. Pt requests washcloth. Pt able to bring washcloth to face without assist. Pt declined other activity. Education provided regarding role of OT and plan of care. Pt states understanding. Pt resting in bed with needs met after session. Eating (QC): 6 Oral Hygiene (QC): 7 Shower/Bathe Self (QC): 7 Upper Body Dressing (QC): 7 Lower Body Dressing (QC): 7 On/Off Footwear (QC): 7 Toileting Hygiene (QC): 7 Toilet Transfer (QC): 7 Education OT Patient Education: Rehab process Teaching Recipient: Patient Teaching Methods: Discussion Response to Teaching: Verbalize Understanding OT Corporate Relations Manager Goals Corporate Relations Manager Goals Time Frame: Jun 09, 2019 Eating (QC): 6 Oral Hygiene (QC): 6 Toileting Hygiene (QC): 6 Shower/Bathe Self (QC): 4 Upper Body Dressing (QC): 5 Lower Body Dressing (QC): 5 On/Off Footwear (QC): 5 Additional Goals: 1-Demonstrate ADL Tasks, 2-Verbalize Understanding, 3-I mproveStrength/Maira 1=Demonstrate adherence to instructed precautions during ADL tasks. 2=Patient will verbalize/demonstrate understanding of assistive devices/modifications for ADL. 3=Patient will improve strength/tolerance for activity to enable patient to perform ADL's. OT Education/Plan Problem List/Assessment Assessment: Decreased Activ Tolerance, Decreased UE Strength, Dependent Transfers, Impaired Funct Balance, Impaired I ADL's, Impaired Self-Care Skills Pt to benefit from skilled OT intervention for ADL training, transfers, strengthening, and home safety education to increase level of independence and allow safe discharge. Discharge Recommendations Plan/Recommendations: Continue POC Treatment Plan/Plan of Care Treatment,Training & Education: Yes Patient would benefit from OT for education, treatment and training to promote independence in ADL's, mobility, safety and/or upper extremity function for ADL's. Plan of Care: ADL Retraining, Caregiver Training, Functional Mobility, UE Funct Exercise/Act Treatment Duration: Jun 09, 2019 Frequency: 5 times per week Estimated Hrs Per Day: .25 hour per day Agreement: Yes Rehab Potential: Fair Time/GCodes Start Time: 13:38 Stop Time: 13:50 Total Time Billed (hr/min): 12 Billed Treatment Time 1 visit, EVM(12minutes) BENNY PEREZ OT May 29, 2019 14:06 POS
[2019-05-29 16:00] VITALS: BP 110/65
--- NOTE | 2019-05-29 17:04 | Progress Note ---
Standard Progress Note Progress Notes/Assess & Plan Date Seen by a Provider: May 29, 2019 Time Seen by a Provider: 17:00 Progress/Assessment & Plan 79-year-old female with metastatic colon cancer to the abdominal wall and on palliative chemotherapy. Admitted with nausea, vomiting and dehydration causing acute on chronic renal failure. This is back to baseline with hydration. She complained of significant pain from the abdominal wall lesion and underwent CT- guided needle biopsy with preliminary pathology confirming metastatic carcinoma. NextGen sequencing pending. Patient had hypotension with lethargy and moved to ICU because of SIRS. Patient had pancytopenia and received G-CSF with improvement in WBC and ANC count. Patient continues to have nausea and occasional vomiting. Oral intake is better today and she is feeling better. She complained of loose stools today with incontinence. She has not taken laxatives today. If diarrhea continues, we will check stools for C. difficile toxin. May need to hold Reglan also. Patient ambulated inside the room with physical therapy today. Continue PT/OT for strengthening and ambulation. SAMANTHA SHANKS May 29, 2019 17:04 POS
[2019-05-29] MEDS: TBO-FILGRASTIM 480 MCG/0.8 ML (GRANIX) SQ SCH (18:02)
[2019-05-29 20:00] VITALS: BP 100/64
[2019-05-29] MEDS: MIRTAZAPINE 15 MG (REMERON) TAB PO SCH (20:05)
[2019-05-29] MEDS: MELATONIN 3 MG TABLET PO PRN (20:05)
[2019-05-29] MEDS: ENOXAPARIN 40 MG/0.4 ML (LOVENOX) SYR SC SCH (20:05)
[2019-05-30] VITALS (7 sets, daily range): BP systolic 81–112; BP diastolic 43–64
[2019-05-30] MEDS: METOCLOPRAMIDE 5 MG (REGLAN) TAB PO SCH ×3 (05:08→16:54)
[2019-05-30] MEDS: morphine ER 15 MG (MS CONTIN) TAB PO SCH ×2 (05:08→18:34)
[2019-05-30] MEDS: D5 1/2 NS W/KCL 20 MEQ/L 1,000 ML IV SCH ×3 (05:09→20:30)
[2019-05-30 05:15] LABS: BASOPHILS % (AUTO) 0 % (0-10); EOSINOPHILS # (AUTO) 0.1 10^3/uL (0.0-0.3); EOSINOPHILS % (AUTO) 1 % (0-10); HEMATOCRIT 28 % (35-52); HEMOGLOBIN 8.9 G/DL (11.5-16.0); LYMPHOCYTES # (AUTO) 1.2 X 10^3 (1.0-4.0); LYMPHOCYTES % (AUTO) 16 % (12-44); MEAN CORPUSCULAR HEMOGLOBIN 30 PG (25-34); MEAN CORPUSCULAR HGB CONC 32 G/DL (32-36); MEAN CORPUSCULAR VOLUME 93 FL (80-99); MONOCYTES # (AUTO) 0.7 X 10^3 (0.0-1.0); MONOCYTES % (AUTO) 9 % (0-12); NEUTROPHILS # (AUTO) 5.6 X 10^3 (1.8-7.8); NEUTROPHILS % (AUTO) 74 % (42-75); PLATELET COUNT 108 10^3/uL (130-400); RED CELL DISTRIBUTION WIDTH 15.3 % (10.0-14.5); WHITE BLOOD COUNT 7.5 10^3/uL (4.3-11.0)
[2019-05-30 05:49] LABS: ALANINE AMINOTRANSFERASE < 6 U/L (0-55); ALBUMIN 2.4 GM/DL (3.2-4.5); ALKALINE PHOSPHATASE 94 U/L (40-136); BILIRUBIN,TOTAL 0.4 MG/DL (0.1-1.0); BUN/CREATININE RATIO 11; CALCIUM 6.9 MG/DL (8.5-10.1); CARBON DIOXIDE 24 MMOL/L (21-32); CHLORIDE 109 MMOL/L (98-107); CREATININE SERUM 1.14 MG/DL (0.60-1.30); GFR ESTIMATED 46; GLUCOSE 108 MG/DL (70-105); MAGNESIUM 1.6 MG/DL (1.6-2.4); PHOSPHORUS 1.6 MG/DL (2.3-4.7); POTASSIUM 4.5 MMOL/L (3.6-5.0); SODIUM 141 MMOL/L (135-145); TOTAL PROTEIN 4.1 GM/DL (6.4-8.2)
[2019-05-30] MEDS: inSUlin ASPART (NovoLOG) 1 UNIT/0.01 ML (CHARGE PER UNIT) SC SCH ×4 (06:18→20:30)
[2019-05-30] MEDS ORDERED: SODIUM PHOSPHATE INJ 15 MM in D5W 100 ML IVPB 100 ML IV ONE (07:30)
--- NOTE | 2019-05-30 10:02 | Physical Therapy Daily Note ---
PT Daily Note-Current Subjective Pt complains of generalized not feeling well and discomfort across her abdomen; unable to specifically describe or rate pain. She often rubs her abdomen during treatment session and moans. she does agree to PT and to get up to the chair. Mental Status Patient Orientation: Person, Place, Time, Situation Transfers SCALE: Activities may be completed with or without assistive devices. 7-Bnlmgntsyx-tscbeve completes the activity by him/herself with no assistance from a helper. 5-Set-up or Clean-up Assistance-helper sets up or cleans up; patient completes activity. [place] assists only prior to or following the activity. 4-Supervision or Touching Assistance-helper provides verbal cues and/or touching/steadying and/or contact guard assistance as patient completes activity. Assistance may be provided throughout the activity or intermittently. 3-Partial/Moderate Assistance-helper does LESS THAN HALF the effort. [place] lifts, holds or supports trunk or limbs, but provides less than half the effort. 2-Substantial/Maximal Assistance-helper does MORE THAN HALF the effort. [place] lifts or holds trunk or limbs and provides more than half the effort. 6-Vtrpbyztz-wvrtvr does ALL the effort. Patient does none of the effort to complete the activity. Or, the assistance of 2 or more helpers is required for the patient to complete the activity. If activity was not attempted, code reason: 7-Patient Refused. 9-Not Applicable-not attempted and the patient did not perform the activity before the current illness, exacerbation or injury. 10-Not Attempted due to Environmental Limitations-(lack of equipment, weather restraints, etc.). 88-Not Attempted due to Medical Conditions or Safety Concerns. Lying to Sitting/Side of Bed(Q: 4 (sBA; pt uses the bedrail and completes with difficulty. ) Sit to Stand (QC): 3 (min assist to stand and to sit in a controlled fashion; skilled cues for hand placement. ) Pt performed sit to stand x 4-5 reps; commode transfer x 1. Pt up in chair post treatment with needs met. Weight Bearing Right Lower Extremity: Right Weight Bearing/Tolerated Left Lower Extremity: Left Weight Bearing/Tolerated Gait Training Does the Patient Walk?: Yes Distance: 35 ft Gait Assistive Device: FWW Pt ambulated x 35 ft with FWW with CGA and cues for safety. Treatments Pt also toileted. Dep for management of underclothing and stacey care. Assessment Current Status: Fair Progress Pt does not appear to feel well this visit but is agreeable to PT. Limited tolerance to functional activity and takes extra time to complete tasks. PT Factory Superintendent Goals Custodial Goals PT Custodial Goals Time Frame: Jun 09, 2019 Roll Left & Right (QC): 6 Sit to Lying (QC): 6 Lying-Sitting on Side/Bed(QC): 6 Sit to Stand (QC): 6 Chair/Fdk-sv-Wfdki Xfer(QC): 6 Toilet Transfer (QC): 4 Car Transfer (QC): 6 Does the Patient Walk: Yes Walk 10 feet (QC): 6 Walk 50ft with 2 Turns (QC): 6 Walk 150 ft (QC): 6 Walking 10ft on Uneven Surface: 6 1 Step (curb) (QC): 6 4 Steps (QC): 6 12 Steps (QC): 9 Picking up an Object (QC): 6 Does the Pt use WC or Scooter?: No Type: N/A Type: N/A PT Plan Problem List Problem List: Activity Tolerance, Functional Strength, Safety, Balance, Gait, Transfer, Bed Mobility Treatment/Plan Treatment Plan: Continue Plan of Care Treatment Plan: Bed Mobility, Education, Functional Activity Maira, Functional Strength, Gait, Safety, Therapeutic Exercise, Transfers Treatment Duration: Jun 09, 2019 Frequency: 6 times per week Estimated Hrs Per Day: .25 hour per day Patient and/or Family Agrees t: Yes Safety Risks/Education Patient Education: Transfer Techniques Teaching Recipient: Patient Teaching Methods: Demonstration, Discussion Response to Teaching: Return Demonstration, Reinforcement Needed Discharge Recommendations Therapy Discharge Recommendati: Post Acute PT Time/GCodes Time In: 900 Time Out: 929 Total Billed Treatment Time: 29 Total Billed Treatment visit FA 29 ADELAIDA CABRALES PT May 30, 2019 10:02 POS
[2019-05-30] MEDS: HYDROcodone/APAP 5 MG/325 MG (LORTAB) TAB PO PRN ×2 (11:24→15:42)
--- NOTE | 2019-05-30 13:36 | Progress Note - Hospitalist ---
Subjective HPI/CC On Admission Date Seen by Provider: May 30, 2019 Time Seen by Provider: 13:31 nausea and vomiting Subjective/Events-last exam Pt reports doing better today. Sitting up in chair. Had some nausea this morning after eating. Worked with PT this morning. Reports not actually at her baseline. Objective Exam Vital Signs Vital Signs Date Time Temp Pulse Resp B/P (MAP) Pulse Ox O2 Delivery O2 Flow Rate FiO2 05/30/19 12:00 36.0 18 18 102/54 (70) 91 Room Air 05/30/19 08:00 2.00 Capillary Refill : Less Than 3 SecondsLess Than 3 Seconds General Appearance: No Apparent Distress, Chronically ill Respiratory: Lungs Clear, No Respiratory Distress Cardiovascular: Regular Rate, Rhythm, No Murmur Gastrointestinal: Distended; No Guarding, No Rebound Neurologic/Psychiatric: Alert, Oriented x3, Depressed Affect Results/Procedures Lab Laboratory Tests 05/30/19 04:50 Patient resulted labs reviewed. Assessment/Plan Assessment and Plan Assess & Plan/Chief Complaint Nausea and vomiting Partial small bowel obstruction- resolved -Surgery following -Continue IV fluids -SBFT done yesterday and SBO resolved - Continue Zofran SIRS, resolved -Infectious workup negative thus far -Neutropenia resolved Severe protein-calorie malnutrition -CLD, nutrition consult- appreciate recs -Ensure Clear TID added - Replace electrolytes as needed Pancytopenia- resolved -Improving, no longer leukopenic -Received G-CSF per Oncology Metastatic colon cancer Abdominal wall mass Goals of care discussion -Oncology consulted -Undergoing outpatient chemotherapy -Biopsy performed, metastatic adenocarcinoma consistent with colon primary -Palliative consulted Debility -PT/OT - Social Work consulted, appreciate assistance - Will likely need placement for rehab - IRU consulted DVT Prophylaxis: Lovenox Diagnosis/Problems Diagnosis/Problems (1) Partial small bowel obstruction Status: Acute (2) Colon cancer metastasized to multiple sites Status: Chronic (3) Hypophosphatemia Status: Resolved Resolution Date/Time: 05/27/19 @ 12:54 (4) Debility Status: Acute (5) Malnutrition Status: Acute Qualifiers: Malnutrition type: protein-calorie malnutrition Protein-calorie malnutrition severity: severe Qualified Codes: E43 - Unspecified severe protein-calorie malnutrition Clinical Quality Measures DVT/VTE Risk/Contraindication: Risk Factor Score Per Nursin RFS Level Per Nursing on Admit: 4+=Very High JUWAN TORRES MD May 30, 2019 13:36 POS
[2019-05-30] MEDS: HYDROmorphone 2 MG/ML VIAL (DILAUDID) IV PRN (13:39)
--- NOTE | 2019-05-30 14:53 | Occ Therapy Progress Note ---
Therapy Progress Note Attempted therapy at 1438. Pt sitting in chair. Pt reports she is very tired and declined to participate in therapy at this time. Pt states she would like her meal tray moved closer. Meal tray and other needs were set up in front of pt. Pt denied other needs at this time. 1, visit BENNY PEREZ OT May 30, 2019 14:53 POS
--- NOTE | 2019-05-30 14:55 | Progress Note ---
Standard Progress Note Progress Notes/Assess & Plan Date Seen by a Provider: May 30, 2019 Time Seen by a Provider: 14:53 Progress/Assessment & Plan 79-year-old female with metastatic colon cancer to the abdominal wall and on palliative chemotherapy. Admitted with nausea, vomiting and dehydration causing acute on chronic renal failure. This is back to baseline with hydration. She complained of significant pain from the abdominal wall lesion and underwent CT- guided needle biopsy with preliminary pathology confirming metastatic carcinoma. NextGen sequencing pending. Patient had hypotension with lethargy and moved to ICU because of SIRS. Patient had pancytopenia and received G-CSF with improvement in WBC and ANC count. Patient continues to have intermittent nausea and occasional vomiting. Oral intake is better today and she is feeling better. Patient complained of increased pain today requiring more pain medications. Discussed case with Dr. Gardner who will see the patient in consultation for palliative abdominal wall radiation therapy. Planning simulation tomorrow and start radiation on Tuesday. SAMANTHA SHANKS May 30, 2019 14:54 POS
[2019-05-30] MEDS: ONDANSETRON 4 MG/2 ML (SDV) Z0FRAN IV PRN (15:42)
--- NOTE | 2019-05-30 18:10 | Progress Note - Surgery ---
MACKENZIE MURDOCK [facility] 05/30/19 1810: Subjective Date Seen by a Provider: May 30, 2019 Time Seen by a Provider: 07:20 Subjective/Events-last exam Patient is alert and oriented and in no acute distress. No family at bedside Pt has mild abdominal pain She is having diarrhea and passing flatus Mason catheter in place Patient still has N/V and has not been able to keep food down. she is still requiring anti-nausea medication Has some SOB when speaking but denies chest pain, and F/C Objective Exam Vital Signs Date Time Temp Pulse Resp B/P (MAP) Pulse Ox O2 Delivery O2 Flow Rate FiO2 05/30/19 16:00 81/43 (56) 05/30/19 16:00 36.9 103 16 93 Room Air 05/30/19 12:00 36.0 18 18 102/54 (70) 91 Room Air 05/30/19 08:00 93 Room Air 2.00 05/30/19 08:00 37.0 99 20 112/54 (73) 93 Room Air 05/30/19 05:13 36.6 103 17 108/58 (75) 93 Room Air 05/30/19 04:00 36.7 104 18 100/64 (76) 96 Room Air 2.00 2.00 05/30/19 00:00 36.7 05/29/19 20:00 96 Room Air 2.00 05/29/19 20:00 37.0 104 18 100/64 (76) 96 Room Air I & O 05/30/19 07:00 Intake Total 1115 ml Output Total 700 ml Balance 415 ml Capillary Refill : Less Than 3 SecondsLess Than 3 Seconds General Appearance: No Apparent Distress, Chronically ill HEENT: PERRL/EOMI Neck: Normal Inspection Respiratory: Chest Non Tender, No Accessory Muscle Use, No Respiratory Distress Cardiovascular: Regular Rate, Rhythm, No Murmur Peripheral Pulses: 2+ Dorsalis Pedis (R), 2+ Left Dors-Pedis (L), 2+ Radial Pulses (R), 2+ Radial Pulses (L) Gastrointestinal: soft, tenderness (at mass) Extremity: No Calf Tenderness, Pedal Edema Neurologic/Psychiatric: Alert, Oriented x3, Depressed Affect Skin: Warm/Dry Lymphatic: No Adenopathy Results Lab Laboratory Tests 05/29/19 20:56: Glucometer 161H 05/30/19 04:50: White Blood Count 7.5, Red Blood Count 3.00L, Hemoglobin 8.9L, Hematocrit 28L, Mean Corpuscular Volume 93, Mean Corpuscular Hemoglobin 30, Mean Corpuscular Hemoglobin Concent 32, Red Cell Distribution Width 15.3H, Platelet Count 108L, Mean Platelet Volume 11.0H, Neutrophils (%) (Auto) 74, Lymphocytes (%) (Auto) 16, Monocytes (%) (Auto) 9, Eosinophils (%) (Auto) 1, Basophils (%) (Auto) 0, Neutrophils # (Auto) 5.6, Lymphocytes # (Auto) 1.2, Monocytes # (Auto) 0.7, Eosinophils # (Auto) 0.1, Basophils # (Auto) 0.0, Sodium Level 141, Potassium Level 4.5, Chloride Level 109H, Carbon Dioxide Level 24, Anion Gap 8, Blood Urea Nitrogen 13, Creatinine 1.14, Estimat Glomerular Filtration Rate 46, BUN/Creatinine Ratio 11, Glucose Level 108H, Calcium Level 6.9L, Corrected Calcium 8.2L, Phosphorus Level 1.6L, Magnesium Level 1.6, Total Bilirubin 0.4, Aspartate Amino Transf (AST/SGOT) 9, Alanine Aminotransferase (ALT/SGPT) < 6, Alkaline Phosphatase 94, Total Protein 4.1L, Albumin 2.4L 05/30/19 16:09: Glucometer 153H Microbiology 05/23/19 Blood Culture - Final, Complete No growth 05/22/19 C. difficile GDH Antigen & Toxins - Final, Complete 05/24/19 MRSA Screen - Final, Complete MRSA not isolated 05/24/19 Urine Culture - Final, Complete 3 or more isolates Assessment/Plan Assessment/Plan Assessment/Plan psbo resolved metastatic colon cancer/abdominal wall mass pancytopenia meenu - clear diet, If patient cannot get nutrients may consider other options - Continue pain management for anterior abdominal mass - Continue N/V management - Consult with social work to discuss the potential need for hospice Clinical Quality Measures DVT/VTE Risk/Contraindication: Risk Factor Score Per Nursin RFS Level Per Nursing on Admit: 4+=Very High NAT GARZON DO 05/31/19 9703: Subjective Subjective/Events-last exam some abdominal pain around middle of abdomen. having bowel function. some nausea and vomiting denies fever sweats chills shortness of breath or chest pain. Objective Exam General Appearance: No Apparent Distress, Chronically ill HEENT: PERRL/EOMI Neck: Normal Inspection Respiratory: Chest Non Tender, No Accessory Muscle Use, No Respiratory Distress Cardiovascular: Regular Rate, Rhythm Gastrointestinal: soft, tenderness (at mass) Extremity: No Calf Tenderness Neurologic/Psychiatric: Alert, Oriented x3 Skin: Warm/Dry Lymphatic: No Adenopathy Assessment/Plan Assessment/Plan Assessment/Plan nausea and vomiting metastatic colon cancer pancytopenia meenu small bowel follow through no evidence of small bowel obstruction no surgical indication at this time continue to provide symptomatic relief will sign off call if needed. Supervisory-Addendum Brief Verification & Attestation Participated in pt care: history, MDM, physical Personally performed: exam, history, MDM, supervision of care Care discussed with: Medical Student Procedures: n/a Results interpretation: Verified all documentation Verification and Attestation of Medical Student E/M Service A medical student performed and documented this service in my presence. I reviewed and verified all information documented by the medical student and made modifications to such information, when appropriate. I personally performed the physical exam and medical decision making. Nat Garzon, May 30, 2019,21:[address] [facility] May 30, 2019 18:10 NAT GUZMAN DO May 31, 2019 21:45 POS
[2019-05-30] MEDS: TBO-FILGRASTIM 480 MCG/0.8 ML (GRANIX) SQ SCH (18:34)
[2019-05-30] MEDS: METOCLOPRAMIDE INJ 10 MG/2 ML (REGLAN) IVP SCH (20:29)
[2019-05-30] MEDS: MELATONIN 3 MG TABLET PO PRN (20:29)
[2019-05-30] MEDS: MIRTAZAPINE 15 MG (REMERON) TAB PO SCH (20:30)
[2019-05-30] MEDS: ENOXAPARIN 40 MG/0.4 ML (LOVENOX) SYR SC SCH (20:30)
[2019-05-31] VITALS: BP 97/58
[2019-05-31] MEDS: HYDROcodone/APAP 5 MG/325 MG (LORTAB) TAB PO PRN ×2 (00:17→09:55)
[2019-05-31] MEDS: HYDROmorphone 2 MG/ML VIAL (DILAUDID) IV PRN ×2 (02:38→22:06)
[2019-05-31] MEDS: ONDANSETRON 4 MG/2 ML (SDV) Z0FRAN IV PRN ×3 (02:38→22:06)
[2019-05-31 04:00] VITALS: BP 97/58
[2019-05-31] MEDS: morphine ER 15 MG (MS CONTIN) TAB PO SCH ×2 (04:58→17:21)
[2019-05-31] MEDS: METOCLOPRAMIDE INJ 10 MG/2 ML (REGLAN) IVP SCH ×4 (04:58→21:54)
[2019-05-31 05:08] LABS: BASOPHILS % (AUTO) 1 % (0-10); EOSINOPHILS # (AUTO) 0.1 10^3/uL (0.0-0.3); EOSINOPHILS % (AUTO) 1 % (0-10); HEMATOCRIT 27 % (35-52); HEMOGLOBIN 8.8 G/DL (11.5-16.0); LYMPHOCYTES # (AUTO) 1.1 X 10^3 (1.0-4.0); LYMPHOCYTES % (AUTO) 18 % (12-44); MEAN CORPUSCULAR HEMOGLOBIN 30 PG (25-34); MEAN CORPUSCULAR HGB CONC 32 G/DL (32-36); MEAN CORPUSCULAR VOLUME 93 FL (80-99); MEAN PLATELET VOLUME 10.9 FL (7.4-10.4); MONOCYTES # (AUTO) 0.6 X 10^3 (0.0-1.0); MONOCYTES % (AUTO) 11 % (0-12); NEUTROPHILS % (AUTO) 70 % (42-75); PLATELET COUNT 115 10^3/uL (130-400); RED CELL DISTRIBUTION WIDTH 15.2 % (10.0-14.5); WHITE BLOOD COUNT 5.8 10^3/uL (4.3-11.0)
[2019-05-31 05:54] LABS: ALBUMIN 2.3 GM/DL (3.2-4.5); BILIRUBIN,TOTAL 0.4 MG/DL (0.1-1.0); CREATININE SERUM 1.75 MG/DL (0.60-1.30); MAGNESIUM 1.3 MG/DL (1.6-2.4); PHOSPHORUS 2.6 MG/DL (2.3-4.7); POTASSIUM 4.2 MMOL/L (3.6-5.0); TOTAL PROTEIN 4.1 GM/DL (6.4-8.2)
[2019-05-31] MEDS: inSUlin ASPART (NovoLOG) 1 UNIT/0.01 ML (CHARGE PER UNIT) SC SCH ×4 (05:55→21:52)
[2019-05-31] MEDS: D5 1/2 NS W/KCL 20 MEQ/L 1,000 ML IV SCH ×3 (06:45→23:38)
[2019-05-31 08:00] VITALS: BP 99/55
--- NOTE | 2019-05-31 11:02 | Progress Note - Hospitalist ---
Subjective HPI/CC On Admission Date Seen by Provider: May 31, 2019 Time Seen by Provider: 10:56 nausea and vomiting Subjective/Events-last exam Pt reports feeling well. No complaints. Went down for scanning for radiation today. Now agreeable to go to skilled palcement and requests VCV. Objective Exam Vital Signs Vital Signs Date Time Temp Pulse Resp B/P (MAP) Pulse Ox O2 Delivery O2 Flow Rate FiO2 05/31/19 08:00 36.9 116 18 99/55 (70) 97 Room Air 05/30/19 08:00 2.00 Capillary Refill : Less Than 3 SecondsLess Than 3 Seconds General Appearance: No Apparent Distress, WD/WN Cardiovascular: Regular Rate, Rhythm, No Murmur Gastrointestinal: Normal Bowel Sounds, Non Tender, Soft Neurologic/Psychiatric: Alert, Oriented x3 Results/Procedures Lab Laboratory Tests 05/31/19 05:00 Patient resulted labs reviewed. Assessment/Plan Assessment and Plan Assess & Plan/Chief Complaint Nausea and vomiting Partial small bowel obstruction- resolved -Surgery following -Continue IV fluids -SBFT done yesterday and SBO resolved - Continue Zofran MARK - Poor oral intake - Will increase IVF - Trend SIRS, resolved -Infectious workup negative thus far -Neutropenia resolved Severe protein-calorie malnutrition -CLD, nutrition consult- appreciate recs -Ensure Clear TID added -Replace electrolytes as needed Pancytopenia- resolved -Improving, no longer leukopenic -Received G-CSF per Oncology Metastatic colon cancer Abdominal wall mass Goals of care discussion -Oncology consulted -Undergoing outpatient chemotherapy -Biopsy performed, metastatic adenocarcinoma consistent with colon primary -Palliative consulted Debility -PT/OT - Social Work consulted, appreciate assistance - Will need placement for rehab - Patient requests VCV DVT Prophylaxis: Lovenox Diagnosis/Problems Diagnosis/Problems (1) Partial small bowel obstruction Status: Acute (2) Colon cancer metastasized to multiple sites Status: Chronic (3) Hypophosphatemia Status: Resolved Resolution Date/Time: 05/27/19 @ 12:54 (4) Debility Status: Acute (5) Malnutrition Status: Acute Qualifiers: Malnutrition type: protein-calorie malnutrition Protein-calorie malnutrition severity: severe Qualified Codes: E43 - Unspecified severe protein-calorie malnutrition Clinical Quality Measures DVT/VTE Risk/Contraindication: Risk Factor Score Per Nursin RFS Level Per Nursing on Admit: 4+=Very High JUWAN TORRES MD May 31, 2019 11:02 POS
--- NOTE | 2019-05-31 11:17 | Occupational Ther Daily Note ---
OT Current Status-Daily Note Subjective Pt laying in bed at start of session, stating she is tired due to going to radiation earlier this AM. Pt agreeable to OT with focus on ADLs, stating she wasn't sure how much she would be able to complete. Mental Status/Objective Attachments: IV ADL-Treatment Pt able to brush hair with set up of hair brush, noted increased fatigue with task. Pt then able to complete sponge bath, washing face, and arms. No QC given due to not completing full sponge bath. Pt able to wash face and left arm, needing assistance with right arm due to fatigue (mod A for parts complete). When pt finished washing upper body, she stated she thinks that is enough and denied washing LEs on this date. Therapy Code Descriptions/Definitions Functional [place] Measure: 0=Not Assessed/NA 4=Minimal Assistance 1=Total Assistance 5=Supervision or Setup 2=Maximal Assistance 6=Modified [place] 3=Moderate Assistance 7=Complete IndependenceSCALE: Activities may be completed with or without assistive devices. 0-Otuzojwndg-effmhqq completes the activity by him/herself with no assistance from a helper. 5-Set-up or Clean-up Assistance-helper sets up or cleans up; patient completes activity. [place] assists only prior to or following the activity. 4-Supervision or Touching Assistance-helper provides verbal cues and/or touching/steadying and/or contact guard assistance as patient completes activity. Assistance may be provided throughout the activity or intermittently. 3-Partial/Moderate Assistance-helper does LESS THAN HALF the effort. [place] lifts, holds or supports trunk or limbs, but provides less than half the effort. 2-Substantial/Maximal Assistance-helper does MORE THAN HALF the effort. [place] lifts or holds trunk or limbs and provides more than half the effort. 3-Auzsxidof-fpadco does ALL the effort. Patient does none of the effort to complete the activity. Or, the assistance of 2 or more helpers is required for the patient to complete the activity. If activity was not attempted, code reason: 7-Patient Refused. 9-Not Applicable-not attempted and the patient did not perform the activity before the current illness, exacerbation or injury. 10-Not Attempted due to Environmental Limitations-(lack of equipment, weather restraints, etc.). 88-Not Attempted due to Medical Conditions or Safety Concerns. Other Treatment Pt laying in bed, completed hair brushing and partial sponge bath (see note above). Post OT session, pt laying in bed, call light in reach and all needs met. Education OT Patient Education: Correct positioning, Energy conservation, Modified ADL techniques, Progress toward Goal/Update tx plan, Purpose of tx/functional a ctivities Teaching Recipient: Patient Teaching Methods: Demonstration Response to Teaching: Verbalize Understanding OT Nude Model Goals Long-Term Goals Time Frame: Jun 09, 2019 Eating (QC): 6 Oral Hygiene (QC): 6 Toileting Hygiene (QC): 6 Shower/Bathe Self (QC): 4 Upper Body Dressing (QC): 5 Lower Body Dressing (QC): 5 On/Off Footwear (QC): 5 Additional Goals: 1-Demonstrate ADL Tasks, 2-Verbalize Understanding, 3- ImproveStrength/Maira 1=Demonstrate adherence to instructed precautions during ADL tasks. 2=Patient will verbalize/demonstrate understanding of assistive devices/modifications for ADL. 3=Patient will improve strength/tolerance for activity to enable patient to perform ADL's. OT Education/Plan Problem List/Assessment Assessment: Decreased Activ Tolerance, Decreased UE Strength, Impaired I ADL's, Impaired Self-Care Skills Pt to benefit from skilled OT intervention for ADL training, transfers, strengthening, and home safety education to increase level of independence and allow safe discharge. Discharge Recommendations Plan/Recommendations: Continue POC Treatment Plan/Plan of Care Treatment,Training & Education: Yes Patient would benefit from OT for education, treatment and training to promote independence in ADL's, mobility, safety and/or upper extremity function for ADL's. Plan of Care: ADL Retraining, Caregiver Training, Functional Mobility, UE Funct Exercise/Act Treatment Duration: Jun 09, 2019 Frequency: 5 times per week Estimated Hrs Per Day: .25 hour per day Agreement: Yes Rehab Potential: Fair Time/GCodes Start Time: 11:02 Stop Time: 11:10 Total Time Billed (hr/min): 8 Billed Treatment Time 1, ADL JOIE NORMAN OT May 31, 2019 11:17 POS
--- NOTE | 2019-05-31 11:31 | Physical Therapy Daily Note ---
PT Daily Note-Current Subjective Pt reports not feeling well and unable to eat her breakfast. Pt did agree to take a few bites of breakfast and then threw it up. Pt moans and rubs her abdomen throughout treatment; expresses that she does not feel well. Reluctant to walk but did agree with encouragement. Mental Status Patient Orientation: Person, Place, Time, Situation Attachments: IV Transfers SCALE: Activities may be completed with or without assistive devices. 5-Axlufuuegs-aiyhfcw completes the activity by him/herself with no assistance from a helper. 5-Set-up or Clean-up Assistance-helper sets up or cleans up; patient completes activity. [place] assists only prior to or following the activity. 4-Supervision or Touching Assistance-helper provides verbal cues and/or touching/steadying and/or contact guard assistance as patient completes activity. Assistance may be provided throughout the activity or intermittently. 3-Partial/Moderate Assistance-helper does LESS THAN HALF the effort. [place] lifts, holds or supports trunk or limbs, but provides less than half the effort. 2-Substantial/Maximal Assistance-helper does MORE THAN HALF the effort. [place] lifts or holds trunk or limbs and provides more than half the effort. 9-Xlewrfufp-eccwbc does ALL the effort. Patient does none of the effort to complete the activity. Or, the assistance of 2 or more helpers is required for the patient to complete the activity. If activity was not attempted, code reason: 7-Patient Refused. 9-Not Applicable-not attempted and the patient did not perform the activity before the current illness, exacerbation or injury. 10-Not Attempted due to Environmental Limitations-(lack of equipment, weather restraints, etc.). 88-Not Attempted due to Medical Conditions or Safety Concerns. Sit to Lying (QC): 4 (sBA) Sit to Stand (QC): 3 (min to CGA depending on surface with skilled cues for hand placement. ) min assist to stand from the recliner; CGA to stand from the toilet with use of handrails. Dep for pericare and depend management; incont of bowel. Weight Bearing Right Lower Extremity: Right Weight Bearing/Tolerated Left Lower Extremity: Left Weight Bearing/Tolerated Gait Training Does the Patient Walk?: Yes Walk 10 feet (QC): 3 Gait Assistive Device: FWW Pt ambulated x 25 ft x 2 with FWW with min assist for safety; forward flexed and decresed step length with gait; unsteady at times. Treatments Pt ambulated and returned to bed post treatment. Assessment Current Status: Fair Progress Pt limited by generally not feeling well; vomited her breakfast. Does not appear to feel well. PT Facilities Mechanical Design Engineer Goals Mcc Goals PT Facilities Mechanical Design Engineer Goals Time Frame: Jun 09, 2019 Roll Left & Right (QC): 6 Sit to Lying (QC): 6 Lying-Sitting on Side/Bed(QC): 6 Sit to Stand (QC): 6 Chair/Rbe-jz-Qkgrf Xfer(QC): 6 Toilet Transfer (QC): 4 Car Transfer (QC): 6 Does the Patient Walk: Yes Walk 10 feet (QC): 6 Walk 50ft with 2 Turns (QC): 6 Walk 150 ft (QC): 6 Walking 10ft on Uneven Surface: 6 1 Step (curb) (QC): 6 4 Steps (QC): 6 12 Steps (QC): 9 Picking up an Object (QC): 6 Does the Pt use WC or Scooter?: No Type: N/A Type: N/A PT Plan Problem List Problem List: Activity Tolerance, Functional Strength, Safety Treatment/Plan Treatment Plan: Continue Plan of Care Treatment Plan: Bed Mobility, Education, Functional Activity Maira, Functional Strength, Gait, Safety, Therapeutic Exercise, Transfers Treatment Duration: Jun 09, 2019 Frequency: 6 times per week Estimated Hrs Per Day: .25 hour per day Patient and/or Family Agrees t: Yes Safety Risks/Education Patient Education: Safety Issues Teaching Recipient: Patient Teaching Methods: Discussion Response to Teaching: Verbalize Understanding Discharge Recommendations Therapy Discharge Recommendati: Post Acute PT Time/GCodes Time In: 835 Time Out: 859 Total Billed Treatment Time: 24 Total Billed Treatment visit FA 24 ADELAIDA CABRALES PT May 31, 2019 11:31 POS
[2019-05-31 12:00] VITALS: BP 94/53
[2019-05-31] MEDS ORDERED: NS IV 500 ML 500 ML ONE (14:55)
[2019-05-31] MEDS ORDERED: NS IV 500 ML 500 ML IV ONE (15:00)
[2019-05-31 15:55] VITALS: BP 98/62
[2019-05-31] MEDS: TBO-FILGRASTIM 480 MCG/0.8 ML (GRANIX) SQ SCH (17:23)
[2019-05-31 19:44] VITALS: BP 96/64
[2019-05-31] MEDS: ENOXAPARIN 40 MG/0.4 ML (LOVENOX) SYR SC SCH (21:52)
[2019-05-31] MEDS: MIRTAZAPINE 15 MG (REMERON) TAB PO SCH (21:53)
[2019-06-01 00:05] VITALS: BP 96/62
[2019-06-01 03:54] VITALS: BP 99/58
[2019-06-01] MEDS: ONDANSETRON 4 MG/2 ML (SDV) Z0FRAN IV PRN (04:47)
[2019-06-01 05:31] LABS: BASOPHILS % (AUTO) 0 % (0-10); EOSINOPHILS % (AUTO) 0 % (0-10); HEMATOCRIT 25 % (35-52); LYMPHOCYTES # (AUTO) 1.1 X 10^3 (1.0-4.0); LYMPHOCYTES % (AUTO) 15 % (12-44); MEAN CORPUSCULAR HEMOGLOBIN 29 PG (25-34); MEAN CORPUSCULAR HGB CONC 32 G/DL (32-36); MEAN CORPUSCULAR VOLUME 92 FL (80-99); MEAN PLATELET VOLUME 10.5 FL (7.4-10.4); MONOCYTES # (AUTO) 0.8 X 10^3 (0.0-1.0); MONOCYTES % (AUTO) 11 % (0-12); NEUTROPHILS # (AUTO) 5.2 X 10^3 (1.8-7.8); NEUTROPHILS % (AUTO) 73 % (42-75); PLATELET COUNT 107 10^3/uL (130-400); RED CELL DISTRIBUTION WIDTH 15.6 % (10.0-14.5); WHITE BLOOD COUNT 7.2 10^3/uL (4.3-11.0)
[2019-06-01] MEDS: METOCLOPRAMIDE INJ 10 MG/2 ML (REGLAN) IVP SCH ×2 (05:35→11:43)
[2019-06-01] MEDS: morphine ER 15 MG (MS CONTIN) TAB PO SCH (05:36)
[2019-06-01 05:59] LABS: ALBUMIN 2.2 GM/DL (3.2-4.5); BILIRUBIN,TOTAL 0.3 MG/DL (0.1-1.0); CALCIUM 6.7 MG/DL (8.5-10.1); CREATININE SERUM 1.8 MG/DL (0.60-1.30); MAGNESIUM 1.3 MG/DL (1.6-2.4); PHOSPHORUS 2.3 MG/DL (2.3-4.7); POTASSIUM 4.6 MMOL/L (3.6-5.0); TOTAL PROTEIN 4.1 GM/DL (6.4-8.2)
[2019-06-01] MEDS: inSUlin ASPART (NovoLOG) 1 UNIT/0.01 ML (CHARGE PER UNIT) SC SCH ×2 (06:03→11:25)
[2019-06-01 08:00] VITALS: BP 105/52
[2019-06-01] MEDS: D5 1/2 NS W/KCL 20 MEQ/L 1,000 ML IV SCH (08:11)
--- NOTE | 2019-06-01 10:22 | Physical Therapy Daily Note ---
PT Daily Note-Current Subjective Patient agrees to PT at this time. Reports she is transferring to [facility] today. Reports no pain while supine in bed but 8/10 in stomach after standing. Pain Numeric Pain Scale: 8 Location: Lower Location Body Site: Abdomen Pain Description: Ache Mental Status Patient Orientation: Normal For Age Attachments: Mason Catheter, IV Transfers SCALE: Activities may be completed with or without assistive devices. 2-Idwexltibf-dafcnmk completes the activity by him/herself with no assistance from a helper. 5-Set-up or Clean-up Assistance-helper sets up or cleans up; patient completes activity. [place] assists only prior to or following the activity. 4-Supervision or Touching Assistance-helper provides verbal cues and/or touching/steadying and/or contact guard assistance as patient completes activity. Assistance may be provided throughout the activity or intermittently. 3-Partial/Moderate Assistance-helper does LESS THAN HALF the effort. [place] lifts, holds or supports trunk or limbs, but provides less than half the effort. 2-Substantial/Maximal Assistance-helper does MORE THAN HALF the effort. [place] lifts or holds trunk or limbs and provides more than half the effort. 4-Xmlcfmoue-utnwiq does ALL the effort. Patient does none of the effort to complete the activity. Or, the assistance of 2 or more helpers is required for the patient to complete the activity. If activity was not attempted, code reason: 7-Patient Refused. 9-Not Applicable-not attempted and the patient did not perform the activity before the current illness, exacerbation or injury. 10-Not Attempted due to Environmental Limitations-(lack of equipment, weather restraints, etc.). 88-Not Attempted due to Medical Conditions or Safety Concerns. Roll Left & Right (QC): 4 Lying to Sitting/Side of Bed(Q: 4 Sit to Stand (QC): 4 Chair/Ggt-ip-Jiomq Xfer(QC): 3 Toilet Transfer (QC): 3 SBA bed mobility; CGA STS; Edward to transfer from bed to commode and commode to chair. Bowel incontinent. Weight Bearing Right Lower Extremity: Right Weight Bearing/Tolerated Left Lower Extremity: Left Weight Bearing/Tolerated Exercises Supine Ex: Ankle pumps, Heel Slides Supine Reps: 10 Seated Therapy Exercises: Long arc quads, Hip flexion Seated Reps: 10 Assessment Patient performed supine and seated exercises with minimal difficulty and pain. Able to perform bed mobility SBA to sit EOB. Patient required min assist to transfer from EOB to commode. Patient felt unable to walk after toileting and transferred to chair Edward. Seated in chair with nursing present at conclusion of treatment. PT Snf Goals Snf Goals PT Finishing Area Operator Goals Time Frame: Jun 09, 2019 Roll Left & Right (QC): 6 Sit to Lying (QC): 6 Lying-Sitting on Side/Bed(QC): 6 Sit to Stand (QC): 6 Chair/Mpn-pe-Qyfhi Xfer(QC): 6 Toilet Transfer (QC): 4 Car Transfer (QC): 6 Does the Patient Walk: Yes Walk 10 feet (QC): 6 Walk 50ft with 2 Turns (QC): 6 Walk 150 ft (QC): 6 Walking 10ft on Uneven Surface: 6 1 Step (curb) (QC): 6 4 Steps (QC): 6 12 Steps (QC): 9 Picking up an Object (QC): 6 Does the Pt use WC or Scooter?: No Type: N/A Type: N/A PT Plan Treatment/Plan Treatment Plan: Continue Plan of Care Treatment Plan: Bed Mobility, Education, Functional Activity Maira, Functional Strength, Gait, Safety, Therapeutic Exercise, Transfers Treatment Duration: Jun 09, 2019 Frequency: 6 times per week Estimated Hrs Per Day: .25 hour per day Patient and/or Family Agrees t: Yes Time/GCodes Time In: 759 Time Out: 822 Total Billed Treatment Time: 23 Total Billed Treatment 1 visit EX 8min FA 15min KEYLA OJEDA PT Jun 01, 2019 10:22 POS
--- NOTE | 2019-06-01 11:17 | Progress Note ---
Standard Progress Note Progress Notes/Assess & Plan Date Seen by a Provider: Jun 01, 2019 Time Seen by a Provider: 11:11 Progress/Assessment & Plan 79-year-old female with metastatic colon cancer to the abdominal wall and on palliative chemotherapy. Admitted with nausea, vomiting and dehydration causing acute on chronic renal failure. This has improved with hydration. Oral intake still poor due to nausea. Using ensure clear intermittently. Advised patient to use atleast 4 packs daily. She has significant pain from the abdominal wall lesion and underwent CT-guided needle biopsy with preliminary pathology confirming metastatic carcinoma. NextGen sequencing pending. Patient is scheduled to start palliative radiation to abdominal wall lesion on Tuesday. Unable to discharge as she is dependent on IV fluids for hydration. Increase oral intake as tolerated. Consider swing bed status for IV hydration as well as radiation therapy. Discontinue G-CSF as WBC and ANC has improved. Dr. Chester covering for this weekend. SAMANTHA SHANKS Jun 01, 2019 11:17 POS
--- NOTE | 2019-06-01 11:35 | Discharge Summary ---
Diagnosis/Chief Complaint Date of Admission May 20, 2019 at 13:09 Date of Discharge Admission Diagnosis Acute kidney injury Primary Care No,Local Physician Discharge Diagnosis (1) Partial small bowel obstruction Status: Acute (2) Colon cancer metastasized to multiple sites Status: Chronic (3) Hypophosphatemia Status: Resolved (4) Debility Status: Acute (5) Malnutrition Status: Acute Discharge Summary Procedures/Consulations pulmonology Oncology Surgery Discharge Physical Exam Allergies: Coded Allergies: No Known Drug Allergies (Unverified , 04/15/16) Vitals & I&Os Vital Signs Date Time Temp Pulse Resp B/P (MAP) Pulse Ox O2 Delivery O2 Flow Rate FiO2 06/01/19 12:00 37.1 94 20 91/52 (65) 96 Room Air 05/30/19 08:00 2.00 General Appearance: No Apparent Distress, Chronically ill Neurologic/Psychiatric: Alert, Oriented x3, Depressed Affect Hospital Course patient was admitted due to intractable nausea and vomiting with dehydration and acute kidney injury. She underwent imaging which revealed a partial small bowel obstruction. This was complicated by an abdominal wall mass that was biopsied during this admission and revealed metastatic adenocarcinoma. She had a very slow recovery due to pain. She was discharged to a swing bed for continued physical therapy and occupational therapy. She is also not maintaining her own hydration status with oral intake. Labs (last 24 hrs) Laboratory Tests 06/01/19 05:00: White Blood Count 7.2, Red Blood Count 2.73L, Hemoglobin 8.0L, Hematocrit 25L, Mean Corpuscular Volume 92, Mean Corpuscular Hemoglobin 29, Mean Corpuscular Hemoglobin Concent 32, Red Cell Distribution Width 15.6H, Platelet Count 107L, Mean Platelet Volume 10.5H, Neutrophils (%) (Auto) 73, Lymphocytes (%) (Auto) 15, Monocytes (%) (Auto) 11, Eosinophils (%) (Auto) 0, Basophils (%) (Auto) 0, Neutrophils # (Auto) 5.2, Lymphocytes # (Auto) 1.1, Monocytes # (Auto) 0.8, Eosinophils # (Auto) 0.0, Basophils # (Auto) 0.0, Sodium Level 136, Potassium Level 4.6, Chloride Level 111H, Carbon Dioxide Level 16L, Anion Gap 9, Blood Urea Nitrogen 17, Creatinine 1.80H, Estimat Glomerular Filtration Rate 27, BUN/Creatinine Ratio 9, Glucose Level 101, Calcium Level 6.7L, Corrected Calcium 8.1L, Phosphorus Level 2.3, Magnesium Level 1.3L, Total Bilirubin 0.3, Aspartate Amino Transf (AST/SGOT) 7, Alanine Aminotransferase (ALT/SGPT) 6, Alkaline Phosphatase 109, Total Protein 4.1L, Albumin 2.2L Microbiology 05/23/19 Blood Culture - Final, Complete No growth 05/22/19 C. difficile GDH Antigen & Toxins - Final, Complete 05/24/19 MRSA Screen - Final, Complete MRSA not isolated 05/24/19 Urine Culture - Final, Complete 3 or more isolates Patient resulted labs reviewed. Pending Labs Discussion & Recommendations Discharge Planning: <30 minutes discharge planning Discharge Home Medications: Active Scripts Active Reported Lidocaine 5% Patch (Lidocaine) 1 Each Adh..patch 1 Patch TD Q12H APPLY 1 PATCH AND LEAVE ON FOR 12 HOURS, REMOVE AND KEEP OFF FOR 12 HOURS Ondansetron HCl 8 Mg Tablet 8 Mg PO Q8H PRN Morphine Sulfate ER (Morphine Sulfate) 15 Mg Tablet.er 15 Mg PO Q12H Hydrocodone-Acetamin 5-325 mg (Hydrocodone/Acetaminophen) 1 Each Tablet 1-2 Tab PO Q4H PRN Instructions to patient/family Please see electronic discharge instructions given to patient. Clinical Quality Measures DVT/VTE Risk/Contraindication: Risk Factor Score Per Nursin RFS Level Per Nursing on Admit: 4+=Very High Problem Qualifiers (1) Malnutrition: Malnutrition type: protein-calorie malnutrition Protein-calorie malnutrition severity: severe Qualified Codes: E43 - Unspecified severe protein-calorie malnutrition JUWAN TORRES MD Jun 01, 2019 11:35 POS
[2019-06-01 12:00] VITALS: BP 91/52
--- NOTE | 2019-06-01 14:23 | Occ Therapy Progress Note ---
Therapy Progress Note Attempted visit with pt at 1415. Nursing present speaking with pt. Nursing notifies OT that pt is qualified for SWB and will be swinging this afternoon; will wait for SWB orders to eval/ treat. GIOVANA GOODWIN OTR Jun 01, 2019 14:23 POS
[2019-06-01] MEDS ORDERED: ENOXAPARIN 30 MG/0.3 ML (LOVENOX) SYR SC SCH (21:00)
== END 2019-06-01 14:23 | disposition swing bed (61) | DRG 987 ==
LOC: EDUNIT# 10:28 → ER 10:29 → 4TH 13:09 → ICU 05-24 00:55 → 4TH 05-27 12:54
PROVIDERS: ADMIT Family Medicine; ATTEND Family Medicine
PROC: 0WBF3ZX Excision of Abdominal Wall, Percutaneous Approach, Diagnostic (ICD-10-PCS; principal; 2019-05-23)
DX: N17.9 Acute kidney failure, unspecified (principal); D61.810 Antineoplastic chemotherapy induced pancytopenia; E43 Unspecified severe protein-calorie malnutrition; E87.2 Acidosis; C79.89 Secondary malignant neoplasm of other specified sites; C78.01 Secondary malignant neoplasm of right lung; C78.02 Secondary malignant neoplasm of left lung; C78.7 Secondary malignant neoplasm of liver and intrahepatic bile duct; R65.10 Systemic inflammatory response syndrome (SIRS) of non-infectious origin without acute organ dysfunction; E86.0 Dehydration; G89.3 Neoplasm related pain (acute) (chronic); R11.2 Nausea with vomiting, unspecified; E11.22 Type 2 diabetes mellitus with diabetic chronic kidney disease; I12.9 Hypertensive chronic kidney disease with stage 1 through stage 4 chronic kidney disease, or unspecified chronic kidney disease; M89.49 Other hypertrophic osteoarthropathy, multiple sites; T45.1X5A Adverse effect of antineoplastic and immunosuppressive drugs, initial encounter; K44.9 Diaphragmatic hernia without obstruction or gangrene; E87.5 Hyperkalemia; Z85.038 Personal history of other malignant neoplasm of large intestine; N18.9 Chronic kidney disease, unspecified; H54.7 Unspecified visual loss; M19.90 Unspecified osteoarthritis, unspecified site; R53.81 Other malaise; E83.42 Hypomagnesemia; E83.39 Other disorders of phosphorus metabolism; R19.7 Diarrhea, unspecified; K59.00 Constipation, unspecified; E87.6 Hypokalemia; Z92.21 Personal history of antineoplastic chemotherapy; Z90.710 Acquired absence of both cervix and uterus
CPT/HCPCS: 36415; 71045; 74018; 74176; 74250; 77012; 77290; 80048; 80053; 80202; 81000; 82607; 82746; 82962; 83605; 83690; 83735; 84100; 84145; 84484; 85025; 85610; 86850; 86900; 86901; 86920; 87040; 87081; 87088; 87324; 87449; 88305; 93005; 96374; 96375; 99156; 99204

== ENCOUNTER 2019-06-01 14:17 | Inpatient (IN) | payer MEDICARE, OTHER ==
[~2019-06-01] VITALS: Ht 165.1 cm; Wt 74.8 kg
[~2019-06-01 14:17] MED LIST changes: +HYDR-3812 PO; +LIDO700A45 TD; +MORP-33 PO; +ONDA8TAB12 PO
[2019-06-01] MEDS ORDERED: CALCIUM CARBONATE 500 MG (TUMS) TAB.CHEW PO PRN (14:45)
[2019-06-01] MEDS ORDERED: ONDANSETRON 4 MG (ZOFRAN) ORAL DISSOLVE TAB PO PRN (14:45)
[2019-06-01] MEDS ORDERED: HYDROcodone/APAP 5 MG/325 MG (LORTAB) TAB PO PRN (14:45)
[2019-06-01] MEDS ORDERED: MELATONIN 3 MG TABLET PO PRN (14:45)
[2019-06-01] MEDS ORDERED: SENNOSIDES 8.6 MG (SENOKOT) TAB PO PRN (14:45)
[2019-06-01] MEDS ORDERED: MILK OF MAGNESIA 400 MG/5 ML 30 ML UDC PO PRN (14:45)
[2019-06-01] MEDS ORDERED: ACETAMINOPHEN 325 MG TABLET PO PRN (14:45)
[2019-06-01] MEDS ORDERED: BISACODYL 10 MG SUPP (DULCOLAX) PR PRN (14:45)
[2019-06-01] MEDS ORDERED: POLYETHYLENE GLYCOL 17 GM (MIRALAX) PACK PO PRN (14:45)
--- NOTE | 2019-06-01 15:11 | Physical Therapy Evaluation ---
PT Evaluation-General Medical Diagnosis Admission Date Jun 01, 2019 at 14:48 Medical Diagnosis: acute kidney injury Onset Date: May 20, 2019 Therapy Diagnosis Therapy Diagnosis: generalized weakness/debility Height/Weight Height (Feet): 5 Height (Inches): 3.50 Weight (Pounds): 211 Weight (Ounces): 0.0 Weight Bear Status Right Lower Extremity: Right Weight Bearing/Tolerated Left Lower Extremity: Left Weight Bearing/Tolerated Referral Physician: Heath Reason for Referral: Evaluation/Treatment Medical History Pertinent Medical History: HTN Additional Medical History metastatic cancer Current History transfer to [facility] status Social History Home: Single Level Current Living Status: Spouse Entry Into Home: Level Entry PT Steps Into Home: 4 Prior Prior Level of Function SCALE: Activities may be completed with or without assistive devices. 6-Ywfdweyunf-usoglxi completes the activity by him/herself with no assistance from a helper. 5-Set-up or Clean-up Assistance-helper sets up or cleans up; patient completes activity. [place] assists only prior to or following the activity. 4-Supervision or Touching Assistance-helper provides verbal cues and/or touching/steadying and/or contact guard assistance as patient completes activit y. Assistance may be provided throughout the activity or intermittently. 3-Partial/Moderate Assistance-helper does LESS THAN HALF the effort. [place] lifts, holds or supports trunk or limbs, but provides less than half the effort. 2-Substantial/Maximal Assistance-helper does MORE THAN HALF the effort. [place] lifts or holds trunk or limbs and provides more than half the effort. 7-Bejcjfytm-wowpmv does ALL the effort. Patient does none of the effort to complete the activity. Or, the assistance of 2 or more helpers is required for the patient to complete the activity. If activity was not attempted, code reason: 7-Patient Refused. 9-Not Applicable-not attempted and the patient did not perform the activity before the current illness, exacerbation or injury. 10-Not Attempted due to Environmental Limitations-(lack of equipment, weather restraints, etc.). 88-Not Attempted due to Medical Conditions or Safety Concerns. Bed Mobility: 6 Transfers (B,C,W/C): 6 Gait: 6 Stairs: 6 Indoor Mobility (Ambulation): Independent Stairs: Independent Prior Devices Use: None PT Evaluation-Current Subjective Patient agrees to PT. She c/o 10/10 abdominal pain. Nursing notified Pain Numeric Pain Scale: 10-Worst Possible Pain Location: Lower Location Body Site: Abdomen Pain Description: Pressure, Stabbing Objective Patient Orientation: Person, Time, Situation Attachments: Mason Catheter, IV ROM/Strength ROM Lower Extremities bilateral LE WFL Strength Lower Extremities 3/5 grossly bilateral LE Integumentary/Posture Integumentary refer to nursing notes Bowel Incontinence: Yes Posture WFL Neuromuscular (Tone, Coordination, Reflexes) slightly diminished coordination Sensory Vision: Wears Glasses Hearing: Functional Sensation Right Lower Extremit: Intact Sensation Left Lower Extremity: Intact Transfers Roll Left to Right (QC): 3 Sit to Lying (QC): 3 Lying to Sitting/Side of Bed(Q: 3 Sit to Stand (QC): 3 Chair/Xpq-se-Kyzxe Xfer(QC): 3 Car Transfer (QC): 88 Gait Does the Patient Walk?: Yes Mode of Locomotion: Walk Anticipated Mode of Locomotion: Walk Walk 10 feet (QC): 3 Walk 50 ft with 2 Turns(QC): 88 Walk 150 ft (QC): 88 Walking 10ft/uneven surface-QC: 88 Distance: 10' Gait Assistive Device: FWW Comments/Gait Description unable walk increased distance due to weakness and incontinence BM Wheelchair Training Does the Pt Use a Wheelchair?: No Wheel 50 ft with 2 turns (QC): 9 Wheel 150 ft (QC): 9 Type of Wheelchair: Manual Stairs 1 Step (curb) (QC): 88 4 Steps (QC): 88 12 Steps (QC): 88 Balance Sitting Static: Fair Sitting Dynamic: Fair Standing Static: Fair Standing Dynamic: Fair Picking up an Object (QC): 88 Treatment Patient required assistance to cleanse and change patient secondary to incontinence with BM. Patient did perform bilateral LE exercises in recliner 15 reps of SLR and AP. Patient returned to bed with minimal assist. Assessment/Needs 79 y.o. female, will benefit from skilled PT to address functional strength and mobility to improve current LOF to safely return to home or care facility at maximum LOF. Rehab Potential: Guarded PT Fdc Goals Bread Oven Operator Goals PT Fdc Goals Time Frame: Jun 23, 2019 Roll Left & Right (QC): 5 Sit to Lying (QC): 5 Lying-Sitting on Side/Bed(QC): 5 Sit to Stand (QC): 5 Chair/Itt-zj-Guypq Xfer(QC): 5 Toilet Transfer (QC): 5 Car Transfer (QC): 5 Does the Patient Walk: Yes Walk 10 feet (QC): 5 Walk 50ft with 2 Turns (QC): 5 Walk 150 ft (QC): 5 Walking 10ft on Uneven Surface: 5 1 Step (curb) (QC): 5 4 Steps (QC): 4 12 Steps (QC): 9 Picking up an Object (QC): 4 Does the Pt use WC or Scooter?: No Type: N/A Type: N/A PT Plan Problem List Problem List: Activity Tolerance, Functional Strength, Safety, Balance, Gait, Transfer, Bed Mobility, ROM, Other Treatment/Plan Treatment Plan: Continue Plan of Care Treatment Plan: Bed Mobility, Education, Functional Activity Maira, Functional Strength, Gait, Safety, Therapeutic Exercise, Transfers Treatment Duration: Jun 23, 2019 Frequency: 6 times per week Estimated Hrs Per Day: .25 hour per day Patient and/or Family Agrees t: Yes Time/GCodes Time In: 1435 Time Out: 1500 Total Billed Treatment Time: 25 Total Billed Treatment 1 visit EVLowC 10 min FA 15 min KEYLA OJEDA PT Jun 01, 2019 15:11 POS
--- NOTE | 2019-06-01 15:14 | NUR ---
Swing Bed Note: Qualifies for swing bed for continued need of Physical et Occupational therapies (Debility et Malnutrition) with continued need for IV medications. Anticipate admission to swing bed today. Thank you for this referral!
--- NOTE | 2019-06-01 15:15 | NUR ---
Admission Drug Regimen Review: Date: 06/01/19 Time: 1515 Review Completed, No Issues found
[2019-06-01] MEDS: HYDROmorphone 2 MG/ML VIAL (DILAUDID) IV PRN (15:21)
--- NOTE | 2019-06-01 15:39 | Occupational Therapy Eval ---
OT Evaluation-General/PLF Medical Diagnosis Admission Date Jun 01, 2019 at 14:48 Medical Diagnosis: acute kidney injury Onset Date: May 20, 2019 Therapy Diagnosis Therapy Diagnosis: Decreased functional mobility and ADL function Height/Weight Height (Feet): 5 Height (Inches): 3.50 Weight (Pounds): 211 Weight (Ounces): 0.0 Referral Physician: Heath Referral Reason: Activity Tolerance, Self Care, Evaluation/Treatment, Strengthening/ROM Medical History Pertinent Medical History: HTN Additional Medical History hiatal hernia, colon cancer with mets to lung and liver Current History Pt SWB status. Reviewed History: Yes Social History Home: Single Level Current Living Status: Spouse Entry Into Home: Level Entry Steps Into Home: 4 ADL-Prior Level of Function SCALE: Activities may be completed with or without assistive devices. 5-Cfrkmiuiba-ieduvlm completes the activity by him/herself with no assistance from a helper. 5-Set-up or Clean-up Assistance-helper sets up or cleans up; patient completes activity. [place] assists only prior to or following the activity. 4-Supervision or Touching Assistance-helper provides verbal cues and/or touchin g/steadying and/or contact guard assistance as patient completes activity. Assistance may be provided throughout the activity or intermittently. 3-Partial/Moderate Assistance-helper does LESS THAN HALF the effort. Sebree lifts, holds or supports trunk or limbs, but provides less than half the effort. 2-Substantial/Maximal Assistance-helper does MORE THAN HALF the effort. [place]bree lifts or holds trunk or limbs and provides more than half the effort. 9-Ebkftpjxf-akulxf does ALL the effort. Patient does none of the effort to complete the activity. Or, the assistance of 2 or more helpers is required for the patient to complete the activity. If activity was not attempted, code reason: 7-Patient Refused. 9-Not Applicable-not attempted and the patient did not perform the activity before the current illness, exacerbation or injury. 10-Not Attempted due to Environmental Limitations-(lack of equipment, weather restraints, etc.). 88-Not Attempted due to Medical Conditions or Safety Concerns. ADL PLOF Comments Pt reports limited activity prior to admission secondary to fatigue and discomfort. Pt reports spending most of her time in the chair. Self Care: Needed Some Help Functional Cognition: Independent DME/Equipment: Grab Bars, Tub/Shower Occupation: retired Drive Self: No Leisure Interests: TV OT Current Status Subjective Pt seen in bed, alert/ awake. pt states 9/10 pain in abdomen, utilizing BUE to rub abdomen. Nursing notified. pt agreeable to therapy eval/ treat. Mental Status/Objective Patient Orientation: Person, Place, Situation, Normal For Age Attachments: IV, Suprapubic Catheter Current Glasses/Contacts: Yes Hearing Aids: No Dentures/Partials: No Hand Dominance: Right Upper Extremity ROM WFL BUE Upper Extremity Coordination WFL BUE Upper Extremity Sensation WFL Upper Extremity Strength Impaired BUE ADL-Treatment Eating (QC): 6 Oral Hygiene (QC): 7 Shower/Bathe Self (QC): 3 Upper Body Dressing (QC): 7 Lower Body Dressing (QC): 3 On/Off Footwear (QC): 6 Toileting Hygiene (QC): 3 Toilet Transfer (QC): 4 (CGA) Other Treatments Pt completes sponge bath EOB. Completes doff/ donning socks with fair sitting balance. Sit to stand to wipe bottom, pt experiences loose BM onto sheets. Pt able to wipe self, requires assist with clean-up. Pt completes breif donning EOB with assist to thread catheter. Pt requires CGA to steady self while pulling up breifs along with assist to pull up in back.Nursing assists with bed mob/ positioning. Pt returns to bed with call ligth in reach, all needs met, nursing present. Education OT Patient Education: Correct positioning, Modified ADL techniques, Progress toward Goal/Update tx plan, Rehab process, Safety issues, Transfer techniques Teaching Recipient: Patient Teaching Methods: Demonstration, Discussion Response to Teaching: Verbalize Understanding, Return Demonstration OT Correction Goals Police Radio Dispatcher Goals Time Frame: Jun 15, 2019 Eating (QC): 6 Oral Hygiene (QC): 6 Toileting Hygiene (QC): 6 Shower/Bathe Self (QC): 4 Upper Body Dressing (QC): 6 Lower Body Dressing (QC): 6 On/Off Footwear (QC): 6 Additional Goals: 1-Demonstrate ADL Tasks, 2-Verbalize Understanding, 3- ImproveStrength/Maira 1=Demonstrate adherence to instructed precautions during ADL tasks. 2=Patient will verbalize/demonstrate understanding of assistive devices/modifications for ADL. 3=Patient will improve strength/tolerance for activity to enable patient to perform ADL's. OT Education/Plan Problem List/Assessment Assessment: Decreased Activ Tolerance, Decreased UE Strength, Dependent Transfers, Impaired Bed Mobility, Impaired Funct Balance, Impaired I ADL's, Impaired Self-Care Skills Discharge Recommendations Plan/Recommendations: Continue POC Patient/Family Goals Get strong enough to go home. Treatment Plan/Plan of Care Treatment,Training & Education: Yes Patient would benefit from OT for education, treatment and training to promote independence in ADL's, mobility, safety and/or upper extremity function for ADL's. Plan of Care: ADL Retraining, Caregiver Training, Concurrent Therapy, Functional Mobility, UE Funct Exercise/Act Treatment Duration: Jun 15, 2019 Frequency: 5 times per week Estimated Hrs Per Day: .25 hour per day Agreement: Yes Rehab Potential: Guarded Time/GCodes Start Time: 15:00 Stop Time: 15:30 Total Time Billed (hr/min): 30 Billed Treatment Time 1, EVM(15), ADL (15)= 30 GIOVANA GOODWIN OTR Jun 01, 2019 15:39 POS
[2019-06-01] MEDS: METOCLOPRAMIDE INJ 10 MG/2 ML (REGLAN) IVP SCH ×2 (15:44→21:47)
[2019-06-01] MEDS: ONDANSETRON 4 MG/2 ML (SDV) Z0FRAN IV PRN (15:51)
[2019-06-01] MEDS: NS W/KCL 20 MEQ/L 1,000 ML IV SCH ×2 (15:51→23:47)
[2019-06-01] MEDS: inSUlin ASPART (NovoLOG) 1 UNIT/0.01 ML (CHARGE PER UNIT) SC SCH ×2 (16:30→21:40)
[2019-06-01 17:15] VITALS: BP 108/62
[2019-06-01] MEDS: morphine ER 15 MG (MS CONTIN) TAB PO SCH (17:49)
[2019-06-01] MEDS: MIRTAZAPINE 15 MG (REMERON) TAB PO SCH (21:47)
[2019-06-01] MEDS: ENOXAPARIN 30 MG/0.3 ML (LOVENOX) SYR SC SCH (21:47)
[2019-06-02 04:57] LABS: HEMOGLOBIN 7.9 G/DL (11.5-16.0); MEAN PLATELET VOLUME 10.3 FL (7.4-10.4); RED CELL DISTRIBUTION WIDTH 15.4 % (10.0-14.5); WHITE BLOOD COUNT 5.4 10^3/uL (4.3-11.0)
[2019-06-02 05:26] LABS: CALCIUM 6.7 MG/DL (8.5-10.1); CREATININE SERUM 1.62 MG/DL (0.60-1.30)
[2019-06-02] MEDS: inSUlin ASPART (NovoLOG) 1 UNIT/0.01 ML (CHARGE PER UNIT) SC SCH ×4 (06:03→20:56)
[2019-06-02] MEDS: METOCLOPRAMIDE INJ 10 MG/2 ML (REGLAN) IVP SCH ×4 (06:16→20:50)
[2019-06-02] MEDS: morphine ER 15 MG (MS CONTIN) TAB PO SCH ×2 (06:16→17:37)
[2019-06-02 06:19] VITALS: BP 104/53
[2019-06-02] MEDS: NS W/KCL 20 MEQ/L 1,000 ML IV SCH ×2 (08:11→16:09)
--- NOTE | 2019-06-02 11:54 | Physical Therapy Daily Note ---
PT Daily Note-Current Subjective Pt. in bed, agrees to therapy. During session, patient c/o abdominal pain but no objective pain rating given. Transfers SCALE: Activities may be completed with or without assistive devices. 8-Zahcbuodow-oapzcca completes the activity by him/herself with no assistance from a helper. 5-Set-up or Clean-up Assistance-helper sets up or cleans up; patient completes activity. [place] assists only prior to or following the activity. 4-Supervision or Touching Assistance-helper provides verbal cues and/or touching/steadying and/or contact guard assistance as patient completes activity. Assistance may be provided throughout the activity or intermittently. 3-Partial/Moderate Assistance-helper does LESS THAN HALF the effort. [place] lifts, holds or supports trunk or limbs, but provides less than half the effort. 2-Substantial/Maximal Assistance-helper does MORE THAN HALF the effort. [place] lifts or holds trunk or limbs and provides more than half the effort. 1-Ehbiphkzw-undajw does ALL the effort. Patient does none of the effort to compl ete the activity. Or, the assistance of 2 or more helpers is required for the patient to complete the activity. If activity was not attempted, code reason: 7-Patient Refused. 9-Not Applicable-not attempted and the patient did not perform the activity before the current illness, exacerbation or injury. 10-Not Attempted due to Environmental Limitations-(lack of equipment, weather restraints, etc.). 88-Not Attempted due to Medical Conditions or Safety Concerns. Lying to Sitting/Side of Bed(Q: 4 Sit to Stand (QC): 4 Toilet Transfer (QC): 4 dependent with stacey-care Weight Bearing Right Lower Extremity: Right Weight Bearing/Tolerated Left Lower Extremity: Left Weight Bearing/Tolerated Gait Training Does the Patient Walk?: Yes Distance: 2 x 5 ft Gait Persons Needed: 1 Gait Assistive Device: FWW Assessment Current Status: Fair Progress Pt. very fatigued during session and occasionally had a difficult time responding to therapist questions re: pain, fatigue. Pt. was unsteady with ambulation using FWW, ambulated only to/from commode today. Pt. up in bedside chair post session with call light and all needs met. PT Thaw Shed Heater Tender Goals Residential Goals PT Residential Goals Time Frame: Jun 23, 2019 Roll Left & Right (QC): 5 Sit to Lying (QC): 5 Lying-Sitting on Side/Bed(QC): 5 Sit to Stand (QC): 5 Chair/Asc-mr-Fllgg Xfer(QC): 5 Toilet Transfer (QC): 5 Car Transfer (QC): 5 Does the Patient Walk: Yes Walk 10 feet (QC): 5 Walk 50ft with 2 Turns (QC): 5 Walk 150 ft (QC): 5 Walking 10ft on Uneven Surface: 5 1 Step (curb) (QC): 5 4 Steps (QC): 4 12 Steps (QC): 9 Picking up an Object (QC): 4 Does the Pt use WC or Scooter?: No Type: N/A Type: N/A PT Plan Treatment/Plan Treatment Plan: Continue Plan of Care Treatment Plan: Bed Mobility, Education, Functional Activity Maira, Functional Strength, Gait, Safety, Therapeutic Exercise, Transfers Treatment Duration: Jun 23, 2019 Frequency: 6 times per week Estimated Hrs Per Day: .25 hour per day Patient and/or Family Agrees t: Yes Time/GCodes Time In: 848 Time Out: 905 Total Billed Treatment Time: 17 Total Billed Treatment 1, FA 17' BETH BARROSO PT Jun 02, 2019 11:54 POS
--- NOTE | 2019-06-02 16:19 | NUR ---
Dr. Joe notified for K+ of 5.0 with NS w/20Meq K+ currently running at 125mL/hr.
[2019-06-02] MEDS: 1/2 NS IV SOLUTION 1,000 ML IV SCH (16:44)
[2019-06-02] MEDS: ONDANSETRON 4 MG/2 ML (SDV) Z0FRAN IV PRN (17:37)
[2019-06-02 18:00] VITALS: BP 97/56
[2019-06-02] MEDS: MIRTAZAPINE 15 MG (REMERON) TAB PO SCH (20:50)
[2019-06-02] MEDS: ENOXAPARIN 30 MG/0.3 ML (LOVENOX) SYR SC SCH (20:51)
[2019-06-03] MEDS: 1/2 NS IV SOLUTION 1,000 ML IV SCH ×3 (02:48→23:30)
[2019-06-03 05:16] LABS: HEMOGLOBIN 7.3 G/DL (11.5-16.0); MEAN PLATELET VOLUME 10.2 FL (7.4-10.4); RED CELL DISTRIBUTION WIDTH 15.8 % (10.0-14.5); WHITE BLOOD COUNT 3.4 10^3/uL (4.3-11.0)
[2019-06-03 05:32] LABS: CALCIUM 6.6 MG/DL (8.5-10.1); CREATININE SERUM 1.49 MG/DL (0.60-1.30); POTASSIUM 4.8 MMOL/L (3.6-5.0)
[2019-06-03] MEDS: inSUlin ASPART (NovoLOG) 1 UNIT/0.01 ML (CHARGE PER UNIT) SC SCH ×4 (06:17→22:13)
[2019-06-03] MEDS: METOCLOPRAMIDE INJ 10 MG/2 ML (REGLAN) IVP SCH ×4 (06:29→20:59)
[2019-06-03] MEDS: morphine ER 15 MG (MS CONTIN) TAB PO SCH ×2 (06:30→18:23)
[2019-06-03 06:55] VITALS: BP 109/58
[2019-06-03 18:15] VITALS: BP 120/65
[2019-06-03] MEDS: ENOXAPARIN 30 MG/0.3 ML (LOVENOX) SYR SC SCH (20:59)
[2019-06-03] MEDS: MIRTAZAPINE 15 MG (REMERON) TAB PO SCH (21:00)
[2019-06-04] MEDS: ONDANSETRON 4 MG/2 ML (SDV) Z0FRAN IV PRN ×2 (03:14→10:43)
[2019-06-04 05:19] VITALS: BP 103/63
[2019-06-04 05:20] LABS: HEMOGLOBIN 7.9 G/DL (11.5-16.0); MEAN PLATELET VOLUME 10.3 FL (7.4-10.4); RED CELL DISTRIBUTION WIDTH 15.5 % (10.0-14.5); WHITE BLOOD COUNT 4.1 10^3/uL (4.3-11.0)
[2019-06-04] MEDS: inSUlin ASPART (NovoLOG) 1 UNIT/0.01 ML (CHARGE PER UNIT) SC SCH ×2 (05:35→11:40)
[2019-06-04] MEDS: METOCLOPRAMIDE INJ 10 MG/2 ML (REGLAN) IVP SCH ×4 (05:51→21:31)
[2019-06-04] MEDS: morphine ER 15 MG (MS CONTIN) TAB PO SCH ×2 (05:51→17:14)
[2019-06-04 05:52] LABS: CALCIUM 6.4 MG/DL (8.5-10.1); CREATININE SERUM 1.18 MG/DL (0.60-1.30); POTASSIUM 4.6 MMOL/L (3.6-5.0)
[2019-06-04] MEDS: HYDROmorphone 2 MG/ML VIAL (DILAUDID) IV PRN (09:34)
--- NOTE | 2019-06-04 09:49 | Physical Therapy Daily Note ---
PT Daily Note-Current Subjective Patient agrees to PT at this time. Patient is sitting in chair after breakfast. Reports no significant pain prior to tx. Pain Numeric Pain Scale: 0-No Pain Location: No Pain Reported Mental Status Patient Orientation: Normal For Age Attachments: IV Transfers SCALE: Activities may be completed with or without assistive devices. 0-Lxhcrravuw-gdgudaj completes the activity by him/herself with no assistance from a helper. 5-Set-up or Clean-up Assistance-helper sets up or cleans up; patient completes activity. [place] assists only prior to or following the activity. 4-Supervision or Touching Assistance-helper provides verbal cues and/or touching/steadying and/or contact guard assistance as patient completes activity. Assistance may be provided throughout the activity or intermittently. 3-Partial/Moderate Assistance-helper does LESS THAN HALF the effort. [place] lifts, holds or supports trunk or limbs, but provides less than half the effort. 2-Substantial/Maximal Assistance-helper does MORE THAN HALF the effort. [place] lifts or holds trunk or limbs and provides more than half the effort. 3-Tzfxbljxj-uorsmm does ALL the effort. Patient does none of the effort to complete the activity. Or, the assistance of 2 or more helpers is required for the patient to complete the activity. If activity was not attempted, code reason: 7-Patient Refused. 9-Not Applicable-not attempted and the patient did not perform the activity before the current illness, exacerbation or injury. 10-Not Attempted due to Environmental Limitations-(lack of equipment, weather restraints, etc.). 88-Not Attempted due to Medical Conditions or Safety Concerns. Sit to Stand (QC): 3 Weight Bearing Right Lower Extremity: Right Weight Bearing/Tolerated Left Lower Extremity: Left Weight Bearing/Tolerated Gait Training Does the Patient Walk?: Yes Distance: 250' Walk 10 feet (QC): 3 Walk 50 ft with 2 Turns(QC): 3 Walk 150 ft (QC): 3 Gait Assistive Device: FWW Min-modA to ambulate. Reported SOB during ambulation and required breaks every couple steps Exercises Seated Therapy Exercises: Ankle pumps, Long arc quads, Hip flexion Seated Reps: 15 Assessment Patient able to complete seated exercises in recliner prior to ambulation. Stood from chair with Edward. Patient ambulated with FWW 250'. Initially patient required Edward to ambulate with normal pace and pattern but as patient fatigued and became SOB, required frequent rest breaks and did not ambulate in a straight, steady pathway. Upon return to room, O2 sats measured at 94% and patient instructed to take deep breaths, recovering after a minute of rest. Patient in recliner with legs elevated at conclusion of treatment. PT Net Wpf Developer Goals Net Wpf Developer Goals PT Net Wpf Developer Goals Time Frame: Jun 23, 2019 Roll Left & Right (QC): 5 Sit to Lying (QC): 5 Lying-Sitting on Side/Bed(QC): 5 Sit to Stand (QC): 5 Chair/Qyj-xo-Cslnl Xfer(QC): 5 Toilet Transfer (QC): 5 Car Transfer (QC): 5 Does the Patient Walk: Yes Walk 10 feet (QC): 5 Walk 50ft with 2 Turns (QC): 5 Walk 150 ft (QC): 5 Walking 10ft on Uneven Surface: 5 1 Step (curb) (QC): 5 4 Steps (QC): 4 12 Steps (QC): 9 Picking up an Object (QC): 4 Does the Pt use WC or Scooter?: No Type: N/A Type: N/A PT Plan Treatment/Plan Treatment Plan: Continue Plan of Care Treatment Plan: Bed Mobility, Education, Functional Activity Maira, Functional Strength, Gait, Safety, Therapeutic Exercise, Transfers Treatment Duration: Jun 23, 2019 Frequency: 6 times per week Estimated Hrs Per Day: .25 hour per day Patient and/or Family Agrees t: Yes Time/GCodes Time In: 833 Time Out: 852 Total Billed Treatment Time: 19 Total Billed Treatment 1 visit FA 19min KEYLA OJEDA PT Jun 04, 2019 09:49 POS
--- NOTE | 2019-06-04 10:04 | NUR ---
RADIATION TREATMENT #1 OF 25 DELIVERED TODAY AT 945 AM.
[2019-06-04] MEDS: 1/2 NS IV SOLUTION 1,000 ML IV SCH ×2 (10:43→21:31)
--- NOTE | 2019-06-04 12:31 | NUR ---
"RD ASSESSMENT PMHx: CA (colon) PT INTERACTION: Pt was awake and pleasant for nutrition follow-up. Pt states eating better since last assessment. Note pt avg PO intake of 37% x2d, per chart review. Note this is an increase from previously avg of 10-20%. Pt states no recent issues with n/v since last assessment. Pt states some recent issues with diarrhea and loose stools since last assessment. Note last BM was 06/04, per chart review. Note pt has 6# wt gain x2w, per chart review. Though pt PO intake is still below 50%, pt is gaining weight and does not meet criteria for malnutrition, per ASPEN guidelines. ABNORMAL NUTRITION-RELATED LAB VALUES LOW: Na 134; Ca 6.4 HIGH: Cl 113; BUN 19 Est. kcal needs: 3259-6003 kcal | 20-25 kcal/kg Est. Pro needs: 90-105 g Pro | 1.2-1.4 g Pro/kg PES STATEMENT: Inadequate oral intake (NI-2.1) related to loss of appetite as evidenced by pt interview | avg PO intake 37% x2d INTERVENTION: Continue with current diet order of Regular diet. Add Ensure Clear (vary) to trays TID to increase kcal intake. Provides 180 kcal and 8 g Pro per serving. Will continue to follow and reassess as pt needs and status change. MONITOR/EVALUATE: PO Intake; Plan of Care; Hydration Status; Weight Status; Lab Values Key Casey, MS, RD, LD"
--- NOTE | 2019-06-04 13:49 | Occupational Ther Daily Note ---
OT Current Status-Daily Note Subjective Pt alert and finishing up lunch upon therapist arrival. Pt willing to work with OT, however she reported feeling fatigued from the mornings events of PT and radiology. Mental Status/Objective Patient Orientation: Normal For Age ADL-Treatment Therapy Code Descriptions/Definitions Functional [place] Measure: 0=Not Assessed/NA 4=Minimal Assistance 1=Total Assistance 5=Supervision or Setup 2=Maximal Assistance 6=Modified [place] 3=Moderate Assistance 7=Complete IndependenceSCALE: Activities may be completed with or without assistive devices. 9-Cevhiqnuap-mxftgbh completes the activity by him/herself with no assistance from a helper. 5-Set-up or Clean-up Assistance-helper sets up or cleans up; patient completes activity. [place] assists only prior to or following the activity. 4-Supervision or Touching Assistance-helper provides verbal cues and/or touching/steadying and/or contact guard assistance as patient completes activity. Assistance may be provided throughout the activity or intermittently. 3-Partial/Moderate Assistance-helper does LESS THAN HALF the effort. Katy lifts, holds or supports trunk or limbs, but provides less than half the effort. 2-Substantial/Maximal Assistance-helper does MORE THAN HALF the effort. [place] lifts or holds trunk or limbs and provides more than half the effort. 8-Kaakmuqao-ujiunv does ALL the effort. Patient does none of the effort to complete the activity. Or, the assistance of 2 or more helpers is required for the patient to complete the activity. If activity was not attempted, code reason: 7-Patient Refused. 9-Not Applicable-not attempted and the patient did not perform the activity before the current illness, exacerbation or injury. 10-Not Attempted due to Environmental Limitations-(lack of equipment, weather restraints, etc.). 88-Not Attempted due to Medical Conditions or Safety Concerns. Lower Body Dressing (QC): 4 (CGA while pt stood to manage brieft over hips. ) Toileting Hygiene (QC): 4 (CGA while standing to perform toileting hygiene. ) Toilet Transfer (QC): 4 (CGA required for steadying assist. ) Other Treatment Pt participated in functional transfer training including three sit to stand transfers requiring CGA for safety and steadying assist. Pt required CGA to safely navigate throughout her bedroom during functional mobility. Education OT Patient Education: Correct positioning, Modified ADL techniques, Purpose of tx/functional activities, Safety issues, Transfer techniques Teaching Recipient: Patient Teaching Methods: Demonstration, Discussion OT Chcf Goals Sheet Metal Contractor Goals Time Frame: Jun 15, 2019 Eating (QC): 6 Oral Hygiene (QC): 6 Toileting Hygiene (QC): 6 Shower/Bathe Self (QC): 4 Upper Body Dressing (QC): 6 Lower Body Dressing (QC): 6 On/Off Footwear (QC): 6 Additional Goals: 1-Demonstrate ADL Tasks, 2-Verbalize Understanding, 3- ImproveStrength/Maira 1=Demonstrate adherence to instructed precautions during ADL tasks. 2=Patient will verbalize/demonstrate understanding of assistive devices/modifications for ADL. 3=Patient will improve strength/tolerance for activity to enable patient to perform ADL's. OT Education/Plan Discharge Recommendations Plan/Recommendations: Continue POC Treatment Plan/Plan of Care Patient would benefit from OT for education, treatment and training to promote independence in ADL's, mobility, safety and/or upper extremity function for ADL's. Plan of Care: ADL Retraining, Caregiver Training, Concurrent Therapy, Functional Mobility, UE Funct Exercise/Act Treatment Duration: Jun 15, 2019 Frequency: 5 times per week Estimated Hrs Per Day: .25 hour per day Agreement: Yes Rehab Potential: Guarded Time/GCodes Start Time: 13:15 Stop Time: 13:48 Total Time Billed (hr/min): 38 Billed Treatment Time 1, ADL2, FA1 JENI CAPELLAN OT Jun 04, 2019 13:49 POS
--- NOTE | 2019-06-04 14:00 | NUR ---
Pastoral care visit.
--- NOTE | 2019-06-04 14:52 | Progress Note - Hospitalist ---
Subjective HPI/CC On Admission Date Seen by Provider: Jun 04, 2019 Time Seen by Provider: 10:20 nausea and vomiting Subjective/Events-last exam She reports continued nausea. She denies vomiting. She is not getting nauseous with every meal. She continues to have abdominal pain. She is feeling better than she has since she was admitted. She does not want to go to rehab. She prefers to go to [facility]. Objective Exam Vital Signs Vital Signs Date Time Temp Pulse Resp B/P (MAP) Pulse Ox O2 Delivery O2 Flow Rate FiO2 06/04/19 09:00 Room Air 06/04/19 05:19 37.2 98 18 103/63 (76) 95 Capillary Refill : General Appearance: No Apparent Distress, WD/WN, Chronically ill HEENT: PERRL/EOMI, Pharynx Normal Neck: Normal Inspection, Supple Respiratory: Lungs Clear, Normal Breath Sounds, No Respiratory Distress Cardiovascular: Regular Rate, Rhythm, No Edema, No Murmur Gastrointestinal: Normal Bowel Sounds, Mass, Tenderness Extremity: Normal Inspection, Non Tender, Pedal Edema Neurologic/Psychiatric: Alert, Oriented x3 Skin: Normal Color, Warm/Dry Results/Procedures Lab Laboratory Tests 06/04/19 05:05 Patient resulted labs reviewed. Assessment/Plan Assessment and Plan Assess & Plan/Chief Complaint MARK Nausea and vomiting -Continue antiemetics -Cr improved Metastatic colon cancer -Receiving radiation Severe protein calorie malnutrition -Encourage oral intake -Ensure ordered Debility -PT/OT -Plan to discharge to [facility] tomorrow Partial small bowel obstruction-resolved SIRS-resolved DVT Prophylaxis: Lovenox Diagnosis/Problems Diagnosis/Problems (1) Nausea and vomiting Status: Acute (2) Stage IV carcinoma of colon Status: Acute (3) MARK (acute kidney injury) Status: Resolved Resolution Date/Time: 05/26/19 @ 12:10 (4) Debility Status: Acute (5) Malnutrition Status: Acute Qualifiers: Malnutrition type: protein-calorie malnutrition Protein-calorie malnutrition severity: severe Qualified Codes: E43 - Unspecified severe protein-calorie malnutrition Clinical Quality Measures DVT/VTE Risk/Contraindication: Risk Factor Score Per Nursin SYLVIE GROSSMAN MD Jun 04, 2019 14:52 POS
[2019-06-04 18:04] VITALS: BP 116/57
--- NOTE | 2019-06-04 18:23 | Progress Note ---
Standard Progress Note Progress Notes/Assess & Plan Date Seen by a Provider: Jun 04, 2019 Time Seen by a Provider: 18:19 Progress/Assessment & Plan 79-year-old female with metastatic colon cancer to the abdominal wall in the periumbilical area, admitted with significant nausea, vomiting and diarrhea causing acute on chronic renal failure. This has improved gradually with hydration. Patient still has nausea but no vomiting. Oral intake has also improved. She completed a CT-guided biopsy of the abdominal wall lesion for next Gen sequencing for potential targeted therapies. She started palliative radiation to the abdominal wall today and tolerated this. career services assistant arranging transfer to [facility] as she is unable to manage at home. Continue palliative radiation therapy. Follow-up at the cancer center after the completion of radiation therapy. SAMANTHA SHANKS Jun 04, 2019 18:23 POS
[2019-06-04] MEDS ORDERED: ENOXAPARIN 40 MG/0.4 ML (LOVENOX) SYR SC SCH (21:00)
[2019-06-04] MEDS: MIRTAZAPINE 15 MG (REMERON) TAB PO SCH (21:32)
[2019-06-05] MEDS: 1/2 NS IV SOLUTION 1,000 ML IV SCH (04:55)
[2019-06-05] MEDS: METOCLOPRAMIDE INJ 10 MG/2 ML (REGLAN) IVP SCH ×2 (05:12→13:04)
[2019-06-05] MEDS: morphine ER 15 MG (MS CONTIN) TAB PO SCH (05:13)
[2019-06-05 06:15] VITALS: BP 101/59
[2019-06-05 06:47] LABS: RED CELL DISTRIBUTION WIDTH 15.7 % (10.0-14.5); WHITE BLOOD COUNT 3.3 10^3/uL (4.3-11.0)
[2019-06-05 06:48] LABS: HEMOGLOBIN 6.9 G/DL (11.5-16.0)
[2019-06-05 07:03] LABS: CALCIUM 6.4 MG/DL (8.5-10.1); CREATININE SERUM 1.3 MG/DL (0.60-1.30); POTASSIUM 4.1 MMOL/L (3.6-5.0)
[2019-06-05] MEDS: HYDROmorphone 2 MG/ML VIAL (DILAUDID) IV PRN (08:11)
--- NOTE | 2019-06-05 08:42 | NUR ---
RADIATION TREATMENT #2 OF 25 WAS DELIVERED TODAY AT 8:42 AM.
[2019-06-05] MEDS ORDERED: LACTATED RINGERS 1,000 ML IV SCH (10:15)
--- NOTE | 2019-06-05 10:15 | NUR ---
Notice of Medicare Non Coverage presented, reviewed, signed and placed in patient chart. Patient voiced no intention to appeal and deny any needs or further questions at this time.
[2019-06-05] MEDS ORDERED: LACTATED RINGERS 1,000 ML IV ONE (10:19)
[2019-06-05 10:34] VITALS: BP 112/61
[2019-06-05 10:52] VITALS: BP 122/67
[2019-06-05] MEDS ORDERED: MIRT-47 PO (10:55)
--- NOTE | 2019-06-05 11:06 | Discharge Summary ---
Discharge Summary Reconcile Patient Problems Problems Reviewed?: Yes Hospital Course Hospital Course Date of Admission: Jun 01, 2019 at 14:48 Admission Diagnosis : Intractable nausea and vomiting Family Physician/Provider: No,Local Physician Date of Discharge: 06/05/19 Discharge Diagnosis: Intractable nausea and vomiting, partial small bowel obstruction Hospital Course: Sara Rubio is a 79yoF with metastatic colon cancer on chemotherapy who presented with nausea and vomiting. She had a prolonged hospitalization. This was complicated by partial small bowel obstruction which was managed conservatively with NPO and NG tube and resolved. She had ongoing nausea and vomiting which was managed with antiemetics. She had poor oral intake and severe protein calorie malnutrition and was started on Mirtazapine for appetite stimulant and given oral supplements. She developed hypotension and was treated with a course of antibiotics with concern for an occult infection. She was pancytopenic due to her chemotherapy. She underwent a biopsy of an abdominal wall mass which was consistent with metastatic colon cancer. She started radiation therapy while inpatient. She was stabilized and discharged to [facility]. Labs and Pending Lab Test: Laboratory Tests 06/05/19 06:40: White Blood Count 3.3L, Red Blood Count 2.41L, Hemoglobin 6.9*L, Hematocrit 22L, Mean Corpuscular Volume 91, Mean Corpuscular Hemoglobin 29, Mean Corpuscular Hemoglobin Concent 32, Red Cell Distribution Width 15.7H, Platelet Count 98L, Mean Platelet Volume 10.0, Sodium Level 135, Potassium Level 4.1, Chloride Level 113H, Carbon Dioxide Level 14L, Anion Gap 8, Blood Urea Nitrogen 18, Creatinine 1.30, Estimat Glomerular Filtration Rate 40, BUN/Creatinine Ratio 14, Glucose Level 76, Calcium Level 6.4L, Albumin 1.9L Home Meds Active Mirtazapine 15 Mg Tab.rapdis 7.5 Mg PO HS 30 Days Reported Lidocaine 5% Patch (Lidocaine) 1 Each Adh..patch 1 Patch TD Q12H APPLY 1 PATCH AND LEAVE ON FOR 12 HOURS, REMOVE AND KEEP OFF FOR 12 HOURS Ondansetron HCl 8 Mg Tablet 8 Mg PO Q8H PRN Morphine Sulfate ER (Morphine Sulfate) 15 Mg Tablet.er 15 Mg PO Q12H Hydrocodone-Acetamin 5-325 mg (Hydrocodone/Acetaminophen) 1 Each Tablet 1-2 Tab PO Q4H PRN Instructions to Patient/Family Assessment/Instructions Take medications as prescribed. Follow up with next fci rounds. Follow Up Appt.: next fci rounds Skilled NF Admit to: [facility] Certification ([facility]) I certify that SNF services are required to be given on an inpatient basis because of the above named patient's need for usp care on a continuing basis for the conditions(s) for which he/she was receiving inpatient hospital services prior to his/her transfer to the SNF. Snf Facility Order: Nursing Services, [facility]er-Evaluate & Treat, Physical Therapy-Evaluate & Treat Oxygen Delivery Method: Room Air Discharge Diet: No Restrictions Daily Activity as Tolerated: Yes Resuscitation Status: Do Not Resuscitate Code Limitations: DNR/DNI Sylvie Grossman Jun 05, 2019 10:57 Discharge Physical Exam General: Alert, Oriented X3, Cooperative, No Acute Distress HEENT: Atraumatic, PERRLA, EOMI, Mucous Memb Moist/Frazee Lungs: Clear to Auscultation, Normal Air Movement Heart: Regular Rate, Normal S1, Normal S2, No Murmurs Abdomen: Normal Bowel Sounds, Other (tender, mass) Extremities: No Tenderness/Swelling, Other (2+ edema) Skin: No Rashes, No Significant Lesion Neuro: Normal Speech Psych/Mental Status: Mental Status NL, Mood NL SYLVIE GROSSMAN MD Jun 05, 2019 11:04 POS
--- NOTE | 2019-06-05 11:20 | Physical Therapy Daily Note ---
PT Daily Note-Current Subjective Patient agrees to PT. Receiving blood at this time, so concerned about too much movement. Agrees to bed level exercises, toileting, then transfer to chair. Reports being transferred to [facility] this afternoon. Pain Numeric Pain Scale: 0-No Pain Location: No Pain Reported Mental Status Patient Orientation: Normal For Age Attachments: IV Transfers SCALE: Activities may be completed with or without assistive devices. 6-Rivjvptaee-zljjjgn completes the activity by him/herself with no assistance from a helper. 5-Set-up or Clean-up Assistance-helper sets up or cleans up; patient completes activity. [place] assists only prior to or following the activity. 4-Supervision or Touching Assistance-helper provides verbal cues and/or touching/steadying and/or contact guard assistance as patient completes activity. Assistance may be provided throughout the activity or intermittently. 3-Partial/Moderate Assistance-helper does LESS THAN HALF the effort. [place] lifts, holds or supports trunk or limbs, but provides less than half the effort. 2-Substantial/Maximal Assistance-helper does MORE THAN HALF the effort. [place] lifts or holds trunk or limbs and provides more than half the effort. 8-Yhjimofhj-xdybxu does ALL the effort. Patient does none of the effort to complete the activity. Or, the assistance of 2 or more helpers is required for the patient to complete the activity. If activity was not attempted, code reason: 7-Patient Refused. 9-Not Applicable-not attempted and the patient did not perform the activity before the current illness, exacerbation or injury. 10-Not Attempted due to Environmental Limitations-(lack of equipment, weather restraints, etc.). 88-Not Attempted due to Medical Conditions or Safety Concerns. Roll Left & Right (QC): 4 Lying to Sitting/Side of Bed(Q: 4 Sit to Stand (QC): 3 Chair/Dyd-ni-Zpdhi Xfer(QC): 3 Toilet Transfer (QC): 3 Weight Bearing Right Lower Extremity: Right Weight Bearing/Tolerated Left Lower Extremity: Left Weight Bearing/Tolerated Exercises Supine Ex: Ankle pumps, Heel Slides, Hip abd/add Supine Reps: 15 Assessment Patient performed supine exercises in bed prior to transfer while nursing completed observation and vitals measurements. Patient transferred to bed side commode with Edward, completing toileting with Edward for cleaning. Patient then transferred to chair Edward and was positioned with legs elevated at conclusion of treatment. 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 Home Goals PT Group Home Goals Time Frame: Jun 23, 2019 Roll Left & Right (QC): 5 Sit to Lying (QC): 5 Lying-Sitting on Side/Bed(QC): 5 Sit to Stand (QC): 5 Chair/Ltd-ay-Pgtcx Xfer(QC): 5 Toilet Transfer (QC): 5 Car Transfer (QC): 5 Does the Patient Walk: Yes Walk 10 feet (QC): 5 Walk 50ft with 2 Turns (QC): 5 Walk 150 ft (QC): 5 Walking 10ft on Uneven Surface: 5 1 Step (curb) (QC): 5 4 Steps (QC): 4 12 Steps (QC): 9 Picking up an Object (QC): 4 Does the Pt use WC or Scooter?: No Type: N/A Type: N/A PT Plan Treatment/Plan Treatment Plan: Continue Plan of Care Treatment Plan: Bed Mobility, Education, Functional Activity Maira, Functional Strength, Gait, Safety, Therapeutic Exercise, Transfers Treatment Duration: Jun 23, 2019 Frequency: 6 times per week Estimated Hrs Per Day: .25 hour per day Patient and/or Family Agrees t: Yes Time/GCodes Time In: 1042 Time Out: 1059 Total Billed Treatment Time: 17 Total Billed Treatment 1 visit FA 17min KEYLA OJEDA PT Jun 05, 2019 11:20 POS
[2019-06-05 13:02] VITALS: BP 115/58
--- NOTE | 2019-06-05 14:00 | NUR ---
Report called to [facility]
--- NOTE | 2019-06-05 14:29 | Therapy Team Discharge Summary ---
Therapy Discharge Summary Discharge Recommendations Date of Discharge Physical Therapy Patient goals were addressed during skilled physical therapy sessions but no goals were attained during this stay. Patient made improvements in bed mobility, able to now complete all bed mobility with SBA, where initially required Edward to sit to EOB. Patient improved ambulation in both distance and assistance, now able to ambulate 250' with Edward and FWW from only able to ambulate about 8' within room with modA. Patient performs transfers to commode and chair with Edward compared to prior level of modA. Patient to discharge from hospital to care home facility to further rehabilitation. Occupational Therapy Decreased Activ Tolerance, Decreased UE Strength, Dependent Transfers, Impaired Bed Mobility, Impaired Funct Balance, Impaired I ADL's, Impaired Self-Care Skills PT Paleologist Goals Long-Term Goals PT Long-Term Goals Time Frame: Jun 23, 2019 Roll Left to Right (QC): 5 Sit to Lying (QC): 5 Lying-Sitting on Side/Bed(QC): 5 Sit to Stand (QC): 5 Chair/Ukz-hr-Gskrc Xfer(QC): 5 Car Transfer (QC): 5 Does the Patient Walk: Yes Walk 10 feet (QC): 5 Walk 10ft-Uneven Surface(QC): 5 Walk 50ft with 2 Turns (QC): 5 Walk 150 ft (QC): 5 Does the Pt use WC or Scooter?: No 1 Step (curb) (QC): 5 4 Steps (QC): 4 12 Steps (QC): 9 Picking up an Object (QC): 4 OT Long-Term Goals Paleologist Goals Time Frame: Jun 15, 2019 Eating (QC): 6 Oral Hygiene (QC): 6 Shower/Bathe Self (QC): 4 Upper Body Dressing (QC): 6 Lower Body Dressing (QC): 6 On/Off Footwear (QC): 6 Toileting Hygiene (QC): 6 Toilet/Commode Transfer (QC): 5 Additional Goals: 1-Demonstrate ADL Tasks, 2-Verbalize Understanding, 3- ImproveStrength/Maira 1=Demonstrate adherence to instructed precautions during ADL tasks. 2=Patient will verbalize/demonstrate understanding of assistive devices/modifications for ADL. 3=Patient will improve strength/tolerance for activity to enable patient to perform ADL's. KEYLA OJEDA PT Jun 05, 2019 14:29 POS
[2019-06-05] MEDS ORDERED: MORP-33 PO (14:32)
[2019-06-05] MEDS ORDERED: HYDR-3812 PO (14:32)
[2019-06-05 14:47] VITALS: BP 115/58
--- NOTE | 2019-06-05 16:03 | NUR ---
Arrangements completed for pt to be admitted to the Skilled Unit at [facility]. Pt also completed DPOA paperwork for Health Care naming and brother as her agents. CARE assessment was completed and faxed. [facility] Staff was given physician orders, discharge instructions, copies of consultations and History and Physical. Both p[t's and brother were notified of pt transfer.
== END 2019-06-05 14:50 | DRG 947 ==
LOC: 4TH 14:48
PROVIDERS: ADMIT Family Medicine; ATTEND Family Medicine
DX: R53.81 Other malaise (principal); E43 Unspecified severe protein-calorie malnutrition; C79.2 Secondary malignant neoplasm of skin; D61.810 Antineoplastic chemotherapy induced pancytopenia; R11.0 Nausea; Z85.038 Personal history of other malignant neoplasm of large intestine
CPT/HCPCS: 36415; 77295; 77300; 77334; 77417; 80048; 82040; 82962; 85027; 86850; 86900; 86901; 86920

== ENCOUNTER 2019-06-27 09:10 | Inpatient (IN) | payer MEDICARE, OTHER ==
[~2019-06-27] VITALS: Ht 165.1 cm; Wt 72.0 kg
[~2019-06-27 09:10] MED LIST changes: +MIRT-47 PO
--- NOTE | 2019-06-27 09:44 | NUR ---
SEE LIST FOR CURRENT MEDS
[2019-06-27 09:45] LABS: BASOPHILS % (AUTO) 0 % (0-10); EOSINOPHILS # (AUTO) 0.1 10^3/uL (0.0-0.3); EOSINOPHILS % (AUTO) 1 % (0-10); HEMATOCRIT 33 % (35-52); HEMOGLOBIN 10.4 G/DL (11.5-16.0); LYMPHOCYTES # (AUTO) 1.6 X 10^3 (1.0-4.0); LYMPHOCYTES % (AUTO) 13 % (12-44); MEAN CORPUSCULAR HEMOGLOBIN 30 PG (25-34); MEAN CORPUSCULAR HGB CONC 32 G/DL (32-36); MEAN CORPUSCULAR VOLUME 95 FL (80-99); MEAN PLATELET VOLUME 10.3 FL (7.4-10.4); MONOCYTES % (AUTO) 8 % (0-12); NEUTROPHILS # (AUTO) 10.2 X 10^3 (1.8-7.8); NEUTROPHILS % (AUTO) 78 % (42-75); PLATELET COUNT 220 10^3/uL (130-400)
[2019-06-27 09:56] LABS: ALBUMIN 2.5 GM/DL (3.2-4.5); BILIRUBIN,TOTAL 1.1 MG/DL (0.1-1.0); CALCIUM 7.4 MG/DL (8.5-10.1); CREATININE SERUM 2.25 MG/DL (0.60-1.30); MAGNESIUM 1.8 MG/DL (1.6-2.4); POTASSIUM 4.5 MMOL/L (3.6-5.0); TOTAL PROTEIN 5.4 GM/DL (6.4-8.2)
--- NOTE | 2019-06-27 11:02 | Diagnostic Imaging Report ---
INDICATION: Fall. TIME OF EXAMINATION: 10:47 AM. COMPARISON: 05/27/2019. FINDINGS: The right chest wall port remains in place. The heart size is stable. Nodular densities in both lungs are again noted, consistent with pulmonary metastatic disease. No infiltrates are seen. There is no effusion or pneumothorax. IMPRESSION: Pulmonary metastases. No other significant abnormality is detected. Dictated by: Dictated on workstation # [id number]
[2019-06-27] MEDS ORDERED: NS IV 1000 ML 1,000 ML IV ONE ×2 (11:29→12:34)
[2019-06-27 11:34] LABS: BILIRUBIN,URINE NEGATIVE (NEGATIVE); CLARITY,URINE CLEAR; COLOR,URINE YELLOW; GLUCOSE, URINE (UA) NEGATIVE (NEGATIVE); KETONES,URINE TRACE (NEGATIVE); LEUKOCYTE ESTERASE ,URINE NEGATIVE (NEGATIVE); NITRITE,URINE POSITIVE (NEGATIVE); PH,URINE 5.5 (5-9); PROTEIN,URINE TRACE (NEGATIVE)
[2019-06-27 11:44] LABS: BACTERIA,URINE MODERATE /HPF; GRANULAR CASTS,URINE RARE /LPF; RBC,URINE RARE /HPF; WBC,URINE RARE /HPF
[2019-06-27] MEDS ORDERED: cefTRIAXone FOR IV USE 1,000 MG in WATER (STERILE) FOR INJECTION 10 ML IV ONE (12:00)
--- NOTE | 2019-06-27 12:22 | ED General ---
General Chief Complaint: Trauma-Non Activation Stated Complaint: FALL Nursing Triage Note: PT ARRIVED PER EMS, PT CO OF FALL TO KNEES AT MA WHILE TRYING TO GET TO BATHROOM. DENIES LOC, DENIES HITTING HEAD. MA STATES PT HAS BEEN CONFUSED, PT HAS COLON CA, PT GETS RADIATION DAILY. PT IS A AND O X4. DENIES PAIN AT THIS X Nursing Sepsis Screen: No Definite Risk Source of Information: Patient, EMS, Retirement Records, Old Records Exam Limitations: No Limitations History of Present Illness Date Seen by Provider: Jun 27, 2019 Time Seen by Provider: 09:13 Initial Comments This 79-year-old woman with metastatic cancer presents to the emergency room from [facility] after having a nontraumatic fall this morning. She was in a dawson to get up to go to the bathroom when she fell to the floor. She denies striking her head or neck. She has chronic abdominal pain from her cancer but no new pain associated with the fall. She has been receiving daily palliative radiation therapy daily at [facility]. Her oncologist is Dr. Ybarra. Her primary care provider is Tangela Weiner. She is alert and oriented for EMS and on arrival to the ER. However, retirement staff report that she has been confused recently. Patient does appear anxious. She is afebrile but tachycardic. Location Injury Occurred: [facility] Allergies and Home Medications Allergies Coded Allergies: No Known Drug Allergies (Unverified , 04/15/16) Home Medications Hydrocodone/Acetaminophen 1 Each Tablet, 1-2 TAB PO Q4H PRN for PAIN-MODERATE (4-6) Prescribed by: SYLVIE GROSSMAN on 06/05/19 1432 Lidocaine 1 Each Adh..patch, 1 PATCH TD Q12H, (Reported) APPLY 1 PATCH AND LEAVE ON FOR 12 HOURS, REMOVE AND KEEP OFF FOR 12 HOURS Mirtazapine 15 Mg Tab.rapdis, 7.5 MG PO HS Prescribed by: SYLVIE GROSSMAN on 06/05/19 1055 Morphine Sulfate 15 Mg Tablet.er, 15 MG PO Q12H Prescribed by: SYLVIE GROSSMAN on 06/05/19 1432 Ondansetron HCl 8 Mg Tablet, 8 MG PO Q8H PRN for NAUSEA/VOMITING-1ST LINE, (Reported) Patient Home Medication List Home Medication List Reviewed: Yes Review of Systems Review of Systems Constitutional: no symptoms reported EENTM: no symptoms reported Respiratory: other (metastatic lesions to the lung) Cardiovascular: see HPI Gastrointestinal: see HPI Genitourinary: no symptoms reported : No Musculoskeletal: no symptoms reported Skin: no symptoms reported Psychiatric/Neurological: See HPI Hematologic/Lymphatic: See HPI Immunological/Allergic: see HPI Past Wqdaoeh-Uwvnwa-Yxtzet Hx Past Med/Social Hx: Reviewed and Corrections made Patient Social History Alcohol Use: Denies Use Recreational Drug Use: No Smoking Status: Former Smoker Type Used: Cigarettes Former Smoker, Quit: Jul 11, 1984 Recent Foreign Travel: No Contact w/Someone Who Travel: No Recent Infectious Disease Expo: No Recent Hopitalizations: No Physical Abuse: No Sexual Abuse: No Immunizations Up To Date Tetanus Booster (TDap): Unknown Date of Pneumonia Vaccine: Feb 25, 2016 Date of Influenza Vaccine: Jun 09, 2017 Seasonal Allergies Seasonal Allergies: No Past Medical History Surgeries: Yes Bowel Surgery, Gallbladder Respiratory: No Cardiac: Yes Hypertension Neurological: No Reproductive Disorders: No Genitourinary: No Gastrointestinal: Yes Hiatal Hernia Musculoskeletal: No Endocrine: Yes Loss of Vision: Bilateral Hearing Impairment: Denies Cancer: Yes Colon (metastatic to lung) Did You Recieve Any Treatments: Yes What Type of Treatment Did You: Chemotherapy, Radiation Psychosocial: No Integumentary: No Blood Disorders: No Family Medical History No Pertinent Family Hx Physical Exam Vital Signs Vital Signs - First Documented 06/27/19 09:10 Temp 36.6 Pulse 127 Resp 18 B/P (MAP) 105/79 (88) Pulse Ox 93 O2 Delivery Room Air Capillary Refill : Less Than 3 Seconds Height, Weight, BMI Height: 5'3.50" Weight: 211lbs. 0.0oz. 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 as Tested, Other (anxious) Skin: Normal Color, Warm/Dry Focused Exam Reason for ruling out sepsis: Sepsis not likely Possible Source: Genitouriary Lactate Level 06/27/19 12:30: Lactic Acid Level 1.28 Time of Focused Exam: 13:47 Respiratory: Lungs Clear, Normal Breath Sounds, No Accessory Muscle Use, No Respiratory Distress Cardiovascular: Regular Rate, Rhythm, No Edema, No Murmur Capillary Refill: Less Than 3 Seconds Skin: normal color, warm/dry Lactic Acid Level Laboratory Tests Test 06/27/19 12:30 Lactic Acid Level 1.28 MMOL/L (0.50-2.00) Within 3hrs of presentation: Admin fluids, Admin ABX, Blood cultures prior to ABX's, Focus exam, Lactate level Progress/Results/Core Measures Suspected Sepsis Recent Fever Within 48 Hours: No Infection Criteria Present: None New/Unexplained Altered Menta: No Sepsis Screen: No Definite Risk SIRS Temperature: Pulse: 127 Respiratory Rate: 18 Laboratory Tests 06/27/19 09:25: White Blood Count 13.0H Blood Pressure 105 /79 Mean: 88 06/27/19 12:30: Lactic Acid Level 1.28 Laboratory Tests 06/27/19 09:25: Creatinine 2.25H, Platelet Count 220, Total Bilirubin 1.1H Results/Orders Lab Results Laboratory Tests Test 06/27/19 09:25 06/27/19 11:25 06/27/19 12:30 Range/Units White Blood Count 13.0 H 4.3-11.0 10^3/uL Red Blood Count 3.49 L 4.35-5.85 10^6/uL Hemoglobin 10.4 L 11.5-16.0 G/DL Hematocrit 33 L 35-52 % Mean Corpuscular Volume 95 80-99 FL Mean Corpuscular Hemoglobin 30 25-34 PG Mean Corpuscular Hemoglobin Concent 32 32-36 G/DL Red Cell Distribution Width 17.0 H 10.0-14.5 % Platelet Count 220 130-400 10^3/uL Mean Platelet Volume 10.3 7.4-10.4 FL Neutrophils (%) (Auto) 78 H 42-75 % Lymphocytes (%) (Auto) 13 12-44 % Monocytes (%) (Auto) 8 0-12 % Eosinophils (%) (Auto) 1 0-10 % Basophils (%) (Auto) 0 0-10 % Neutrophils # (Auto) 10.2 H 1.8-7.8 X 10^3 Lymphocytes # (Auto) 1.6 1.0-4.0 X 10^3 Monocytes # (Auto) 1.0 0.0-1.0 X 10^3 Eosinophils # (Auto) 0.1 0.0-0.3 10^3/uL Basophils # (Auto) 0.0 0.0-0.1 10^3/uL Sodium Level 144 135-145 MMOL/L Potassium Level 4.5 3.6-5.0 MMOL/L Chloride Level 111 H 98-107 MMOL/L Carbon Dioxide Level 20 L 21-32 MMOL/L Anion Gap 13 5-14 MMOL/L Blood Urea Nitrogen 35 H 7-18 MG/DL Creatinine 2.25 H 0.60-1.30 MG/DL Estimat Glomerular Filtration Rate 21 BUN/Creatinine Ratio 16 Glucose Level 88 70-105 MG/DL Calcium Level 7.4 L 8.5-10.1 MG/DL Corrected Calcium 8.6 8.5-10.1 MG/DL Magnesium Level 1.8 1.6-2.4 MG/DL Total Bilirubin 1.1 H 0.1-1.0 MG/DL Aspartate Amino Transf (AST/SGOT) 28 5-34 U/L Alanine Aminotransferase (ALT/SGPT) 26 0-55 U/L Alkaline Phosphatase 351 H 40-136 U/L Total Protein 5.4 L 6.4-8.2 GM/DL Albumin 2.5 L 3.2-4.5 GM/DL Urine Color YELLOW Urine Clarity CLEAR Urine pH 5.5 5-9 Urine Specific [place] 1.025 H 1.016-1.022 Urine Protein TRACE NEGATIVE Urine Glucose (UA) NEGATIVE NEGATIVE Urine Ketones TRACE H NEGATIVE Urine Nitrite POSITIVE NEGATIVE Urine Bilirubin NEGATIVE NEGATIVE Urine Urobilinogen 0.2 < = 1.0 MG/DL Urine Leukocyte Esterase NEGATIVE NEGATIVE Urine RBC (Auto) NEGATIVE NEGATIVE Urine RBC RARE /HPF Urine WBC RARE /HPF Urine Squamous Epithelial Cells 5-10 /HPF Urine Crystals NONE /LPF Urine Bacteria MODERATE H /HPF Urine Casts PRESENT /LPF Urine Granular Casts RARE /LPF Urine Mucus NEGATIVE /LPF Urine Culture Indicated YES Lactic Acid Level 1.28 0.50-2.00 MMOL/L My Orders Orders - GABRIELE LARIOS MD Cbc With Automated Diff (06/27/19 09:37) Comprehensive Metabolic Panel (06/27/19 09:37) Magnesium (06/27/19 09:37) Ua Culture If Indicated (06/27/19 09:37) Chest 1 View, Ap/Pa Only (06/27/19 09:37) Ed Iv/Invasive Line Start (06/27/19 11:29) Ns Iv 1000 Ml (Sodium Chloride 0.9%) (06/27/19 11:29) Urine Culture (06/27/19 11:25) Blood Culture (06/27/19 11:52) Lactic Acid Analyzer (06/27/19 11:52) Ceftriaxone For Iv Use (Rocephin For I (06/27/19 12:00) Ns Iv 1000 Ml (Sodium Chloride 0.9%) (06/27/19 12:34) Medications Given in ED Current Medications Medications Dose Ordered Sig/Bret Route Start Time Stop Time Status Last Admin Dose Admin Ceftriaxone Sodium 1000 mg/ Sterile Water 10 ml @ 200 mls/hr ONCE ONCE IV 06/27/19 12:00 06/27/19 12:02 DC 06/27/19 12:50 200 MLS/HR Sodium Chloride 1,000 ml @ 0 mls/hr Q0M ONCE IV 06/27/19 11:29 06/27/19 11:30 DC 06/27/19 11:37 1,000 MLS/HR Vital Signs/I&O 06/27/19 09:10 Temp 36.6 Pulse 127 Resp 18 B/P (MAP) 105/79 (88) Pulse Ox 93 O2 Delivery Room Air Capillary Refill : Less Than 3 Seconds Blood Pressure Mean: 88 Progress Note : Progress Note Patient was seen and evaluated upon arrival. Basic workup was performed. She was found to have acute kidney injury which was treated with 2 L of IV fluid. Chest x-ray was unchanged. Urine had very subtle suggestion of urinary tract infection. She was treated with Rocephin. Although patient had leukocytosis and tachycardia, I do not believe she is truly septic. I believe she is hypovolemic resulting in her tachycardia and elevated creatinine. Lactic acid was not elevated. Patient believes part of her problem might be overmedication with morphine. She thinks she may not need as much as she is getting. We discussed CODE STATUS. Patient is unsettled on this issue but requested to be a full code at this time. Diagnostic Imaging Diagonstic Imaging: Xray Plain Films/CT/US/NM/MRI: chest Comments NAME: ALEXANDER MUHAMMAD [facility] REC#: [id number] PT STATUS: REG ER : 1940 PHYSICIAN: GABRIELE LARIOS MD ADMIT DATE: 06/27/19/ER Draft Date of Exam:06/27/19 CHEST 1 VIEW, AP/PA ONLY INDICATION: Fall. TIME OF EXAMINATION: 10:47 AM. COMPARISON: 05/27/2019. FINDINGS: The right chest wall port remains in place. The heart size is stable. Nodular densities in both lungs are again noted, consistent with pulmonary metastatic disease. No infiltrates are seen. There is no effusion or pneumothorax. IMPRESSION: Pulmonary metastases. No other significant abnormality is detected. Dictated on workstation # [id number] Dict: 06/27/19 1059 Trans: 06/27/19 1101 [id number] Interpreted by: RUBY RAMIREZ MD Departure Communication (Admissions) Time/Spoke to Admitting Phy: 12:15 Dr. Joe Impression Primary Impression: MARK (acute kidney injury) Additional Impressions: Hypovolemia Urinary tract infection Qualified Codes: N39.0 - Urinary tract infection, site not specified Altered mental status Qualified Codes: R41.82 - Altered mental status, unspecified Disposition: ADMITTED INPATIENT Condition: Improved Admissions Decision to Admit Reason: Admit from ER (General) Decision to Admit/Date: Jun 27, 2019 Time/Decision to Admit Time: 11:52 Departure-Patient Inst. Referrals: NO,LOCAL PHYSICIAN (PCP/Family) Primary Care Physician GABRIELE LARIOS MD Jun 27, 2019 12:22
--- NOTE | 2019-06-27 12:30 | NUR ---
PT NOTED TO HAVE OPEN AREAS ON COCCYX PT STATES HAS HAD THESES AT NH
[2019-06-27 14:00] VITALS: BP 111/60
--- NOTE | 2019-06-27 14:00 | NUR ---
ALEXANDER MUHAMMAD] admitted to room 407-1, with an admitting diagnosis of UTI, on 06/27/19 from AM via , accompanied by .ALEXANDER MUHAMMAD introduced to surroundings, call light, bed controls, phone, TV, temperature control, lights, meal times, smoking policy, visitor policy, side rail policy, bathrooms and showers. Patient Rights given to patient in the handbook.ALEXANDER MUHAMMAD verbalizes understanding that [facility] is not responsible for the loss or damage to any personal effects or valuables that are kept in the patients posession during their hospitalization.
[2019-06-27] MEDS ORDERED: CATHETER FLUSH 10 ML SYR IV PRN (14:15)
[2019-06-27] MEDS ORDERED: fentaNYL INJECTION 100 MCG/2 ML AMP IV PRN (14:15)
[2019-06-27] MEDS ORDERED: ONDANSETRON 4 MG/2 ML (SDV) Z0FRAN IV PRN (14:15)
[2019-06-27 14:27] VITALS: BP 111/60
[2019-06-27] MEDS: NS IV 1000 ML 1,000 ML IV SCH ×2 (14:32→22:38)
[2019-06-27] MEDS ORDERED: MIRT-47 PO (14:50)
[2019-06-27] MEDS ORDERED: FAMO20TA3 PO (14:50)
[2019-06-27] MEDS ORDERED: HYDR-3812 PO (14:50)
[2019-06-27] MEDS ORDERED: MORP-33 PO (14:50)
[2019-06-27] MEDS ORDERED: MAG-10 PO (14:50)
[2019-06-27 14:57] VITALS: BP 105/79
--- NOTE | 2019-06-27 15:00 | NUR ---
UPDATED MED REC WITH PHYSICIAN VISIT FORM FROM [facility].
--- NOTE | 2019-06-27 15:03 | History & Physical-Hospitalist ---
MACEKNZIE MURDOCK [facility] 06/27/19 1503: History of Present Illness HPI/Chief Complaint Sara Rubio is a 79 y/o white female that presented to via [facility] due to a non traumatic fall this morning. The patient states she woke up from a bad dream and felt like someone was talking to her this morning. She then had the urge to go to bathroom and stated she was walking to the bathroom and fell to her knees. She denies hitting her head. She states she has been feeling weird for the last couple of days. Her also stated that the last three days he has spoken to her on the phone and there were times where she was very confused in the morning. She cannot think of anything that has made her feel worse, but is currently receiving radiation treatment for metastatic colon cancer with her last treatment being yesterday. While in the ER she had a positive UA showing an UTI and a chest x-ray that showed pulmonary metastasis. . Source: patient, family Date Seen 06/27/19 Time Seen by a Provider: 15:04 Attending Physician Juwan Joe MD PCP No,Local Physician Referring Physician Date of Admission Jun 27, 2019 at 12:15 Home Medications & Allergies Home Medications Reviewed patient Home Medication Reconciliation performed by pharmacy medication reconciliations implementation technician and/or nursing. Patients Allergies have been reviewed. Allergies Allergies Coded Allergies No Known Drug Allergies (Dizdztpysk82/6/16) Past Xdjsccj-Rkqaat-Bmupyp Hx Past Med/Social Hx: Reviewed and Corrections made Patient Social History Marrital Status: Alcohol Use: Denies Use Recreational Drug Use: No Smoking Status: Former Smoker Former Smoker, Quit: Jul 11, 1984 Type Used: Cigarettes Recent Foreign Travel: No Contact w/other who traveled: No Recent Hopitalizations: No Recent Infectious Disease Expo: No Immunizations Up To Date Tetanus Booster (TDap): Unknown Date of Pneumonia Vaccine: Feb 25, 2016 Date of Influenza Vaccine: Apr 10, 2019 Seasonal Allergies Seasonal Allergies: No Past Medical History Surgeries: Bowel Surgery, Gallbladder Cardiac: Hypertension Reproductive: No Hysterectomy Gastrointestinal: Hiatal Hernia Loss of Vision: Bilateral Hearing Impairment: Denies Cancer: Colon (metastatic to lung) Did You Recieve Any Treatments: Yes What Type of Treatment Did You: Chemotherapy, Radiation History of Blood Disorders: No Family History No Pertinent Family Hx Review of Systems Constitutional: no symptoms reported Respiratory: no symptoms reported Cardiovascular: no symptoms reported Gastrointestinal: abdominal pain (diffuse abdominal tenderness), loss of appetite; No nausea, No vomiting Genitourinary: no symptoms reported, other (patient states she is urinating fine and has no pain assocaited with it. ) Musculoskeletal: no symptoms reported Skin: no symptoms reported Psychiatric/Neurological: No Symptoms Reported Physical Exam Physical Exam Vital Signs Vital Signs - First Documented 06/27/19 09:10 Temp 36.6 Pulse 127 Resp 18 B/P (MAP) 105/79 (88) Pulse Ox 93 O2 Delivery Room Air Capillary Refill : Less Than 3 Seconds Height, Weight, BMI Height: 5'3.50" Weight: 211lbs. 0.0oz. 95.844313rb; 25.38 BMI Method: General Appearance: No Apparent Distress, Chronically ill Eyes: Bilateral Eye PERRL, Bilateral Eye EOMI HEENT: PERRL/EOMI, Moist Mucous Membranes Neck: Non Tender, Supple Respiratory: Chest Non Tender, No Accessory Muscle Use, No Respiratory Distress Cardiovascular: Regular Rate, Rhythm, Normal Peripheral Pulses Gastrointestinal: Distended; No Guarding; Mass (Anterior abdominal wall ), Tenderness (diffuse) Extremity: Normal Capillary Refill, No Calf Tenderness, No Pedal Edema Neurologic/Psychiatric: Alert, Oriented x3, Normal Mood/Affect, applications support specialist II-XII Norm as Tested Skin: Normal Color, Warm/Dry Lymphatic: No Adenopathy Results Results/Procedures Labs Laboratory Tests 06/27/19 09:25 Patient resulted labs reviewed. Imaging: Reviewed Imaging Films Assessment/Plan Admission Diagnosis sepsis secondary to UTI Metastatic colon cancer Elevated Creatinine secondary to possible dehydration Leukocytosis Chronic Anemia Assessment and Plan sepsis secondary to UTI - started on Ceftriaxone 1g - waiting for cultures and sensitivity - IV fluids - patient has elevated creatinine and this is most likely secondary to dehydration and not infection. Metastatic colon cancer - will continue to monitor - patient will have radiation treatment tomorrow morning Leukocytosis - receiving antibiotics - will monitor labs Chronic Anemia - Hgb level is stable, this is chrinic for this patient and we will continue to monitor Clinical Quality Measures DVT/VTE Risk/Contraindication: Risk Factor Score Per Nursin RFS Level Per Nursing on Admit: 4+=Very High JUWAN JOE MD 06/28/19 1414: Past Emtmcbx-Fhzkdk-Bopmnz Hx Past Med/Social Hx: Reviewed Nursing Past Med/Soc Hx Assessment/Plan Admission Diagnosis Admission Status: Inpatient Order (span 2 midnights) Reason for Inpatient Admission: IV abx, IVF, await cultures Assessment and Plan Will continue on IV abx and await cultures. Continue IVF for dehydration and MARK. Does not appear to be severe sepsis but instead dehydration causing MARK with UTI/sepsis. Resume radiation tomorrow if able. Did discuss code status and patient states she does not want to change her code status yet but may after talking with her brother. Diagnosis/Problems Diagnosis/Problems (1) Altered mental status Status: Acute Qualifiers: Altered mental status type: unspecified Qualified Codes: R41.82 - Altered mental status, unspecified (2) MARK (acute kidney injury) Status: Resolved Resolution Date/Time: 05/26/19 @ 12:10 (3) Urinary tract infection Status: Acute Qualifiers: Urinary tract infection type: site unspecified Hematuria presence: without hematuria Qualified Codes: N39.0 - Urinary tract infection, site not specified (4) Hypovolemia Status: Acute (5) Stage IV carcinoma of colon Status: Acute (6) Debility Status: Acute (7) Malnutrition Status: Acute Supervisory-Addendum Brief Verification & Attestation Participated in pt care: history, MDM, physical Personally performed: exam, history, MDM, supervision of care Care discussed with: Medical Student Procedures: n/a Results interpretation: Verified all documentation Verification and Attestation of Medical Student E/M Service A medical student performed and documented this service in my presence. I reviewed and verified all information documented by the medical student and made modifications to such information, when appropriate. I personally performed the physical exam and medical decision making. Juwan Joe, Jun 28, 2019,14:10 MACKENZIE MURDOCK [facility] Jun 27, 2019 15:03 JUWAN JOE MD Jun 28, 2019 14:14
[2019-06-27] MEDS ORDERED: [UNRECOGNIZED DRUG - OTHER] PO PRN (15:15)
[2019-06-27] MEDS ORDERED: AL HYDROX PO PRN (15:15)
[2019-06-27] MEDS ORDERED: MAG HYDROX PO PRN (15:15)
[2019-06-27] MEDS ORDERED: SIMETH PO PRN (15:15)
[2019-06-27] MEDS ORDERED: ANTACID SUSP 30 ML UDC (MYLANTA) PO PRN (15:45)
[2019-06-27] MEDS ORDERED: RT-ALBUTEROL SULF 2.5 MG/3 ML PRE-MIX VIAL INH PRN (16:00)
[2019-06-27 16:39] VITALS: BP 107/70
[2019-06-27 19:53] VITALS: BP 116/61
[2019-06-27] MEDS: FAMOTIDINE 20 MG (PEPCID) TABLET PO SCH (20:04)
[2019-06-27] MEDS: MIRTAZAPINE 15 MG (REMERON) TAB PO SCH (20:04)
[2019-06-28] VITALS (7 sets, daily range): BP systolic 98–118; BP diastolic 53–62
[2019-06-28] MEDS: NS IV 1000 ML 1,000 ML IV SCH ×3 (04:23→17:28)
[2019-06-28 05:51] LABS: BASOPHILS % (AUTO) 0 % (0-10); EOSINOPHILS # (AUTO) 0.1 10^3/uL (0.0-0.3); EOSINOPHILS % (AUTO) 1 % (0-10); HEMATOCRIT 26 % (35-52); LYMPHOCYTES # (AUTO) 1.8 X 10^3 (1.0-4.0); LYMPHOCYTES % (AUTO) 23 % (12-44); MEAN CORPUSCULAR HEMOGLOBIN 29 PG (25-34); MEAN CORPUSCULAR HGB CONC 31 G/DL (32-36); MEAN CORPUSCULAR VOLUME 95 FL (80-99); MEAN PLATELET VOLUME 9.7 FL (7.4-10.4); MONOCYTES # (AUTO) 0.6 X 10^3 (0.0-1.0); MONOCYTES % (AUTO) 8 % (0-12); NEUTROPHILS # (AUTO) 5.3 X 10^3 (1.8-7.8); NEUTROPHILS % (AUTO) 68 % (42-75); PLATELET COUNT 148 10^3/uL (130-400); RED CELL DISTRIBUTION WIDTH 17.2 % (10.0-14.5); WHITE BLOOD COUNT 7.9 10^3/uL (4.3-11.0)
[2019-06-28 06:13] LABS: CALCIUM 6.2 MG/DL (8.5-10.1); CREATININE SERUM 1.72 MG/DL (0.60-1.30); POTASSIUM 4.1 MMOL/L (3.6-5.0)
--- NOTE | 2019-06-28 09:35 | NUR ---
Patient transported to cancer center for treatment.
--- NOTE | 2019-06-28 09:39 | NUR ---
RADIATION TREATMENT #16 OF 25 WAS DELIVERED TODAY AT 9:40 AM
--- NOTE | 2019-06-28 09:55 | NUR ---
Sara was recently placed at [facility] while receiving radiation treatments. She is and visits daily. At this time,pt will most likely return to Skilled care at [facility] when ready for discharge.
[2019-06-28] MEDS: cefTRIAXone 1,000 MG/SWFI 10 ML IV PUSH IV SCH ×2 (12:08)
--- NOTE | 2019-06-28 13:04 | Progress Note - Hospitalist ---
MATHIEU,MACKENZIE [facility] 06/28/19 1304: Subjective HPI/CC On Admission Date Seen by Provider: Jun 28, 2019 Time Seen by Provider: 07:20 Sara Rubio is a 79 y/o white female that presented to via [facility] due to a non traumatic fall this morning. The patient states she woke up from a bad dream and felt like someone was talking to her this morning. She then had the urge to go to bathroom and stated she was walking to the bathroom and fell to her knees. She denies hitting her head. She states she has been feeling weird for the last couple of days. Her also stated that the last three days he has spoken to her on the phone and there were times where she was very confused in the morning. She cannot think of anything that has made her feel worse, but is currently receiving radiation treatment for metastatic colon cancer with her last treatment being yesterday. While in the ER she had a positive UA showing an UTI and a chest x-ray that showed pulmonary metastasis. . Subjective/Events-last exam She is alert and seems a little confused and anxious. No family at bedside. Patient states she has been eating alittle and drinking She has not had a bowl movement yet but is passing gas. Urinating without issue and no pain is associated with it. Patient denies: feeling sob, chest pain. N/V, F/C Focused Exam Lactate Level 06/27/19 12:30: Lactic Acid Level 1.28 Time of Focused Exam: 13:47 Objective Exam Vital Signs Vital Signs Date Time Temp Pulse Resp B/P (MAP) Pulse Ox O2 Delivery O2 Flow Rate FiO2 06/28/19 11:34 36.5 90 20 105/59 (74) 99 Room Air 06/27/19 14:57 21 Capillary Refill : Less Than 3 Seconds General Appearance: No Apparent Distress, Anxious HEENT: PERRL/EOMI Neck: Non Tender, Supple Respiratory: Chest Non Tender, Normal Breath Sounds, No Accessory Muscle Use, No Respiratory Distress Cardiovascular: Regular Rate, Rhythm, Normal Peripheral Pulses Gastrointestinal: Normal Bowel Sounds, No Organomegaly; No Distended, No Guarding Extremity: Normal Capillary Refill, No Calf Tenderness Neurologic/Psychiatric: Alert, Depressed Affect Skin: Normal Color, Warm/Dry Lymphatic: No Adenopathy Results/Procedures Lab Laboratory Tests 12/19/19 05:45 Patient resulted labs reviewed. Imaging: Reviewed Imaging Films Assessment/Plan Assessment and Plan Assess & Plan/Chief Complaint sepsis secondary to UTI - started on Ceftriaxone 1g - patient had E-coli present in the urine and staph aureus found in blood. Josefina lindsay on test result for sensitivities. Staph aureus was only found in one of the tubes and has the potential to be a containment. - IV fluids - patient has elevated creatinine and this is most likely secondary to dehydration and not infection. Creatinine has improved from 2.25 to now being 1.72. Metastatic colon cancer - will continue to monitor - patient receive radiation this morning Leukocytosis - resolved from 13.0 to 7.9 - receiving antibiotics - will monitor labs Chronic Anemia - Hgb level has dropped alittle from 10.4 to 8. Patient has been having blood draws, receiving fluids and has an acute illness which all are contributing factors to the recent blood drop. - Consider iron study - will continue to monitor Clinical Quality Measures DVT/VTE Risk/Contraindication: Risk Factor Score Per Nursin RFS Level Per Nursing on Admit: 4+=Very High JUWAN JOE MD 06/28/19 1419: Assessment/Plan Assessment and Plan Assess & Plan/Chief Complaint Patient confused this afternoon following radiation. Believes someone had her in a house. Was easily redirected. Likely delirium. Will continue on antibiotics and monitor. Discussed with RN and I also asked instructor adjunct pharmacy technician to visit patient. Cultures show e coli in urine. Will continue Rocephin until sensitivities available. May be able to discharge tomorrow. Diagnosis/Problems Diagnosis/Problems (1) Sepsis Status: Acute Qualifiers: Qualified Codes: A41.51 - Sepsis due to Escherichia coli [e. coli] (2) Debility Status: Acute (3) Stage IV carcinoma of colon Status: Acute (4) MARK (acute kidney injury) Status: Resolved Resolution Date/Time: 05/26/19 @ 12:10 (5) Altered mental status Status: Acute Qualifiers: Qualified Codes: R41.0 - Disorientation, unspecified (6) Urinary tract infection Status: Acute Qualifiers: Qualified Codes: N39.0 - Urinary tract infection, site not specified (7) Malnutrition Status: Acute Qualifiers: Qualified Codes: E46 - Unspecified protein-calorie malnutrition Supervisory-Addendum Brief Verification & Attestation Participated in pt care: history, MDM, physical Personally performed: exam, history, MDM, supervision of care Care discussed with: Medical Student Procedures: n/a Results interpretation: Verified all documentation Verification and Attestation of Medical Student E/M Service A medical student performed and documented this service in my presence. I reviewed and verified all information documented by the medical student and made modifications to such information, when appropriate. I personally performed the physical exam and medical decision making. Juwan Joe, Jun 28, 2019,14:18 MACKENZIE MURDOCK [facility] Jun 28, 2019 13:04 JUWAN JOE MD Jun 28, 2019 14:19
--- NOTE | 2019-06-28 15:51 | NUR ---
Referral from Dr. Joe for pastoral support. Rapport already established between this chief juvenile probation officer and the pt during her time at [facility]. The pt expressed feelings of uncertainty and described moderate anxiety related to confusion. She recalled falling to her knees in her bathroom at the [facility]. She said this might be the reason for her hospital admission. She then recalled being told she has a UTI. The pt engaged in the self-work of recalling the events which occurred since yesterday. I offered calming presence and empathic listening.The pt requested prayer for normalcy. 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 The pt shared her two-year journey through colon cancer treatments and her desire to continue treatments.
[2019-06-28] MEDS: FAMOTIDINE 20 MG (PEPCID) TABLET PO SCH (19:33)
[2019-06-28] MEDS: HYDROcodone/APAP 5 MG/325 MG (LORTAB) TAB PO PRN (19:34)
[2019-06-28] MEDS: MIRTAZAPINE 15 MG (REMERON) TAB PO SCH (19:34)
[2019-06-29 00:08] VITALS: BP 99/56
[2019-06-29] MEDS: NS IV 1000 ML 1,000 ML IV SCH ×3 (00:41→14:15)
[2019-06-29 04:00] VITALS: BP 106/53
[2019-06-29 07:08] LABS: HEMOGLOBIN 7.6 G/DL (11.5-16.0); MEAN PLATELET VOLUME 9.9 FL (7.4-10.4); RED CELL DISTRIBUTION WIDTH 17.2 % (10.0-14.5); WHITE BLOOD COUNT 4.9 10^3/uL (4.3-11.0)
[2019-06-29 07:25] LABS: CREATININE SERUM 1.29 MG/DL (0.60-1.30); POTASSIUM 3.5 MMOL/L (3.6-5.0)
[2019-06-29 08:03] VITALS: BP 102/55
--- NOTE | 2019-06-29 11:02 | Discharge Summary ---
MACKENZIE MURDOCK [facility] 06/29/19 1102: Diagnosis/Chief Complaint Date of Admission Jun 27, 2019 at 12:15 Date of Discharge Admission Diagnosis Primary Care No,Local Physician Discharge Diagnosis (1) Sepsis Status: Acute (2) Debility Status: Acute (3) Stage IV carcinoma of colon Status: Acute (4) MARK (acute kidney injury) Status: Resolved (5) Altered mental status Status: Acute (6) Urinary tract infection Status: Acute (7) Malnutrition Status: Acute Discharge Summary Discharge Physical Exam Allergies: Coded Allergies: No Known Drug Allergies (Unverified , 04/15/16) Vitals & I&Os Vital Signs Date Time Temp Pulse Resp B/P (MAP) Pulse Ox O2 Delivery O2 Flow Rate FiO2 06/29/19 08:10 99 Room Air 06/29/19 08:03 36.6 93 20 102/55 (71) 06/27/19 14:57 21 General Appearance: No Apparent Distress, Chronically ill HEENT: PERRL/EOMI Respiratory: Chest Non Tender, No Accessory Muscle Use, No Respiratory Distress Cardiovascular: Regular Rate, Rhythm, Normal Peripheral Pulses Gastrointestinal: Soft, Tenderness (Diffuse patient has abdominal wall mass) Extremity: Normal Capillary Refill, No Calf Tenderness, Pedal Edema Skin: Normal Color, Warm/Dry Neurologic/Psychiatric: Alert, Oriented x3 Hospital Course Sara was admitted to [facility] 06/27/19 and will be discharged today 06/29/19. She was admitted for falling and AMS. Pertinent PMH is Metastatic colon cancer and is currently receiving radiation. She was under the care of Dr. Joe Hospitalist. Imaging included chest x-ray that showed pulmonary metastasis. UA showed UTI due to Ecoli. Pertinent labs included a WBC of 13.0 and elevated creatine. Patient did not have abnormal exam findings outside of abdominal distention and with diffuse tenderness due to abdominal wall mass due to metastatic cancer and tachycardia. Patient was found to have sepsis secondary to UTI, leukocytosis and MARK secondary to dehydration. Patient was started on fluids and ceftriaxone. The patients WBC has normalized and creatinine has improved. She is no longer feeling altered in terms of metal status and heart rate has normalized. Patient is feeling well and has no issues with being discharged at this point. Her antibiotic regimen will be continued as outpatient with cephalexin. Sara will be discharged in stable condition. All additional information will be outlined in her discharged paperwork. The following information is only a summary of the PT admission while at [facility] and is not all inclusive. Please review entire chart for more information. Labs (last 24 hrs) Laboratory Tests 06/29/19 06:50: White Blood Count 4.9, Red Blood Count 2.55L, Hemoglobin 7.6L, Hematocrit 25L, Mean Corpuscular Volume 96, Mean Corpuscular Hemoglobin 30, Mean Corpuscular Hemoglobin Concent 31L, Red Cell Distribution Width 17.2H, Platelet Count 112L, Mean Platelet Volume 9.9, Sodium Level 144, Potassium Level 3.5L, Chloride Level 120H, Carbon Dioxide Level 18L, Anion Gap 6, Blood Urea Nitrogen 20H, Creatinine 1.29, Estimat Glomerular Filtration Rate 40, BUN/Creatinine Ratio 16, Glucose Level 73, Calcium Level 6.0*L, Albumin 1.6L Microbiology 06/27/19 Blood Culture - Preliminary, Resulted No growth 06/27/19 Urine Culture - Final, Complete Escherichia coli Patient resulted labs reviewed. Pending Labs Laboratory Tests 06/29/19 06:50: White Blood Count 4.9, Red Blood Count 2.55, Hemoglobin 7.6, Hematocrit 25, Mean Corpuscular Volume 96, Mean Corpuscular Hemoglobin 30, Mean Corpuscular Hemoglobin Concent 31, Red Cell Distribution Width 17.2, Platelet Count 112, Mean Platelet Volume 9.9, Sodium Level 144, Potassium Level 3.5, Chloride Level 120, Carbon Dioxide Level 18, Anion Gap 6, Blood Urea Nitrogen 20, Creatinine 1.29, Estimat Glomerular Filtration Rate 40, BUN/Creatinine Ratio 16, Glucose Level 73, Calcium Level 6.0, Albumin 1.6 Imaging: Reviewed Imaging Films Discharge Home Medications: Active Scripts Active Reported Janie-Lanta Liquid (Mag Hydrox/Al Hydrox/Simeth) 355 Ml Oral.susp 10-20 Ml PO TID PRN Acid [employer] (FAMOTIDINE) (Famotidine) 20 Mg Tablet 20 Mg PO BID Mirtazapine 15 Mg Tab.rapdis 15 Mg PO HS Hydrocodone-Acetamin 5-325 mg (Hydrocodone/Acetaminophen) 1 Each Tablet 1-2 Tab PO Q4H PRN Morphine Sulfate ER (Morphine Sulfate) 15 Mg Tablet.er 15 Mg PO Q12H Ondansetron HCl 8 Mg Tablet 8 Mg PO Q6H PRN Instructions to patient/family Please see electronic discharge instructions given to patient. Clinical Quality Measures DVT/VTE Risk/Contraindication: Risk Factor Score Per Nursin RFS Level Per Nursing on Admit: 4+=Very High JUWAN JOE MD 06/29/19 1617: Discharge Summary Discharge Physical Exam Allergies: Coded Allergies: No Known Drug Allergies (Unverified , 04/15/16) Discussion & Recommendations Discharge Planning: >30 minutes discharge planning Supervisory-Addendum Brief Verification & Attestation Participated in pt care: history, MDM, physical Personally performed: exam, history, MDM, supervision of care Care discussed with: Medical Student Procedures: n/a Results interpretation: Verified all documentation Verification and Attestation of Medical Student E/M Service A medical student performed and documented this service in my presence. I reviewed and verified all information documented by the medical student and made modifications to such information, when appropriate. I personally performed the physical exam and medical decision making. Juwan Joe, Jun 29, 2019,16:14 Problem Qualifiers (1) Sepsis: Sepsis type: Escherichia coli Sepsis acute organ dysfunction status: unspecified Qualified Codes: A41.51 - Sepsis due to Escherichia coli [e. coli] (2) Altered mental status: Altered mental status type: delirium Qualified Codes: R41.0 - Disorientation, unspecified (3) Urinary tract infection: Urinary tract infection type: site unspecified Hematuria presence: without hematuria Qualified Codes: N39.0 - Urinary tract infection, site not specified (4) Malnutrition: Malnutrition type: unspecified type Qualified Codes: E46 - Unspecified protein-calorie malnutrition MACKENZIE MURDOCK [facility] Jun 29, 2019 11:02 JUWAN JOE MD Jun 29, 2019 16:17
[2019-06-29] MEDS ORDERED: CEPH-507 PO (11:20)
--- NOTE | 2019-06-29 11:21 | Discharge Inst-Skilled Nursing ---
Discharge Inst-Skilled NF Chief Complaint Consult/Follow Up/Orders Follow Up Appt.: In one week with Dr Ruiz. Skilled NF Admit to: [facility] Certification ([facility]) I certify that SNF services are required to be given on an inpatient basis because of the above named patient's need for prison care on a continuing basis for the conditions(s) for which he/she was receiving inpatient hospital services prior to his/her transfer to the SNF. Assisted Facility Order: Nursing Services, Beef Breaker-Evaluate & Treat, Physical Therapy-Evaluate & Treat Oxygen Delivery Method: Room Air Discharge Diet: No Restrictions (Please offer Ensure with all meals) Daily Activity as Tolerated: Yes New & Resume Previous Orders Juwan Joe Jun 29, 2019 11:20 JUWAN JOE MD Jun 29, 2019 11:21
--- NOTE | 2019-06-29 11:46 | NUR ---
CM/SS: Discharge plan to return to [facility] to complete her skilled stay for therapies Plan: Pt will return to [facility] to complete her skilled stay with therapies [facility] will order picker pt today at 1:00pm.
[2019-06-29 11:59] VITALS: BP 115/56
[2019-06-29] MEDS: cefTRIAXone 1,000 MG/SWFI 10 ML IV PUSH IV SCH ×2 (12:55)
--- NOTE | 2019-06-29 14:07 | NUR ---
Met with pt briefly d/t concerns of poor PO intake. Note pt avg PO intake of <25% x2d, per chart review. Pt states eating pretty good but sometimes just does not have appetite to eat at her facility. Pt states discharging back to [facility] [place] today. Note family present at bedside. Discussed with pt and daughter my concerns with her protein intake and gave suggestions to keep up her PO intake upon discharge. Pt and family both feel confident to help maintain PO and protein intake. Will continue to follow and reassess as pt needs and status change. Key Casey, MS, RD, LD
[2019-06-29] MEDS ORDERED: HYDR-3812 PO (14:17)
[2019-06-29] MEDS ORDERED: MORP-33 PO (14:17)
[2019-06-29] MEDS: HYDROcodone/APAP 5 MG/325 MG (LORTAB) TAB PO PRN (14:25)
[2019-06-29] MEDS ORDERED: KCL 10 MEQ TAB (MICRO K) PO NR (14:33)
--- NOTE | 2019-07-02 10:47 | Physician Query Clarification ---
PQ-Further Specificity Admission/Discharge Admission Date: Jun 27, 2019 at 12:15 Discharge Date: Jun 29, 2019 at 14:50 The medical record reflects the following clinical scenario: History/Risk Factors: Malnutrition Clinical Findings: Albumin 2.5, Total protein 5.4, BMI 25.38, metastatic colon CA Treatment: Ensure, IV fluids Question: Can you further specify Malnutrition severity per the clinical indicators above? Please document a response in the Progress Notes or Discharge Summary. 1. Mild malnutrition 2. Moderate malnutrition 3. Severe malnutrition 4. Other, with explanation of the clinical findings. 5. Clinically undetermined, no explanation for the clinical findings. PHYSICIAN RESPONSE Can you specify per above: Other, explanation/clinical finding Explanation/Clinical Findings 3. Severe Malnutrition with Albumin of 1.6 and cachexia Please remember a lack of response to the above will prompt a phone page by CDI/Coding staff. In responding to this query, please exercise your independent professional judgment. The purpose of this communication is to more accurately reflect the complexity of your patients condition. The fact that a question is asked does not imply that any particular answer is desired or expected. Thank you for your timely response to this clarification. Requestors name: Elsie THIS PHYSICIAN QUERY FORM IS A PERMANENT PART OF THE MEDICAL RECORD DEBRA STEWART Jul 02, 2019 10:47 JUWAN TORRES MD Jul 02, 2019 14:11
== END 2019-06-29 14:50 | DRG 871 ==
LOC: EDUNIT# 09:12 → ER 09:13 → 4TH 12:15
PROVIDERS: ADMIT Family Medicine; ATTEND Family Medicine
DX: A41.51 Sepsis due to Escherichia coli [E. coli] (principal); E43 Unspecified severe protein-calorie malnutrition; N39.0 Urinary tract infection, site not specified; N17.9 Acute kidney failure, unspecified; C78.02 Secondary malignant neoplasm of left lung; C78.01 Secondary malignant neoplasm of right lung; E46 Unspecified protein-calorie malnutrition; C18.9 Malignant neoplasm of colon, unspecified; R64 Cachexia; I10 Essential (primary) hypertension; E86.1 Hypovolemia; K44.9 Diaphragmatic hernia without obstruction or gangrene; D64.9 Anemia, unspecified; Z91.81 History of falling; Z92.21 Personal history of antineoplastic chemotherapy; Z87.891 Personal history of nicotine dependence; E86.0 Dehydration
CPT/HCPCS: 36415; 71045; 80048; 80053; 81000; 82040; 83605; 83735; 85025; 85027; 87040; 87077; 87088; 87186; 96361; 96374

== ENCOUNTER → 2019-07-24 | Outpatient (CLI) | payer MEDICARE, OTHER ==
[~2019-07-24] MED LIST changes: +CEPH-507 PO; +FAMO20TA3 PO; +MAG-10 PO; -MORP-33 PO; +MORP-68 PO
== END ==
LOC: LABNPT 14:50
PROVIDERS: ATTEND Internal Medicine
DX: R41.82 Altered mental status, unspecified (principal)
CPT/HCPCS: 87088

== ENCOUNTER 2019-07-28 10:41 | Emergency (ER) | payer MEDICARE, OTHER ==
[~2019-07-28] VITALS: Ht 165.1 cm; Wt 72.7 kg
[2019-07-28] MEDS ORDERED: NS IV 1000 ML 1,000 ML IV SCH (10:52)
[2019-07-28 11:23] LABS: BASOPHILS % (AUTO) 0 % (0-10); EOSINOPHILS % (AUTO) 0 % (0-10); HEMATOCRIT 27 % (35-52); HEMOGLOBIN 8.3 G/DL (11.5-16.0); LYMPHOCYTES # (AUTO) 0.8 X 10^3 (1.0-4.0); LYMPHOCYTES % (AUTO) 8 % (12-44); MEAN CORPUSCULAR HEMOGLOBIN 31 PG (25-34); MEAN CORPUSCULAR HGB CONC 31 G/DL (32-36); MEAN CORPUSCULAR VOLUME 101 FL (80-99); MEAN PLATELET VOLUME 9.6 FL (7.4-10.4); MONOCYTES # (AUTO) 0.7 X 10^3 (0.0-1.0); MONOCYTES % (AUTO) 8 % (0-12); NEUTROPHILS # (AUTO) 7.5 X 10^3 (1.8-7.8); NEUTROPHILS % (AUTO) 84 % (42-75); PLATELET COUNT 282 10^3/uL (130-400); RED CELL DISTRIBUTION WIDTH 18.4 % (10.0-14.5); WHITE BLOOD COUNT 8.9 10^3/uL (4.3-11.0)
[2019-07-28 11:39] LABS: INR 1.3 (0.8-1.4); PROTHROMBIN TIME PATIENT 16.9 SEC (12.2-14.7)
--- NOTE | 2019-07-28 11:46 | Diagnostic Imaging Report ---
INDICATION: Vomiting, weakness. History of colon cancer.. TECHNIQUE: Single view chest 11:39 AM. CORRELATION STUDY: None FINDINGS: 06/27/2019 Patient slightly rotated towards the left on the study. A right IJ infusion port catheter tip projecting over the right atrium remains in place. Heart size, mediastinum and vasculature overall generally stable. There is again demonstration of several small bilateral pulmonary nodules consistent with known pulmonary metastatic disease. A definitive adverse interval change not overtly suggested. No focal lobar consolidation. May be trace small effusions. IMPRESSION: 1. Findings compatible with pulmonary metastatic disease with multiple small nodules. Not overtly changed from prior study. Likely trace pleural effusions. Dictated by: Dictated on workstation # [id number]
[2019-07-28 11:48] LABS: ALBUMIN 1.8 GM/DL (3.2-4.5); CALCIUM 6.8 MG/DL (8.5-10.1); CREATININE SERUM 1.69 MG/DL (0.60-1.30); POTASSIUM 4.1 MMOL/L (3.6-5.0); TOTAL PROTEIN 4.7 GM/DL (6.4-8.2)
[2019-07-28] MEDS ORDERED: NS IV 1000 ML 1,000 ML IV ONE (12:36)
--- NOTE | 2019-07-28 12:43 | NUR ---
TURNED TO L SIDE FOR COMFORT.
[2019-07-28 13:23] LABS: BILIRUBIN,URINE 1+ (NEGATIVE); CLARITY,URINE SL CLOUDY; COLOR,URINE YELLOW; GLUCOSE, URINE (UA) NEGATIVE (NEGATIVE); KETONES,URINE NEGATIVE (NEGATIVE); LEUKOCYTE ESTERASE ,URINE NEGATIVE (NEGATIVE); NITRITE,URINE NEGATIVE (NEGATIVE); PROTEIN,URINE TRACE (NEGATIVE)
[2019-07-28 13:44] LABS: WBC,URINE RARE /HPF
[2019-07-28 13:45] LABS: BACTERIA,URINE FEW /HPF
--- NOTE | 2019-07-28 13:59 | ED General ---
General Chief Complaint: Respiratory Problems Stated Complaint: SOB Nursing Triage Note: TO ED PER EMS FROM [facility]. STAFF REPORTED TO EMS. THAT AROUND 9AM WHILE EATING . HAD BM AND FELT DIZZY Nursing Sepsis Screen: No Definite Risk Source of Information: Patient, EMS, Family, Retirement Records Exam Limitations: No Limitations History of Present Illness Date Seen by Provider: Jul 28, 2019 Time Seen by Provider: 10:42 Initial Comments This 79-year-old woman with metastatic cancer is a resident from [facility] and presents via EMS this morning with chief complaint of shortness of air and lightheadedness. Patient was in the dining room when this occurred. EMS reports blood pressure for them was 90/50 on a manual measurement. Patient admits to feeling lightheaded earlier but denies ever being short of breath. She recently underwent radiation therapy for her metastatic cancer. She has a dressed wound on her abdomen. She complains of chronic abdominal pain. She admits to not drinking well because it is difficult and painful for her to get up to go to the restroom. Family is present with her. She is afebrile but tachycardic. Allergies and Home Medications Allergies Coded Allergies: No Known Drug Allergies (Unverified , 04/15/16) Home Medications Cephalexin 500 Mg Capsule, 500 MG PO BID Prescribed by: JUWAN TORRES on 06/29/19 1120 Famotidine 20 Mg Tablet, 20 MG PO BID, (Reported) Hydrocodone/Acetaminophen 1 Each Tablet, 1-2 TAB PO Q4H PRN for PAIN-MODERATE (5-7) Prescribed by: JUWAN TORRES on 06/29/19 1417 Mag Hydrox/Al Hydrox/Simeth 355 Ml Oral.susp, 10-20 ML PO TID PRN for STOMACH UPSET, (Reported) Mirtazapine 15 Mg Tab.rapdis, 15 MG PO HS, (Reported) Morphine Sulfate 15 Mg Tablet.er, 15 MG PO Q12H Prescribed by: JUWAN TORRES on 06/29/19 1417 Ondansetron HCl 8 Mg Tablet, 8 MG PO Q6H PRN for NAUSEA/VOMITING-1ST LINE, (Reported) Patient Home Medication List Home Medication List Reviewed: Yes Review of Systems Review of Systems Constitutional: no symptoms reported EENTM: no symptoms reported Respiratory: see HPI Cardiovascular: see HPI Gastrointestinal: see HPI Genitourinary: no symptoms reported : No Musculoskeletal: no symptoms reported Skin: see HPI Psychiatric/Neurological: No Symptoms Reported Hematologic/Lymphatic: No Symptoms Reported Immunological/Allergic: no symptoms reported Past Yfak[address]ht-[place]kw[place]-Ioobzu Hx Past Med/Social Hx: Reviewed and Corrections made Patient Social History Alcohol Use: Denies Use Recreational Drug Use: No Type Used: Cigarettes Former Smoker, Quit: Jul 11, 1984 Recent Foreign Travel: No Contact w/Someone Who Travel: No Recent Infectious Disease Expo: No Recent Hopitalizations: No Immunizations Up To Date Tetanus Booster (TDap): Unknown Date of Pneumonia Vaccine: Feb 25, 2016 Date of Influenza Vaccine: Apr 10, 2019 Seasonal Allergies Seasonal Allergies: No Past Medical History Surgeries: Yes Bowel Surgery, Gallbladder Respiratory: No Cardiac: Yes Hypertension Neurological: No Reproductive Disorders: No 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 Genitourinary: No Gastrointestinal: Yes (chronic abdominal pain) Hiatal Hernia Musculoskeletal: No Endocrine: Yes Loss of Vision: Bilateral Hearing Impairment: Denies Cancer: Yes Colon (metastatic) Did You Recieve Any Treatments: Yes What Type of Treatment Did You: Chemotherapy, Radiation Psychosocial: No Integumentary: Yes (open abdominal wound) Blood Disorders: No Family Medical History No Pertinent Family Hx Physical Exam Vital Signs Vital Signs - First Documented 07/28/19 07/28/19 10:41 14:36 Temp 36.6 Pulse 123 Resp 18 B/P (MAP) 82/58 (66) Pulse Ox 96 O2 Delivery Room Air Capillary Refill : Less Than 3 Seconds Height, Weight, BMI Height: 5'3.50" Weight: 211lbs. 0.0oz. 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 Norm as Tested, Other (slight confusion) Skin: Normal Color, Warm/Dry, Other (dressed abdominal wound, sacral decubitus ulcers) Focused Exam Lactate Level 07/28/19 11:05: Lactic Acid Level 2.25*H 07/28/19 13:05: Lactic Acid Level 1.37 Lactic Acid Level Progress/Results/Core Measures Suspected Sepsis Recent Fever Within 48 Hours: No Infection Criteria Present: None New/Unexplained Altered Menta: No Sepsis Screen: No Definite Risk SIRS Temperature: Pulse: 123 Respiratory Rate: 18 Laboratory Tests 07/28/19 11:05: White Blood Count 8.9 Blood Pressure 82 /58 Mean: 66 07/28/19 11:05: Lactic Acid Level 2.25*H 07/28/19 13:05: Lactic Acid Level 1.37 Laboratory Tests 07/28/19 11:05: Creatinine 1.69H, INR Comment 1.3, Platelet Count 282, Total Bilirubin 1.0 Results/Orders Lab Results Laboratory Tests Test 07/28/19 11:05 07/28/19 13:00 07/28/19 13:05 Range/Units White Blood Count 8.9 4.3-11.0 10^3/uL Red Blood Count 2.66 L 4.35-5.85 10^6/uL Hemoglobin 8.3 L 11.5-16.0 G/DL Hematocrit 27 L 35-52 % Mean Corpuscular Volume 101 H 80-99 FL Mean Corpuscular Hemoglobin 31 25-34 PG Mean Corpuscular Hemoglobin Concent 31 L 32-36 G/DL Red Cell Distribution Width 18.4 H 10.0-14.5 % Platelet Count 282 130-400 10^3/uL Mean Platelet Volume 9.6 7.4-10.4 FL Neutrophils (%) (Auto) 84 H 42-75 % Lymphocytes (%) (Auto) 8 L 12-44 % Monocytes (%) (Auto) 8 0-12 % Eosinophils (%) (Auto) 0 0-10 % Basophils (%) (Auto) 0 0-10 % Neutrophils # (Auto) 7.5 1.8-7.8 X 10^3 Lymphocytes # (Auto) 0.8 L 1.0-4.0 X 10^3 Monocytes # (Auto) 0.7 0.0-1.0 X 10^3 Eosinophils # (Auto) 0.0 0.0-0.3 10^3/uL Basophils # (Auto) 0.0 0.0-0.1 10^3/uL Prothrombin Time 16.9 H 12.2-14.7 SEC INR Comment 1.3 0.8-1.4 Activated Partial Thromboplast Time 38 H 24-35 SEC Sodium Level 144 135-145 MMOL/L Potassium Level 4.1 3.6-5.0 MMOL/L Chloride Level 113 H 98-107 MMOL/L Carbon Dioxide Level 19 L 21-32 MMOL/L Anion Gap 12 5-14 MMOL/L Blood Urea Nitrogen 23 H 7-18 MG/DL Creatinine 1.69 H 0.60-1.30 MG/DL Estimat Glomerular Filtration Rate 29 BUN/Creatinine Ratio 14 Glucose Level 104 70-105 MG/DL Lactic Acid Level 2.25 *H 1.37 0.50-2.00 MMOL/L Calcium Level 6.8 L 8.5-10.1 MG/DL Corrected Calcium 8.6 8.5-10.1 MG/DL Total Bilirubin 1.0 0.1-1.0 MG/DL Aspartate Amino Transf (AST/SGOT) 32 5-34 U/L Alanine Aminotransferase (ALT/SGPT) 36 0-55 U/L Alkaline Phosphatase 349 H 40-136 U/L Total Protein 4.7 L 6.4-8.2 GM/DL Albumin 1.8 L 3.2-4.5 GM/DL Urine Color YELLOW Urine Clarity SL CLOUDY Urine pH 5.0 5-9 Urine Specific [place] 1.025 H 1.016-1.022 Urine Protein TRACE NEGATIVE Urine Glucose (UA) NEGATIVE NEGATIVE Urine Ketones NEGATIVE NEGATIVE Urine Nitrite NEGATIVE NEGATIVE Urine Bilirubin 1+ H NEGATIVE Urine Urobilinogen 1.0 < = 1.0 MG/DL Urine Leukocyte Esterase NEGATIVE NEGATIVE Urine RBC (Auto) NEGATIVE NEGATIVE Urine RBC NONE /HPF Urine WBC RARE /HPF Urine Crystals NONE /LPF Urine Bacteria FEW H /HPF Urine Casts NONE /LPF Urine Mucus NEGATIVE /LPF Urine Culture Indicated CULTURE PENDING My Orders Orders - GABRIELE LARIOS MD Cbc With Automated Diff (07/28/19 10:52) Comprehensive Metabolic Panel (07/28/19 10:52) Blood Culture (07/28/19 10:52) Sputum Culture (07/28/19 10:52) Urinalysis (07/28/19 10:52) Urine Culture (07/28/19 10:52) Protime With Inr (07/28/19 10:52) Partial Thromboplastin Time (07/28/19 10:52) Chest 1 View, Ap/Pa Only (07/28/19 10:52) Ed Iv/Invasive Line Start (07/28/19 10:52) Ed Iv/Invasive Line Start (07/28/19 10:52) Vital Signs Adult Sepsis Patie Q15M (07/28/19 10:52) O2 (07/28/19 10:52) Remove Rings In Anticipation O (07/28/19 10:52) Lactic Acid Analyzer (07/28/19 10:52) Ns Iv 1000 Ml (Sodium Chloride 0.9%) (07/28/19 10:52) Ns Iv 1000 Ml (Sodium Chloride 0.9%) (07/28/19 12:36) Medications Given in ED Vital Signs/I&O 07/29/19 00:00 Intake Total 1000 ml Balance 1000 ml Capillary Refill : Less Than 3 Seconds Blood Pressure Mean: 66 Progress Note : Progress Note Patient was found to have acute kidney injury and was thought to be dehydrated. Heart rate improved with 2 L of IV fluids. Lactic acid also return to normal. Sacral ulcers were dressed. Patient was feeling better and was discharged home. Diagnostic Imaging Diagonstic Imaging: Xray Plain Films/CT/US/NM/MRI: chest Comments Chest x-ray reviewed by me and report reviewed. See report below: NAME: ALEXANDER [facility] REC#: [id number] PT STATUS: REG ER : 1940 PHYSICIAN: GABRIELE LARIOS MD ADMIT DATE: 07/28/19/ER Signed Date of Exam:07/28/19 CHEST 1 VIEW, AP/PA ONLY INDICATION: Vomiting, weakness. History of colon cancer.. TECHNIQUE: Single view chest 11:39 AM. CORRELATION STUDY: None FINDINGS: 06/27/2019 Patient slightly rotated towards the left on the study. A right IJ infusion port catheter tip projecting over the right atrium remains in place. Heart size, mediastinum and vasculature overall generally stable. There is again demonstration of several small bilateral pulmonary nodules consistent with known pulmonary metastatic disease. A definitive adverse interval change not overtly suggested. No focal lobar consolidation. May be trace small effusions. IMPRESSION: 1. Findings compatible with pulmonary metastatic disease with multiple small nodules. Not overtly changed from prior study. Likely trace pleural effusions. Dictated by: Dictated on workstation # [id number] Dict: 07/28/19 1142 Trans: 07/28/19 1357 CV [id number] Interpreted by: SAE SCOTT DO Electronically signed by: SAE SCOTT DO 07/28/19 1357 Departure Impression Primary Impression: Dehydration Additional Impressions: Acute kidney injury Metastatic cancer Sacral decubitus ulcer, stage II Disposition: HOME, SELF-CARE Condition: Improved Departure-Patient Inst. Decision time for Depature: 13:57 Referrals: NO,LOCAL PHYSICIAN (PCP/Family) Primary Care Physician Patient Instructions: Dehydration, Adult (DC) Add. Discharge Instructions: Drink plenty of clear liquids. Follow-up with your primary care provider soon as possible. Nursing staff, please contact primary care provider for instructions on wound care for the sacral decubitus ulcers. May leave the current Mirapex dressing on until Tuesday. Turn in bed frequently to prevent progression of bedsores. Return to care if there are worsening symptoms. All discharge instructions reviewed with patient and/or family. Voiced understanding. GABRIELE LARIOS MD Jul 28, 2019 13:59
--- NOTE | 2019-07-28 14:03 | NUR ---
[facility] ([place], [place])UM PLACED
--- NOTE | 2019-07-28 14:18 | NUR ---
[facility] CALLED TO COME GET HER.
[2019-07-28 14:36] VITALS: BP 103/58
== END 2019-07-28 14:36 | disposition home or self-care (01) ==
LOC: EDUNIT# 10:41 → ER 10:42
DX: N17.9 Acute kidney failure, unspecified (principal); E86.0 Dehydration; C18.9 Malignant neoplasm of colon, unspecified; L89.152 Pressure ulcer of sacral region, stage 2; I10 Essential (primary) hypertension; Z87.891 Personal history of nicotine dependence; Z90.710 Acquired absence of both cervix and uterus
CPT/HCPCS: 36415; 71045; 80053; 81000; 83605; 85025; 85610; 85730; 87040; 87088

== ENCOUNTER → 2019-07-31 | Outpatient (RCR) | payer MEDICARE, OTHER ==
[2019-05-02 13:34] LABS: BASOPHILS % (AUTO) 0 % (0-10); EOSINOPHILS # (AUTO) 0.5 10^3/uL (0.0-0.3); EOSINOPHILS % (AUTO) 5 % (0-10); HEMATOCRIT 31 % (35-52); HEMOGLOBIN 10.2 G/DL (11.5-16.0); LYMPHOCYTES % (AUTO) 20 % (12-44); MEAN CORPUSCULAR HEMOGLOBIN 30 PG (25-34); MEAN CORPUSCULAR HGB CONC 33 G/DL (32-36); MEAN CORPUSCULAR VOLUME 92 FL (80-99); MEAN PLATELET VOLUME 9.7 FL (7.4-10.4); MONOCYTES # (AUTO) 0.9 X 10^3 (0.0-1.0); MONOCYTES % (AUTO) 9 % (0-12); NEUTROPHILS # (AUTO) 6.5 X 10^3 (1.8-7.8); NEUTROPHILS % (AUTO) 66 % (42-75); PLATELET COUNT 246 10^3/uL (130-400); RED CELL DISTRIBUTION WIDTH 17.5 % (10.0-14.5); WHITE BLOOD COUNT 9.9 10^3/uL (4.3-11.0)
[2019-05-02 13:58] LABS: ALBUMIN 3.9 GM/DL (3.2-4.5); BILIRUBIN,TOTAL 0.5 MG/DL (0.1-1.0); CALCIUM 9.1 MG/DL (8.5-10.1); CREATININE SERUM 1.67 MG/DL (0.60-1.30); MAGNESIUM 1.6 MG/DL (1.6-2.4); POTASSIUM 4.2 MMOL/L (3.6-5.0); TOTAL PROTEIN 6.6 GM/DL (6.4-8.2)
[2019-05-15 13:15] LABS: BASOPHILS % (AUTO) 0 % (0-10); EOSINOPHILS # (AUTO) 0.6 10^3/uL (0.0-0.3); EOSINOPHILS % (AUTO) 5 % (0-10); HEMATOCRIT 33 % (35-52); HEMOGLOBIN 10.7 G/DL (11.5-16.0); LYMPHOCYTES # (AUTO) 1.9 X 10^3 (1.0-4.0); LYMPHOCYTES % (AUTO) 16 % (12-44); MEAN CORPUSCULAR HEMOGLOBIN 30 PG (25-34); MEAN CORPUSCULAR HGB CONC 32 G/DL (32-36); MEAN CORPUSCULAR VOLUME 93 FL (80-99); MEAN PLATELET VOLUME 9.4 FL (7.4-10.4); MONOCYTES # (AUTO) 0.9 X 10^3 (0.0-1.0); MONOCYTES % (AUTO) 8 % (0-12); NEUTROPHILS % (AUTO) 70 % (42-75); PLATELET COUNT 314 10^3/uL (130-400); RED CELL DISTRIBUTION WIDTH 16.6 % (10.0-14.5); WHITE BLOOD COUNT 11.4 10^3/uL (4.3-11.0)
[2019-05-15 13:35] LABS: ALBUMIN 3.8 GM/DL (3.2-4.5); BILIRUBIN,TOTAL 0.4 MG/DL (0.1-1.0); CREATININE SERUM 1.62 MG/DL (0.60-1.30); POTASSIUM 4.5 MMOL/L (3.6-5.0); TOTAL PROTEIN 6.7 GM/DL (6.4-8.2)
[2019-06-18 10:27] LABS: BASOPHILS % (AUTO) 0 % (0-10); EOSINOPHILS # (AUTO) 0.1 10^3/uL (0.0-0.3); EOSINOPHILS % (AUTO) 2 % (0-10); HEMATOCRIT 30 % (35-52); HEMOGLOBIN 9.4 G/DL (11.5-16.0); LYMPHOCYTES # (AUTO) 1.1 X 10^3 (1.0-4.0); LYMPHOCYTES % (AUTO) 14 % (12-44); MEAN CORPUSCULAR HEMOGLOBIN 29 PG (25-34); MEAN CORPUSCULAR HGB CONC 31 G/DL (32-36); MEAN CORPUSCULAR VOLUME 93 FL (80-99); MEAN PLATELET VOLUME 9.6 FL (7.4-10.4); MONOCYTES % (AUTO) 14 % (0-12); NEUTROPHILS # (AUTO) 5.3 X 10^3 (1.8-7.8); NEUTROPHILS % (AUTO) 70 % (42-75); PLATELET COUNT 287 10^3/uL (130-400); RED CELL DISTRIBUTION WIDTH 16.8 % (10.0-14.5); WHITE BLOOD COUNT 7.6 10^3/uL (4.3-11.0)
[2019-06-18 10:46] LABS: ALBUMIN 2.4 GM/DL (3.2-4.5); BILIRUBIN,TOTAL 0.5 MG/DL (0.1-1.0); CALCIUM 6.9 MG/DL (8.5-10.1); CREATININE SERUM 1.55 MG/DL (0.60-1.30); MAGNESIUM 1.2 MG/DL (1.6-2.4); TOTAL PROTEIN 4.8 GM/DL (6.4-8.2)
[2019-07-10 10:20] LABS: BASOPHILS % (AUTO) 0 % (0-10); EOSINOPHILS # (AUTO) 0.1 10^3/uL (0.0-0.3); EOSINOPHILS % (AUTO) 1 % (0-10); HEMATOCRIT 30 % (35-52); HEMOGLOBIN 9.5 G/DL (11.5-16.0); LYMPHOCYTES # (AUTO) 1.2 X 10^3 (1.0-4.0); LYMPHOCYTES % (AUTO) 14 % (12-44); MEAN CORPUSCULAR HEMOGLOBIN 30 PG (25-34); MEAN CORPUSCULAR HGB CONC 31 G/DL (32-36); MEAN CORPUSCULAR VOLUME 97 FL (80-99); MEAN PLATELET VOLUME 9.6 FL (7.4-10.4); MONOCYTES # (AUTO) 0.9 X 10^3 (0.0-1.0); MONOCYTES % (AUTO) 11 % (0-12); NEUTROPHILS # (AUTO) 6.5 X 10^3 (1.8-7.8); NEUTROPHILS % (AUTO) 74 % (42-75); PLATELET COUNT 333 10^3/uL (130-400); WHITE BLOOD COUNT 8.9 10^3/uL (4.3-11.0)
[2019-07-10 10:38] LABS: ALBUMIN 2.3 GM/DL (3.2-4.5); BILIRUBIN,TOTAL 0.8 MG/DL (0.1-1.0); CALCIUM 7.2 MG/DL (8.5-10.1); CREATININE SERUM 1.32 MG/DL (0.60-1.30); MAGNESIUM 1.5 MG/DL (1.6-2.4); POTASSIUM 4.2 MMOL/L (3.6-5.0); TOTAL PROTEIN 5.2 GM/DL (6.4-8.2)
[~2019-07-31] MED LIST changes: +ATROPINE INJ 0.4 MG/ML SDV (CANCER CENTER) INJ SCH; +BEVACIZUMAB INJECTION 400 MG in NS (IVPB) CANCER CENTER 100 ML IV SCH; +D5W 500 ML IV (CANCER CTR) 500 ML IV SCH; +FOSAPREPITANT DIMEGLUMINE 150 MG in NS (IVPB) CANCER CENTER ONLY 150 ML IV SCH; +IRINOTECAN HCL 200 MG, IRINOTECAN HCL 50 MG in D5W 250 ML IVPB (CANCER CTR) 250 ML IV SCH; +LEUCOVORIN CALCIUM 400 MG in D5W 250 ML IVPB (CANCER CTR) 250 ML IV SCH; +MAGNESIUM SULFATE 2 GM in NS (IVPB) CANCER CENTER 100 ML INJ ONE; +MAGNESIUM SULFATE IV ONE; +NS IV 1000 ML (CANCER CTR) 1,000 ML ONE; +NS IV 500 ML (CANCER CENTER) 500 ML ONE; +NS IV ONE; +ONDANSETRON MDV (CANCER CENTER 8 MG in NS (IVPB) CANCER CENTER 50 ML IV SCH; +OXALIPLATIN 100 MG, OXALIPLATIN (GENERIC) 20 MG in D5W 250 ML IVPB (CANCER CTR) 250 ML IV SCH; +PALONOSETRON HCL 0.25 MG, DEXAMETHASONE INJECTION 10 MG in NS (IVPB) CANCER CENTER 50 ML IV SCH; +morphine INJ 4 MG/ML 1 ML (CANCER CTR) IV PRN
[2019-07-31 12:38] LABS: BASOPHILS % (AUTO) 0 % (0-10); EOSINOPHILS # (AUTO) 0.1 10^3/uL (0.0-0.3); EOSINOPHILS % (AUTO) 1 % (0-10); HEMATOCRIT 26 % (35-52); HEMOGLOBIN 8.2 G/DL (11.5-16.0); LYMPHOCYTES # (AUTO) 1.6 X 10^3 (1.0-4.0); LYMPHOCYTES % (AUTO) 13 % (12-44); MEAN CORPUSCULAR HEMOGLOBIN 32 PG (25-34); MEAN CORPUSCULAR HGB CONC 31 G/DL (32-36); MEAN CORPUSCULAR VOLUME 103 FL (80-99); MEAN PLATELET VOLUME 9.8 FL (7.4-10.4); MONOCYTES # (AUTO) 0.9 X 10^3 (0.0-1.0); MONOCYTES % (AUTO) 8 % (0-12); NEUTROPHILS # (AUTO) 9.3 X 10^3 (1.8-7.8); NEUTROPHILS % (AUTO) 78 % (42-75); PLATELET COUNT 314 10^3/uL (130-400); RED CELL DISTRIBUTION WIDTH 18.4 % (10.0-14.5); WHITE BLOOD COUNT 11.9 10^3/uL (4.3-11.0)
[2019-07-31 13:03] LABS: ALBUMIN 1.7 GM/DL (3.2-4.5); BILIRUBIN,TOTAL 1.1 MG/DL (0.1-1.0); CALCIUM 6.7 MG/DL (8.5-10.1); CREATININE SERUM 1.52 MG/DL (0.60-1.30); MAGNESIUM 1.5 MG/DL (1.6-2.4); POTASSIUM 3.6 MMOL/L (3.6-5.0); TOTAL PROTEIN 4.7 GM/DL (6.4-8.2)
== END | disposition home or self-care (01) ==
LOC: ONC 05-02 13:10
PROVIDERS: ATTEND Internal Medicine Hematology & Oncology
DX: Z51.0 Encounter for antineoplastic radiation therapy (principal); C18.0 Malignant neoplasm of cecum; C18.6 Malignant neoplasm of descending colon; C79.89 Secondary malignant neoplasm of other specified sites; N18.3 Chronic kidney disease, stage 3 (moderate); R91.8 Other nonspecific abnormal finding of lung field; Z79.899 Other long term (current) drug therapy; Z98.890 Other specified postprocedural states
CPT/HCPCS: 36591; 77336; 77470; 80053; 82378; 83735; 85025; 96360; 96361; 96365; 96367; 96374; 96375; 96413

== ENCOUNTER 2019-08-09 10:45 | Outpatient (RCR) | payer MEDICARE, OTHER ==
[~2019-08-09 10:45] MED LIST changes: +ACHD5005 PO; -ATROPINE INJ 0.4 MG/ML SDV (CANCER CENTER) INJ SCH; -BEVACIZUMAB INJECTION 400 MG in NS (IVPB) CANCER CENTER 100 ML IV SCH; -D5W 500 ML IV (CANCER CTR) 500 ML IV SCH; -FOSAPREPITANT DIMEGLUMINE 150 MG in NS (IVPB) CANCER CENTER ONLY 150 ML IV SCH; -HYDR-3812 PO; -IRINOTECAN HCL 200 MG, IRINOTECAN HCL 50 MG in D5W 250 ML IVPB (CANCER CTR) 250 ML IV SCH; -LEUCOVORIN CALCIUM 400 MG in D5W 250 ML IVPB (CANCER CTR) 250 ML IV SCH; -MAGNESIUM SULFATE 2 GM in NS (IVPB) CANCER CENTER 100 ML INJ ONE; -MAGNESIUM SULFATE IV ONE; -NS IV 1000 ML (CANCER CTR) 1,000 ML ONE; -NS IV 500 ML (CANCER CENTER) 500 ML ONE; -NS IV ONE; -ONDA8TAB12 PO; +ONDA8TAB15 PO; -ONDANSETRON MDV (CANCER CENTER 8 MG in NS (IVPB) CANCER CENTER 50 ML IV SCH; -OXALIPLATIN 100 MG, OXALIPLATIN (GENERIC) 20 MG in D5W 250 ML IVPB (CANCER CTR) 250 ML IV SCH; -PALONOSETRON HCL 0.25 MG, DEXAMETHASONE INJECTION 10 MG in NS (IVPB) CANCER CENTER 50 ML IV SCH; -morphine INJ 4 MG/ML 1 ML (CANCER CTR) IV PRN
== END 2019-11-07 | disposition home or self-care (01) ==
LOC: ONC 10:45
PROVIDERS: ATTEND Internal Medicine Hematology & Oncology
DX: C18.0 Malignant neoplasm of cecum (principal); C18.6 Malignant neoplasm of descending colon; C79.89 Secondary malignant neoplasm of other specified sites; N18.3 Chronic kidney disease, stage 3 (moderate); R91.8 Other nonspecific abnormal finding of lung field; Z79.899 Other long term (current) drug therapy; Z98.890 Other specified postprocedural states
CPT/HCPCS: 87077; 87088; 87186